=== PATIENT | male | born 1955 | race Caucasian/White ===

== ENCOUNTER → 2016-12-07 | Outpatient (CLI) | payer BC ==
--- NOTE | 2016-12-07 16:26 | CT ---
EXAMINATION TYPE: CT chest wo con DATE OF EXAM: 12/07/2016 COMPARISON: Previous study dated 12/26/2013. HISTORY: SOB AND COPD CT DLP: 730 mGycm. Automated Exposure Control for Dose Reduction was Utilized. TECHNIQUE: CT scan of the thorax is performed without IV contrast. FINDINGS: There are emphysematous changes throughout the lungs. There is a stable 6 mm lesion along t he major fissure on the right, best seen on image 36. There are several calcified granulomas at the r ight lung base. There is a stable 7.9 mm lesion in the lateral aspect of the superior segment of the left lower lobe, best seen on image 35. No other definite pulmonary nodules are seen. There is no significant axillary adenopathy. There are shotty mediastinal adenopathy. There is no pat hologically enlarged lymph nodes. There are calcified subcarinal lymph nodes as well as right hilar l ymph nodes. There is no pleural or pericardial fluid. The heart is not enlarged. There is coronary artery and oth er vascular calcifications. There is evidence of old granulomatous disease in the spleen. Visualized portions of the upper abdome n are otherwise unremarkable. There is hypertrophic spondylosis within the spine. IMPRESSION: 1. STABLE, BILATERAL PULMONARY NODULES. 2. EVIDENCE OF OLD GRANULOMATOUS DISEASE INVOLVING THE LUNGS AND SPLEEN. 3. EMPHYSEMATOUS CHANGES WITHIN THE LUNGS. 4. DEGENERATIVE CHANGES WITHIN THE SPINE.
--- NOTE | 2016-12-08 10:29 | ECHOF ---
Referral Reason:R22.2 Chest Mass, R06.02 shortness of breath MEASUREMENTS -------- HEIGHT: 180.3 cm WEIGHT: 104.3 kg BP: 150/78 RVIDd: 3.6 cm (< 3.3) IVSd: 1.2 cm (0.6 - 1.1) LVIDd: 5.0 cm (3.9 - 5.3) LVPWd: 1.2 cm (0.6 - 1.1) IVSs: 2.0 cm LVIDs: 2.7 cm LVPWs: 2.0 cm LAESV Index (A-L): 22.26 ml/m Ao Diam: 4.0 cm (2.0 - 3.7) AV Cusp: 2.2 cm (1.5 - 2.6) LA Diam: 3.9 cm (2.7 - 3.8) MV EXCURSION: 23.080 mm (> 18.000) MV EF SLOPE: 118 mm/s (70 - 150) EPSS: 0.5 cm MV E Abdullahi: 0.62 m/s MV DecT: 343 ms MV A Abdullahi: 0.79 m/s MV E/A Ratio: 0.79 FINDINGS -------- Sinus rhythm. This was a technically adequate study. There is mild concentric left ventricular hypertrophy. Overall left ventricular systolic function is normal with, an EF between 55 - 60 %. The right ventricle is normal in size and function. Normal LA size by volume 22+/-6 ml/m2. The right atrium is normal in size. Aortic valve is trileaflet and is mildly thickened. There is no evidence of aortic regurgitation. There is no evidence of aortic stenosis. The mitral valve is normal. There is trace to mild mitral regurgitation. Trace tricuspid regurgitation present. There is no evidence of pulmonary hypertension. The right ventricular systolic pressure, as measured by Doppler, is {RVSP}. The pulmonic valve was not well visualized. The aortic root size is normal. Normal inferior vena cava with normal inspiratory collapse consistent with estimated right atrial pressure of 5 mmHg. The pericardium is normal. There is no pericardial effusion. CONCLUSIONS -------- 1. Sinus rhythm. 2. The right ventricular systolic pressure, as measured by Doppler, is {RVSP}. 3. The pulmonic valve was not well visualized. 4. The aortic root size is normal. 5. There is no pericardial effusion. 6. This was a technically adequate study. 7. There is mild concentric left ventricular hypertrophy. 8. Overall left ventricular systolic function is normal with, an EF between 55 - 60 %. 9. Normal LA size by volume 22+/-6 ml/m2. 10. Aortic valve is trileaflet and is mildly thickened. 11. There is trace to mild mitral regurgitation. 12. Trace tricuspid regurgitation present. 13. There is no evidence of pulmonary hypertension. REPORTING ANALYST: Diony Slater RDCS
== END | disposition home or self-care (01) ==
LOC: RADCTMAIN 15:59
PROVIDERS: ATTEND Family Medicine
DX: J43.9 Emphysema, unspecified (principal); R91.8 Other nonspecific abnormal finding of lung field; I08.3 Combined rheumatic disorders of mitral, aortic and tricuspid valves
CPT/HCPCS: 71250; 93306

== ENCOUNTER → 2017-06-07 | Outpatient (CLI) | payer BC ==
--- NOTE | 2017-06-07 15:04 | NM ---
EXAMINATION TYPE: NM hepatobiliary w EF DATE OF EXAM: 06/07/2017 COMPARISON: NONE INDICATION: Abdomen pain TECHNIQUE: After the intravenous administration of 5.4 mCi Tc 99m Mebrofenin hepatobiliary scintigrap hy is performed. Images were obtained immediately post injection. FINDINGS: There is prompt uptake and excretion of radiotracer by the liver. Extrahepatic ducts are identified at 19 minutes. The gallbladder is visualized within 22 minutes. Small bowel activity is noted within 60 minutes. At one hour 8 ounces of oral ensure plus is given to mimic CCK and gallbladder ejection fraction is c alculated at 90 %, which is in the hyperkinesia range. (Normal >35% and <80%.). IMPRESSION: 1. Biliary hyperkinesia.
== END | disposition home or self-care (01) ==
LOC: RADNMMAIN 12:30
PROVIDERS: ATTEND Family Medicine
DX: K82.8 Other specified diseases of gallbladder (principal); R10.9 Unspecified abdominal pain
CPT/HCPCS: 78226; A9537

== ENCOUNTER 2017-07-25 06:37 | Day surgery (SDC) | payer BC ==
[~2017-07-25 06:37] MED LIST: DEXAMETHASONE SOD PHOSPHATE 10 MG/ML 1 ML VIAL IV ONE; HEPARIN SODIUM,PORCINE 5,000 UNIT/ML 1 ML VIAL SQ ONE; LIDOCAINE 1% 20 ML VIAL (10MG/ML) FOR IV START INTRADERMA PRN; ONDANSETRON 4 MG/2 ML VIAL IVP ONE; SCOPOLAMINE 1.5MG/72HR PATCH TRANSDERM ONE; ceFAZolin IN SWFI 2 GM/20 ML SYRINGE IVP ONE
[2017-07-25 07:18] VITALS: RESP 16
[2017-07-25] MEDS: LACTATED RINGERS 1,000 ML IV SCH ×2 (07:19→09:49)
--- NOTE | 2017-07-25 07:53 | P.GSHP ---
History of Present Illness H&P Date: 07/25/17 Chief Complaint: Upper quadrant pain, umbilical hernia This is a 62-year-old male for from Dr. Andres Torres. Patient presents today for laparoscopic ostectomy and repair of umbilical hernia. The patient had a recent HIDA scan which showed abnormal ejection fraction. Past Medical History Past Medical History: Asthma, COPD, GERD/Reflux, Pneumonia History of Any Multi-Drug Resistant Organisms: None Reported Past Surgical History: Appendectomy, Orthopedic Surgery Additional Past Surgical History / Comment(s): KNEE (SPOUSE NOT SURE WHICH SIDE) Past Anesthesia/Blood Transfusion Reactions: No Reported Reaction Past Psychological History: No Psychological Hx Reported Smoking Status: Former smoker Additional Past Alcohol Use History / Comment(s): QUIT 2016, 1.5 PPD, SINCE HE WAS 19 YR. - Past Family History Mother Family Medical History: Cancer Sister(s) Family Medical History: Cancer Medications and Allergies Home Medications Medication Instructions Recorded Confirmed Type Albuterol Sulfate [Proair Hfa] 1 - 2 puff INHALATION Q6HR PRN 06/09/17 07/25/17 History Levalbuterol Nebulized [Xopenex 1.25 mg INHALATION QID 06/09/17 07/25/17 History Nebulized] Multivit-Min/FA/Lycopen/Lutein 1 each PO DAILY 06/09/17 07/25/17 History [Centrum Silver Men Tablet] Omeprazole [Omeprazole] 20 mg PO HS 06/09/17 07/25/17 History Roflumilast [Daliresp] 500 mcg PO HS 06/09/17 07/25/17 History Tiotropium [place] [Spiriva] 1 dose INHALATION 06/09/17 07/25/17 History C,E,Zinc,Copper 11/Qkxsq9y/Lut 1 tab PO DAILY 07/21/17 07/25/17 History [Ocuvite Adult 50 Plus Softgel] Cider Vinegar [Apple Cider Vinegar] 1 tab PO DAILY 07/21/17 07/25/17 History Allergies Allergy/AdvReac Type Severity Reaction Status Date / Time No Known Allergies Allergy Verified 07/25/17 07:10 Surgical - Exam Vital Signs Temp Pulse Resp BP Pulse Ox 97.7 F 74 16 148/80 93 L 07/25/17 07:15 07/25/17 07:15 07/25/17 07:15 07/25/17 07:15 07/25/17 07:15 - General well developed, no distress - Eyes PERRL - ENT normal pinna - Neck no masses - Respiratory normal expansion - Cardiovascular Rhythm: regular - Abdomen Abdomen: soft, non tender Hernia: umbilical (Reducible) Assessment and Plan Assessment: Chronic cholecystitis Abnormal HIDA scan Umbilical hernia We'll perform laparoscopic ostectomy with repair of umbilical hernia.
[2017-07-25] MEDS ORDERED: GLYCOPYRROLATE 0.2 MG/ML 2 ML VIAL ONE (07:58)
[2017-07-25] MEDS ORDERED: SUCCINYLCHOLINE CHLORIDE 100 MG/5 ML SYR IV ONE (07:58)
[2017-07-25] MEDS ORDERED: LIDOCAINE 1% INJ 10MG/ML (20 ML MDV) ONE (07:58)
[2017-07-25] MEDS ORDERED: fentaNYL (PF) 50 MCG/ML 2 ML AMP ONE (07:58)
[2017-07-25] MEDS ORDERED: PROPOFOL 10 MG/ML 20 ML VIAL IV ONE (07:58)
[2017-07-25] MEDS ORDERED: ROCURONIUM BROMIDE 10 MG/ML 10 ML VIAL IV ONE (07:58)
[2017-07-25] MEDS ORDERED: KETOROLAC 30 MG/ML 1 ML VIAL ONE (07:58)
[2017-07-25] MEDS ORDERED: NEOSTIGMINE 1 MG/ML 10 ML VIAL ONE (07:58)
[2017-07-25] MEDS ORDERED: MIDAZOLAM 2 MG/2 ML VIAL ONE (07:58)
[2017-07-25] MEDS ORDERED: BUPIVACAINE (PF) 0.5% 30 ML VIAL SQ ONE (08:14)
[2017-07-25] MEDS ORDERED: BUPIVACAINE (PF) 0.25% 30 ML VIAL SQ ONE ×2 (08:14)
[2017-07-25 08:53] VITALS: TEMP 97
[2017-07-25] MEDS: HYDROmorphone 0.5 MG/0.5 ML SYRINGE IVP PRN ×2 (09:00→09:11)
--- NOTE | 2017-07-25 09:43 | P.OP ---
Date of Procedure: 07/25/17 Preoperative Diagnosis: cholecystitis Postoperative Diagnosis: Cholecystitis Procedure(s) Performed: laproscopic cholecytectomy Anesthesia: YAIR Surgeon: Virgil Chaney Estimated Blood Loss (ml): 5 Pathology: other (Gallbladder) Condition: stable Disposition: PACU Description of Procedure: The patient was placed on the operating table. The patient received a general endotracheal tube anesthesia. The patients abdomen was prepped and draped in the usual sterile fashion. Through an infraumbilical stab incision, the fascia of the anterior abdominal wall was grasped with a pair of Kochers and then the Veress needle was placed in the peritoneal cavity. Position of the Veress needle was confirmed with positive drop test. The abdomen was then insufflated. After adequate insufflation, the 10 mm trocar was placed in the peritoneal cavity. Following this the laparoscope was placed in the peritoneal cavity. The patient was placed in the head-up, right side up position and then a 5 mm trocar was placed in the right lateral and right subcostal position under direct visualization. A 8 mm trocar was placed in the epigastric position. The gallbladder was grasped in the fundus and infundibulum. Traction on the gallbladder was placed in the lateral and the cephalad positions. The triangle of Calot was visualized.. The cystic duct was bluntly dissected until the union of the cystic duct and common bile duct was seen. The cystic duct was then divided and sealed with the Harmonic scissors. A PDS Endoloop was then placed throughout the cystic duct stump. The cystic artery divided and sealed with the Harmonic scissors. The gallbladder was then removed from the liver bed using Harmonic scissors. The gallbladder was then extracted through the epigastric port site. Operative field was checked for any bleeding spots and Harmonic scissors was used to coagulate the liver bed. The abdomen was irrigated. The trocars were removed. The skin was closed using interrupted 3-0 Vicryl suture. Dermabond dressing were applied. The patient tolerated the procedure well.
[2017-07-25] MEDS ORDERED: HYDROcodone/APAP 7.5-325MG 1 EACH TAB PO ONE (10:03)
[2017-07-25 10:51] VITALS: BP 131/73; PULSE 58
== END 2017-07-25 11:20 | disposition home or self-care (01) ==
LOC: OR 06:37
PROVIDERS: ATTEND Surgery
DX: K81.1 Chronic cholecystitis (principal); K42.9 Umbilical hernia without obstruction or gangrene; J44.9 Chronic obstructive pulmonary disease, unspecified; K21.9 Gastro-esophageal reflux disease without esophagitis; Z87.891 Personal history of nicotine dependence; Z79.899 Other long term (current) drug therapy
CPT/HCPCS: 88304; 47562; J2250; J1644; J1100; J2710; J2405; J2001; J3010; J1885; J0330; J2704; J1170; J0690

== ENCOUNTER 2017-08-01 15:28 | Emergency (ER) | payer BC ==
[2017-08-01 16:22] LABS: Basophils # (A) 0.1 k/uL (0-0.2); Basophils % (A) 0 %; Eosinophils # (A) 0.3 k/uL (0-0.7); Eosinophils % (A) 2 %; HCT 48.1 % (39.0-53.0); HGB 16.1 gm/dL (13.0-17.5); Lymphocytes # (A) 1.2 k/uL (1.0-4.8); Lymphocytes % (A) 7 %; MCH 28.4 pg (25.0-35.0); MCHC 33.5 g/dL (31.0-37.0); MCV 84.7 fL (80.0-100.0); Mean Platelet Volume 6.7; Monocytes # (A) 0.9 k/uL (0-1.0); Monocytes % (A) 5 %; Neutrophils # (A) 14.8 k/uL (1.3-7.7); Neutrophils % (A) 85 %; Platelet Count 274 k/uL (150-450); RBC 5.67 m/uL (4.30-5.90); RDW 13.4 % (11.5-15.5); WBC 17.4 k/uL (3.8-10.6)
[2017-08-01 16:35] LABS: ALT 34 U/L (21-72); AST 18 U/L (17-59); Albumin 4.4 g/dL (3.5-5.0); Alkaline Phosphatase 100 U/L (38-126); Amylase 42 U/L (30-110); Anion Gap 11 mmol/L; Blood Urea Nitrogen 23 mg/dL (9-20); Calcium 9.9 mg/dL (8.4-10.2); Carbon Dioxide 29 mmol/L (22-30); Chloride 101 mmol/L (98-107); Glucose 138 mg/dL (74-99); Lipase 50 U/L (23-300); Potassium 4.1 mmol/L (3.5-5.1); Sodium 141 mmol/L (137-145); Total Bilirubin 0.8 mg/dL (0.2-1.3); Total Protein 7.3 g/dL (6.3-8.2)
[2017-08-01] MEDS ORDERED: ONDANSETRON 4 MG/2 ML VIAL IVP STA (16:57)
[2017-08-01] MEDS ORDERED: MORPHINE SULFATE 4 MG/ML SYRINGE IV STA (16:57)
[2017-08-01] MEDS ORDERED: SODIUM CHLORIDE 0.9% 1,000 ML IV STA (16:57)
--- NOTE | 2017-08-01 17:02 | ED ---
General Adult HPI - General Chief complaint: Abdominal Pain Stated complaint: Abd Pain Time Seen by Provider: 08/01/17 16:51 Source: patient, RN notes reviewed Mode of arrival: ambulatory Limitations: no limitations - History of Present Illness Initial comments: Patient's a 22-year-old male who presents emergency room today with chief complaint of abdominal pain. Patient does admit to a cholecystectomy and hernia repair times one week. Patient states that he's had only one bowel movement since surgery. He does not that he has passed some gas. Patient does admit that his abdomen feels more full. Patient currently rates pain 8/10. Denies any other complaints or symptoms. States pain is located lower abdomen. Patient denies any recent fever, chills, shortness of breath, chest pain, back pain, numbness or tingling, dysuria or hematuria, constipation or diarrhea, headaches or visual changes, or any other complaints. - Related Data Home Medications Medication Instructions Recorded Confirmed Albuterol Sulfate [Proair Hfa] 1 - 2 puff INHALATION RT-Q6H PRN 06/09/17 Levalbuterol Nebulized [Xopenex 1.25 mg INHALATION RT-QID 06/09/17 08/01/17 Nebulized] Multivit-Min/FA/Lycopen/Lutein 1 tab PO DIRECTED 06/09/17 08/01/17 [Centrum Silver Men Tablet] Omeprazole [Omeprazole] 20 mg PO DAILY 06/09/17 08/01/17 Roflumilast [Daliresp] 500 mcg PO DIRECTED 06/09/17 08/01/17 Tiotropium [place] [Spiriva] 1 puff INHALATION RT-HS 06/09/17 08/01/17 C,E,Zinc,Copper 11/Kdpmn1f/Lut 1 tab PO DIRECTED 07/21/17 08/01/17 [Ocuvite Adult 50 Plus Softgel] Polyethylene Glycol 3350 [Miralax] 17 gm PO DAILY PRN 08/01/17 08/01/17 Previous Rx's Medication Instructions Recorded Docusate [Colace] 100 mg PO BID #20 capsule 07/25/17 Allergies Allergy/AdvReac Type Severity Reaction Status Date / Time No Known Allergies Allergy Verified 08/01/17 17:08 Review of Systems ROS Statement: Those systems with pertinent positive or pertinent negative responses have been documented in the HPI. ROS Other: All systems not noted in ROS Statement are negative. Past Medical History Past Medical History: Asthma, COPD, GERD/Reflux, Pneumonia History of Any Multi-Drug Resistant Organisms: None Reported Past Surgical History: Appendectomy, Cholecystectomy, Hernia Repair, Orthopedic Surgery Additional Past Surgical History / Comment(s): KNEE (SPOUSE NOT SURE WHICH SIDE) Past Anesthesia/Blood Transfusion Reactions: No Reported Reaction Past Psychological History: No Psychological Hx Reported Smoking Status: Former smoker Past Alcohol Use History: None Reported Past Drug Use History: None Reported - Past Family History Mother Family Medical History: Cancer Sister(s) Family Medical History: Cancer General Exam - General Exam Comments Initial Comments: General: The patient is awake and alert, in no distress, and does not appear acutely ill. Eye: Pupils are equal, round and reactive to light, extra-ocular movements are intact. No nystagmus. There is normal conjunctiva bilaterally. No signs of icterus. Ears, nose, mouth and throat: There are moist mucous membranes and no oral lesions. Neck: The neck is supple, there is no tenderness or JVD. Cardiovascular: There is a regular rate and rhythm. No murmur, rub or gallop is appreciated. Respiratory: Lungs are clear to auscultation, respirations are non-labored, breath sounds are equal. No wheezes, stridor, rales, or rhonchi. Gastrointestinal: Incision sites seem to be healing well. Mild bruising locally. Patient does have tenderness in the right lower quadrant and also left upper quadrant. No rebound tenderness. No guarding. No CVA tenderness. Musculoskeletal: Normal ROM, no tenderness. Strength 5/5. Sensation intact. Pulses equal bilaterally 2+. Neurological: A&O x 3. CN II-XII intact, There are no obvious motor or sensory deficits. Coordination appears grossly intact. Speech is normal. Skin: Skin is warm and dry and no rashes or lesions are noted. Psychiatric: Cooperative, appropriate mood & affect, normal judgment. Limitations: no limitations Course Vital Signs 08/01/17 08/01/17 08/01/17 15:43 18:18 19:00 Temperature 98.2 F 98.3 F Pulse Rate 94 83 83 Respiratory 18 20 18 Rate Blood Pressure 169/85 183/81 168/86 O2 Sat by Pulse 95 100 95 Oximetry Medical Decision Making - Medical Decision Making Patient's labs been reviewed shows 17,000 white count. Patient did have recent surgery of cholecystectomy and hernia repair. Patient CT of the abdomen and pelvis reviewed does show mildly dilated large bowel with fluid filled and fecal material consistent with diarrhea. No evidence of obstruction. Patient was given enema here in emergency room. Was able have bowel movement is feeling better. Will be discharged home. Advised follow-up with surgeon or return to emergency room symptoms increase or worsen. - Lab Data Result diagrams: 08/01/17 16:13 08/01/17 16:13 Lab Results 08/01/17 08/01/17 08/01/17 Range/Units 16:13 16:13 17:27 WBC 17.4 H (3.8-10.6) k/uL RBC 5.67 (4.30-5.90) m/uL Hgb 16.1 (13.0-17.5) gm/dL Hct 48.1 (39.0-53.0) % MCV 84.7 (80.0-100.0) fL MCH 28.4 (25.0-35.0) pg MCHC 33.5 (31.0-37.0) g/dL RDW 13.4 (11.5-15.5) % Plt Count 274 (150-450) k/uL Neutrophils % 85 % Lymphocytes % 7 % Monocytes % 5 % Eosinophils % 2 % Basophils % 0 % Neutrophils # 14.8 H (1.3-7.7) k/uL Lymphocytes # 1.2 (1.0-4.8) k/uL Monocytes # 0.9 (0-1.0) k/uL Eosinophils # 0.3 (0-0.7) k/uL Basophils # 0.1 (0-0.2) k/uL Sodium 141 (137-145) mmol/L Potassium 4.1 (3.5-5.1) mmol/L Chloride 101 (98-107) mmol/L Carbon Dioxide 29 (22-30) mmol/L Anion Gap 11 mmol/L BUN 23 H (9-20) mg/dL Creatinine 0.90 (0.66-1.25) mg/dL Est GFR (MDRD) Af Amer >60 (>60 ml/min/1.73 sqM) Est GFR (MDRD) Non-Af >60 (>60 ml/min/1.73 sqM) Glucose 138 H (74-99) mg/dL Plasma Lactic Acid Rian 1.0 (0.7-2.0) mmol/L Calcium 9.9 (8.4-10.2) mg/dL Total Bilirubin 0.8 (0.2-1.3) mg/dL AST 18 (17-59) U/L ALT 34 (21-72) U/L Alkaline Phosphatase 100 (38-126) U/L Total Protein 7.3 (6.3-8.2) g/dL Albumin 4.4 (3.5-5.0) g/dL Amylase 42 (30-110) U/L Lipase 50 (23-300) U/L Disposition Clinical Impression: Postoperative abdominal pain Disposition: HOME SELF-CARE Condition: Good Instructions: Constipation (ED) Additional Instructions: Please use medication as discussed. Please follow-up with surgeon/family doctor in the next 2 days of symptoms have not improved. Please return to emergency room if the symptoms increase or worsen or for any other concerns. Referrals: Andres Torres DO [Primary Care Provider] - 1-2 days Virgil Chaney MD [STAFF PHYSICIAN] - 1-2 days Time of Disposition: 20:14
[2017-08-01] MEDS ORDERED: RX INFO: IV CONTRAST WAS GIVEN 1 EACH MISC MISCELLANE PRN (17:12)
--- NOTE | 2017-08-01 18:49 | CT ---
EXAMINATION TYPE: CT abdomen pelvis w con DATE OF EXAM: 08/01/2017 COMPARISON: 05/11/2016 HISTORY: Hernia repair and cholecystectomy 1 week ago. Constipation, abdominal pain and nausea and vo miting. CT DLP: 1648 mGycm Automated exposure control for dose reduction was used. TECHNIQUE: Helical acquisition of images was performed from the lung bases through the pelvis. CONTRAST: Performed without Oral Contrast and with IV Contrast, patient injected with 100 mL of Omnipaque 350. FINDINGS: Lung bases are clear of consolidation. There is a 1.5 cm calcified granuloma in the right lower lobe. There is no pleural effusion. Heart size is normal. Liver shows no focal defect. There are multiple calcified splenic granulomata. Pancreas appears kali l. There are clips from cholecystectomy. The bile ducts are not dilated. There is no adrenal mass. Kidneys show satisfactory contrast opacification. There is no hydronephrosi s. There is no retroperitoneal adenopathy. There is no ascites. There are multiple gas-filled distend ed large bowel loops with fluid levels and fecal material. There is minimal fluid in the left paracolic gutter. There is a tiny amount of free fluid in the pelv is. Bladder distends smoothly. There are fluid levels in the rectum. There is no sign of free air. Th ere are spondylotic changes in the lumbar spine. There is no sign of appendicitis. Appendix appears n ormal. There is no sign of appendicitis. IMPRESSION: HEALED GRANULOMATOUS DISEASE. MILDLY DILATED LARGE BOWEL WITH FLUID LEVELS AND FECAL MATERIAL CONSISTENT WITH DIARRHEA AND ILEUS. T HIS APPEARS NEW COMPARED TO OLD EXAM. MINIMAL ASCITES FLUID. I DO NOT SEE EVIDENCE FOR MECHANICAL BOW EL OBSTRUCTION.
[2017-08-01] MEDS ORDERED: MORPHINE SULFATE 4 MG/ML SYRINGE IVP STA (19:08)
[2017-08-01 20:24] VITALS: BP 177/93; PULSE 85; RESP 20; TEMP 97.9
== END 2017-08-01 20:31 | disposition home or self-care (01) ==
LOC: EC 15:28
DX: G89.18 Other acute postprocedural pain (principal); R10.30 Lower abdominal pain, unspecified; R14.3 Flatulence; K21.9 Gastro-esophageal reflux disease without esophagitis; J44.9 Chronic obstructive pulmonary disease, unspecified; Z87.891 Personal history of nicotine dependence; Z79.899 Other long term (current) drug therapy; Z90.49 Acquired absence of other specified parts of digestive tract
CPT/HCPCS: 36415; 80053; 82150; 83605; 83690; 85025; 74177; 99284; 96374; 96375; 96376; 96361; J2270; Q9967; J2405

== ENCOUNTER → 2018-06-21 | Outpatient (CLI) | payer BC ==
--- NOTE | 2018-06-21 13:57 | CT ---
EXAMINATION TYPE: CT abdomen wo/w con DATE OF EXAM: 06/21/2018 COMPARISON: CT abdomen pelvis August 01, 2017 HISTORY: History of hernia repair surgery and diverticulitis presents with abdominal pain CT DLP: 1812 mGycm, Automated Exposure Control for Dose Reduction was Utilized. CONTRAST: CT scan of the abdomen is performed with oral and without and with IV Contrast, patient injected with 100 mL of Isovue 300. FINDINGS: LUNG BASES: Scattered calcified nodules are granulomas throughout the right lower lobe are present. LIVER/GB: Gallbladder remains surgically absent. PANCREAS: No significant abnormality is seen. SPLEEN: Scattered calcifications throughout the spleen are again seen. Right lung is splenic findings are consistent with product of old granulomatous disease. ADRENALS: No significant abnormality is seen. KIDNEYS: No renal calculi on noncontrast CT. Postcontrast images show symmetric uptake and excretion without hydronephrosis bilaterally. BOWEL: Oral contrast does not reach colonic level. There is no suspicious small or large bowel dilata tion. LYMPH NODES: No greater than 1cm abdominal lymph nodes are appreciated. OSSEOUS STRUCTURES: Mild to moderate multilevel spurring in the visualized thoracolumbar spine is not ed OTHER: Small to moderate-sized left periumbilical hernia containing fat and tiny mesenteric vessels a xial image 51 is present. Mild to moderate mixed plaque throughout the abdominal aorta extends into b ranch vessels. IMPRESSION: No significant new or acute finding is seen to account for patient's clinical symptoms.
== END | disposition home or self-care (01) ==
LOC: RADCTMAIN 11:38
PROVIDERS: ATTEND Family Medicine
DX: R10.84 Generalized abdominal pain (principal); K57.90 Diverticulosis of intestine, part unspecified, without perforation or abscess without bleeding
CPT/HCPCS: 74170; Q9967

== ENCOUNTER 2018-07-12 08:48 | Day surgery (SDC) | payer BC ==
[~2018-07-12 08:48] MED LIST changes: -DEXAMETHASONE SOD PHOSPHATE 10 MG/ML 1 ML VIAL IV ONE; -HEPARIN SODIUM,PORCINE 5,000 UNIT/ML 1 ML VIAL SQ ONE; +LACTATED RINGERS 1,000 ML IV SCH; -LIDOCAINE 1% 20 ML VIAL (10MG/ML) FOR IV START INTRADERMA PRN; -ONDANSETRON 4 MG/2 ML VIAL IVP ONE; -SCOPOLAMINE 1.5MG/72HR PATCH TRANSDERM ONE; -ceFAZolin IN SWFI 2 GM/20 ML SYRINGE IVP ONE
[2018-07-12] MEDS ORDERED: LIDOCAINE 1% 20 ML VIAL (10MG/ML) FOR IV START INTRADERMA ONE (09:47)
[2018-07-12 09:54] VITALS: TEMP 96.9
[2018-07-12] MEDS ORDERED: PROPOFOL 10 MG/ML 20 ML VIAL IV ONE (10:15)
--- NOTE | 2018-07-12 10:42 | P.PCN ---
Date of Procedure: 07/12/18 Procedure(s) Performed: Brief history: Patient is a pleasant 63-year-old white male, scheduled for an elective upper endoscopy as well as colonoscopy as a part of evaluation of GERD and recent episode of acute diverticulitis. Procedure performed: Esophagogastroduodenoscopy with biopsy Colonoscopy with snare polypectomy Preoperative diagnosis: GERD Recent episode of acute diverticulitis Anesthesia: MAC Procedure: After informed consent was obtained from the patient was brought into the endoscopy unit and IV sedation was administered by anesthesia under continuous monitoring. Initially upper endoscopy was done. The Olympus GF 160 video endoscope was inserted inserted into the mouth and esophagus intubated without any difficulty and was gradually advanced into the stomach and duodenum and carefully examined. The bulb and second part of the duodenum appeared normal. The scope was then withdrawn into the stomach adequately insufflated with air and upon careful examination the antrum had scattered erosions and biopsies were done from this area. The body, cardia and fundus appeared normal. The scope was then withdrawn into the esophagus. The GE junction was located at 40 cm to the incisors. It appeared regular with no erythema erosions or ulcerations. Rest of the esophagus appeared normal. Patient tolerated the procedure well. At this time the patient continued to remain sedation. Initial digital rectal examination was normal. Olympus CF 160 video colonoscope was then inserted into the rectum and gradually advanced to the cecum without any difficulty. Careful examination was performed as the scope was gradually being withdrawn. The prep was excellent. The cecum, ascending colon, transverse colon, descending colon, sigmoid colon and rectum appeared normal. In the proximal rectum there was a 1 cm polyp removed by snare polypectomy. Retroflexion was performed in the rectum and monitor hemorrhoids were noted. Scattered sigmoid diverticulosis seen. Patient tolerated the procedure well. Impression: 1. Upper endoscopy revealed mild antral gastritis but no evidence of esophagitis or Liu's esophagus 2. Colonoscopy revealed 1 cm proximal rectal polyp status post snare polypectomy, scattered sigmoid diverticulosis and small internal hemorrhoids Recommendations: Findings of this examination were discussed with the patient as well as his family. He was advised to follow with the biopsy results. He was advised to continue with Prilosec 20 mg daily and follow antireflux measures. If the biopsy of the colon polyp shows adenoma, he can have a repeat colonoscopy in 3- 5 years
[2018-07-12 10:58] VITALS: RESP 16
[2018-07-12] MEDS ORDERED: ACETAMINOPHEN TAB 500 MG TAB PO ONE (11:09)
[2018-07-12 11:18] VITALS: BP 169/82; PULSE 58
== END 2018-07-12 11:38 | disposition home or self-care (01) ==
LOC: ORWHC2ENDO 08:48
PROVIDERS: ATTEND Internal Medicine Gastroenterology
DX: K21.9 Gastro-esophageal reflux disease without esophagitis (principal); K29.60 Other gastritis without bleeding; D12.8 Benign neoplasm of rectum; K57.30 Diverticulosis of large intestine without perforation or abscess without bleeding; K64.8 Other hemorrhoids; B96.81 Helicobacter pylori [H. pylori] as the cause of diseases classified elsewhere
CPT/HCPCS: 88305; 88342; 45385; 43239; J2704

== ENCOUNTER → 2018-08-11 | Outpatient (CLI) | payer BC ==
[2018-08-11 09:37] LABS: HCT 46.9 % (39.0-53.0); HGB 15.7 gm/dL (13.0-17.5); MCH 28.9 pg (25.0-35.0); MCHC 33.6 g/dL (31.0-37.0); Mean Platelet Volume 6.4; Platelet Count 219 k/uL (150-450); RBC 5.45 m/uL (4.30-5.90); WBC 8.3 k/uL (3.8-10.6)
[2018-08-11 10:12] LABS: Albumin 4.5 g/dL (3.5-5.0); Calcium 9.7 mg/dL (8.4-10.2); Potassium 5.1 mmol/L (3.5-5.1); Total Bilirubin 0.6 mg/dL (0.2-1.3); Total Protein 7.3 g/dL (6.3-8.2)
[2018-08-11 10:25] LABS: T4, Free (Free Thyroxine) 1.36 ng/dL (0.78-2.19)
[2018-08-11 14:38] LABS: Appearance,Urine Clear (Clear); Bilirubin,Urine Negative (Negative); Blood,Urine Negative (Negative); Color,Urine Yellow; Glucose,Urine (UA) Negative (Negative); Ketones,Urine Negative (Negative); Leukocyte Esterase,Urine Negative (Negative); Nitrite,Urine Negative (Negative); Protein,Urine Negative (Negative); Specific Gravity,Urine 1.018 (1.001-1.035); Urobilinogen,Urine <2.0 mg/dL (<2.0)
--- NOTE | 2018-08-11 17:56 | US ---
EXAMINATION TYPE: US venous doppler duplex LE BI DATE OF EXAM: 08/11/2018 2:45 PM COMPARISON: NONE CLINICAL HISTORY: I73.9 PAD. SIDE PERFORMED: Bilateral TECHNIQUE: The lower extremity deep venous system is examined utilizing real time linear array sonog audra with graded compression, doppler sonography and color-flow sonography. VESSELS IMAGED: External Iliac Vein (EIV) Common Femoral Vein Deep Femoral Vein Greater Saphenous Vein * Femoral Vein Popliteal Vein Small Saphenous Vein * Proximal Calf Veins (* superficial vessels) Right Leg: Negative for DVT Left Leg: Negative for DVT IMPRESSION: 1. Bilateral lower extremity ultrasound negative for deep venous thrombosis.
[2018-08-11 19:43] LABS: Hemoglobin A1C 5.6 % (4.0-6.0)
== END | disposition home or self-care (01) ==
LOC: RADUSWWP 09:12
PROVIDERS: ATTEND Family Medicine
DX: I73.9 Peripheral vascular disease, unspecified (principal); E73.9 Lactose intolerance, unspecified; J44.0 Chronic obstructive pulmonary disease with (acute) lower respiratory infection; I10 Essential (primary) hypertension; G47.33 Obstructive sleep apnea (adult) (pediatric)
CPT/HCPCS: 80053; 80061; 81003; 83036; 84439; 84443; 85027; 93923; 93970

== ENCOUNTER → 2018-12-18 | Outpatient (CLI) | payer BC ==
--- NOTE | 2018-12-19 00:41 | XR ---
EXAMINATION TYPE: XR chest 2V DATE OF EXAM: 12/18/2018 COMPARISON: 08/15/2013 HISTORY: 63-year-old male COPD exacerbation TECHNIQUE: Frontal and lateral views FINDINGS: Heart normal size. Atherosclerotic arch calcifications. Hyperinflation with flattening of the hemidia phragms and strandy left basilar atelectasis. No consolidation or pleural effusion. IMPRESSION: COPD and some strandy left basilar atelectasis. Otherwise, no acute process seen.
== END | disposition home or self-care (01) ==
LOC: RADXRMAIN 17:08
PROVIDERS: ATTEND Family Medicine
DX: J44.9 Chronic obstructive pulmonary disease, unspecified (principal); J98.11 Atelectasis
CPT/HCPCS: 71046

== ENCOUNTER → 2019-01-11 | Outpatient (CLI) | payer BC | END | disposition home or self-care (01) | LOC: LABWHC1 08:39 | PROVIDERS: ATTEND Family Medicine | DX: J44.9 Chronic obstructive pulmonary disease, unspecified (principal) | CPT/HCPCS: 87070; 87205 ==

== ENCOUNTER 2019-07-07 17:31 | Inpatient (IN) | payer BC ==
[2019-07-07] MEDS ORDERED: ACETAMINOPHEN TAB 500 MG TAB PO STA (17:40)
[2019-07-07] MEDS: SODIUM CHLORIDE 0.9% 500 ML 500 ML IV SCH ×2 (17:50→17:51)
[2019-07-07 17:56] LABS: Basophils # (A) 0.3 k/uL (0-0.2); Basophils % (A) 1 %; Eosinophils # (A) 0.3 k/uL (0-0.7); Eosinophils % (A) 1 %; HGB 13.9 gm/dL (13.0-17.5); Lymphocytes # (A) 1.2 k/uL (1.0-4.8); Lymphocytes % (A) 5 %; MCH 29.2 pg (25.0-35.0); MCV 85.9 fL (80.0-100.0); Mean Platelet Volume 7.2; Monocytes # (A) 1.1 k/uL (0-1.0); Monocytes % (A) 5 %; Neutrophils # (A) 18.8 k/uL (1.3-7.7); Neutrophils % (A) 86 %; Platelet Count 220 k/uL (150-450); RBC 4.77 m/uL (4.30-5.90); RDW 13.7 % (11.5-15.5); WBC 21.9 k/uL (3.8-10.6)
[2019-07-07 18:04] LABS: INR 1.1 (<1.2); Partial Thromboplastin Time 25.1 sec (22.0-30.0); Prothrombin Time 11.3 sec (9.0-12.0)
--- NOTE | 2019-07-07 18:14 | XR ---
EXAMINATION TYPE: XR chest 2V DATE OF EXAM: 07/07/2019 COMPARISON: 12/18/2018 HISTORY: COPD TECHNIQUE: 2 views FINDINGS: Heart is normal. Lungs are clear of consolidation. There are no hilar masses. There are sma ll calcified granuloma left lower lobe. There are chest leads. Bony thorax is intact. IMPRESSION: No active cardiopulmonary disease. No change.
[2019-07-07 18:16] LABS: ALT 38 U/L (4-49); AST 28 U/L (17-59); African American GFR (CKD) >90 (>60 ml/min/1.73 sqM); Albumin 4.5 g/dL (3.5-5.0); Alkaline Phosphatase 91 U/L (38-126); Anion Gap 11 mmol/L; Blood Urea Nitrogen 13 mg/dL (9-20); Calcium 9.4 mg/dL (8.4-10.2); Carbon Dioxide 26 mmol/L (22-30); Chloride 100 mmol/L (98-107); Glucose 118 mg/dL (74-99); Non-African American GFR(CKD) >90 (>60 ml/min/1.73 sqM); Sodium 137 mmol/L (137-145); Total Bilirubin 1.3 mg/dL (0.2-1.3); Total Protein 7.4 g/dL (6.3-8.2)
--- NOTE | 2019-07-07 18:33 | ED ---
General Adult HPI - General Chief complaint: Shortness of Breath Stated complaint: Fever, JAN Time Seen by Provider: 07/07/19 17:39 Source: patient Mode of arrival: ambulatory Limitations: no limitations - History of Present Illness Initial comments: Dictation was produced using n[employer]AP dictation software. please excuse any grammatical, word or spelling errors. Chief Complaint: 64-year-old male past medical history of COPD presents with cough, nasal congestion History of Present Illness: 64-year-old male who has past medical history of COPD, asthma, pneumonia. Currently being treated with chronic steroids by his primary care physician for ongoing respiratory symptoms since of last year. States that he just completed a course of antibiotics. He's been on Bactrim and Augmentin for pneumonia in the past. Patient states that since yesterday been having fever and flulike symptoms. He has slight dyspnea and difficulty in breathing. Patient reports that a lot of his coworkers have been sick with similar symptoms. He's been told that he has low immunity because of his COPD. The ROS documented in this emergency department record has been reviewed and confirmed by me. Those systems with pertinent positive or negative responses have been documented in the HPI. All other systems are other negative and/or noncontributory. PHYSICAL EXAM: General Impression: Alert and oriented x3, not in acute distress HEENT: Normocephalic atraumatic, extra-ocular movements intact, pupils equal and reactive to light bilaterally, mucous membranes moist. Cardiovascular: Heart regular rate and rhythm, S1&S2 audible, no murmurs, rubs or gallops Chest: Mild lung wheezing Abdomen: Bowel sounds present, abdomen soft, non-tender, non-distended, no organomegaly Musculoskeletal: Pulses present and equal in all extremities, no peripheral edema Motor: no focal deficits noted Neurological: CN II-XII grossly intact, no focal motor or sensory deficits noted Skin: Intact with no visualized rashes Psych: Normal affect and mood ED course: 64 y Old male presents with flulike symptoms he has a history of COPD. Upon arrival shows tachycardia 102.0, heart rate of 103, 89% on room air. Laboratory evaluation obtained. Leukocytosis of 21.9. Pritchett whether this is from chronic steroid use or stress versus infection. Coag panel unremarkable. Metabolic panel is negative. Urinalysis is negative. Influenza is negative. Chest x-ray shows no acute processes. Patient does have localizing symptoms suggesting URI. Unclear whether this is viral versus early onset pneumonia without radiographic evidence. Given patient's history of COPD and initial oxygen of 89 with temperature and tachycardia believe patient would benefit from short inpatient admission for observation. Patient given a dose of Unasyn for presumed bacterial respiratory infection. Patient understandable agreeable to plan. Pending discussion with Dr. Ugalde who is organizational development director for patient's primary care physician EKG interpretation: Ventricular rate 96, normal sinus rhythm, AZ interval 136, QS 90, QTc 442. No AZ prolongation, no QTC prolongation, no ST or T-wave changes noted. Overall, this EKG is unremarkable - Related Data Home Medications Medication Instructions Recorded Confirmed Albuterol Sulfate [Proair Hfa] 1 - 2 puff INHALATION RT-Q6H PRN 06/09/17 07/12/18 Levalbuterol Nebulized [Xopenex 1.25 mg INHALATION RT-QID 06/09/17 07/12/18 Nebulized] Multivit-Min/FA/Lycopen/Lutein 1 tab PO DIRECTED 06/09/17 07/12/18 [Centrum Silver Men Tablet] Omeprazole 20 mg PO QAM 06/09/17 07/12/18 Tiotropium [place] [Spiriva] 1 puff INHALATION RT-HS 06/09/17 07/12/18 C,E,Zinc,Copper 11/Oflyz8l/Lut 1 tab PO DIRECTED 07/21/17 07/12/18 [Ocuvite Adult 50 Plus Softgel] Aclidinium [place] [Tudorza 1 puff INHALATION DAILY 07/10/18 07/12/18 Pressair] Tamsulosin HCl [Flomax] 0.4 mg PO DAILY 07/10/18 07/12/18 Allergies Allergy/AdvReac Type Severity Reaction Status Date / Time No Known Allergies Allergy Verified 07/12/18 09:41 Review of Systems ROS Statement: Those systems with pertinent positive or pertinent negative responses have been documented in the HPI. ROS Other: All systems not noted in ROS Statement are negative. Past Medical History Past Medical History: Asthma, COPD, GERD/Reflux, Pneumonia History of Any Multi-Drug Resistant Organisms: None Reported Past Surgical History: Appendectomy, Cholecystectomy, Hernia Repair, Orthopedic Surgery Additional Past Surgical History / Comment(s): KNEE (SPOUSE NOT SURE WHICH SIDE) Past Anesthesia/Blood Transfusion Reactions: No Reported Reaction Past Psychological History: No Psychological Hx Reported Smoking Status: Former smoker Past Alcohol Use History: None Reported Past Drug Use History: None Reported - Past Family History Mother Family Medical History: Cancer Sister(s) Family Medical History: Cancer General Exam Limitations: no limitations Course Vital Signs 07/07/19 07/07/19 17:33 17:38 Temperature 102.0 F H Pulse Rate 103 H Respiratory 18 24 Rate Blood Pressure 144/86 O2 Sat by Pulse 89 L Oximetry Medical Decision Making - Lab Data Result diagrams: 07/07/19 17:47 07/07/19 17:47 Lab Results 07/07/19 07/07/19 07/07/19 Range/Units 17:47 17:47 17:47 WBC 21.9 H (3.8-10.6) k/uL RBC 4.77 (4.30-5.90) m/uL Hgb 13.9 (13.0-17.5) gm/dL Hct 41.0 (39.0-53.0) % MCV 85.9 (80.0-100.0) fL MCH 29.2 (25.0-35.0) pg MCHC 34.0 (31.0-37.0) g/dL RDW 13.7 (11.5-15.5) % Plt Count 220 (150-450) k/uL Neutrophils % 86 % Lymphocytes % 5 % Monocytes % 5 % Eosinophils % 1 % Basophils % 1 % Neutrophils # 18.8 H (1.3-7.7) k/uL Lymphocytes # 1.2 (1.0-4.8) k/uL Monocytes # 1.1 H (0-1.0) k/uL Eosinophils # 0.3 (0-0.7) k/uL Basophils # 0.3 H (0-0.2) k/uL PT (9.0-12.0) sec INR (<1.2) APTT (22.0-30.0) sec Sodium 137 (137-145) mmol/L Potassium 4.0 (3.5-5.1) mmol/L Chloride 100 (98-107) mmol/L Carbon Dioxide 26 (22-30) mmol/L Anion Gap 11 mmol/L BUN 13 (9-20) mg/dL Creatinine 0.89 (0.66-1.25) mg/dL Est GFR (CKD-EPI)AfAm >90 (>60 ml/min/1.73 sqM) Est GFR (CKD-EPI)NonAf >90 (>60 ml/min/1.73 sqM) Glucose 118 H (74-99) mg/dL Plasma Lactic Acid Rian (0.7-2.0) mmol/L Calcium 9.4 (8.4-10.2) mg/dL Total Bilirubin 1.3 (0.2-1.3) mg/dL AST 28 (17-59) U/L ALT 38 (4-49) U/L Alkaline Phosphatase 91 (38-126) U/L Total Protein 7.4 (6.3-8.2) g/dL Albumin 4.5 (3.5-5.0) g/dL Urine Color Urine Appearance (Clear) Urine pH (5.0-8.0) Ur Specific [place] (1.001-1.035) Urine Protein (Negative) Urine Glucose (UA) (Negative) Urine Ketones (Negative) Urine Blood (Negative) Urine Nitrite (Negative) Urine Bilirubin (Negative) Urine Urobilinogen (<2.0) mg/dL Ur Leukocyte Esterase (Negative) Influenza Type A RNA Not Detected (Not Detectd) Influenza Type B (PCR) Not Detected (Not Detectd) 07/07/19 07/07/19 07/07/19 Range/Units 17:47 17:47 19:05 WBC (3.8-10.6) k/uL RBC (4.30-5.90) m/uL Hgb (13.0-17.5) gm/dL Hct (39.0-53.0) % MCV (80.0-100.0) fL MCH (25.0-35.0) pg MCHC (31.0-37.0) g/dL RDW (11.5-15.5) % Plt Count (150-450) k/uL Neutrophils % % Lymphocytes % % Monocytes % % Eosinophils % % Basophils % % Neutrophils # (1.3-7.7) k/uL Lymphocytes # (1.0-4.8) k/uL Monocytes # (0-1.0) k/uL Eosinophils # (0-0.7) k/uL Basophils # (0-0.2) k/uL PT 11.3 (9.0-12.0) sec INR 1.1 (<1.2) APTT 25.1 (22.0-30.0) sec Sodium (137-145) mmol/L Potassium (3.5-5.1) mmol/L Chloride (98-107) mmol/L Carbon Dioxide (22-30) mmol/L Anion Gap mmol/L BUN (9-20) mg/dL Creatinine (0.66-1.25) mg/dL Est GFR (CKD-EPI)AfAm (>60 ml/min/1.73 sqM) Est GFR (CKD-EPI)NonAf (>60 ml/min/1.73 sqM) Glucose (74-99) mg/dL Plasma Lactic Acid Rian 0.9 (0.7-2.0) mmol/L Calcium (8.4-10.2) mg/dL Total Bilirubin (0.2-1.3) mg/dL AST (17-59) U/L ALT (4-49) U/L Alkaline Phosphatase (38-126) U/L Total Protein (6.3-8.2) g/dL Albumin (3.5-5.0) g/dL Urine Color Yellow Urine Appearance Clear (Clear) Urine pH 8.0 (5.0-8.0) Ur Specific [place] 1.013 (1.001-1.035) Urine Protein Negative (Negative) Urine Glucose (UA) Negative (Negative) Urine Ketones Trace H (Negative) Urine Blood Negative (Negative) Urine Nitrite Negative (Negative) Urine Bilirubin Negative (Negative) Urine Urobilinogen 2.0 (<2.0) mg/dL Ur Leukocyte Esterase Negative (Negative) Influenza Type A RNA (Not Detectd) Influenza Type B (PCR) (Not Detectd) Disposition Clinical Impression: Hypoxia, SIRS (systemic inflammatory response syndrome) Disposition: ADMITTED IP TO THIS HOSP Condition: Fair Referrals: Andres Torres DO [Primary Care Provider] - 1-2 days Decision Time: 19:41
[2019-07-07] MEDS ORDERED: AMPICILLIN-SULBACTAM 3 GM in SODIUM CHLORIDE 0.9% 100 ML IVPB STA (18:56)
[2019-07-07 19:35] LABS: Appearance,Urine Clear (Clear); Bilirubin,Urine Negative (Negative); Blood,Urine Negative (Negative); Color,Urine Yellow; Glucose,Urine (UA) Negative (Negative); Ketones,Urine Trace (Negative); Leukocyte Esterase,Urine Negative (Negative); Nitrite,Urine Negative (Negative); Protein,Urine Negative (Negative); Specific Gravity,Urine 1.013 (1.001-1.035)
[2019-07-07] MEDS ORDERED: ONDANSETRON 4 MG/2 ML VIAL IVP PRN (21:19)
[2019-07-07] MEDS ORDERED: IBUPROFEN 400 MG TAB PO PRN (21:19)
[2019-07-07] MEDS: ACETAMINOPHEN TAB 325 MG TAB PO PRN (21:38)
[2019-07-08] MEDS: AMPICILLIN-SULBACTAM 3 GM in SODIUM CHLORIDE 0.9% 100 ML IVPB SCH ×2 (03:51→12:29)
[2019-07-08] MEDS: ACETAMINOPHEN TAB 325 MG TAB PO PRN ×2 (06:03→18:09)
[2019-07-08] MEDS: PANTOPRAZOLE 40 MG TABLET PO SCH (08:06)
[2019-07-08] MEDS: MULTIVITAMINS, THERA 1 EACH TAB PO SCH (08:06)
[2019-07-08] MEDS: VIT A,C & E-LUTEIN-MINERALS 1 EACH TAB PO SCH (08:06)
[2019-07-08] MEDS ORDERED: predniSONE 10 MG TAB PO SCH (09:00)
[2019-07-08] MEDS: IPRATROPIUM-ALBUTEROL 3 ML NEB INHALATION PRN (11:11)
[2019-07-08 13:37] LABS: Basophils # (A) 0.1 k/uL (0-0.2); Basophils % (A) 1 %; Eosinophils # (A) 0.2 k/uL (0-0.7); Eosinophils % (A) 1 %; HCT 43.8 % (39.0-53.0); HGB 14.6 gm/dL (13.0-17.5); Lymphocytes # (A) 0.6 k/uL (1.0-4.8); Lymphocytes % (A) 4 %; MCH 29.3 pg (25.0-35.0); MCHC 33.3 g/dL (31.0-37.0); MCV 87.9 fL (80.0-100.0); Mean Platelet Volume 7.2; Monocytes # (A) 0.7 k/uL (0-1.0); Monocytes % (A) 5 %; Neutrophils # (A) 13.3 k/uL (1.3-7.7); Neutrophils % (A) 89 %; Platelet Count 173 k/uL (150-450); RBC 4.98 m/uL (4.30-5.90); RDW 13.8 % (11.5-15.5); WBC 14.9 k/uL (3.8-10.6)
--- NOTE | 2019-07-08 16:16 | P.HPIM ---
History of Present Illness H&P Date: 07/08/19 64 years old male patient of Dr. Torres with past medical history of asthma, COPD, GERD currently chronically on 10 mg of prednisone, since April with upper respiratory symptom for the past few days. Patient has been suffering from respiratory symptoms since and has been on and off antibiotics including Bactrim and Augmentin. Patient has been getting steroid and antibiotic shot every [address] Ruiz's he started having fever and flulike symptom yesterday for slight dyspnea on exertion. He reports multiple coworkers sick with similar symptoms. On assessment in the ER patient had a temp of 102 with tachycardia. Influenza A and B was negative patient does have a leukocytosis of 21.9, glucose 118 creatinine 0.89. Chest x-ray in the ER was negative urine was negative for any infection. Patient endorses productive cough with shortness of breath with orthopnea. Has 2 L of oxygen at home which she wears intermittently in the night. Review of Systems Constitutional: Denies chills, Denies fever, Denies lethargy, Denies malaise, Denies poor appetite, Denies weakness, Denies weight loss Eyes: denies decreased vision, denies diplopia, denies discharge, denies pain Ears: deny: decreased hearing Ears, nose, mouth and throat: Denies dental pain, Denies headache, Denies nasal discharge, Denies nose pain Cardiovascular: Denies chest pain, Denies decreased exercise tolerance, Denies edema, Denies high blood pressure, Denies irregular heart beat, Denies palpitations, Denies paroxysmal nocturnal dyspnea, Denies rapid heart beat, Denies shortness of breath Respiratory: Endorses congestion, endorses cough with greenish sputum, endorses dyspnea, indium endorses intermittent use of home oxygen, endorses wheezing Gastrointestinal: Denies abdominal pain, Denies change in bowel habits, Denies coffee ground emesis, Denies early satiety, Denies excessive gas, Denies heartburn, Denies hematemesis, Denies hematochezia, Denies loss of appetite, Denies nausea, Denies vomiting Genitourinary: Denies dysuria, Denies flank pain, Denies kidney stones, Denies menorrhagia, Denies urgency, Denies urinary frequency Musculoskeletal: Denies gait dysfunction, Denies limitation of motion, Denies morning stiffness, Denies muscle cramps Integumentary: Denies rash, Denies wounds, Denies brittle nails, Denies change in hair/nails, Denies darkening of skin Neurological: Denies balance difficulties, Denies change in speech, Denies double vision, Denies gait dysfunction, Denies loss of vision, Denies motor disturbance, Denies numbness, Denies paralysis, Denies paresthesias, Denies seizures Psychiatric: Denies anxiety, Denies depression Endocrine: Denies excessive sweating, Denies excessive thirst, Denies high blood sugars, Denies palpitations Hematologic/Lymphatic: Denies easy bruising, Denies lymphadenopathy Past Medical History Past Medical History: Asthma, COPD, GERD/Reflux, Pneumonia Additional Past Medical History / Comment(s): f History of Any Multi-Drug Resistant Organisms: None Reported Past Surgical History: Appendectomy, Cholecystectomy, Hernia Repair, Orthopedic Surgery Additional Past Surgical History / Comment(s): KNEE (SPOUSE NOT SURE WHICH SIDE); ingunial Past Anesthesia/Blood Transfusion Reactions: No Reported Reaction Past Psychological History: No Psychological Hx Reported Smoking Status: Former smoker Past Alcohol Use History: None Reported Additional Past Alcohol Use History / Comment(s): QUIT 2017, 1.5 PPD, SINCE HE WAS 19 YR. Past Drug Use History: None Reported - Past Family History Mother Family Medical History: Cancer Sister(s) Family Medical History: Cancer Medications and Allergies Home Medications Medication Instructions Recorded Confirmed Type Albuterol Sulfate [Proair Hfa] 2 puff INHALATION RT-Q6H PRN 06/09/17 07/07/19 H istory Multivit-Min/FA/Lycopen/Lutein 1 tab PO DAILY 06/09/17 07/07/19 History [Centrum Silver Men Tablet] C,E,Zinc,Copper 11/Qwpzf1z/Lut 1 tab PO DAILY 07/21/17 07/07/19 History [Ocuvite Adult 50 Plus Softgel] Albuterol Nebulized [Ventolin 2.5 mg INHALATION RT-QID 07/07/19 07/07/19 History Nebulized] Cetirizine HCl 10 mg PO HS 07/07/19 07/07/19 History Fluticasone/Umeclidin/Vilanter 1 puff INHALATION RT-DAILY 07/07/19 07/07/19 History [Trelegy Ellipta 100-62.5-25] Pantoprazole Sodium 20 mg PO DAILY 07/07/19 07/07/19 History predniSONE 10 mg PO DAILY 07/07/19 07/07/19 History Allergies Allergy/AdvReac Type Severity Reaction Status Date / Time No Known Allergies Allergy Verified 07/07/19 21:04 Physical Exam Vitals: Vital Signs Temp Pulse Pulse Resp BP BP Pulse Ox 07/08/19 11:25 84 07/08/19 11:12 85 98 07/08/19 08:30 91 20 07/08/19 03:57 98.4 F 91 20 161/74 94 L 07/07/19 21:02 98.1 F 72 15 137/73 95 07/07/19 19:35 99.5 F 07/07/19 19:30 83 23 131/58 96 07/07/19 19:00 84 22 140/67 95 07/07/19 17:38 24 07/07/19 17:33 102.0 F H 103 H 18 144/86 89 L Intake and Output 07/07/19 07/08/19 07/08/19 22:59 06:59 14:59 Intake Total 360 Balance 360 Intake: Oral 360 Other: Voiding Method Toilet Toilet Weight 108.862 kg - Constitutional General appearance: cooperative, no acute distress, obese - EENT Eyes: anicteric sclerae, PERRLA, normal appearance ENT: hearing grossly normal - Neck Neck: no lymphadenopathy, normal ROM, no other, no rigidity, no stridor, no thyromegaly - Respiratory Respiratory: bilateral: Decreased air entry with diffuse wheezing - Cardiovascular Rhythm: regular Heart sounds: normal: S1, S2 Abnormal Heart Sounds: no systolic murmur, no diastolic murmur, no rub, no S3 Gallop, no S4 Gallop, no click, pitting edema 1+ - Gastrointestinal General gastrointestinal: normal bowel sounds, soft - Integumentary Integumentary: no rash - Neurologic Neurologic: CNII-XII intact - Musculoskeletal Musculoskeletal: gait normal, strength equal bilaterally - Psychiatric Psychiatric: A&O x's 3, appropriate affect Results CBC & Chem 7: 07/08/19 12:51 07/07/19 17:47 Labs: Abnormal Lab Results - Last 24 Hours (Table) 07/07/19 07/07/19 07/07/19 Range/Units 17:47 17:47 19:05 WBC 21.9 H (3.8-10.6) k/uL Neutrophils # 18.8 H (1.3-7.7) k/uL Monocytes # 1.1 H (0-1.0) k/uL Basophils # 0.3 H (0-0.2) k/uL Glucose 118 H (74-99) mg/dL Urine Ketones Trace H (Negative) Thrombosis Risk Factor Assmnt - DVT/VTE Prophylaxis DVT/VTE Prophylaxis: Pharmacologic Prophylaxis ordered, Mechanical Prophylaxis ordered - Choose All That Apply Each Factor Represents 1 point: Abnormal pulmonary function (COPD), Obesity (BMI >25), Serious lung disease incl. pneumonia (< 1month) Other Risk Factors: Yes Each Risk Factor Represents 2 Points: Age 61-74 years Other congenital or acquired thrombophilia - If yes, enter type in comment: No Thrombosis Risk Factor Assessment Total Risk Factor Score: 5 Thrombosis Risk Factor Assessment Level: High Risk Assessment and Plan Plan: #1 Fever sepsis likely secondary to pneumonia chest x-ray was negative but patient has productive cough and shortness of breath. Will initiate on Rocephin and azithromycin sputum culture DuoNeb as needed for shortness of breath. Pro- calcitonin ordered #2 acute COPD exacerbation continue DuoNeb as needed for shortness of breath Rocephin and azithromycin sputum culture Pulmicort twice daily #3 mild persistent asthma DuoNeb as needed #4 GERD pantoprazole 20 mg by mouth daily #5 DVT prophylaxis heparin 5000 every 12 #6 GI prophylaxis pantoprazole 20 mg by mouth daily #7 CODE STATUS full code
[2019-07-08] MEDS ORDERED: AZITHROMYCIN 1,200 MG/30 ML BOTTLE PO SCH (17:00)
[2019-07-08] MEDS: methylPREDNISolone SOD SUCCI 125 MG/2 ML VIAL IV SCH ×2 (17:07→23:25)
--- NOTE | 2019-07-08 18:03 | CT ---
EXAMINATION TYPE: CT chest wo con DATE OF EXAM: 07/08/2019 COMPARISON: 12/07/2016 HISTORY: Possible pneumonia. Cough. CT DLP: 542.1 mGycm Automated exposure control for dose reduction was used. Multiple axial sections were obtained from the thoracic inlet to the diaphragm with no contrast. There is bullous emphysema. There is no mediastinal adenopathy. Thoracic aorta shows mild atheromatou s change. There are no hilar masses. There are calcified mediastinal granulomata. These are mainly on the right side. There is coronary artery calcification. Heart size is normal. There is no pericardia l effusion. There are calcified splenic granulomata. Upper abdominal soft tissues are intact. There is 12 mm calcified granuloma right lower lobe posteriorly. There is interstitial coarse density left posterior lung base. There is some spurring in the thoracic spine. IMPRESSION: Old granulomatous disease. Compared to old exam there is appearance of some mild interstitial infiltrate and atelectasis left po sterior lung base. No suspicious pulmonary mass. Emphysema.
[2019-07-08] MEDS: BUDESONIDE 0.5 MG/2 ML NEBU INHALATION SCH (18:55)
[2019-07-08 19:58] LABS: Glucose,Whole Blood 254 mg/dL (75-99)
[2019-07-08] MEDS: LORATADINE 10 MG TAB PO SCH (20:11)
[2019-07-08] MEDS: INSULIN ASPART (NovoLOG) 100 UNIT/ML VIAL SQ SCH (20:12)
[2019-07-08] MEDS: HEPARIN SODIUM,PORCINE 5,000 UNIT/ML 1 ML VIAL SQ SCH (20:12)
[2019-07-09] MEDS: methylPREDNISolone SOD SUCCI 125 MG/2 ML VIAL IV SCH (05:13)
[2019-07-09 07:12] LABS: Glucose,Whole Blood 192 mg/dL (75-99)
[2019-07-09] MEDS: HEPARIN SODIUM,PORCINE 5,000 UNIT/ML 1 ML VIAL SQ SCH ×2 (07:44→20:51)
[2019-07-09] MEDS: VIT A,C & E-LUTEIN-MINERALS 1 EACH TAB PO SCH (07:44)
[2019-07-09] MEDS: INSULIN ASPART (NovoLOG) 100 UNIT/ML VIAL SQ SCH ×4 (07:44→20:50)
[2019-07-09] MEDS: MULTIVITAMINS, THERA 1 EACH TAB PO SCH (07:44)
[2019-07-09] MEDS: PANTOPRAZOLE 40 MG TABLET PO SCH (07:44)
[2019-07-09] MEDS: BUDESONIDE 0.5 MG/2 ML NEBU INHALATION SCH ×2 (08:42→21:13)
[2019-07-09] MEDS: IPRATROPIUM-ALBUTEROL 3 ML NEB INHALATION PRN ×3 (08:43→21:13)
[2019-07-09 11:28] LABS: Glucose,Whole Blood 278 mg/dL (75-99)
--- NOTE | 2019-07-09 11:41 | P.PN ---
Subjective Progress Note Date: 07/09/19 64 years old male patient of Dr. Torres with past medical history of asthma, COPD, GERD currently chronically on 10 mg of prednisone, since April with upper respiratory symptom for the past few days. Patient has been suffering from respiratory symptoms since and has been on and off antibiotics including Bactrim and Augmentin. Patient has been getting steroid and antibiotic shot every [address] Ruiz's he started having fever and flulike symptom yesterday for slight dyspnea on exertion. He reports multiple coworkers sick with similar symptoms. On assessment in the ER patient had a temp of 102 with tachycardia. Influenza A and B was negative patient does have a leukocytosis of 21.9, glucose 118 creatinine 0.89. Chest x-ray in the ER was negative urine was negative for any infection. Patient endorses productive cough with shortness of breath with orthopnea. Has 2 L of oxygen at home which she wears intermittently in the night. 07/09: A CAT scan of the chest revealed old granulomatous disease. Mild interstitial infiltrate and atelectasis on the left posterior lung base. No suspicious pulmonary mass. Emphysema. Patient is afebrile, heart rate 88, blood pressure 109/64, pulse ox 95% on 2 L nasal cannula. Blood sugar is running in the 200s with no history of diabetes. Echocardiogram, hemoglobin A1c are pending. He is currently on a Zithromax in and ceftriaxone. Solu-Medrol at 60 mg IV every 6 hours will be decreased to 40 mg every 8 hours. Pulmonary medicine is on consult. Anticipate discharge in the next 24-48 hours. Review of Systems Constitutional: Denies chills, Denies fever, Denies lethargy, Denies malaise, Denies poor appetite, Denies weakness, Denies weight loss Eyes: denies decreased vision, denies diplopia Ears: deny: decreased hearing Ears, nose, mouth and throat: Denies dental pain, Denies headache, Denies nasal discharge, Denies nose pain Cardiovascular: Denies chest pain, Denies decreased exercise tolerance, Denies edema, Denies high blood pressure, Denies irregular heart beat, Denies palpitations, Denies paroxysmal nocturnal dyspnea, Denies rapid heart beat, Denies shortness of breath Respiratory: Endorses congestion, endorses cough with greenish sputum, endorses dyspnea, endorses intermittent use of home oxygen, endorses wheezing Gastrointestinal: Denies abdominal pain, Denies change in bowel habits, Denies coffee ground emesis, Denies early satiety, Denies excessive gas, Denies heartburn, Denies hematemesis, Denies hematochezia, Denies loss of appetite, Denies nausea, Denies vomiting Genitourinary: Denies dysuria, Denies flank pain, Denies kidney stones, Denies menorrhagia, Denies urgency, Denies urinary frequency Musculoskeletal: Denies gait dysfunction, Denies limitation of motion, Denies morning stiffness, Denies muscle cramps Integumentary: Denies rash, Denies wounds, Denies brittle nails, Denies change in hair/nails, Denies darkening of skin Neurological: Denies balance difficulties, Denies change in speech, Denies double vision, Denies gait dysfunction, Denies loss of vision, Denies motor disturbance, Denies numbness, Denies paralysis, Denies paresthesias, Denies seizures Psychiatric: Denies anxiety, Denies depression Endocrine: Denies excessive sweating, Denies excessive thirst, Denies high blood sugars, Denies palpitations Hematologic/Lymphatic: Denies easy bruising, Denies lymphadenopathy Objective - Vital Signs Vital signs: Vital Signs Temp 96.4 F L 07/09/19 04:47 Pulse 73 07/09/19 04:47 Resp 16 07/09/19 04:47 BP 109/64 07/09/19 04:47 Pulse Ox 95 07/09/19 04:47 Intake & Output 07/08/19 07/09/19 07/09/19 18:59 06:59 18:59 Intake Total 240 590 Balance 240 590 Intake: Oral 240 590 Other: Voiding Method Toilet Toilet # Voids 3 2 - Exam - Constitutional General appearance: cooperative, no acute distress, obese, patient's at bedside. - EENT Eyes: anicteric sclerae, PERRLA, normal appearance ENT: hearing grossly normal - Neck Neck: no lymphadenopathy, normal ROM, no other, no rigidity, no stridor, no thyromegaly - Respiratory Respiratory: bilateral: Decreased air entry, diminished in the bases otherwise clear to auscultation - Cardiovascular Rhythm: regular Heart sounds: normal: S1, S2 Abnormal Heart Sounds: no systolic murmur, no diastolic murmur, no rub, no S3 Gallop, no S4 Gallop, no click, pitting edema 1+ - Gastrointestinal General gastrointestinal: normal bowel sounds, soft - Integumentary Integumentary: no rash - Neurologic Neurologic: CNII-XII intact - Musculoskeletal Musculoskeletal: gait normal, strength equal bilaterally - Psychiatric Psychiatric: A&O x's 3, appropriate affect - Labs CBC & Chem 7: 07/08/19 12:51 07/07/19 17:47 Labs: Abnormal Lab Results - Last 24 Hours (Table) 07/08/19 07/08/19 07/09/19 Range/Units 12:51 19:57 07:10 WBC 14.9 H (3.8-10.6) k/uL Neutrophils # 13.3 H (1.3-7.7) k/uL Lymphocytes # 0.6 L (1.0-4.8) k/uL POC Glucose (mg/dL) 254 H 192 H (75-99) mg/dL Microbiology - Last 24 Hours (Table) 07/07/19 18:10 Blood Culture - Preliminary Blood No Growth after 24 hours Assessment and Plan Plan: #1 Fever sepsis likely secondary to pneumonia chest x-ray was negative but patient has productive cough and shortness of breath. Will initiate on Rocephin and azithromycin sputum culture DuoNeb as needed for shortness of breath. Pro- calcitonin 0.12. Consult with pulmonary medicine. #2 acute COPD exacerbation continue DuoNeb as needed for shortness of breath Rocephin and azithromycin sputum culture Pulmicort twice daily, decrease the Solu-Medrol to 40 mg every 8 hours #3 mild persistent asthma DuoNeb as needed #4 GERD pantoprazole 20 mg by mouth daily #5 DVT prophylaxis heparin 5000 every 12 #6 GI prophylaxis pantoprazole 20 mg by mouth daily #7 CODE STATUS full code Discharge plan: Return home in the next 24-48 hours Impression and plan of care have been directed as dictated by the signing physician. Massiel Hayes nurse practitioner acting as scribe for signing physician.
[2019-07-09] MEDS ORDERED: INSULIN ASPART (NovoLOG) 100 UNIT/ML VIAL SQ ONE (11:51)
[2019-07-09] MEDS: AZITHROMYCIN 250 MG TAB PO SCH (12:14)
--- NOTE | 2019-07-09 13:07 | ECHOF ---
Referral Reason:CHF MEASUREMENTS -------- HEIGHT: 177.8 cm WEIGHT: 108.9 kg BP: 109/64 RVIDd: 5.6 cm (< 3.3) IVSd: 1.4 cm (0.6 - 1.1) LVIDd: 4.9 cm (3.9 - 5.3) LVPWd: 1.2 cm (0.6 - 1.1) IVSs: 1.8 cm LVIDs: 3.3 cm LVPWs: 1.9 cm LAESV Index (A-L): 35.18 ml/m Ao Diam: 3.9 cm (2.0 - 3.7) AV Cusp: 2.3 cm (1.5 - 2.6) LA Diam: 4.8 cm (2.7 - 3.8) MV EXCURSION: 17.658 mm (> 18.000) MV EF SLOPE: 109 mm/s (70 - 150) EPSS: 0.4 cm MV E Abdullahi: 0.79 m/s MV DecT: 263 ms MV A Abdullahi: 0.99 m/s MV E/A Ratio: 0.80 RAP: 5.00 mmHg RVSP: 28.05 mmHg FINDINGS -------- Sinus rhythm. This was a technically adequate study. The left ventricular size is normal. There is moderate concentric left ventricular hypertrophy. O verall left ventricular systolic function is normal with, an EF between 55 - 60 %. The diastolic fi lling pattern is normal for the age of the patient 9.09. The right ventricle is moderately enlarged. LA is moderately dilated 34-39 ml/m2 The right atrium is mildly enlarged. Interatrial and interventricular septum intact. The aortic valve was not well visualized. There is no evidence of aortic regurgitation. There is no evidence of aortic stenosis. Mild mitral regurgitation is present. Mild tricuspid regurgitation present. There is no evidence of pulmonary hypertension. The right v entricular systolic pressure, as measured by Doppler, is 28.05mmHg. The pulmonic valve was not well visualized. The aortic root size is normal. IVC Not well visulized. There is no pericardial effusion. CONCLUSIONS -------- 1. Sinus rhythm. 2. This was a technically adequate study. 3. The left ventricular size is normal. 4. There is moderate concentric left ventricular hypertrophy. 5. Overall left ventricular systolic function is normal with, an EF between 55 - 60 %. 6. The diastolic filling pattern is normal for the age of the patient 9.09 7. The right ventricle is moderately enlarged. 8. LA is moderately dilated 34-39 ml/m2 9. The right atrium is mildly enlarged. 10. Interatrial and interventricular septum intact. 11. The aortic valve was not well visualized. 12. There is no evidence of aortic regurgitation. 13. There is no evidence of aortic stenosis. 14. Mild mitral regurgitation is present. 15. Mild tricuspid regurgitation present. 16. There is no evidence of pulmonary hypertension. 17. The right ventricular systolic pressure, as measured by Doppler, is 28.05mmHg. 18. The pulmonic valve was not well visualized. 19. The aortic root size is normal. 20. IVC Not well visulized. 21. There is no pericardial effusion. [employer]: Jeanie Carvajal RDCS
[2019-07-09 15:01] LABS: Hemoglobin A1C 6.2 % (4.0-6.0)
[2019-07-09] MEDS: methylPREDNISolone SOD SUCCI 40 MG/ML 1 ML VIAL IV SCH ×2 (16:16→20:51)
[2019-07-09 17:21] LABS: Glucose,Whole Blood 190 mg/dL (75-99)
--- NOTE | 2019-07-09 17:42 | P.CNPUL ---
History of Present Illness Consult date: 07/09/19 Requesting physician: Jean Ugalde Reason for consult: dyspnea, cough Chief complaint: Dyspnea, cough, nasal congestion History of present illness: 64-year-old white male, has worked in the [employer] business for about 20 years, past medical history of COPD, moderate to severe, with the baseline FEV1 of 1.42 L or 37% of predicted and diffusion capacity of 64% of predicted, carries a 50-[id number]-bmzy smoking history, previous bouts of pneumonia and bronchitis, and previous surgical history positive for appendectomy, cholecystectomy, hernia repair, and knee surgery, who presented to the emergency department on 07/07/2019 with flulike symptoms, tachycardia with the heart rate of 103, leukocytosis of 21.9. Chest x-ray shows no acute process, influenza screen was negative, urinalysis was negative, metabolic panel was within normal limits, patient's symptoms include cough, nasal congestion fever and shortness of breath, poorly patient was being treated with the prolonged course of steroids by his primary care physician for ongoing rest her symptoms since of last year. He had completed a course of antibiotics he had been on Bactrim and Augmentin for pneumonia in the past. Patient Patient states a lot of his coworkers have been sick with similar symptoms. Patient was hypoxemic with pulse ox of 89% and presentation, tachycardic and febrile and patient was admitted for further management. Patient was started on IV steroids, Rocephin and azithromycin, CT chest without contrast was obtained showing old granulomatous disease with a 12 mm calcified granuloma in the right lower lobe posteriorly, and some mild interstitial infiltrate and atelectasis in the left posterior lung base no suspicious pulmonary mass, in the background of emphysema. ProCalcitonin level was none elevated at 0.12. Today's evaluation patient is on 2 L of oxygen with a pulse ox of 96%, he is afebrile, hemodynamically stable, and is feeling better, apparently on admission his mentation was altered likely related to acute hypoxemic respiratory failure, his mentation is back to baseline now. Review of Systems All systems: negative Constitutional: Reports fever, Denies chills Eyes: denies blurred vision, denies pain Ears, nose, mouth and throat: Reports nasal congestion, Reports sore throat, Denies headache Cardiovascular: Denies chest pain, Denies shortness of breath Respiratory: Reports cough, Reports dyspnea Gastrointestinal: Denies abdominal pain, Denies diarrhea, Denies nausea, Denies vomiting Musculoskeletal: Denies myalgias Integumentary: Denies pruritus, Denies rash Neurological: Denies numbness, Denies weakness Psychiatric: Denies anxiety, Denies depression Endocrine: Denies fatigue, Denies weight change Past Medical History Past Medical History: Asthma, COPD, GERD/Reflux, Pneumonia Additional Past Medical History / Comment(s): f History of Any Multi-Drug Resistant Organisms: None Reported Past Surgical History: Appendectomy, Cholecystectomy, Hernia Repair, Orthopedic Surgery Additional Past Surgical History / Comment(s): KNEE (SPOUSE NOT SURE WHICH SIDE); ingunial Past Anesthesia/Blood Transfusion Reactions: No Reported Reaction Past Psychological History: No Psychological Hx Reported Smoking Status: Former smoker Past Alcohol Use History: None Reported Additional Past Alcohol Use History / Comment(s): QUIT 2016, 1.5 PPD, SINCE HE WAS 19 YR. Past Drug Use History: None Reported - Past Family History Mother Family Medical History: Cancer Sister(s) Family Medical History: Cancer Medications and Allergies Home Medications Medication Instructions Recorded Confirmed Type Albuterol Sulfate [Proair Hfa] 2 puff INHALATION RT-Q6H PRN 06/09/17 07/07/19 History Multivit-Min/FA/Lycopen/Lutein 1 tab PO DAILY 06/09/17 07/07/19 History [Centrum Silver Men Tablet] C,E,Zinc,Copper 11/Gvcen8p/Lut 1 tab PO DAILY 07/21/17 07/07/19 History [Ocuvite Adult 50 Plus Softgel] Albuterol Nebulized [Ventolin 2.5 mg INHALATION RT-QID 07/07/19 07/07/19 History Nebulized] Cetirizine HCl 10 mg PO HS 07/07/19 07/07/19 History Fluticasone/Umeclidin/Vilanter 1 puff INHALATION RT-DAILY 07/07/19 07/07/19 History [Trelegy Ellipta 100-62.5-25] Pantoprazole Sodium 20 mg PO DAILY 07/07/19 07/07/19 History predniSONE 10 mg PO DAILY 07/07/19 07/07/19 History Allergies Allergy/AdvReac Type Severity Reaction Status Date / Time No Known Allergies Allergy Verified 07/07/19 21:04 Physical Exam Vitals: Vital Signs Temp Pulse Pulse Resp BP Pulse Ox 07/09/19 16:42 68 07/09/19 16:29 60 16 96 07/09/19 12:01 98 F 77 17 160/76 93 L 07/09/19 09:01 84 07/09/19 08:43 88 07/09/19 04:47 96.4 F L 73 16 109/64 95 07/08/19 21:00 96.1 F L 64 151/70 93 L Intake and Output 07/09/19 07/09/19 07/09/19 06:59 14:59 22:59 Intake Total 590 Balance 590 Intake: Oral 590 Other: # Voids 2 GENERAL EXAM: Alert, a pleasant, 64-year-old white male, 2 L of oxygen with a pulse ox of 96% comfortable in no apparent distress. HEAD: Normocephalic/atraumatic. EYES: Normal reaction of pupils, equal size. Conjunctiva pink, sclera white. NOSE: Clear with pink turbinates. THROAT: No erythema or exudates. NECK: No masses, no JVD, no thyroid enlargement, no adenopathy. CHEST: No chest wall deformity. Symmetrical expansion. LUNGS: Equal air entry with no crackles, wheeze, rhonchi or dullness. CVS: Regular rate and rhythm, normal S1 and S2, no gallops, no murmurs, no rubs ABDOMEN: Soft, nontender. No hepatosplenomegaly, normal bowel sounds, no guarding or rigidity. EXTREMITIES: No clubbing, no edema, no cyanosis, 2+ pulses and upper and lower extremities. MUSCULOSKELETAL: Muscle strength and tone normal. SPINE: No scoliosis or deformity SKIN: No rashes CENTRAL NERVOUS SYSTEM: Alert and oriented -3. No focal deficits, tone is normal in all 4 extremities. PSYCHIATRIC: Alert and oriented -3. Appropriate affect. Intact judgment and insight. Results - Laboratory Findings CBC and BMP: 07/08/19 12:51 07/07/19 17:47 PT/INR, D-dimer PT 11.3 sec (9.0-12.0) 07/07/19 17:47 INR 1.1 (<1.2) 07/07/19 17:47 Abnormal lab findings: Abnormal Labs 01/25/20 01/25/20 01/25/20 17:47 17:47 19:05 WBC 21.9 H Neutrophils # 18.8 H Lymphocytes # Monocytes # 1.1 H Basophils # 0.3 H Glucose 118 H POC Glucose (mg/dL) Hemoglobin A1c Procalcitonin Urine Ketones Trace H 07/08/19 07/08/19 07/08/19 12:51 12:51 19:57 WBC 14.9 H Neutrophils # 13.3 H Lymphocytes # 0.6 L Monocytes # Basophils # Glucose POC Glucose (mg/dL) 254 H Hemoglobin A1c Procalcitonin 0.12 H Urine Ketones 07/09/19 07/09/19 07/09/19 06:57 07:10 11:27 WBC Neutrophils # Lymphocytes # Monocytes # Basophils # Glucose POC Glucose (mg/dL) 192 H 278 H Hemoglobin A1c 6.2 H Procalcitonin Urine Ketones - Diagnostic Findings Chest x-ray: report reviewed, image reviewed CT scan - chest: report reviewed, image reviewed Assessment and Plan Plan: Assessment: #1. Acute hypoxemic respiratory failure and dyspnea on admission related to acute COPD exacerbation, chest x-ray did not show acute pulmonary process, CT chest showed old calcified granuloma measuring 12 mm in the right lower lobe posteriorly, and interstitial coarse density in the left posterior lung base, community-acquired pneumonia could not be completely ruled out. Patient has been treated with combination of Zithromax and Rocephin #2. Ongoing symptoms of shortness of breath, cough, flulike symptoms, fever, patient has been treated with 2 courses of antibiotics in prolonged course of prednisone since before #3. Severe COPD, with FEV1 of 1.42 L or 37% of predicted and diffusion capacity of 66% #4. Former history of tobacco dependence, currently in remission, carries 39-mria-ytca smoking history #5. GERD/reflux #6. Previous episodes of pneumonia Plan: Continue current medical treatment, IV steroids, nebulized bronchodilators, pat ient has his home Trelegy from home, clinically improving, mentation is appropriate, feeling better, breathing easier, continue Zithromax and Rocephin, CT chest has been reviewed, possibility of community acquired pneumonia is difficult to exclude, pro-calcitonin was low although this could be trending down from his initial symptom onset. Anticipate further improvement and patient can be considered for discharge home in the next 24 hours I performed a history & physical examination of the patient and discussed their management with my nurse practitioner, Nicolette Law. I reviewed the nurse practitioner's note and agree with the documented findings and plan of care. Lung sounds are positive for diminished breath sounds. The findings and the impression was discussed with the patient. I attest to the documentation by the nurse practitioner. Time with Patient: Greater than 30
[2019-07-09 20:10] LABS: Glucose,Whole Blood 226 mg/dL (75-99)
[2019-07-09] MEDS: LORATADINE 10 MG TAB PO SCH (20:49)
[2019-07-10 07:03] LABS: Glucose,Whole Blood 218 mg/dL (75-99)
[2019-07-10] MEDS: PANTOPRAZOLE 40 MG TABLET PO SCH (07:34)
[2019-07-10] MEDS: HEPARIN SODIUM,PORCINE 5,000 UNIT/ML 1 ML VIAL SQ SCH ×2 (07:34→21:04)
[2019-07-10] MEDS: MULTIVITAMINS, THERA 1 EACH TAB PO SCH (07:34)
[2019-07-10] MEDS: methylPREDNISolone SOD SUCCI 40 MG/ML 1 ML VIAL IV SCH (07:35)
[2019-07-10] MEDS: VIT A,C & E-LUTEIN-MINERALS 1 EACH TAB PO SCH (07:35)
[2019-07-10] MEDS: AZITHROMYCIN 250 MG TAB PO SCH (07:35)
[2019-07-10] MEDS: INSULIN ASPART (NovoLOG) 100 UNIT/ML VIAL SQ SCH ×4 (07:35→21:05)
[2019-07-10] MEDS: IPRATROPIUM-ALBUTEROL 3 ML NEB INHALATION PRN (09:30)
[2019-07-10] MEDS: BUDESONIDE 0.5 MG/2 ML NEBU INHALATION SCH ×2 (09:30→20:22)
--- NOTE | 2019-07-10 11:04 | P.PN ---
Subjective Progress Note Date: 07/10/19 Principal diagnosis: Acute exacerbation of chronic obstructive pulmonary disease with tracheobronchitis 64-year-old white male, has worked in the [employer] business for about 20 years, past medical history of COPD, moderate to severe, with the baseline FEV1 of 1.42 L or 37% of predicted and diffusion capacity of 64% of predicted, carries a [id number] smoking history, previous bouts of pneumonia and bronchitis, and previous surgical history positive for appendectomy, cholecystectomy, hernia repair, and knee surgery, who presented to the emergency department on 07/07/2019 with flulike symptoms, tachycardia with the heart rate of 103, leukocytosis of 21.9. Chest x-ray shows no acute process, influenza screen was negative, urinalysis was negative, metabolic panel was within normal limits, patient's symptoms include cough, nasal congestion fever and shortness of breath , poorly patient was being treated with the prolonged course of steroids by his primary care physician for ongoing rest her symptoms since of last year. He had completed a course of antibiotics he had been on Bactrim and Augmentin for pneumonia in the past. Patient Patient states a lot of his coworkers have been sick with similar symptoms. Patient was hypoxemic with pulse ox of 89% and presentation, tachycardic and febrile and patient was admitted for further management. Patient was started on IV steroids, Rocephin and azithromycin, CT chest without contrast was obtained showing old granulomatous disease with a 12 mm calcified granuloma in the right lower lobe posteriorly, and some mild interstitial infiltrate and atelectasis in the left posterior lung base no suspicious pulmonary mass, in the background of emphysema. ProCalcitonin level was none elevated at 0.12. Today's evaluation patient is on 2 L of oxygen with a pulse ox of 96%, he is afebrile, hemodynamically stable, and is feeling better, apparently on admission his mentation was altered likely related to acute hypoxemic respiratory failure, his mentation is back to baseline now. On 07/02/2019 patient seen in follow-up on general medical floor, he states he still has exertional dyspnea, he is currently on room air, and his pulse ox is 93%, he states it takes him a little bit to recover after walking, occasional cough, no significant sputum production, no fever or chills, patient is on Zithromax for empiric antibiotic coverage, IV steroids of 40 mg every 8 hours, and nebulized bronchodilators in addition to Pulmicort. Aparrently patient did not bring his Trelegy inhaler from home. No complaints of chest pain, as been tolerating ambulation. Objective - Vital Signs Vital signs: Vital Signs Temp 97.4 F L 07/10/19 07:17 Pulse 68 07/10/19 09:42 Resp 19 07/10/19 07:17 BP 151/74 07/10/19 07:17 Pulse Ox 93 L 07/10/19 07:17 Intake & Output 07/09/19 07/10/19 07/10/19 18:59 06:59 18:59 Intake Total 590 Balance 590 Intake: Oral 590 Other: Voiding Method Toilet Toilet # Voids 2 - Exam GENERAL EXAM: Alert, a pleasant, 64-year-old white male, 2 L of oxygen with a pulse ox of 96% comfortable in no apparent distress. HEAD: Normocephalic/atraumatic. EYES: Normal reaction of pupils, equal size. Conjunctiva pink, sclera white. NOSE: Clear with pink turbinates. THROAT: No erythema or exudates. NECK: No masses, no JVD, no thyroid enlargement, no adenopathy. CHEST: No chest wall deformity. Symmetrical expansion. LUNGS: Equal air entry with no crackles, wheeze, rhonchi or dullness. CVS: Regular rate and rhythm, normal S1 and S2, no gallops, no murmurs, no rubs ABDOMEN: Soft, nontender. No hepatosplenomegaly, normal bowel sounds, no guarding or rigidity. EXTREMITIES: No clubbing, no edema, no cyanosis, 2+ pulses and upper and lower extremities. MUSCULOSKELETAL: Muscle strength and tone normal. SPINE: No scoliosis or deformity SKIN: No rashes CENTRAL NERVOUS SYSTEM: Alert and oriented -3. No focal deficits, tone is nor mal in all 4 extremities. PSYCHIATRIC: Alert and oriented -3. Appropriate affect. Intact judgment and insight. - Labs CBC & Chem 7: 07/08/19 12:51 07/07/19 17:47 Labs: Abnormal Lab Results - Last 24 Hours (Table) 07/09/19 07/09/19 07/09/19 Range/Units 06:57 11:27 17:09 POC Glucose (mg/dL) 278 H 190 H (75-99) mg/dL Hemoglobin A1c 6.2 H (4.0-6.0) % 07/09/19 07/10/19 Range/Units 20:08 06:54 POC Glucose (mg/dL) 226 H 218 H (75-99) mg/dL Hemoglobin A1c (4.0-6.0) % Microbiology - Last 24 Hours (Table) 07/07/19 18:10 Blood Culture - Preliminary Blood No Growth after 48 hours Assessment and Plan Plan: Assessment: #1. Acute hypoxemic respiratory failure and dyspnea on admission related to acute COPD exacerbation, chest x-ray did not show acute pulmonary process, CT chest showed old calcified granuloma measuring 12 mm in the right lower lobe posteriorly, and interstitial coarse density in the left posterior lung base, community-acquired pneumonia could not be completely ruled out. Patient has been treated with combination of Zithromax and Rocephin #2. Ongoing symptoms of shortness of breath, cough, flulike symptoms, fever, patient has been treated with 2 courses of antibiotics in prolonged course of prednisone since before Thanksgiving #3. Severe COPD, with FEV1 of 1.42 L or 37% of predicted and diffusion capacity of 66% #4. Former history of tobacco dependence, currently in remission, carries 40-[id number]-brxs smoking history #5. GERD/reflux #6. Previous episodes of pneumonia Plan: Continue current medical treatment, will increase the IV steroids to 60 mg every 6 hours, continue Zithromax Pulmicort, we'll add Perforomist. I performed a history & physical examination of the patient and discussed their management with my nurse practitioner, Nicolette Law. I reviewed the nurse practitioner's note and agree with the documented findings and plan of care. Lung sounds are positive for diminished breath sounds. The findings and the impression was discussed with the patient. I attest to the documentation by the nurse practitioner. Time with Patient: Less than 30
[2019-07-10 11:30] LABS: Glucose,Whole Blood 138 mg/dL (75-99)
[2019-07-10] MEDS: methylPREDNISolone SOD SUCCI 125 MG/2 ML VIAL IV SCH ×2 (12:29→17:58)
[2019-07-10] MEDS: IPRATROPIUM-ALBUTEROL 3 ML NEB INHALATION SCH ×3 (12:46→20:22)
--- NOTE | 2019-07-10 14:08 | P.PN ---
Subjective Progress Note Date: 07/10/19 64 years old male patient of Dr. Torres with past medical history of asthma, COPD, GERD currently chronically on 10 mg of prednisone, since April with upper respiratory symptom for the past few days. Patient has been suffering from respiratory symptoms since and has been on and off antibiotics including Bactrim and Augmentin. Patient has been getting steroid and antibiotic shot every [address] Ruiz's he started having fever and flulike symptom yesterday for slight dyspnea on exertion. He reports multiple coworkers sick with similar symptoms. On assessment in the ER patient had a temp of 102 with tachycardia. Influenza A and B was negative patient does have a leukocytosis of 21.9, glucose 118 creatinine 0.89. Chest x-ray in the ER was negative urine was negative for any infection. Patient endorses productive cough with shortness of breath with orthopnea. Has 2 L of oxygen at home which she wears intermittently in the night. 07/09: A CAT scan of the chest revealed old granulomatous disease. Mild interstitial infiltrate and atelectasis on the left posterior lung base. No suspicious pulmonary mass. Emphysema. Patient is afebrile, heart rate 88, blood pressure 109/64, pulse ox 95% on 2 L nasal cannula. Blood sugar is running in the 200s with no history of diabetes. Echocardiogram, hemoglobin A1c are pending. He is currently on a Zithromax in and ceftriaxone. Solu-Medrol at 60 mg IV every 6 hours will be decreased to 40 mg every 8 hours. Pulmonary medicine is on consult. Anticipate discharge in the next 24-48 hours. 07/10: Patient states his overall breathing status is improving. He is dyspneic with exertion. He has occasional cough that is nonproductive. Denies any chest pain. Pulse ox is 93% on room air, afebrile, heart rate 71, blood pressure 135/67. Blood sugars are running between 138 and 226. Solu-Medrol was increased to 60 IV every 6 hours by pulmonary medicine. Echocardiogram reveals EF 55-60% with moderate concentric left ventricular hypertrophy, LA moderately dilated 34-39, aortic valve not well visualized but no evidence of aortic regurgitation or stenosis. Mild mitral regurgitation, mild tricuspid regurgitation, no pulmonary hypertension. Review of Systems Constitutional: Denies chills, Denies fever, Denies lethargy, Denies malaise, Denies poor appetite, Denies weakness, Denies weight loss Ears, nose, mouth and throat: Denies dental pain, Denies headache, Denies nasal discharge, Denies nose pain Cardiovascular: Denies chest pain, Denies decreased exercise tolerance, Denies edema, Denies high blood pressure, Denies irregular heart beat, Denies palpitations, Denies paroxysmal nocturnal dyspnea, Denies rapid heart beat, Denies shortness of breath Respiratory: Endorses congestion, endorses cough without sputum, denies dyspnea, endorses intermittent use of home oxygen, endorses wheezing, reports dyspnea with exertion Gastrointestinal: Denies abdominal pain, Denies change in bowel habits, Denies coffee ground emesis, Denies early satiety, Denies excessive gas, Denies heartburn, Denies hematemesis, Denies hematochezia, Denies loss of appetite, Denies nausea, Denies vomiting Genitourinary: Denies dysuria, Denies flank pain, Denies kidney stones, Denies menorrhagia, Denies urgency, Denies urinary frequency Musculoskeletal: Denies gait dysfunction, Denies limitation of motion, Denies morning stiffness, Denies muscle cramps Integumentary: Denies rash, Denies wounds, Denies brittle nails, Denies change in hair/nails, Denies darkening of skin Neurological: Denies balance difficulties, Denies change in speech, Denies double vision, Denies gait dysfunction, Denies loss of vision, Denies motor disturbance, Denies numbness, Denies paralysis, Denies paresthesias, Denies seizures Psychiatric: Denies anxiety, Denies depression Endocrine: Denies excessive sweating, Denies excessive thirst, Denies high blood sugars, Denies palpitations Hematologic/Lymphatic: Denies easy bruising, Denies lymphadenopathy Objective - Vital Signs Vital signs: Vital Signs Temp 97.4 F L 07/10/19 07:17 Pulse 68 07/10/19 09:42 Resp 19 07/10/19 07:17 BP 151/74 07/10/19 07:17 Pulse Ox 93 L 07/10/19 07:17 Intake & Output 07/09/19 07/10/19 07/10/19 18:59 06:59 18:59 Intake Total 590 Balance 590 Intake: Oral 590 Other: Voiding Method Toilet Toilet # Voids 2 - Exam - Constitutional General appearance: cooperative, no acute distress, obese, patient's at bedside. - EENT Eyes: anicteric sclerae, PERRLA, normal appearance ENT: hearing grossly normal - Neck Neck: no lymphadenopathy, normal ROM, no other, no rigidity, no stridor, no thyromegaly - Respiratory Respiratory: bilateral: Decreased air entry, diminished in the bases and wheezing - Cardiovascular Rhythm: regular Heart sounds: normal: S1, S2 Abnormal Heart Sounds: no systolic murmur, no diastolic murmur, no rub, no S3 Gallop, no S4 Gallop, no click, pitting edema 1+ - Gastrointestinal General gastrointestinal: normal bowel sounds, soft - Integumentary Integumentary: no rash - Neurologic Neurologic: CNII-XII intact - Musculoskeletal Musculoskeletal: gait normal, strength equal bilaterally - Psychiatric Psychiatric: A&O x's 3, appropriate affect - Labs CBC & Chem 7: 07/08/19 12:51 07/07/19 17:47 Labs: Abnormal Lab Results - Last 24 Hours (Table) 07/09/19 07/09/19 07/09/19 Range/Units 06:57 11:27 17:09 POC Glucose (mg/dL) 278 H 190 H (75-99) mg/dL Hemoglobin A1c 6.2 H (4.0-6.0) % 07/09/19 07/10/19 Range/Units 20:08 06:54 POC Glucose (mg/dL) 226 H 218 H (75-99) mg/dL Hemoglobin A1c (4.0-6.0) % Microbiology - Last 24 Hours (Table) 07/07/19 18:10 Blood Culture - Preliminary Blood No Growth after 48 hours Assessment and Plan Plan: #1 Fever sepsis likely secondary to pneumonia chest x-ray was negative but patient has productive cough and shortness of breath. Continue Rocephin and azithromycin sputum culture DuoNeb as needed for shortness of breath. Pro- calcitonin 0.12. Consult with pulmonary medicine. #2 acute COPD exacerbation continue DuoNeb as needed for shortness of breath Rocephin and azithromycin sputum culture Pulmicort twice daily, Solu-Medrol increased to 60 mg IV every 6 hours #3 mild persistent asthma DuoNeb as needed #4 GERD pantoprazole 20 mg by mouth daily #5 DVT prophylaxis heparin 5000 every 12 #6 GI prophylaxis pantoprazole 20 mg by mouth daily #7 CODE STATUS full code Discharge plan: Return home in the next 24-48 hours Impression and plan of care have been directed as dictated by the signing physician. Massiel Hayes nurse practitioner acting as scribe for signing physician.
[2019-07-10 17:01] LABS: Glucose,Whole Blood 394 mg/dL (75-99)
[2019-07-10] MEDS ORDERED: INSULIN ASPART (NovoLOG) 100 UNIT/ML VIAL SQ ONE (17:47)
[2019-07-10] MEDS: FORMOTEROL FUMARATE 20 MCG/2 ML NEBU INHALATION SCH (20:22)
[2019-07-10 20:24] LABS: Glucose,Whole Blood 314 mg/dL (75-99)
[2019-07-10] MEDS: LORATADINE 10 MG TAB PO SCH (21:04)
[2019-07-11] MEDS: methylPREDNISolone SOD SUCCI 125 MG/2 ML VIAL IV SCH ×5 (05:49→23:33)
[2019-07-11 07:19] LABS: Glucose,Whole Blood 292 mg/dL (75-99)
[2019-07-11] MEDS: BUDESONIDE 0.5 MG/2 ML NEBU INHALATION SCH ×2 (07:39→21:09)
[2019-07-11] MEDS: IPRATROPIUM-ALBUTEROL 3 ML NEB INHALATION SCH ×4 (07:39→21:09)
[2019-07-11] MEDS: FORMOTEROL FUMARATE 20 MCG/2 ML NEBU INHALATION SCH ×2 (07:39→21:09)
[2019-07-11] MEDS: VIT A,C & E-LUTEIN-MINERALS 1 EACH TAB PO SCH (08:52)
[2019-07-11] MEDS: HEPARIN SODIUM,PORCINE 5,000 UNIT/ML 1 ML VIAL SQ SCH ×2 (08:52→20:48)
[2019-07-11] MEDS: PANTOPRAZOLE 40 MG TABLET PO SCH (08:52)
[2019-07-11] MEDS: MULTIVITAMINS, THERA 1 EACH TAB PO SCH (08:52)
[2019-07-11] MEDS: INSULIN DETEMIR (LEVEMIR) 100 UNIT/ML SYR SQ SCH (08:53)
[2019-07-11] MEDS: INSULIN ASPART (NovoLOG) 100 UNIT/ML VIAL SQ SCH ×6 (08:54→21:39)
[2019-07-11] MEDS: AZITHROMYCIN 250 MG TAB PO SCH (08:56)
--- NOTE | 2019-07-11 12:17 | P.PN ---
Subjective Progress Note Date: 07/11/19 64 years old male patient of Dr. Torres with past medical history of asthma, COPD, GERD currently chronically on 10 mg of prednisone, since April with upper respiratory symptom for the past few days. Patient has been suffering from respiratory symptoms since and has been on and off antibiotics including Bactrim and Augmentin. Patient has been getting steroid and antibiotic shot every [address] Ruiz's he started having fever and flulike symptom yesterday for slight dyspnea on exertion. He reports multiple coworkers sick with similar symptoms. On assessment in the ER patient had a temp of 102 with tachycardia. Influenza A and B was negative patient does have a leukocytosis of 21.9, glucose 118 creatinine 0.89. Chest x-ray in the ER was negative urine was negative for any infection. Patient endorses productive cough with shortness of breath with orthopnea. Has 2 L of oxygen at home which she wears intermittently in the night. 07/09: A CAT scan of the chest revealed old granulomatous disease. Mild interstitial infiltrate and atelectasis on the left posterior lung base. No suspicious pulmonary mass. Emphysema. Patient is afebrile, heart rate 88, blood pressure 109/64, pulse ox 95% on 2 L nasal cannula. Blood sugar is running in the 200s with no history of diabetes. Echocardiogram, hemoglobin A1c are pending. He is currently on a Zithromax in and ceftriaxone. Solu-Medrol at 60 mg IV every 6 hours will be decreased to 40 mg every 8 hours. Pulmonary medicine is on consult. Anticipate discharge in the next 24-48 hours. 07/10: Patient states his overall breathing status is improving. He is dyspneic with exertion. He has occasional cough that is nonproductive. Denies any chest pain. Pulse ox is 93% on room air, afebrile, heart rate 71, blood pressure 135/67. Blood sugars are running between 138 and 226. Solu-Medrol was increased to 60 IV every 6 hours by pulmonary medicine. Echocardiogram reveals EF 55-60% with moderate concentric left ventricular hypertrophy, LA moderately dilated 34-39, aortic valve not well visualized but no evidence of aortic regurgitation or stenosis. Mild mitral regurgitation, mild tricuspid regurgitation, no pulmonary hypertension. 07/11: Patient has been afebrile, heart rate 71, blood pressure 150/76, pulse ox 93% on room air. Blood sugars have been elevated at 292-394 with hemoglobin A1c of 6.2, patient received additional dose of NovoLog yesterday, scheduled NovoLog and Levemir will be added while he is on IV steroids. Blood culture remains with no growth. Breathing status is gradually improving. He is for a possible discharge in the next 24 hours. Awaiting evaluation by pulmonary medicine. Review of Systems Constitutional: Denies chills, Denies fever, Denies lethargy, Denies malaise, Denies poor appetite, Denies weakness, Denies weight loss Ears, nose, mouth and throat: Denies dental pain, Denies headache, Denies nasal discharge Cardiovascular: Denies chest pain, Denies decreased exercise tolerance, Denies edema, Denies high blood pressure, Denies irregular heart beat, Denies palpitations, Denies paroxysmal nocturnal dyspnea, Denies rapid heart beat, Denies shortness of breath Respiratory: Endorses congestion, endorses cough without sputum, denies dyspnea, endorses intermittent use of home oxygen, endorses wheezing, reports dyspnea with exertion Gastrointestinal: Denies abdominal pain, Denies change in bowel habits, Denies coffee ground emesis, Denies early satiety, Denies excessive gas, Denies heartburn, Denies hematemesis, Denies hematochezia, Denies loss of appetite, Denies nausea, Denies vomiting Genitourinary: Denies dysuria, Denies flank pain, Denies kidney stones, Denies menorrhagia, Denies urgency, Denies urinary frequency Musculoskeletal: Denies gait dysfunction, Denies limitation of motion, Denies morning stiffness, Denies muscle cramps Integumentary: Denies rash, Denies wounds, Denies brittle nails, Denies change in hair/nails, Denies darkening of skin Neurological: Denies balance difficulties, Denies change in speech, Denies double vision, Denies gait dysfunction, Denies loss of vision, Denies motor disturbance, Denies numbness, Denies paralysis, Denies paresthesias, Denies seizures Psychiatric: Denies anxiety, Denies depression Endocrine: Denies excessive sweating, Denies excessive thirst, Denies high blood sugars, Denies palpitations Hematologic/Lymphatic: Denies easy bruising, Denies lymphadenopathy Objective - Vital Signs Vital signs: Vital Signs Temp 97.9 F 07/11/19 07:43 Pulse 63 07/11/19 07:45 Resp 18 07/11/19 07:43 BP 154/76 07/11/19 07:43 Pulse Ox 93 L 07/11/19 07:43 Intake & Output 07/10/19 07/11/19 07/11/19 18:59 06:59 18:59 Intake Total 600 240 Balance 600 240 Intake: Oral 600 240 Other: Voiding Method Toilet Toilet # Voids 2 1 - Exam - Constitutional General appearance: cooperative, no acute distress, obese. - EENT Eyes: anicteric sclerae, PERRLA, normal appearance ENT: hearing grossly normal - Neck Neck: no lymphadenopathy, normal ROM, no other, no rigidity, no stridor, no t hyromegaly - Respiratory Respiratory: bilateral: Decreased air entry, diminished in the bases and w heezing - Cardiovascular Rhythm: regular Heart sounds: normal: S1, S2 Abnormal Heart Sounds: no systolic murmur, no diastolic murmur, no rub, no S3 Gallop, no S4 Gallop, no click, pitting edema 1+ - Gastrointestinal General gastrointestinal: normal bowel sounds, soft - Integumentary Integumentary: no rash - Neurologic Neurologic: CNII-XII intact - Musculoskeletal Musculoskeletal: gait normal, strength equal bilaterally - Psychiatric Psychiatric: A&O x's 3, appropriate affect - Labs CBC & Chem 7: 07/08/19 12:51 07/07/19 17:47 Labs: Abnormal Lab Results - Last 24 Hours (Table) 07/10/19 07/10/19 07/10/19 Range/Units 11:28 16:53 20:23 POC Glucose (mg/dL) 138 H 394 H 314 H (75-99) mg/dL 07/11/19 Range/Units 07:16 POC Glucose (mg/dL) 292 H (75-99) mg/dL Microbiology - Last 24 Hours (Table) 07/07/19 18:10 Blood Culture - Preliminary Blood No Growth after 72 hours Assessment and Plan Plan: #1 Fever sepsis likely secondary to pneumonia chest x-ray was negative but patient has productive cough and shortness of breath. Continue Rocephin and azithromycin sputum culture DuoNeb as needed for shortness of breath. Pro- calcitonin 0.12. Consult with pulmonary medicine appreciated. #2 acute COPD exacerbation continue DuoNeb as needed for shortness of breath Rocephin and azithromycin sputum culture Pulmicort twice daily, continue Solu- Medrol 60 mg IV every 6 hours #3 mild persistent asthma DuoNeb as needed #4 GERD pantoprazole 20 mg by mouth daily #5 DVT prophylaxis heparin 5000 every 12 #6 GI prophylaxis pantoprazole 20 mg by mouth daily #7 CODE STATUS full code 8. Hyperglycemia secondary to steroids. Patient started on Levemir 10 units daily, scheduled NovoLog 5 units with meals and NovoLog scale. Hemoglobin A1c is 6.3. Discharge plan: Return home in the next 24-48 hours Impression and plan of care have been directed as dictated by the signing physician. Massiel Hayes nurse practitioner acting as scribe for signing physician.
[2019-07-11 12:23] LABS: Glucose,Whole Blood 266 mg/dL (75-99)
--- NOTE | 2019-07-11 16:37 | P.PN ---
Subjective Progress Note Date: 07/11/19 Principal diagnosis: Acute exacerbation of chronic obstructive pulmonary disease with tracheobronchitis 64-year-old white male, has worked in the [employer] business for about 20 years, past medical history of COPD, moderate to severe, with the baseline FEV1 of 1.42 L or 37% of predicted and diffusion capacity of 64% of predicted, carries a [id number] smoking history, previous bouts of pneumonia and bronchitis, and previous surgical history positive for appendectomy, cholecystectomy, hernia repair, and knee surgery, who presented to the emergency department on 07/07/2019 with flulike symptoms, tachycardia with the heart rate of 103, leukocytosis of 21.9. Chest x-ray shows no acute process, influenza screen was negative, urinalysis was negative, metabolic panel was within normal limits, patient's symptoms include cough, nasal congestion fever and shortness of breath , poorly patient was being treated with the prolonged course of steroids by his primary care physician for ongoing rest her symptoms since of last year. He had completed a course of antibiotics he had been on Bactrim and Augmentin for pneumonia in the past. Patient Patient states a lot of his coworkers have been sick with similar symptoms. Patient was hypoxemic with pulse ox of 89% and presentation, tachycardic and febrile and patient was admitted for further management. Patient was started on IV steroids, Rocephin and azithromycin, CT chest without contrast was obtained showing old granulomatous disease with a 12 mm calcified granuloma in the right lower lobe posteriorly, and some mild interstitial infiltrate and atelectasis in the left posterior lung base no suspicious pulmonary mass, in the background of emphysema. ProCalcitonin level was none elevated at 0.12. Today's evaluation patient is on 2 L of oxygen with a pulse ox of 96%, he is afebrile, hemodynamically stable, and is feeling better, apparently on admission his mentation was altered likely related to acute hypoxemic respiratory failure, his mentation is back to baseline now. On 07/02/2019 patient seen in follow-up on general medical floor, he states he still has exertional dyspnea, he is currently on room air, and his pulse ox is 93%, he states it takes him a little bit to recover after walking, occasional cough, no significant sputum production, no fever or chills, patient is on Zithromax for empiric antibiotic coverage, IV steroids of 40 mg every 8 hours, and nebulized bronchodilators in addition to Pulmicort. Aparrently patient did not bring his Trelegy inhaler from home. No complaints of chest pain, as been tolerating ambulation. On 07/11/2019 patient seen in follow-up on the Gen. medical floor, improving, although still has some exertional dyspnea, occasional cough, no sputum pr oduction, no fever chills, vital signs are stable, patient is on room air, he remains on empiric antibiotics in the form of Zithromax and Rocephin blood cultures have shown no growth, yesterday we increased the patient's IV Solu- Medrol. Patient is doing better. No acute events overnight, tolerating ambulation. Objective - Vital Signs Vital signs: Vital Signs Temp 97.7 F 07/11/19 12:32 Pulse 60 07/11/19 12:32 Resp 19 07/11/19 12:32 BP 148/68 07/11/19 12:32 Pulse Ox 93 L 07/11/19 12:32 Intake & Output 07/10/19 07/11/19 07/11/19 18:59 06:59 18:59 Intake Total 600 240 Balance 600 240 Intake: Oral 600 240 Other: Voiding Method Toilet Toilet Toilet # Voids 2 1 - Exam GENERAL EXAM: Alert, a pleasant, 64-year-old white male, 2 L of oxygen with a pulse ox of 96% comfortable in no apparent distress. HEAD: Normocephalic/atraumatic. EYES: Normal reaction of pupils, equal size. Conjunctiva pink, sclera white. NOSE: Clear with pink turbinates. THROAT: No erythema or exudates. NECK: No masses, no JVD, no thyroid enlargement, no adenopathy. CHEST: No chest wall deformity. Symmetrical expansion. LUNGS: Equal air entry with no crackles, wheeze, rhonchi or dullness. CVS: Regular rate and rhythm, normal S1 and S2, no gallops, no murmurs, no rubs ABDOMEN: Soft, nontender. No hepatosplenomegaly, normal bowel sounds, no guarding or rigidity. EXTREMITIES: No clubbing, no edema, no cyanosis, 2+ pulses and upper and lower extremities. MUSCULOSKELETAL: Muscle strength and tone normal. SPINE: No scoliosis or deformity SKIN: No rashes CENTRAL NERVOUS SYSTEM: Alert and oriented -3. No focal deficits, tone is normal in all 4 extremities. PSYCHIATRIC: Alert and oriented -3. Appropriate affect. Intact judgment and insight. - Labs CBC & Chem 7: 07/08/19 12:51 07/07/19 17:47 Labs: Abnormal Lab Results - Last 24 Hours (Table) 07/10/19 07/10/19 07/11/19 Range/Units 16:53 20:23 07:16 POC Glucose (mg/dL) 394 H 314 H 292 H (75-99) mg/dL 07/11/19 Range/Units 12:04 POC Glucose (mg/dL) 266 H (75-99) mg/dL Microbiology - Last 24 Hours (Table) 07/07/19 18:10 Blood Culture - Preliminary Blood No Growth after 72 hours Assessment and Plan Plan: Assessment: #1. Acute hypoxemic respiratory failure and dyspnea on admission related to acute COPD exacerbation, chest x-ray did not show acute pulmonary process, CT chest showed old calcified granuloma measuring 12 mm in the right lower lobe posteriorly, and interstitial coarse density in the left posterior lung base, community-acquired pneumonia could not be completely ruled out. Patient has been treated with combination of Zithromax and Rocephin #2. Ongoing symptoms of shortness of breath, cough, flulike symptoms, fever, patient has been treated with 2 courses of antibiotics in prolonged course of prednisone since before #3. Severe COPD, with FEV1 of 1.42 L or 37% of predicted and diffusion capacity of 66% #4. Former history of tobacco dependence, currently in remission, carries [id number] smoking history #5. GERD/reflux #6. Previous episodes of pneumonia Plan: Continue current medical treatment, patient is improving, continue Zithromax and Rocephin, patient is afebrile, vital signs are stable, increase activity as tolerated, anticipate further improvement and possible discharge home in the next 24 hours. I performed a history & physical examination of the patient and discussed their management with my nurse practitioner, Nicolette Law. I reviewed the nurse practitioner's note and agree with the documented findings and plan of care. Lung sounds are positive for diminished breath sounds. The findings and the impression was discussed with the patient. I attest to the documentation by the nurse practitioner.
[2019-07-11 17:09] LABS: Glucose,Whole Blood 364 mg/dL (75-99)
[2019-07-11] MEDS: LORATADINE 10 MG TAB PO SCH (20:48)
[2019-07-11 21:19] LABS: Glucose,Whole Blood 398 mg/dL (75-99)
[2019-07-12] MEDS: methylPREDNISolone SOD SUCCI 125 MG/2 ML VIAL IV SCH ×2 (05:37→11:56)
[2019-07-12 07:17] LABS: Glucose,Whole Blood 330 mg/dL (75-99)
[2019-07-12] MEDS: ACETAMINOPHEN TAB 325 MG TAB PO PRN (07:48)
[2019-07-12] MEDS: VIT A,C & E-LUTEIN-MINERALS 1 EACH TAB PO SCH (07:48)
[2019-07-12] MEDS: PANTOPRAZOLE 40 MG TABLET PO SCH (07:48)
[2019-07-12] MEDS: MULTIVITAMINS, THERA 1 EACH TAB PO SCH (07:49)
[2019-07-12] MEDS: INSULIN DETEMIR (LEVEMIR) 100 UNIT/ML SYR SQ SCH (07:49)
[2019-07-12] MEDS: AZITHROMYCIN 250 MG TAB PO SCH (07:49)
[2019-07-12] MEDS: INSULIN ASPART (NovoLOG) 100 UNIT/ML VIAL SQ SCH ×4 (07:49→11:56)
[2019-07-12] MEDS: HEPARIN SODIUM,PORCINE 5,000 UNIT/ML 1 ML VIAL SQ SCH (07:50)
[2019-07-12] MEDS: FORMOTEROL FUMARATE 20 MCG/2 ML NEBU INHALATION SCH (08:08)
[2019-07-12] MEDS: BUDESONIDE 0.5 MG/2 ML NEBU INHALATION SCH (08:08)
[2019-07-12] MEDS: IPRATROPIUM-ALBUTEROL 3 ML NEB INHALATION SCH ×3 (08:08→15:28)
[2019-07-12 11:53] LABS: Glucose,Whole Blood 229 mg/dL (75-99)
[2019-07-12 12:17] VITALS: BP 134/71; PULSE 63; RESP 17; TEMP 98.2
--- NOTE | 2019-07-12 14:25 | P.PN ---
Subjective Progress Note Date: 07/12/19 Principal diagnosis: Acute exacerbation of chronic obstructive pulmonary disease with tracheobronchitis 64-year-old white male, has worked in the [employer] business for about 20 years, past medical history of COPD, moderate to severe, with the baseline FEV1 of 1.42 L or 37% of predicted and diffusion capacity of 64% of predicted, carries a [id number] smoking history, previous bouts of pneumonia and bronchitis, and previous surgical history positive for appendectomy, cholecystectomy, hernia repair, and knee surgery, who presented to the emergency department on 07/07/2019 with flulike symptoms, tachycardia with the heart rate of 103, leukocytosis of 21.9. Chest x-ray shows no acute process, influenza screen was negative, urinalysis was negative, metabolic panel was within normal limits, patient's symptoms include cough, nasal congestion fever and shortness of breath , poorly patient was being treated with the prolonged course of steroids by his primary care physician for ongoing rest her symptoms since of last year. He had completed a course of antibiotics he had been on Bactrim and Augmentin for pneumonia in the past. Patient Patient states a lot of his coworkers have been sick with similar symptoms. Patient was hypoxemic with pulse ox of 89% and presentation, tachycardic and febrile and patient was admitted for further management. Patient was started on IV steroids, Rocephin and azithromycin, CT chest without contrast was obtained showing old granulomatous disease with a 12 mm calcified granuloma in the right lower lobe posteriorly, and some mild interstitial infiltrate and atelectasis in the left posterior lung base no suspicious pulmonary mass, in the background of emphysema. ProCalcitonin level was none elevated at 0.12. Today's evaluation patient is on 2 L of oxygen with a pulse ox of 96%, he is afebrile, hemodynamically stable, and is feeling better, apparently on admission his mentation was altered likely related to acute hypoxemic respiratory failure, his mentation is back to baseline now. On 07/02/2019 patient seen in follow-up on general medical floor, he states he still has exertional dyspnea, he is currently on room air, and his pulse ox is 93%, he states it takes him a little bit to recover after walking, occasional cough, no significant sputum production, no fever or chills, patient is on Zithromax for empiric antibiotic coverage, IV steroids of 40 mg every 8 hours, and nebulized bronchodilators in addition to Pulmicort. Aparrently patient did not bring his Trelegy inhaler from home. No complaints of chest pain, as been tolerating ambulation. On 07/11/2019 patient seen in follow-up on the Gen. medical floor, improving, although still has some exertional dyspnea, occasional cough, no sputum pr oduction, no fever chills, vital signs are stable, patient is on room air, he remains on empiric antibiotics in the form of Zithromax and Rocephin blood cultures have shown no growth, yesterday we increased the patient's IV Solu- Medrol. Patient is doing better. No acute events overnight, tolerating ambulation. On 07/12/2019 patient seen in follow-up on general medical floor. Doing quite well, continues to improve, lung sounds are essentially clear to today's exam, no rhonchi, no wheezing, she has been ambulating up and down the jimenez, tolerating activity very well, denied any exertional dyspnea, no significant coughing or congestion, vital signs have been stable, patient has been treated with combination of empiric antibiotics in the form of Zithromax and Rocephin, his been afebrile, IV Solu-Medrol, and nebulized bronchodilators, and patient is being discharged home today. Objective - Vital Signs Vital signs: Vital Signs Temp 98.2 F 07/12/19 12:16 Pulse 63 07/12/19 12:16 Resp 17 07/12/19 12:16 BP 134/71 07/12/19 12:16 Pulse Ox 95 07/12/19 12:16 Intake & Output 07/11/19 07/12/19 07/12/19 18:59 06:59 18:59 Intake Total 580 580 Balance 580 580 Intake: Oral 580 580 Other: Voiding Method Toilet Toilet Toilet # Voids 2 2 1 - Exam GENERAL EXAM: Alert, a pleasant, 64-year-old white male, 95% on room air comfortable in no apparent distress. HEAD: Normocephalic/atraumatic. EYES: Normal reaction of pupils, equal size. Conjunctiva pink, sclera white. NOSE: Clear with pink turbinates. THROAT: No erythema or exudates. NECK: No masses, no JVD, no thyroid enlargement, no adenopathy. CHEST: No chest wall deformity. Symmetrical expansion. LUNGS: Equal air entry with no crackles, wheeze, rhonchi or dullness. CVS: Regular rate and rhythm, normal S1 and S2, no gallops, no murmurs, no rubs ABDOMEN: Soft, nontender. No hepatosplenomegaly, normal bowel sounds, no guarding or rigidity. EXTREMITIES: No clubbing, no edema, no cyanosis, 2+ pulses and upper and lower extremities. MUSCULOSKELETAL: Muscle strength and tone normal. SPINE: No scoliosis or deformity SKIN: No rashes CENTRAL NERVOUS SYSTEM: Alert and oriented -3. No focal deficits, tone is normal in all 4 extremities. PSYCHIATRIC: Alert and oriented -3. Appropriate affect. Intact judgment and insight. - Labs CBC & Chem 7: 07/08/19 12:51 07/07/19 17:47 Labs: Abnormal Lab Results - Last 24 Hours (Table) 07/11/19 07/11/19 07/12/19 Range/Units 17:07 21:16 07:15 POC Glucose (mg/dL) 364 H 398 H 330 H (75-99) mg/dL 07/12/19 Range/Units 11:32 POC Glucose (mg/dL) 229 H (75-99) mg/dL Microbiology - Last 24 Hours (Table) 07/07/19 18:10 Blood Culture - Preliminary Blood No Growth after 96 hours Assessment and Plan Plan: Assessment: #1. Acute hypoxemic respiratory failure and dyspnea on admission related to acute COPD exacerbation, chest x-ray did not show acute pulmonary process, CT chest showed old calcified granuloma measuring 12 mm in the right lower lobe posteriorly, and interstitial coarse density in the left posterior lung base, community-acquired pneumonia could not be completely ruled out. Patient has been treated with combination of Zithromax and Rocephin #2. Ongoing symptoms of shortness of breath, cough, flulike symptoms, fever, patient has been treated with 2 courses of antibiotics in prolonged course of prednisone since before Thanksgiving #3. Severe COPD, with FEV1 of 1.42 L or 37% of predicted and diffusion capacity of 66% #4. Former history of tobacco dependence, currently in remission, carries [id number] smoking history #5. GERD/reflux #6. Previous episodes of pneumonia Plan: Patient is doing well, continues to improve, breathing easier, he is on room air, tolerating ambulation, no fever or chills, home today, patient states he was to follow up with Dr. Torres, business card was given for Dr. Purvis, and patient can follow-up in outpatient setting as needed. I performed a history & physical examination of the patient and discussed their management with my nurse practitioner, Nicolette Law. I reviewed the nurse practitioner's note and agree with the documented findings and plan of care. Lung sounds are positive for diminished breath sounds. The findings and the impression was discussed with the patient. I attest to the documentation by the nurse practitioner. Time with Patient: Less than 30
--- NOTE | 2019-07-12 14:58 | P.DS ---
Providers Date of admission: 07/07/19 19:35 Expected date of discharge: 07/12/19 Attending physician: Jean Ugalde MD Consults: 07/08/19 16:12 Consult Physician Routine Consulting Provider: Igor Paris Reason/Comments: SOB Do you want consulting provider notified?: Yes Primary care physician: Andres [facility] Course: 64 years old male patient of Dr. Torres with past medical history of asthma, COPD, GERD currently chronically on 10 mg of prednisone, since April with upper respiratory symptom for the past few days. Patient has been suffering from respiratory symptoms since and has been on and off antibiotics including Bactrim and Augmentin. Patient has been getting steroid and antibiotic shot every [address] Ruiz's he started having fever and flulike symptom yesterday for slight dyspnea on exertion. He reports multiple coworkers sick with similar symptoms. On assessment in the ER patient had a temp of 102 with tachycardia. Influenza A and B was negative patient does have a leukocytosis of 21.9, glucose 118 creatinine 0.89. Chest x-ray in the ER was negative urine was negative for any infection. Patient endorses productive cough with shortness of breath with orthopnea. Has 2 L of oxygen at home which she wears intermittently in the night. 07/09: A CAT scan of the chest revealed old granulomatous disease. Mild interstitial infiltrate and atelectasis on the left posterior lung base. No suspicious pulmonary mass. Emphysema. Patient is afebrile, heart rate 88, blood pressure 109/64, pulse ox 95% on 2 L nasal cannula. Blood sugar is running in the 200s with no history of diabetes. Echocardiogram, hemoglobin A1c are pending. He is currently on a Zithromax in and ceftriaxone. Solu-Medrol at 60 mg IV every 6 hours will be decreased to 40 mg every 8 hours. Pulmonary medicine is on consult. Anticipate discharge in the next 24-48 hours. 07/10: Patient states his overall breathing status is improving. He is dyspneic with exertion. He has occasional cough that is nonproductive. Denies any chest pain. Pulse ox is 93% on room air, afebrile, heart rate 71, blood pressure 13 5/67. Blood sugars are running between 138 and 226. Solu-Medrol was increased to 60 IV every 6 hours by pulmonary medicine. Echocardiogram reveals EF 55-60% with moderate concentric left ventricular hypertrophy, LA moderately dilated 34- 39, aortic valve not well visualized but no evidence of aortic regurgitation or stenosis. Mild mitral regurgitation, mild tricuspid regurgitation, no pulmonary hypertension. 07/11: Patient has been afebrile, heart rate 71, blood pressure 150/76, pulse ox 93% on room air. Blood sugars have been elevated at 292-394 with hemoglobin A1c of 6.2, patient received additional dose of NovoLog yesterday, scheduled NovoLog and Levemir will be added while he is on IV steroids. Blood culture remains with no growth. Breathing status is gradually improving. He is for a possible discharge in the next 24 hours. Awaiting evaluation by pulmonary medicine. 07/12: Patient states that his breathing status is improved today. His lungs are much improved. He is able to ambulate well with no significant dyspnea. Patient has been cleared for discharge by Dr. Purvis. Blood sugars continue to be elevated in the 300s despite starting scheduled insulin yesterday. Patient will be discharged home on a NovoLog flex pen to be used while he is on tapering prednisone. Patient will be discharged home today in stable condition. Discharge diagnoses: #1 Fever sepsis likely secondary to pneumonia #2 acute COPD exacerbation #3 mild persistent asthma #4 GERD #5 Hyperglycemia secondary to steroids. A1c 6.3. Discharge plan: home Impression and plan of care have been directed as dictated by the signing physician. Massiel Hayes nurse practitioner acting as scribe for signing physician. Patient Condition at Discharge: Good Plan - Discharge Summary Discharge Rx Participant: No New Discharge Prescriptions: New Insulin Aspart [NovoLOG Flexpen] 1 units SQ AC-TID #1 pen predniSONE 0 mg PO DIRECTED #30 tab Azithromycin [Zithromax] 250 mg PO DAILY #5 tab Continue Albuterol Sulfate [Proair Hfa] 2 puff INHALATION RT-Q6H PRN PRN Reason: Shortness Of Breath Multivit-Min/FA/Lycopen/Lutein [Centrum Silver Men Tablet] 1 tab PO DAILY C,E,Zinc,Copper 11/Smddl0u/Lut [Ocuvite Adult 50 Plus Softgel] 1 tab PO DAILY Cetirizine HCl 10 mg PO HS Pantoprazole Sodium 20 mg PO DAILY Fluticasone/Umeclidin/Vilanter [Trelegy Ellipta 100-62.5-25] 1 puff INHALATION RT-DAILY Albuterol Nebulized [Ventolin Nebulized] 2.5 mg INHALATION RT-QID Discontinued predniSONE 10 mg PO DAILY Discharge Medication List Albuterol Sulfate [Proair Hfa] 2 puff INHALATION RT-Q6H PRN 06/09/17 [History] Multivit-Min/FA/Lycopen/Lutein [Centrum Silver Men Tablet] 1 tab PO DAILY 06/09/17 [History] C,E,Zinc,Copper 11/Xakvf0e/Lut [Ocuvite Adult 50 Plus Softgel] 1 tab PO DAILY 07/21/17 [History] Albuterol Nebulized [Ventolin Nebulized] 2.5 mg INHALATION RT-QID 07/07/19 [History] Cetirizine HCl 10 mg PO HS 07/07/19 [History] Fluticasone/Umeclidin/Vilanter [Trelegy Ellipta 100-62.5-25] 1 puff INHALATION RT-DAILY 07/07/19 [History] Pantoprazole Sodium 20 mg PO DAILY 07/07/19 [History] Azithromycin [Zithromax] 250 mg PO DAILY #5 tab 07/12/19 [Rx] Insulin Aspart [NovoLOG Flexpen] 1 units SQ AC-TID #1 pen 07/12/19 [Rx] predniSONE 0 mg PO DIRECTED #30 tab 07/12/19 [Rx] Follow up Appointment(s)/Referral(s): Andres Torres DO [Primary Care Provider] - 1-2 days (office will call patient with appointment date and time) Patient Instructions/Handouts: Prednisone (By mouth), Azithromycin (By mouth), Insulin Aspart, Recombinant (By injection), COPD (Chronic Obstructive Pulmonary Disease) (DC), Hypoxia (GEN)
== END 2019-07-12 15:28 | disposition home or self-care (01) | DRG 871 ==
LOC: EC 17:31 → 5NMEDONC 19:35
PROVIDERS: ADMIT Internal Medicine; ATTEND Internal Medicine
DX: A41.9 Sepsis, unspecified organism (principal); J96.01 Acute respiratory failure with hypoxia; J18.9 Pneumonia, unspecified organism; J43.9 Emphysema, unspecified; J45.30 Mild persistent asthma, uncomplicated; J84.10 Pulmonary fibrosis, unspecified; J20.9 Acute bronchitis, unspecified; K21.9 Gastro-esophageal reflux disease without esophagitis; T38.0X5A Adverse effect of glucocorticoids and synthetic analogues, initial encounter; I51.7 Cardiomegaly; Z79.52 Long term (current) use of systemic steroids; Z87.01 Personal history of pneumonia (recurrent); Z87.891 Personal history of nicotine dependence; Z99.81 Dependence on supplemental oxygen; Z80.8 Family history of malignant neoplasm of other organs or systems; Z90.89 Acquired absence of other organs; Z90.49 Acquired absence of other specified parts of digestive tract
CPT/HCPCS: 36415; 71046; 71250; 80053; 81003; 83036; 83605; 84145; 85025; 85610; 85730; 87040; 87502; 93005; 93306; 94640; 94760; 96361; 96365; 99285

== ENCOUNTER → 2019-10-04 | Outpatient (CLI) | payer BC ==
--- NOTE | 2019-10-04 21:28 | XR ---
EXAMINATION TYPE: XR chest 2V DATE OF EXAM: 10/04/2019 COMPARISON: 07/07/2019 HISTORY: 64-year-old male rib pain, shortness of breath, chest pain TECHNIQUE: Frontal and lateral views FINDINGS: Heart normal size. Mild interstitial prominence has a chronic appearance. Band of scarring at the lef t base. Mild hyperinflation. Possible prominent central arteries. No consolidation or pleural effusio n. IMPRESSION: COPD and pulmonary arterial hypertension. Scarring at the left base. No definite acute process.
== END | disposition home or self-care (01) ==
LOC: LABWHC1 14:30
PROVIDERS: ATTEND Family Medicine
DX: J44.9 Chronic obstructive pulmonary disease, unspecified (principal); I27.21 Secondary pulmonary arterial hypertension; J98.4 Other disorders of lung; R07.81 Pleurodynia; R07.9 Chest pain, unspecified
CPT/HCPCS: 71046

== ENCOUNTER → 2020-04-02 | Outpatient (CLI) | payer BC | END | disposition home or self-care (01) | LOC: LABWHC1 13:38 | PROVIDERS: ATTEND Family Medicine | DX: Z03.818 Encounter for observation for suspected exposure to other biological agents ruled out (principal) | CPT/HCPCS: U0003; C9803 ==

== ENCOUNTER → 2020-04-30 | Outpatient (CLI) | payer BC | END | disposition home or self-care (01) | LOC: LABWHC1 09:10 | PROVIDERS: ATTEND Family Medicine | DX: Z20.828 Contact with and (suspected) exposure to other viral communicable diseases (principal) | CPT/HCPCS: U0003; C9803 ==

== ENCOUNTER 2020-07-11 10:38 | Observation (INO) | payer BC ==
[2020-07-11] MEDS ORDERED: IBUPROFEN 600 MG TAB PO STA (11:01)
[2020-07-11] MEDS ORDERED: SODIUM CHLORIDE 0.9% 500 ML 500 ML IV STA (11:01)
--- NOTE | 2020-07-11 11:05 | ED ---
Fever HPI - General Chief Complaint: Fever Stated Complaint: fever Time Seen by Provider: 07/11/20 10:47 Source: patient, RN notes reviewed Mode of arrival: wheelchair Limitations: no limitations - History of Present Illness Initial Comments: This is a 65-year-old male presents emergency Department chief complaint of fever, not feeling well. Patient states symptoms started earlier this week he did see his PCP a few days ago was given a shot of antibiotics. Patient states that he is feeling worse today. He does have chronic shortness breath related COPD. Patient states he took some Tylenol around 8 or 9 this morning. Patient has no complaints of chest pain and headaches he states complaint of body aches fever and cough. No GI symptoms including nausea vomiting diarrhea constipation has material urinary frequency without dysuria. - Related Data Home Medications Medication Instructions Recorded Confirmed Albuterol Sulfate [Proair Hfa] 2 puff INHALATION RT-Q6H PRN 06/09/17 07/11/20 Multivit-Min/FA/Lycopen/Lutein 1 tab PO DAILY 06/09/17 07/11/20 [Centrum Silver Men Tablet] Albuterol Nebulized [Ventolin 2.5 mg INHALATION RT-QID 07/07/19 07/11/20 Nebulized] Cetirizine HCl 10 mg PO HS 07/07/19 07/11/20 Fluticasone/Umeclidin/Vilanter 1 puff INHALATION RT-DAILY 07/07/19 07/11/20 [Trelegy Ellipta 100-62.5-25] Pantoprazole Sodium 20 mg PO DAILY 07/07/19 07/11/20 Acetaminophen Tab [Tylenol Tab] 1,000 mg PO Q6HR PRN 07/11/20 07/11/20 Insulin Glargine,Hum.rec.anlog 20 units SQ Q12H 07/11/20 07/11/20 [Toujeo Solostar] Levofloxacin [Levaquin] 500 mg PO DAILY 07/11/20 07/11/20 Theophylline 12 Hour [Reji-Dur] 300 mg PO BID 07/11/20 07/11/20 predniSONE [Deltasone] 20 mg PO DAILY 07/11/20 07/11/20 Allergies Allergy/AdvReac Type Severity Reaction Status Date / Time No Known Allergies Allergy Verified 07/11/20 11:48 Review of Systems ROS Statement: Those systems with pertinent positive or pertinent negative responses have been documented in the HPI. ROS Other: All systems not noted in ROS Statement are negative. Past Medical History Past Medical History: Asthma, COPD, GERD/Reflux, Pneumonia Additional Past Medical History / Comment(s): f History of Any Multi-Drug Resistant Organisms: None Reported Past Surgical History: Appendectomy, Cholecystectomy, Hernia Repair, Orthopedic Surgery Additional Past Surgical History / Comment(s): KNEE (SPOUSE NOT SURE WHICH SIDE); ingunial Past Anesthesia/Blood Transfusion Reactions: No Reported Reaction Past Psychological History: No Psychological Hx Reported Smoking Status: Never smoker Past Alcohol Use History: None Reported Past Drug Use History: None Reported - Past Family History Mother Family Medical History: Cancer Sister(s) Family Medical History: Cancer General Exam Limitations: no limitations General appearance: alert, in no apparent distress Head exam: Present: atraumatic, normocephalic, normal inspection Eye exam: Present: normal appearance, PERRL, EOMI. Absent: scleral icterus, conjunctival injection, periorbital swelling ENT exam: Present: normal exam, normal oropharynx, mucous membranes moist Neck exam: Present: normal inspection, full ROM. Absent: tenderness, meningis mus, lymphadenopathy Respiratory exam: Present: wheezes, decreased breath sounds. Absent: normal lung sounds bilaterally, respiratory distress, rales, rhonchi, stridor Cardiovascular Exam: Present: regular rate, normal rhythm, normal heart sounds. Absent: systolic murmur, diastolic murmur, rubs, gallop, clicks GI/Abdominal exam: Present: soft, normal bowel sounds. Absent: distended, tenderness, guarding, rebound, rigid Back exam: Absent: CVA tenderness (R), CVA tenderness (L) Neurological exam: Present: alert, oriented X3, CN II-XII intact Skin exam: Present: warm, dry, intact, normal color. Absent: rash Course Vital Signs 07/11/20 07/11/20 10:43 12:16 Temperature 100.1 F H 99.5 F Pulse Rate 88 80 Respiratory 24 22 Rate Blood Pressure 157/84 132/69 O2 Sat by Pulse 94 L 92 L Oximetry Medical Decision Making - Medical Decision Making 65-year-old presented for fever cough congestion. Patient is Covid positive pat ient does become hypoxic, dyspneic with ambulatory patient will be admitted for steroids, pulmonology evaluation - Lab Data Result diagrams: 07/11/20 11:13 07/11/20 11:13 Lab Results 07/11/20 07/11/20 07/11/20 Range/Units 11:13 11:13 11:13 WBC 9.1 (3.8-10.6) k/uL RBC 5.43 (4.30-5.90) m/uL Hgb 15.6 (13.0-17.5) gm/dL Hct 46.1 (39.0-53.0) % MCV 84.9 (80.0-100.0) fL MCH 28.7 (25.0-35.0) pg MCHC 33.8 (31.0-37.0) g/dL RDW 14.0 (11.5-15.5) % Plt Count 147 L (150-450) k/uL MPV 7.5 Neutrophils % 78 % Lymphocytes % 10 % Monocytes % 8 % Eosinophils % 1 % Basophils % 1 % Neutrophils # 7.1 (1.3-7.7) k/uL Lymphocytes # 0.9 L (1.0-4.8) k/uL Monocytes # 0.7 (0-1.0) k/uL Eosinophils # 0.1 (0-0.7) k/uL Basophils # 0.1 (0-0.2) k/uL Sodium 137 (137-145) mmol/L Potassium 4.0 (3.5-5.1) mmol/L Chloride 97 L (98-107) mmol/L Carbon Dioxide 30 (22-30) mmol/L Anion Gap 10 mmol/L BUN 17 (9-20) mg/dL Creatinine 1.22 (0.66-1.25) mg/dL Est GFR (CKD-EPI)AfAm 72 (>60 ml/min/1.73 sqM) Est GFR (CKD-EPI)NonAf 63 (>60 ml/min/1.73 sqM) Glucose 118 H (74-99) mg/dL Plasma Lactic Acid Rian 0.9 (0.7-2.0) mmol/L Calcium 8.9 (8.4-10.2) mg/dL Total Bilirubin 0.6 (0.2-1.3) mg/dL AST 35 (17-59) U/L ALT 35 (4-49) U/L Alkaline Phosphatase 76 (38-126) U/L Lactate Dehydrogenase 505 (313-618) U/L C-Reactive Protein 48.5 H (<10.0) mg/L Total Protein 7.2 (6.3-8.2) g/dL Albumin 4.5 (3.5-5.0) g/dL Coronavirus (PCR) (Not Detectd) 07/11/20 Range/Units 11:13 WBC (3.8-10.6) k/uL RBC (4.30-5.90) m/uL Hgb (13.0-17.5) gm/dL Hct (39.0-53.0) % MCV (80.0-100.0) fL MCH (25.0-35.0) pg MCHC (31.0-37.0) g/dL RDW (11.5-15.5) % Plt Count (150-450) k/uL MPV Neutrophils % % Lymphocytes % % Monocytes % % Eosinophils % % Basophils % % Neutrophils # (1.3-7.7) k/uL Lymphocytes # (1.0-4.8) k/uL Monocytes # (0-1.0) k/uL Eosinophils # (0-0.7) k/uL Basophils # (0-0.2) k/uL Sodium (137-145) mmol/L Potassium (3.5-5.1) mmol/L Chloride (98-107) mmol/L Carbon Dioxide (22-30) mmol/L Anion Gap mmol/L BUN (9-20) mg/dL Creatinine (0.66-1.25) mg/dL Est GFR (CKD-EPI)AfAm (>60 ml/min/1.73 sqM) Est GFR (CKD-EPI)NonAf (>60 ml/min/1.73 sqM) Glucose (74-99) mg/dL Plasma Lactic Acid Rian (0.7-2.0) mmol/L Calcium (8.4-10.2) mg/dL Total Bilirubin (0.2-1.3) mg/dL AST (17-59) U/L ALT (4-49) U/L Alkaline Phosphatase (38-126) U/L Lactate Dehydrogenase (313-618) U/L C-Reactive Protein (<10.0) mg/L Total Protein (6.3-8.2) g/dL Albumin (3.5-5.0) g/dL Coronavirus (PCR) Detected A (Not Detectd) Disposition Clinical Impression: Hypoxia, COVID-19, COPD (chronic obstructive pulmonary disease) Disposition: ADMITTED IP TO THIS HOSP Condition: Fair Referrals: Andres Torres DO [Primary Care Provider] - 1-2 days
[2020-07-11 11:36] LABS: Basophils # (A) 0.1 k/uL (0-0.2); Basophils % (A) 1 %; Eosinophils # (A) 0.1 k/uL (0-0.7); Eosinophils % (A) 1 %; HCT 46.1 % (39.0-53.0); HGB 15.6 gm/dL (13.0-17.5); Lymphocytes # (A) 0.9 k/uL (1.0-4.8); Lymphocytes % (A) 10 %; MCH 28.7 pg (25.0-35.0); MCHC 33.8 g/dL (31.0-37.0); MCV 84.9 fL (80.0-100.0); Mean Platelet Volume 7.5; Monocytes # (A) 0.7 k/uL (0-1.0); Monocytes % (A) 8 %; Neutrophils # (A) 7.1 k/uL (1.3-7.7); Neutrophils % (A) 78 %; Platelet Count 147 k/uL (150-450); RBC 5.43 m/uL (4.30-5.90); WBC 9.1 k/uL (3.8-10.6)
[2020-07-11 11:42] LABS: Albumin 4.5 g/dL (3.5-5.0); C Reactive Protein 48.5 mg/L (<10.0); Calcium 8.9 mg/dL (8.4-10.2); Total Bilirubin 0.6 mg/dL (0.2-1.3); Total Protein 7.2 g/dL (6.3-8.2)
--- NOTE | 2020-07-11 11:50 | XR ---
EXAMINATION TYPE: XR chest 2V DATE OF EXAM: 07/11/2020 COMPARISON: Chest x-ray October 04, 2019 HISTORY: Fever for a few days. TECHNIQUE: Frontal and lateral views of the chest are obtained. FINDINGS: There is mild chronic emphysematous and parenchymal change without suspicious new focal ai r space opacity, pleural effusion, or pneumothorax seen. The cardiac silhouette size is within kali l limits. A visible granulomatous disease with chronic nodularity redemonstrated. The osseous structu res are intact. IMPRESSION: Chronic changes without acute pulmonary process.
[2020-07-11] MEDS ORDERED: DEXAMETHASONE SOD PHOSPHATE 10 MG/ML 1 ML VIAL IV STA (12:24)
[2020-07-11] MEDS ORDERED: ACETAMINOPHEN TAB 325 MG TAB PO PRN (12:27)
[2020-07-11] MEDS ORDERED: IBUPROFEN 400 MG TAB PO PRN (12:27)
[2020-07-11] MEDS ORDERED: ONDANSETRON 4 MG/2 ML VIAL IVP PRN (12:27)
[2020-07-11] MEDS ORDERED: NALOXONE 0.4 MG/ML 1 ML VIAL IV PRN (12:27)
[2020-07-11] MEDS ORDERED: ALBUTEROL HFA INHALER INHALATION PRN (12:29)
--- NOTE | 2020-07-11 15:31 | P.CNPUL ---
History of Present Illness Consult date: 07/11/20 Requesting physician: Gallito Harley Reason for consult: dyspnea Chief complaint: Shortness of breath, cough, fever History of present illness: This is a very pleasant 65-year-old gentleman who follows with Dr. Torres as his primary care provider. He has a history of gastroesophageal reflux disease, diabetes mellitus, former smoker. He does have severe chronic obstructive pulmonary disease with an FEV1 value 21-23% of predicted without significant reversibility. He follows with Dr. Purvis in our office for the same. He has been maintained on Cathi G, albuterol and prednisone 20 mg daily. He was also recently initiated on theophylline 300 mg twice a day. He was referred to Dr. Meredith at [facility] for endobronchial valve placement for lung volume reduction. The patient did see him and was planning for the procedure on 08/06/2020. Over the past week the patient developed fevers, headache, chills, shortness of breath with productive cough of yellow tinged sputum. He did have a fever of 102 this morning and was referred to the emergency room by his primary care provider. He did test positive for the CoVID 19 infection. He was admitted for the same. He was slightly hypoxic at 92% on room air. Temperature 100.1. He is seen today in consultation on the regular medical floor. He is sitting up in a chair at the bedside. Awake and alert in no acute distress. No worsening shortness of breath, cough or congestion. No chest pain. No nausea, vomiting or diarrhea. No loss of taste or smell. Currently 97% O2 saturation on 2 L/m per nasal cannula. Temperature 99.4. Chest x-ray shows some chronic changes but no acute pulmonary process. White count 9.1. Hemoglobin 15.6. Platelets 147. Lymphocytes 0.9. Sodium 137. Potassium 4.0. Creatinine 1.22. LDH 505. C-reactive protein 48.5. Review of Systems REVIEW OF SYSTEMS: CONSTITUTIONAL: Generalized weakness, fever. Denies any recent significant weight loss or weight gain. EYES: Denies change in vision. EARS, NOSE, MOUTH, THROAT: Positive for headaches, denies sore throat. CARDIOVASCULAR: Denies chest pain, palpitations or syncopal episodes. RESPIRATORY: Positive for shortness of breath, cough, congestion no hemoptysis. GASTROINTESTINAL: Denies change in appetite, denies abdominal pain GENITOURINARY: Denies hematuria, denies infections. MUSKULOSKELETAL: Denies pain, denies swelling. INTEGUMENTARY: Denies rash, denies eczema. NEUROLOGICAL: Denies recent memory loss, no recent seizure activity. PSYCHIATRIC: Denies anxiety, denies depression. HEMATOLOGIC/LYMPHATIC: Denies anemia, denies enlarged lymph nodes. Past Medical History Past Medical History: Asthma, COPD, Diabetes Mellitus, Eye Disorder, GERD/Reflux, Pneumonia, Respiratory Disorder Additional Past Medical History / Comment(s): Pt tested + covid 07/11/20 at [facility]. Other hx: Bronchitis, chronic SOB, pt scheduled at [facility] on 09/03/20 for zephr valves to be inserted into lungs, IDDM type II, neuropathy occasionally in bilateral feet, macular degeneration bilaterally, History of Any Multi-Drug Resistant Organisms: None Reported Past Surgical History: Appendectomy, Cholecystectomy, Hernia Repair, Orthopedic Surgery Additional Past Surgical History / Comment(s): R knee arthroscopy, lower abdominal hernia repair, colonoscopy. Past Anesthesia/Blood Transfusion Reactions: No Reported Reaction Smoking Status: Former smoker - Past Family History Mother Family Medical History: Cancer Additional Family Medical History / Comment(s): Lung cancer Sister(s) Family Medical History: Cancer Father Family Medical History: Cancer Additional Family Medical History / Comment(s): Lung cancer. Medications and Allergies Home Medications Medication Instructions Recorded Confirmed Type Albuterol Sulfate [Proair Hfa] 2 puff INHALATION RT-Q6H PRN 06/09/17 07/11/20 History Multivit-Min/FA/Lycopen/Lutein 1 tab PO DAILY 06/09/17 07/11/20 History [Centrum Silver Men Tablet] Albuterol Nebulized [Ventolin 2.5 mg INHALATION RT-QID 07/07/19 07/11/20 History Nebulized] Cetirizine HCl 10 mg PO HS 07/07/19 07/11/20 History Fluticasone/Umeclidin/Vilanter 1 puff INHALATION RT-DAILY 07/07/19 07/11/20 History [Trelegy Ellipta 100-62.5-25] Pantoprazole Sodium 20 mg PO DAILY 07/07/19 07/11/20 History Acetaminophen Tab [Tylenol Tab] 1,000 mg PO Q6HR PRN 07/11/20 07/11/20 History Insulin Glargine,Hum.rec.anlog 20 units SQ Q12H 07/11/20 07/11/20 History [Toujeo Solostar] Levofloxacin [Levaquin] 500 mg PO DAILY 07/11/20 07/11/20 History Theophylline 12 Hour [Reji-Dur] 300 mg PO BID 07/11/20 07/11/20 History predniSONE [Deltasone] 20 mg PO DAILY 07/11/20 07/11/20 History Allergies Allergy/AdvReac Type Severity Reaction Status Date / Time No Known Allergies Allergy Verified 07/11/20 11:48 Physical Exam Vitals: Vital Signs Temp Pulse Pulse Resp BP BP Pulse Ox 07/11/20 13:55 99.4 F 65 17 130/72 97 07/11/20 12:58 68 20 144/87 97 07/11/20 12:16 99.5 F 80 22 132/69 92 L 07/11/20 10:43 100.1 F H 88 24 157/84 94 L Intake and Output 07/11/20 07/11/20 07/11/20 06:59 14:59 22:59 Other: Weight 104.326 kg GENERAL EXAM: Alert, pleasant 65-year-old gentleman, on 2 L nasal cannula, comfortable in no apparent distress. HEAD: Normocephalic. EYES: Normal reaction of pupils, equal size. NOSE: Clear with pink turbinates. THROAT: No erythema or exudates. NECK: No masses, no JVD. CHEST: No chest wall deformity. LUNGS: Equal air entry with no crackles, wheeze, rhonchi or dullness. Diminished. CVS: S1 and S2 normal with no audible murmur, regular rhythm. ABDOMEN: No hepatosplenomegaly, normal bowel sounds, no guarding or rigidity. SPINE: No scoliosis or deformity SKIN: No rashes CENTRAL NERVOUS SYSTEM: No focal deficits, tone is normal in all 4 extremities. EXTREMITIES: There is no peripheral edema. No clubbing, no cyanosis. Peripheral pulses are intact. Results - Laboratory Findings CBC and BMP: 07/11/20 11:13 07/11/20 11:13 Abnormal lab findings: Abnormal Labs 07/11/20 07/11/20 07/11/20 11:13 11:13 11:13 Plt Count 147 L Lymphocytes # 0.9 L Chloride 97 L Glucose 118 H C-Reactive Protein 48.5 H Coronavirus (PCR) Detected A - Diagnostic Findings Chest x-ray: image reviewed (No acute pulmonary process) Assessment and Plan Assessment: 1 Acute mild hypoxic respiratory failure secondary to acute CoVID 19 infection, 92% on room air, 97% O2 saturation on 2 L. No Remdesivir at this time. 2 Febrile illness secondary to above 3 Severe chronic obstructive pulmonary disease with an FEV1 value 21-23% of predicted. Steroid dependent at prednisone 20 mg daily, theophylline, Trelegy. Seen at [facility] with plans for endobronchial valve replacement for lung volume reduction surgery 4 Former smoker 5 Diabetes mellitus 6 Gastroesophageal reflux disease Plan: The patient was seen and evaluated by Dr. Valladares Chest x-ray and labs reviewed Not qualifying for Remdesivir at this time Mild CoVID 19 infection at this time Continue dexamethasone, vitamin supplements Add colchicine 0.6 mg by mouth twice a day Repeat chest x-ray in a.m. Titrate the FiO2 as tolerated Monitor fever pattern We will continue to follow and make further recommendations based on his clinical status I, the cosigning physician, performed a history & physical examination of the patient. Lungs sounds are clear, diminished. Maintaining good O2 saturations in the 90s on 2 L/m per nasal cannula. I discussed the assessment and plan of care with my nurse practitioner, Leta Floyd. I attest to the above consultation as dictated by her. Time with Patient: Greater than 30
[2020-07-11 17:08] LABS: Glucose,Whole Blood 205 mg/dL (75-99)
[2020-07-11] MEDS: INSULIN ASPART (NovoLOG) 100 UNIT/ML VIAL SQ SCH ×2 (17:39→20:27)
[2020-07-11 20:16] LABS: Glucose,Whole Blood 175 mg/dL (75-99)
[2020-07-11] MEDS: dexAMETHasone 2 MG TAB PO SCH (20:27)
[2020-07-11] MEDS: INSULIN DETEMIR (LEVEMIR) 100 UNIT/ML SYR SQ SCH (20:31)
[2020-07-12 07:14] LABS: Glucose,Whole Blood 143 mg/dL (75-99)
[2020-07-12 07:16] LABS: Appearance,Urine Clear (Clear); Bilirubin,Urine Negative (Negative); Blood,Urine Negative (Negative); Color,Urine Yellow; Glucose,Urine (UA) Trace (Negative); Ketones,Urine Negative (Negative); Leukocyte Esterase,Urine Negative (Negative); Nitrite,Urine Negative (Negative); Protein,Urine Trace (Negative); Specific Gravity,Urine 1.025 (1.001-1.035); Urobilinogen,Urine <2.0 mg/dL (<2.0)
[2020-07-12] MEDS ORDERED: PANTOPRAZOLE 40 MG TABLET PO SCH (07:30)
[2020-07-12] MEDS: dexAMETHasone 2 MG TAB PO SCH (07:36)
[2020-07-12] MEDS: INSULIN ASPART (NovoLOG) 100 UNIT/ML VIAL SQ SCH ×3 (07:41→17:32)
[2020-07-12] MEDS: INSULIN DETEMIR (LEVEMIR) 100 UNIT/ML SYR SQ SCH (07:41)
[2020-07-12] MEDS ORDERED: THEOPHYLLINE 24 HOUR 300 MG CAP.ER.24H PO SCH (09:00)
[2020-07-12] MEDS ORDERED: ASCORBIC ACID 500 MG TAB PO SCH (09:00)
[2020-07-12] MEDS ORDERED: ZINC SULFATE 220 MG CAP PO SCH (09:00)
[2020-07-12] MEDS ORDERED: CHOLECALCIFEROL 25 MCG (1000 IU) TABLET PO SCH (09:00)
[2020-07-12 10:55] VITALS: RESP 16
[2020-07-12 11:49] LABS: Glucose,Whole Blood 177 mg/dL (75-99)
--- NOTE | 2020-07-12 15:02 | P.PN ---
Subjective Progress Note Date: 07/12/20 Principal diagnosis: CoVID 19 infection This is a very pleasant 65-year-old gentleman who follows with Dr. Torres as his primary care provider. He has a history of gastroesophageal reflux disease, diabetes mellitus, former smoker. He does have severe chronic obstructive pu lmonary disease with an FEV1 value 21-23% of predicted without significant reversibility. He follows with Dr. Purvis in our office for the same. He has been maintained on Cathi G, albuterol and prednisone 20 mg daily. He was also recently initiated on theophylline 300 mg twice a day. He was referred to Dr. Meredith at [facility] for endobronchial valve placement for lung volume reduction. The patient did see him and was planning for the procedure on 08/06/2020. Over the past week the patient developed fevers, headache, chills, shortness of breath with productive cough of yellow tinged sputum. He did have a fever of 102 this morning and was referred to the emergency room by his primary care provider. He did test positive for the CoVID 19 infection. He was admitted for the same. He was slightly hypoxic at 92% on room air. Temperature 100.1. He is seen today in consultation on the regular medical floor. He is sitting up in a chair at the bedside. Awake and alert in no acute distress. No worsening shortness of breath, cough or congestion. No chest pain. No nausea, vomiting or diarrhea. No loss of taste or smell. Currently 97% O2 saturation on 2 L/m per nasal cannula. Temperature 99.4. Chest x-ray shows some chronic changes but no acute pulmonary process. White count 9.1. Hemoglobin 15.6. Platelets 147. Lymphocytes 0.9. Sodium 137. Potassium 4.0. Creatinine 1.22. LDH 505. C-reactive protein 48.5. Patient is seen today, 07/12/2020 in follow-up on the regular medical floor. He is currently sitting up in a chair at the bedside. Awake and alert in no acute distress. He is maintaining good O2 saturations in the 90s on room air. No shortness of breath, cough or congestion. No fever, chills or night sweats. No nausea, vomiting or diarrhea. Blood culture reveals no growth. He remains on vitamin supplements, dexamethasone Objective - Vital Signs Vital signs: Vital Signs Temp 97.8 F 07/12/20 14:00 Pulse 70 07/12/20 14:00 Resp 16 07/12/20 14:00 BP 155/82 07/12/20 14:00 Pulse Ox 92 L 07/12/20 14:00 Intake & Output 07/11/20 07/12/20 07/12/20 18:59 06:59 18:59 Intake Total 520 Balance 520 Weight 104.326 kg Intake: Oral 520 Other: # Voids 1 1 - Exam GENERAL EXAM: Alert, active, pleasant 65-year-old gentleman, on room air, comfortable in no apparent distress. HEAD: Normocephalic. EYES: Normal reaction of pupils, equal size. NOSE: Clear with pink turbinates. THROAT: No erythema or exudates. NECK: No masses, no JVD. CHEST: No chest wall deformity. LUNGS: Equal air entry with no crackles, wheeze, rhonchi or dullness. CVS: S1 and S2 normal with no audible murmur, regular rhythm. ABDOMEN: No hepatosplenomegaly, normal bowel sounds, no guarding or rigidity. SPINE: No scoliosis or deformity SKIN: No rashes CENTRAL NERVOUS SYSTEM: No focal deficits, tone is normal in all 4 extremities. EXTREMITIES: There is no peripheral edema. No clubbing, no cyanosis. Periphera l pulses are intact. - Labs CBC & Chem 7: 07/11/20 11:13 07/11/20 11:13 Labs: Abnormal Lab Results - Last 24 Hours (Table) 07/11/20 07/11/20 07/12/20 Range/Units 17:06 20:14 06:52 POC Glucose (mg/dL) 205 H 175 H 143 H (75-99) mg/dL Urine Protein (Negative) Urine Glucose (UA) (Negative) 07/12/20 07/12/20 Range/Units 07:00 11:43 POC Glucose (mg/dL) 177 H (75-99) mg/dL Urine Protein Trace H (Negative) Urine Glucose (UA) Trace H (Negative) Microbiology - Last 24 Hours (Table) 07/11/20 11:13 Blood Culture - Preliminary Blood No Growth after 24 hours Assessment and Plan Assessment: 1 Acute mild hypoxic respiratory failure secondary to acute CoVID 19 infection, 92% on room air, No Remdesivir at this time. 2 Febrile illness secondary to above number recovered 3 Severe chronic obstructive pulmonary disease with an FEV1 value 21-23% of predicted. Steroid dependent at prednisone 20 mg daily, theophylline, Trelegy. Seen at [facility] with plans for endobronchial valve replacement for lung volume reduction surgery 4 Former smoker 5 Diabetes mellitus 6 Gastroesophageal reflux disease Plan: The patient was seen and evaluated by Dr. Valladares He is cleared for discharge from the pulmonary standpoint Complete 10 days of dexamethasone Follow-up in our office in 1-2 weeks' time I, the cosigning physician, performed a history & physical examination of the patient. Lungs sounds are clear, diminished. Maintaining good O2 saturations in the 90s on room air. I discussed the assessment and plan of care with my nurse practitioner, Leta Floyd. I attest to the above note as dictated by her.
--- NOTE | 2020-07-12 16:44 | P.HPIM ---
History of Present Illness H&P Date: 07/12/20 Chief Complaint: Shortness of breath cough fever 6 days This will serve both an H&P and discharge summary This is a 65-year-old gentleman patient of Dr. Torres, known history of asthma, severe COPD, FEV1 of 21-23%, awaiting lung volume reduction at [facility], comes in with symptoms of cough cold runny nose, she was diagnosed to have covered positivity on 07/11/2020, symptoms are 6 days prior to admission, with high-grade fever the day prior to admission 102. Patient denies any nausea vomiting diarrhea, patient denies any leg swelling leg pain and leg or calf te nderness, she was subsequently seen in the emergency room, and was kept in the hospital for observation. Consult with pulmonary, Dr. Purvis is his primary solar energy sales specialist. Patient denies any hemoptysis Lightheadedness no dizziness, no falls within the past 6 months, no chest pain, at baseline pulmonary processes at this time, no conversational dyspnea Past Medical History Past Medical History: Asthma, COPD, Diabetes Mellitus, Eye Disorder, GERD/Re flux, Pneumonia, Respiratory Disorder Additional Past Medical History / Comment(s): Pt tested + covid 07/11/20 at [facility]. Other hx: Bronchitis, chronic SOB, pt scheduled at [facility] on 09/03/20 for zephr valves to be inserted into lungs, IDDM type II, neuropathy occasionally in jean-claude ateral feet, macular degeneration bilaterally, History of Any Multi-Drug Resistant Organisms: None Reported Past Surgical History: Appendectomy, Cholecystectomy, Hernia Repair, Orthopedic Surgery Additional Past Surgical History / Comment(s): R knee arthroscopy, lower abdominal hernia repair, colonoscopy. Past Anesthesia/Blood Transfusion Reactions: No Reported Reaction Smoking Status: Former smoker - Past Family History Mother Family Medical History: Cancer Additional Family Medical History / Comment(s): Lung cancer Sister(s) Family Medical History: Cancer Father Family Medical History: Cancer Additional Family Medical History / Comment(s): Lung cancer. Medications and Allergies Home Medications Medication Instructions Recorded Confirmed Type Albuterol Sulfate [Proair Hfa] 2 puff INHALATION RT-Q6H PRN 06/09/17 07/11/20 History Multivit-Min/FA/Lycopen/Lutein 1 tab PO DAILY 06/09/17 07/11/20 History [Centrum Silver Men Tablet] Albuterol Nebulized [Ventolin 2.5 mg INHALATION RT-QID 07/07/19 07/11/20 History Nebulized] Cetirizine HCl 10 mg PO HS 07/07/19 07/11/20 History Fluticasone/Umeclidin/Vilanter 1 puff INHALATION RT-DAILY 07/07/19 07/11/20 History [Trelegy Ellipta 100-62.5-25] Acetaminophen Tab [Tylenol] 1,000 mg PO Q6HR PRN 07/11/20 07/11/20 History Insulin Glargine,Hum.rec.anlog 20 units SQ Q12H 07/11/20 07/11/20 History [Toujeo Solostar] Theophylline 12 Hour [Reji-Dur] 300 mg PO BID 07/11/20 07/11/20 History Ascorbic Acid [Vitamin C] 1,000 mg PO DAILY tab 07/12/20 Rx Aspirin EC [Ecotrin Low Dose] 81 mg PO BID #60 tablet.dr 07/12/20 Rx Cholecalciferol [Vitamin D3 (25 75 mcg PO DAILY tablet 07/12/20 Rx Mcg = 1000 Iu)] Levofloxacin [Levaquin] 500 mg PO DAILY #10 tab 07/12/20 Rx Pantoprazole Sodium 20 mg PO BID #0 07/12/20 07/11/20 Rx predniSONE [Deltasone] 30 mg PO DAILY #0 07/12/20 07/11/20 Rx Allergies Allergy/AdvReac Type Severity Reaction Status Date / Time No Known Allergies Allergy Verified 07/13/20 13:57 Physical Exam Vitals: Vital Signs Temp Pulse Resp BP Pulse Ox 07/12/20 08:00 98.2 F 65 16 153/81 94 L 07/12/20 07:43 64 17 07/12/20 05:44 98.2 F 64 132/68 92 L 07/12/20 02:41 98.2 F 84 157/81 92 L 07/11/20 22:02 98.7 F 62 150/83 98 07/11/20 17:43 98.5 F 73 17 153/77 92 L 07/11/20 16:20 18 Intake and Output 07/11/20 07/12/20 07/12/20 22:59 06:59 14:59 Intake Total 320 Balance 320 Intake: Oral 320 Other: # Voids 1 Results CBC & Chem 7: 07/11/20 11:13 07/11/20 11:13 Labs: Abnormal Lab Results - Last 24 Hours (Table) 07/11/20 07/11/20 07/12/20 Range/Units 17:06 20:14 06:52 POC Glucose (mg/dL) 205 H 175 H 143 H (75-99) mg/dL Urine Protein (Negative) Urine Glucose (UA) (Negative) 07/12/20 07/12/20 Range/Units 07:00 11:43 POC Glucose (mg/dL) 177 H (75-99) mg/dL Urine Protein Trace H (Negative) Urine Glucose (UA) Trace H (Negative) Microbiology - Last 24 Hours (Table) 07/11/20 11:13 Blood Culture - Preliminary Blood No Growth after 24 hours Thrombosis Risk Factor Assmnt - Choose All That Apply Any of the Below Risk Factors Present?: Yes Each Factor Represents 1 point: Abnormal pulmonary function (COPD), Obesity (BMI >25), Serious lung disease incl. pneumonia (< 1month) Other Risk Factors: Yes Each Risk Factor Represents 2 Points: Age 61-74 years Other congenital or acquired thrombophilia - If yes, enter type in comment: No Thrombosis Risk Factor Assessment Total Risk Factor Score: 5 Thrombosis Risk Factor Assessment Level: High Risk Assessment and Plan Plan: #1 cough infection, diagnosed 07/11/2020, with symptoms 6 days prior to admission, with high fevers. Chest x-ray failed to reveal any acute infiltrates, chest x-ray was negative but patient chronic COPD changes, C- reactive protein is elevated, no pro-calcitonin level was done from the emergency room, no d-dimer was done from emergency room, he was seen by pulmonary medicine, with recommendations to use dexamethasone 6 mg, twice a day with 10 day dosing, upon discussion patient is oriented and maintenance 20 mg dose at home for his end-stage COPD, and recommended that the prednisone be increased to 30 mg for 10 days then decrease to 20 mg dosing home maintenance. We have discussed this with Dr. Dias as well, and Dr. Mcfarland for the bamlanivimab medication, as well as pulmonary dr Valladares, they are all in favor for giving this infusion at this time, and will be discharged to home. #2 patient at risk for critical illness decompensation, secondary to COPD, no d- dimer was obtained, however we'll going to provide DVT prophylaxis with aspirin 81 mg twice a day, PPI 20 mg twice a day, and maintain his DuoNeb Pulmicort twice daily at home. he is completely this altered devices at home, including nebulizer needs. #3, severe COPD, with FEV1 21-23% per pulmonary, has doctors seem off at [facility] for endobronchial valve placement for lung volume reduction as scheduled in August 14. Borderline hypoxemia at 92%, not requiring any O2 requirements currently, however this did complaints discontinue decompensate secondary to covered, patient was advised to monitor his pulse oximetry regularly at home, follow-up with pulmonary in about [address]. [address] Mejia for home discharge today #3 mild persistent asthma #4 GERD pantoprazole 20 mg by mouth increase to twice a day while on higher d ose of prednisone #5 DVT prophylaxis 81 mg aspirin twice a day for 30 days, and early ambulation #6 GI prophylaxis pantoprazole 20 mg by mouth twice a day #7 CODE STATUS full code Discharge to home on 07/12 2020, after completion of the Bamlanivimab infusion 700 mg and appropriate monitoring thereafter. Addendum, patient was waiting for the BAMLANIVIMAB medication, however it is already 7:52 PM,, the infusion was not brought up from pharmacy yet, they have been waiting for the patient demographics to change in computer for obs, order was placed at around 3 pm as the patient was reluctant on receiving now that it is getting late in the day , this will be done by [facility] orders to be given as it this time sensitive stat order, faxed over to [facility], , either that prescription was given to the patient so he could also go to emergency room for the infusion. This order with AFTER 07/15/20 AT HIS 10 DAY OF ILLNESS, or when the patient will decompensate for further hypoxemia, this will order invalidate the infusion requirements. high risk patient 65. chronic immunospupression with shoulder joiner steroids, dm2, severe COPD, other factors bmi 33 underlying ckd2. at higher risk for critical illness transformation of covid infection. \\\
[2020-07-12] MEDS ORDERED: NON FORMULARY DRUG IV SCH (16:45)
[2020-07-12 17:25] LABS: Glucose,Whole Blood 142 mg/dL (75-99)
[2020-07-12 17:56] VITALS: BP 152/81; PULSE 58; TEMP 98.1
== END 2020-07-12 18:30 | disposition home health service (06) ==
LOC: EC 10:38 → 4SSUR 12:22 → INTOOBSV 12:22 → 4SSUR 12:40 → UNDODISIN 07-12 18:30
PROVIDERS: ADMIT Internal Medicine Geriatric Medicine; ATTEND Internal Medicine Geriatric Medicine
DX: U07.1 COVID-19 (principal); J96.01 Acute respiratory failure with hypoxia; E11.22 Type 2 diabetes mellitus with diabetic chronic kidney disease; N18.2 Chronic kidney disease, stage 2 (mild); E11.40 Type 2 diabetes mellitus with diabetic neuropathy, unspecified; J44.9 Chronic obstructive pulmonary disease, unspecified; J45.30 Mild persistent asthma, uncomplicated; E11.39 Type 2 diabetes mellitus with other diabetic ophthalmic complication; H35.30 Unspecified macular degeneration; K21.9 Gastro-esophageal reflux disease without esophagitis; E66.9 Obesity, unspecified; Z68.31 Body mass index [BMI] 31.0-31.9, adult; Z79.51 Long term (current) use of inhaled steroids; Z79.52 Long term (current) use of systemic steroids; Z79.899 Other long term (current) drug therapy; Z87.01 Personal history of pneumonia (recurrent); Z87.891 Personal history of nicotine dependence; Z90.49 Acquired absence of other specified parts of digestive tract; Z80.1 Family history of malignant neoplasm of trachea, bronchus and lung
CPT/HCPCS: 96361; 96374; 99284; 36415; 80053; 83605; 83615; 85025; 86140; 81003; 87040; 87635; 71046; G0378 ×2; J1100; J8540 ×2

== ENCOUNTER 2020-07-13 13:42 | Emergency (ER) | payer BC ==
--- NOTE | 2020-07-13 14:13 | ED ---
General Adult HPI - General Chief complaint: Shortness of Breath Stated complaint: Covid + Time Seen by Provider: 07/13/20 13:44 Source: patient, EMS Mode of arrival: EMS Limitations: no limitations - History of Present Illness Initial comments: Dictation was produced using [employer] dictation software. please excuse any grammatical, word or spelling errors. This patient was cared for during a federal and state declared state of emergency secondary to Covid 19 Chief Complaint: 65-year-old male in the emergency department for outpatient antibody infusion History of Present Illness: 65-year-old male presents to the emergency department for antibody infusion. He is also given outpatient however the people that worse plus glucose house in administered to him did not show up. He called multiple times and he was redirected to the emergency department. Patient was recently admitted for covid 19. Patient's well-appearing. He wears home O2. He states he is not compliant with because he feels he doesn't need it. Patient has no other complaints at this time. The ROS documented in this emergency department record has been reviewed and confirmed by me. Those systems with pertinent positive or negative responses have been documented in the HPI. All other systems are other negative and/or noncontributory. PHYSICAL EXAM: General Impression: Alert and oriented x3, not in acute distress HEENT: Normocephalic atraumatic, extra-ocular movements intact, pupils equal and reactive to light bilaterally, mucous membranes moist. Cardiovascular: Heart regular rate and rhythm Chest: Able to complete full sentences, no retractions, no tachypnea Abdomen: abdomen soft, non-tender, non-distended, no organomegaly Musculoskeletal: Pulses present and equal in all extremities, no peripheral edema Motor: no focal deficits noted Neurological: CN II-XII grossly intact, no focal motor or sensory deficits noted Skin: Intact with no visualized rashes Psych: Normal affect and mood ED course: 65-year-old male presents to the emergency department for outpatient antibody infusion for Covid 19 upon arrival are within acceptable limits. Patient's well-appearing. He is not showing signs of dyspnea. Discussed patient case with Sergio from pharmacy who will look into trying to administer it to him in the emergency Department. Patient has the prescription with him. Pharmacy reports that he needs to be monitored for approximately one hour after its administration. I did hear back from Sergio from pharmacy. He sent over a monoclonal antibody information for bamlanivimab. Patient meets the criteria for inclusion. Patient does not meet exclusion criteria. Case is discussed with Dr. Cabrales who would like patient to receive the infusion. Patient will be monitored for one hour after infusion and he'll be discharged home. Patient observed emergency peripheral one with no adverse issues. Patient be discharged to home. - Related Data Home Medications Medication Instructions Recorded Confirmed Albuterol Sulfate [Proair Hfa] 2 puff INHALATION RT-Q6H PRN 06/09/17 07/11/20 Multivit-Min/FA/Lycopen/Lutein 1 tab PO DAILY 06/09/17 07/11/20 [Centrum Silver Men Tablet] Albuterol Nebulized [Ventolin 2.5 mg INHALATION RT-QID 07/07/19 07/11/20 Nebulized] Cetirizine HCl 10 mg PO HS 07/07/19 07/11/20 Fluticasone/Umeclidin/Vilanter 1 puff INHALATION RT-DAILY 07/07/19 07/11/20 [Trelegy Ellipta 100-62.5-25] Acetaminophen Tab [Tylenol] 1,000 mg PO Q6HR PRN 07/11/20 07/11/20 Insulin Glargine,Hum.rec.anlog 20 units SQ Q12H 07/11/20 07/11/20 [Toujeo Solostar] Theophylline 12 Hour [Reji-Dur] 300 mg PO BID 07/11/20 07/11/20 Previous Rx's Medication Instructions Recorded Ascorbic Acid [Vitamin C] 1,000 mg PO DAILY tab 07/12/20 Aspirin EC [Ecotrin Low Dose] 81 mg PO BID #60 tablet. 07/12/20 Cholecalciferol [Vitamin D3 (25 75 mcg PO DAILY tablet 07/12/20 Mcg = 1000 Iu)] Levofloxacin [Levaquin] 500 mg PO DAILY #10 tab 07/12/20 Pantoprazole Sodium 20 mg PO BID #0 07/12/20 predniSONE [Deltasone] 30 mg PO DAILY #0 07/12/20 Allergies Allergy/AdvReac Type Severity Reaction Status Date / Time No Known Allergies Allergy Verified 07/13/20 13:57 Review of Systems ROS Statement: Those systems with pertinent positive or pertinent negative responses have been documented in the HPI. ROS Other: All systems not noted in ROS Statement are negative. Past Medical History Past Medical History: Asthma, COPD, Diabetes Mellitus, Eye Disorder, GERD/Reflux, Pneumonia, Respiratory Disorder Additional Past Medical History / Comment(s): Pt tested + covid 07/11/20 at [facility]. Other hx: Bronchitis, chronic SOB, pt scheduled at [facility] on 09/03/20 for zephr valves to be inserted into lungs, IDDM type II, neuropathy occasionally in bilateral feet, macular degeneration bilaterally, Covid +07/11/20 History of Any Multi-Drug Resistant Organisms: None Reported Past Surgical History: Appendectomy, Cholecystectomy, Hernia Repair, Orthopedic Surgery Additional Past Surgical History / Comment(s): R knee arthroscopy, lower abdominal hernia repair, colonoscopy. Past Anesthesia/Blood Transfusion Reactions: No Reported Reaction Past Psychological History: No Psychological Hx Reported Smoking Status: Former smoker Past Alcohol Use History: None Reported Past Drug Use History: None Reported - Past Family History Mother Family Medical History: Cancer Additional Family Medical History / Comment(s): Lung cancer Sister(s) Family Medical History: Cancer Father Family Medical History: Cancer Additional Family Medical History / Comment(s): Lung cancer. General Exam Limitations: no limitations Course Vital Signs 07/13/20 07/13/20 07/13/20 13:52 15:00 15:50 Temperature 99.2 F 98.5 F Pulse Rate 80 71 67 Respiratory 24 20 20 Rate Blood Pressure 120/76 124/83 120/73 O2 Sat by Pulse 96 92 L 93 L Oximetry 07/13/20 07/13/20 16:00 16:08 Temperature 98.5 F Pulse Rate 68 67 Respiratory 20 22 Rate Blood Pressure 137/80 128/78 O2 Sat by Pulse 92 L 92 L Oximetry Disposition Clinical Impression: Medication administered Disposition: HOME SELF-CARE Condition: Good Instructions (If sedation given, give patient instructions): Adverse Drug Reaction (ED) Is patient prescribed a controlled substance at d/c from ED?: No Referrals: Andres Torres DO [Primary Care Provider] - 1-2 days Time of Disposition: 16:39
[2020-07-13] MEDS ORDERED: BAMLANIVIMAB 700 MG in SODIUM CHLORIDE 0.9% 250 ML MISCELLANE ONE (16:00)
[2020-07-13 16:55] VITALS: TEMP 98.3
[2020-07-13 18:09] VITALS: BP 134/88; PULSE 71; RESP 18
== END 2020-07-13 18:10 | disposition home or self-care (01) ==
LOC: EC 13:42
DX: Z76.89 Persons encountering health services in other specified circumstances (principal); U07.1 COVID-19; J44.9 Chronic obstructive pulmonary disease, unspecified; E11.40 Type 2 diabetes mellitus with diabetic neuropathy, unspecified; Z79.51 Long term (current) use of inhaled steroids; Z79.4 Long term (current) use of insulin; Z79.899 Other long term (current) drug therapy; Z87.891 Personal history of nicotine dependence
CPT/HCPCS: 99284 ×2; 96365; M0239; Q0239

== ENCOUNTER → 2020-12-04 | Outpatient (CLI) | payer BC ==
--- NOTE | 2020-12-04 09:29 | CT ---
EXAMINATION TYPE: CT sinus wo con DATE OF EXAM: 12/04/2020 COMPARISON: None HISTORY: 65-year-old male J32.9, Chronic sinusitis CT DLP: 639 mGycm Automated exposure control for dose reduction was used. TECHNIQUE: Noncontrast axial views of the paranasal sinuses were obtained. Coronal reconstructions pe rformed. FINDINGS: PARANASAL SINUSES: Moderate mucosal thickening left frontal sinus and anterior left ethmoid air cells. Mild mucosal thic kening throughout the remainder of the ethmoid air cells. Mild to moderate mucosal thickening sphenoid sinuses. Minimal trace mucosal thickening of the maxillary sinuses near the maxillary infundibula. There is no air-fluid level. Reactive sonu- osteogenesis is not seen. There is no destruction of the osseous carrasco of the paranasal sinuses. THE NASAL CAVITY: The osteomeatal complexes are patent. Slight rightward nasal septal deviation. The imaged brain shows no gross abnormal body. Old blowout fracture medial left orbital wall. Mastoid air cells and middle ear cavities are well pneumatized. Small amount of cerumen within the ri ght external auditory canal. Reformatted images confirm above findings. IMPRESSION: 1. Moderate mucosal thickening left frontal sinus and anterior left ethmoid air cells. Rswb-pf-lyctvs te mucosal thickening sphenoid sinuses. Trace to mild mucosal thickening elsewhere throughout the sin uses. 2. Slight rightward nasal septal deviation. 3. Old blowout fracture medial left orbital wall.
== END | disposition home or self-care (01) ==
LOC: RADCTMAIN 08:14
PROVIDERS: ATTEND Otolaryngology
DX: J34.89 Other specified disorders of nose and nasal sinuses (principal); J34.2 Deviated nasal septum
CPT/HCPCS: 70486

== ENCOUNTER → 2021-01-29 | Outpatient (CLI) | payer BC ==
[2021-01-29 09:01] LABS: African American GFR (CKD) >90 (>60 ml/min/1.73 sqM); Blood Urea Nitrogen 15 mg/dL (9-20); Non-African American GFR(CKD) >90 (>60 ml/min/1.73 sqM)
--- NOTE | 2021-01-29 09:46 | CT ---
EXAMINATION TYPE: CT abdomen pelvis wo/w con DATE OF EXAM: 01/29/2021 COMPARISON: 06/21/2018 HISTORY: RUQ pain CT DLP: 2589.3 mGycm CONTRAST: CT scan of the abdomen and pelvis is performed with Oral Contrast and without and with IV Contrast, p atient injected with 100 mL of Isovue 300. FINDINGS: LUNG BASES-: No visible nodule. No infiltrate. LIVER/GB: The gallbladder is surgically absent. No space occupying hepatic lesion. Biliary tree is of normal caliber. PANCREAS: No inflammation. No distinct mass. SPLEEN: Splenomegaly measuring 15.5 cm craniocaudal dimension with granulomas identified. No lesion s een. ADRENALS: No nodule. No thickening. KIDNEYS/BLADDER: No hydronephrosis. No nephrolithiasis. No distinct renal mass. Urinary bladder g rossly unremarkable. BOWEL: Normal appendix. Normal bowel caliber. No inflammation. GENITAL ORGANS: No gross abnormality. LYMPH NODES: No greater than 1cm abdominal or pelvic lymph nodes are appreciated. AORTA: No significant abnormality. OSSEOUS STRUCTURES: Degenerative changes lumbar spine. OTHER: No significant additional abnormality is seen. IMPRESSION: 1. Splenomegaly. 2. No significant abnormality to account for the patient's symptoms.
== END | disposition home or self-care (01) ==
LOC: RADCTMAIN 06:37
PROVIDERS: ATTEND Family Medicine
DX: R10.11 Right upper quadrant pain (principal)
CPT/HCPCS: 82565; 84520; 74178; 36415; Q9967 ×2

== ENCOUNTER 2021-02-06 09:45 | Inpatient (IN) | payer BC ==
[2021-02-06] MEDS ORDERED: ONDANSETRON 4 MG/2 ML VIAL IVP STA (10:23)
[2021-02-06] MEDS ORDERED: SODIUM CHLORIDE 0.9% 1,000 ML IV STA (10:23)
[2021-02-06] MEDS ORDERED: DICYCLOMINE 20 MG TAB PO STA (10:23)
[2021-02-06] MEDS ORDERED: PANTOPRAZOLE 40 MG/10 ML VIAL IVP STA (10:23)
[2021-02-06 10:53] LABS: Basophils # (A) 0.1 k/uL (0-0.2); Basophils % (A) 1 %; Eosinophils # (A) 0.3 k/uL (0-0.7); Eosinophils % (A) 4 %; HCT 42.6 % (39.0-53.0); HGB 15.3 gm/dL (13.0-17.5); Lymphocytes # (A) 1.1 k/uL (1.0-4.8); Lymphocytes % (A) 13 %; MCH 30.2 pg (25.0-35.0); MCHC 35.9 g/dL (31.0-37.0); MCV 84.1 fL (80.0-100.0); Mean Platelet Volume 7.3; Monocytes # (A) 0.5 k/uL (0-1.0); Monocytes % (A) 5 %; Neutrophils # (A) 6.3 k/uL (1.3-7.7); Neutrophils % (A) 75 %; Platelet Count 238 k/uL (150-450); RBC 5.06 m/uL (4.30-5.90); RDW 13.4 % (11.5-15.5); WBC 8.4 k/uL (3.8-10.6)
--- NOTE | 2021-02-06 10:53 | ED ---
Abdominal Pain HPI - General Chief Complaint: Abdominal Pain Stated Complaint: unable to eat or drink, Sent by Time Seen by Provider: 02/06/21 09:58 Source: patient Mode of arrival: ambulatory Limitations: no limitations - History of Present Illness Initial Comments: 65-year-old male presenting to emergency Department with chief complaint of abdominal pain. Patient reports he was sent here by his primary care physician, , due to continuous abdominal pain, inability to tolerate by mouth and diarrhea. Patient reports the abdominal pain has been ongoing for the past several months. States about one week ago he had a CT of the abdomen and pelvis with oral contrast which revealed splenomegaly but no other acute findings. Patient reports she has been experiencing diffuse nonbloody diarrhea for one week. States he's also had one episode of nonbilious and nonbloody vomiting yesterday. However, he has been nauseous over the past week and has decrease in appetite. States that he has been on steroids consistently over the last year and on multiple antibiotics over the last month. States his primary care physician is concerned for possible C. diff. He does report fall small from the diarrhea. Denies any obstructive or infectious urinary symptoms. Surgical abdominal history of appendectomy. - Related Data Home Medications Medication Instructions Recorded Confirmed Multivit-Min/FA/Lycopen/Lutein 1 tab PO DAILY 06/09/17 02/06/21 [Centrum Silver Men Tablet] Albuterol Nebulized [Ventolin 2.5 mg INHALATION RT-QID 07/07/19 02/06/21 Nebulized] Fluticasone/Umeclidin/Vilanter 1 puff INHALATION RT-DAILY 07/07/19 02/06/21 [Trelegy Ellipta 100-62.5-25] Insulin Glargine,Hum.rec.anlog 15 units SQ BID PRN 07/11/20 02/06/21 [Toujeo Solostar] Theophylline 12 Hour [Reji-Dur] 300 mg PO BID 07/11/20 02/06/21 Albuterol Sulfate [Proair Hfa] 2 puff INHALATION RT-QID PRN 02/06/21 02/06/21 Losartan [Cozaar] 50 mg PO DAILY 02/06/21 02/06/21 Pantoprazole Sodium 20 mg PO DAILY 02/06/21 02/06/21 Vits A,C,E/Lutein/Minerals 1 tab PO DAILY 02/06/21 02/06/21 [Ocuvite with Lutein Tablet] predniSONE [Deltasone] 20 mg PO DAILY 02/06/21 02/06/21 Allergies Allergy/AdvReac Type Severity Reaction Status Date / Time No Known Allergies Allergy Verified 02/06/21 12:24 Review of Systems ROS Statement: Those systems with pertinent positive or pertinent negative responses have been documented in the HPI. ROS Other: All systems not noted in ROS Statement are negative. Past Medical History Past Medical History: Asthma, COPD, Diabetes Mellitus, Eye Disorder, GERD/Reflux, Pneumonia, Respiratory Disorder Additional Past Medical History / Comment(s): Pt tested + covid 07/11/20 at [facility]. Other hx: Bronchitis, chronic SOB, pt scheduled at [facility] on 09/03/20 for zephr valves to be inserted into lungs, IDDM type II, neuropathy occasionally in bilateral feet, macular degeneration bilaterally, Covid +07/11/20 History of Any Multi-Drug Resistant Organisms: None Reported Past Surgical History: Appendectomy, Cholecystectomy, Hernia Repair, Orthopedic Surgery Additional Past Surgical History / Comment(s): R knee arthroscopy, lower abdominal hernia repair, colonoscopy. Past Anesthesia/Blood Transfusion Reactions: No Reported Reaction Past Psychological History: No Psychological Hx Reported Smoking Status: Former smoker Past Alcohol Use History: None Reported Past Drug Use History: None Reported - Past Family History Mother Family Medical History: Cancer Additional Family Medical History / Comment(s): Lung cancer Sister(s) Family Medical History: Cancer Father Family Medical History: Cancer Additional Family Medical History / Comment(s): Lung cancer. General Exam Limitations: no limitations General appearance: alert, in no apparent distress Head exam: Present: atraumatic, normocephalic, normal inspection Eye exam: Present: normal appearance, PERRL Pupils: Present: normal accommodation ENT exam: Present: normal exam, normal oropharynx, mucous membranes moist Neck exam: Present: normal inspection, full ROM. Absent: tenderness, lympha denopathy Respiratory exam: Present: normal lung sounds bilaterally. Absent: respiratory distress, wheezes, rales, rhonchi, stridor, chest wall tenderness, accessory muscle use Cardiovascular Exam: Present: regular rate, normal rhythm, normal heart sounds. Absent: systolic murmur, diastolic murmur GI/Abdominal exam: Present: soft, tenderness (Lower abdominal tenderness). Absent: distended, guarding, rebound, rigid Extremities exam: Present: normal inspection, full ROM, normal capillary refill. Absent: tenderness, pedal edema, joint swelling Back exam: Present: normal inspection, full ROM. Absent: tenderness, CVA tenderness (R), CVA tenderness (L), muscle spasm, paraspinal tenderness, vertebral tenderness Neurological exam: Present: alert, oriented X3 Psychiatric exam: Present: normal affect, normal mood Skin exam: Present: warm, dry, intact, normal color Course Vital Signs 02/06/21 02/06/21 02/06/21 09:55 11:57 17:00 Temperature 98.1 F 97.2 F L Pulse Rate 75 66 62 Respiratory 22 16 18 Rate Blood Pressure 139/78 132/75 135/77 O2 Sat by Pulse 94 L 95 95 Oximetry Medical Decision Making - Medical Decision Making 65-year-old male presenting to emergency Department with chief complaint of abdominal pain. On physical examination, mild lower abdominal tenderness. Laboratory work reveals no acute findings. C. diff pending.I spoke to Dr. Razo who recommended inpatient admission and general surgery consult. I spoke to who recommended GI consult a set of general surgery. I spoke to Dr. Martinez and she is aware of the patient. He will be admitted for further medical management. Case discussed with Dr. Campos. - Lab Data Result diagrams: 02/06/21 10:35 02/06/21 10:35 Lab Results 02/06/21 02/06/21 02/06/21 Range/Units 10:35 10:35 10:35 WBC 8.4 (3.8-10.6) k/uL RBC 5.06 (4.30-5.90) m/uL Hgb 15.3 (13.0-17.5) gm/dL Hct 42.6 (39.0-53.0) % MCV 84.1 (80.0-100.0) fL MCH 30.2 (25.0-35.0) pg MCHC 35.9 (31.0-37.0) g/dL RDW 13.4 (11.5-15.5) % Plt Count 238 (150-450) k/uL MPV 7.3 Neutrophils % 75 % Lymphocytes % 13 % Monocytes % 5 % Eosinophils % 4 % Basophils % 1 % Neutrophils # 6.3 (1.3-7.7) k/uL Lymphocytes # 1.1 (1.0-4.8) k/uL Monocytes # 0.5 (0-1.0) k/uL Eosinophils # 0.3 (0-0.7) k/uL Basophils # 0.1 (0-0.2) k/uL Sodium 138 (137-145) mmol/L Potassium 4.1 (3.5-5.1) mmol/L Chloride 105 (98-107) mmol/L Carbon Dioxide 24 (22-30) mmol/L Anion Gap 9 mmol/L BUN 17 (9-20) mg/dL Creatinine 0.80 (0.66-1.25) mg/dL Est GFR (CKD-EPI)AfAm >90 (>60 ml/min/1.73 sqM) Est GFR (CKD-EPI)NonAf >90 (>60 ml/min/1.73 sqM) Glucose 113 H (74-99) mg/dL Calcium 9.5 (8.4-10.2) mg/dL Total Bilirubin 0.5 (0.2-1.3) mg/dL AST 31 (17-59) U/L ALT 29 (4-49) U/L Alkaline Phosphatase 89 (38-126) U/L Total Protein 6.8 (6.3-8.2) g/dL Albumin 4.2 (3.5-5.0) g/dL Amylase 52 (30-110) U/L Lipase 82 (23-300) U/L Urine Color Urine Appearance (Clear) Urine pH (5.0-8.0) Ur Specific [place] (1.001-1.035) Urine Protein (Negative) Urine Glucose (UA) (Negative) Urine Ketones (Negative) Urine Blood (Negative) Urine Nitrite (Negative) Urine Bilirubin (Negative) Urine Urobilinogen (<2.0) mg/dL Ur Leukocyte Esterase (Negative) Urine RBC (0-5) /hpf Urine WBC (0-5) /hpf Amorphous Sediment (None) /hpf Urine Mucus (None) /hpf Heterophile Antibody Negative (Negative) 02/06/21 Range/Units 12:13 WBC (3.8-10.6) k/uL RBC (4.30-5.90) m/uL Hgb (13.0-17.5) gm/dL Hct (39.0-53.0) % MCV (80.0-100.0) fL MCH (25.0-35.0) pg MCHC (31.0-37.0) g/dL RDW (11.5-15.5) % Plt Count (150-450) k/uL MPV Neutrophils % % Lymphocytes % % Monocytes % % Eosinophils % % Basophils % % Neutrophils # (1.3-7.7) k/uL Lymphocytes # (1.0-4.8) k/uL Monocytes # (0-1.0) k/uL Eosinophils # (0-0.7) k/uL Basophils # (0-0.2) k/uL Sodium (137-145) mmol/L Potassium (3.5-5.1) mmol/L Chloride (98-107) mmol/L Carbon Dioxide (22-30) mmol/L Anion Gap mmol/L BUN (9-20) mg/dL Creatinine (0.66-1.25) mg/dL Est GFR (CKD-EPI)AfAm (>60 ml/min/1.73 sqM) Est GFR (CKD-EPI)NonAf (>60 ml/min/1.73 sqM) Glucose (74-99) mg/dL Calcium (8.4-10.2) mg/dL Total Bilirubin (0.2-1.3) mg/dL AST (17-59) U/L ALT (4-49) U/L Alkaline Phosphatase (38-126) U/L Total Protein (6.3-8.2) g/dL Albumin (3.5-5.0) g/dL Amylase (30-110) U/L Lipase (23-300) U/L Urine Color Yellow Urine Appearance Cloudy (Clear) Urine pH 5.0 (5.0-8.0) Ur Specific [place] 1.019 (1.001-1.035) Urine Protein Negative (Negative) Urine Glucose (UA) Negative (Negative) Urine Ketones Negative (Negative) Urine Blood Negative (Negative) Urine Nitrite Negative (Negative) Urine Bilirubin Negative (Negative) Urine Urobilinogen <2.0 (<2.0) mg/dL Ur Leukocyte Esterase Negative (Negative) Urine RBC <1 (0-5) /hpf Urine WBC 2 (0-5) /hpf Amorphous Sediment Occasional H (None) /hpf Urine Mucus Few H (None) /hpf Heterophile Antibody (Negative) Disposition Clinical Impression: Diarrhea, Abdominal pain Disposition: ADMITTED IP TO THIS HOSP Condition: Stable Is patient prescribed a controlled substance at d/c from ED?: No Time of Disposition: 14:16
[2021-02-06 11:06] LABS: ALT 29 U/L (4-49); AST 31 U/L (17-59); African American GFR (CKD) >90 (>60 ml/min/1.73 sqM); Albumin 4.2 g/dL (3.5-5.0); Alkaline Phosphatase 89 U/L (38-126); Amylase 52 U/L (30-110); Anion Gap 9 mmol/L; Blood Urea Nitrogen 17 mg/dL (9-20); Calcium 9.5 mg/dL (8.4-10.2); Carbon Dioxide 24 mmol/L (22-30); Chloride 105 mmol/L (98-107); Glucose 113 mg/dL (74-99); Lipase 82 U/L (23-300); Non-African American GFR(CKD) >90 (>60 ml/min/1.73 sqM); Potassium 4.1 mmol/L (3.5-5.1); Sodium 138 mmol/L (137-145); Total Bilirubin 0.5 mg/dL (0.2-1.3); Total Protein 6.8 g/dL (6.3-8.2)
[2021-02-06] MEDS ORDERED: HYDROcodone/APAP 5-325MG 1 EACH TAB PO STA (11:45)
[2021-02-06 12:51] LABS: Amorphous Sediment,Urine Occasional /hpf; Appearance,Urine Cloudy (Clear); Bilirubin,Urine Negative (Negative); Blood,Urine Negative (Negative); Color,Urine Yellow; Glucose,Urine (UA) Negative (Negative); Ketones,Urine Negative (Negative); Leukocyte Esterase,Urine Negative (Negative); Mucus,Urine Few /hpf; Nitrite,Urine Negative (Negative); Protein,Urine Negative (Negative); RBC,Urine <1 /hpf (0-5); Specific Gravity,Urine 1.019 (1.001-1.035); Urobilinogen,Urine <2.0 mg/dL (<2.0); WBC,Urine 2 /hpf (0-5)
[2021-02-06] MEDS ORDERED: LORazepam 2 MG/ML INJ IV PRN (14:14)
[2021-02-06] MEDS ORDERED: NALOXONE 0.4 MG/ML 1 ML VIAL IV PRN (14:14)
[2021-02-06] MEDS ORDERED: ONDANSETRON 4 MG/2 ML VIAL IVP PRN (14:14)
[2021-02-06] MEDS: SODIUM CHLORIDE 0.9% 1,000 ML IV SCH (14:22)
[2021-02-06] MEDS: HYDROcodone/APAP 5-325MG 1 EACH TAB PO PRN (17:04)
[2021-02-06 17:29] LABS: Glucose,Whole Blood 110 mg/dL (75-99)
[2021-02-06] MEDS ORDERED: ALBUTEROL NEBULIZED 2.5 MG/3 ML INHALATION PRN (17:39)
--- NOTE | 2021-02-06 17:39 | P.HPIM ---
History of Present Illness H&P Date: 02/06/21 65 years old male patient of Dr. Torres with past history of COPD status post of lung reduction surgery with zephr valves on the left at [facility] on 09/03/20 has been on chronic prednisone until October and multiple courses of antibiotic for the past year, history of type 2 diabetes, hypertension, GERD history of cold with pneumonia 07/11/2020 comes in with diarrhea and abdominal pain for the 1 week. Patient had persistent diarrhea for one week and has not been eating or drinking. Diarrhea has improved once a day. He denies any history of fever or chills or blood in her stool. He does document history of Crohn disease and had last colonoscopy [address] Martinez. Patient had CT scan of the abdomen and pelvis done as outpatient and was negative except for splenomegaly. Vitals were reviewed pulse 66 respiratory rate 16 blood pressure 132/75 oxygen saturation 95% on room air labs unremarkable WBC 8.4 hemoglobin 15.3 creatinine 0.8 liver enzymes are normal h eterophile antibody negative UA was negative. Stool culture and C. diff ordered. ESR CRP and labs ordered. ROS Constitutional: Denies chills, Denies fever, Denies lethargy, Denies malaise, Denies poor appetite, Denies weakness, Denies weight loss Eyes: denies decreased vision, denies diplopia, denies discharge, denies pain Ears: deny: decreased hearing Ears, nose, mouth and throat: Denies dental pain, Denies headache, Denies nasal discharge, Denies nose pain Cardiovascular: Denies chest pain, Denies decreased exercise tolerance, Denies edema, Denies high blood pressure, Denies irregular heart beat, Denies palpitations, Denies paroxysmal nocturnal dyspnea, Denies rapid heart beat, Denies shortness of breath Respiratory: Denies congestion, Denies cough, Denies cough with sputum, Denies dyspnea, Denies home oxygen, Denies wheezing Gastrointestinal: Denies abdominal pain, Denies change in bowel habits, Denies coffee ground emesis, Denies early satiety, Denies excessive gas, Denies heartburn, Denies hematemesis, Denies hematochezia, Denies loss of appetite, Denies nausea, Denies vomiting Genitourinary: Denies dysuria, Denies flank pain, Denies kidney stones, Denies menorrhagia, Denies urgency, Denies urinary frequency Musculoskeletal: Denies gait dysfunction, Denies limitation of motion, Denies morning stiffness, Denies muscle cramps Integumentary: Denies rash, Denies wounds, Denies brittle nails, Denies change in hair/nails, Denies darkening of skin Neurological: Denies balance difficulties, Denies change in speech, Denies double vision, Denies gait dysfunction, Denies loss of vision, Denies motor disturbance, Denies numbness, Denies paralysis, Denies paresthesias, Denies seizures Psychiatric: Denies anxiety, Denies depression Endocrine: Denies excessive sweating, Denies excessive thirst, Denies high blood sugars, Denies palpitations Hematologic/Lymphatic: Denies easy bruising, Denies lymphadenopathy Social history Patient is a former smoker quit 5 years ago used to smoke 1 pack a day since age 17 denies any alcohol use or marijuana use Family history Father has history of present her mother has history of diabetes, an eurysm, COPD, lung cancer One brother has prostate cancer Sr. has COPD and breast cancer Another sister has COPD and heart disease In 1 second within normal medical problems Physical exam - Constitutional General appearance: cooperative, no acute distress, obese - EENT Eyes: anicteric sclerae, PERRLA, normal appearance ENT: hearing grossly normal - Neck Neck: no lymphadenopathy, normal ROM, no other, no rigidity, no stridor, no thyromegaly - Respiratory Respiratory: bilateral: CTA, negative: diminished, dullness, rales, rhonchi - Cardiovascular Rhythm: regular Heart sounds: normal: S1, S2 Abnormal Heart Sounds: no systolic murmur, no diastolic murmur, no rub, no S3 Gallop, no S4 Gallop, no click, no other - Gastrointestinal General gastrointestinal: normal bowel sounds, soft tender in the right lower quadrant - Integumentary Integumentary: no rash - Neurologic Neurologic: No sensory or motor deficit - Musculoskeletal Musculoskeletal: gait normal, strength equal bilaterally - Psychiatric Psychiatric: A&O x's 3, appropriate affect Assessment and plan #1 acute abdominal pain associated with diarrhea. CT abdomen with oral contrast was negative for any inflammation of the bowels. GI consult placed. Stool cultures is C. diff ordered. WBC stool ordered. #2 COPD status post lung reduction surgery with zephr valves on the left at [facility] on 09/03/20 continue DuoNeb as needed for shortness of breath. Continue theophylline 300 mg twice a day #3 hypertension continue losartan 50 mg by mouth daily #4 type 2 diabetes continue glargine 15 twice a day. Glucose checked before meals and at bedtime and insulin sliding scale 5 GERD continue pantoprazole 20 mg daily #6 DVT prophylaxis with heparin every 12 #7 GI per prophylaxis with pantoprazole 20 mg daily #8 CODE STATUS full code #9 disposition patient in 1-2 inpatient nights for stabilization Past Medical History Past Medical History: Asthma, COPD, Diabetes Mellitus, Eye Disorder, GERD/Reflux, Pneumonia, Respiratory Disorder Additional Past Medical History / Comment(s): Pt tested + covid 07/11/20 at [facility]. 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 Past Anesthesia/Blood Transfusion Reactions: No Reported Reaction Past Psychological History: No Psychological Hx Reported Smoking Status: Former smoker Past Alcohol Use History: None Reported Past Drug Use History: None Reported - Past Family History Mother Family Medical History: Cancer Additional Family Medical History / Comment(s): Lung cancer Sister(s) Family Medical History: Cancer Father Family Medical History: Cancer Additional Family Medical History / Comment(s): Lung cancer. Medications and Allergies Home Medications Medication Instructions Recorded Confirmed Type Multivit-Min/FA/Lycopen/Lutein 1 tab PO DAILY 06/09/17 02/06/21 History [Centrum Silver Men Tablet] Albuterol Nebulized [Ventolin 2.5 mg INHALATION RT-QID 07/07/19 02/06/21 History Nebulized] Fluticasone/Umeclidin/Vilanter 1 puff INHALATION RT-DAILY 07/07/19 02/06/21 History [Trelegy Ellipta 100-62.5-25] Insulin Glargine,Hum.rec.anlog 15 units SQ BID PRN 07/11/20 02/06/21 History [Toujeo Solostar] Theophylline 12 Hour [Reji-Dur] 300 mg PO BID 07/11/20 02/06/21 History Albuterol Sulfate [Proair Hfa] 2 puff INHALATION RT-QID PRN 02/06/21 02/06/21 History Losartan [Cozaar] 50 mg PO DAILY 02/06/21 02/06/21 History Pantoprazole Sodium 20 mg PO DAILY 02/06/21 02/06/21 History Vits A,C,E/Lutein/Minerals 1 tab PO DAILY 02/06/21 02/06/21 History [Ocuvite with Lutein Tablet] predniSONE [Deltasone] 20 mg PO DAILY 02/06/21 02/06/21 History Allergies Allergy/AdvReac Type Severity Reaction Status Date / Time No Known Allergies Allergy Verified 02/06/21 12:24 Physical Exam Vitals: Vital Signs Temp Pulse Resp BP Pulse Ox 02/06/21 11:57 97.2 F L 66 16 132/75 95 02/06/21 09:55 98.1 F 75 22 139/78 94 L Intake and Output 02/05/21 02/06/21 02/06/21 22:59 06:59 14:59 Other: Weight 99.79 kg Results CBC & Chem 7: 02/06/21 10:35 02/06/21 10:35 Labs: Abnormal Lab Results - Last 24 Hours (Table) 02/06/21 02/06/21 Range/Units 10:35 12:13 Glucose 113 H (74-99) mg/dL Amorphous Sediment Occasional H (None) /hpf Urine Mucus Few H (None) /hpf
[2021-02-06] MEDS: THEOPHYLLINE 24 HOUR 300 MG CAP.ER.24H PO SCH (20:10)
[2021-02-06 20:26] LABS: Glucose,Whole Blood 138 mg/dL (75-99)
[2021-02-06] MEDS: ALBUTEROL NEBULIZED 2.5 MG/3 ML INHALATION SCH (20:34)
[2021-02-06] MEDS ORDERED: INSULIN DETEMIR (LEVEMIR) 100 UNIT/ML SYR SQ PRN (21:00)
[2021-02-07] MEDS: SODIUM CHLORIDE 0.9% 1,000 ML IV SCH ×2 (04:08→13:46)
[2021-02-07] MEDS: VIT A,C & E-LUTEIN-MINERALS 1 EACH TAB PO SCH (07:10)
[2021-02-07] MEDS: LOSARTAN 50 MG TAB PO SCH (07:10)
[2021-02-07] MEDS: PANTOPRAZOLE 40 MG TABLET PO SCH (07:10)
[2021-02-07] MEDS: MULTIVITAMINS, THERA 1 EACH TAB PO SCH (07:10)
[2021-02-07 07:14] LABS: Glucose,Whole Blood 86 mg/dL (75-99)
[2021-02-07] MEDS ORDERED: NON FORMULARY DRUG (Fluticasone/Umeclidin/Vilanter [Trelegy Ellipta 100-62.5-25] 1 EACH Bl INHALATION SCH (08:00)
[2021-02-07] MEDS: SYMBICORT 80-4.5 MCG INHALER INHALATION SCH ×2 (08:09→19:59)
[2021-02-07] MEDS: ALBUTEROL NEBULIZED 2.5 MG/3 ML INHALATION SCH ×4 (08:09→19:59)
[2021-02-07] MEDS: IPRATROPIUM 0.5 MG/2.5 ML NEBU INHALATION SCH ×4 (08:10→19:59)
--- NOTE | 2021-02-07 12:05 | P.PN ---
Subjective Progress Note Date: 02/07/21 65 years old male patient of Dr. Torres with past history of COPD status post of lung reduction surgery with zephr valves on the left at [facility] on 09/03/20 has been on chronic prednisone until October and multiple courses of antibiotic for the past year, history of type 2 diabetes, h ypertension, GERD history of cold with pneumonia 07/11/2020 comes in with diarrhea and abdominal pain for the 1 week. Patient had persistent diarrhea for one week and has not been eating or drinking. Diarrhea has improved once a day. He denies any history of fever or chills or blood in her stool. He does document history of Crohn disease and had last colonoscopy [address] Martinez. Patient had CT scan of the abdomen and pelvis done as outpatient and was negative except for splenomegaly. Vitals were reviewed pulse 66 respiratory rate 16 blood pressure 132/75 oxygen saturation 95% on room air labs unremarkable WBC 8.4 hemoglobin 15.3 creatinine 0.8 liver enzymes are normal heterophile antibody negative UA was negative. Stool culture and C. diff ordered. ESR CRP and labs ordered. 02/07/21 patient evaluated at bedside reports that he is feeling better and is unable to to provide a sample for stool testing at this time. Denies any blood in the stool. Vital signs are stable. Consults are in place for Dr. Mark Martinez and pulmonology. If patient's diarrhea continues to subside possible plan for discharge tomorrow. Sed rate was normal, C-reactive protein was 1.1. ROS Constitutional: Denies chills, Denies fever, Denies lethargy, Denies malaise, Denies poor appetite, Denies weakness, Denies weight loss Eyes: denies decreased vision, denies diplopia, denies discharge, denies pain Ears: deny: decreased hearing Ears, nose, mouth and throat: Denies dental pain, Denies headache, Denies nasal discharge, Denies nose pain Cardiovascular: Denies chest pain, Denies decreased exercise tolerance, Denies edema, Denies high blood pressure, Denies irregular heart beat, Denies palpitations, Denies paroxysmal nocturnal dyspnea, Denies rapid heart beat, Denies shortness of breath Respiratory: Denies congestion, Denies cough, Denies cough with sputum, Denies dyspnea, Denies home oxygen, Denies wheezing Gastrointestinal: Denies abdominal pain, Denies coffee ground emesis, Denies early satiety, Denies excessive gas, Denies heartburn, Denies loss of appetite, Denies nausea, Denies vomiting. Positive for change in bowel habits. Genitourinary: Denies dysuria, Denies flank pain, Denies kidney stones, Denies urgency, Denies urinary frequency Musculoskeletal: Denies gait dysfunction, Denies limitation of motion, Denies morning stiffness, Denies muscle cramps Integumentary: Denies rash, Denies wounds, Denies brittle nails, Denies change in hair/nails, Denies darkening of skin Neurological: Denies balance difficulties, Denies change in speech, Denies double vision, Denies gait dysfunction, Denies loss of vision, Denies motor disturbance, Denies numbness, Denies paralysis, Denies paresthesias, Denies seizures Psychiatric: Denies anxiety, Denies depression Endocrine: Denies excessive sweating, Denies excessive thirst, Denies high blood sugars, Denies palpitations Hematologic/Lymphatic: Denies easy bruising, Denies lymphadenopathy Objective - Vital Signs Vital signs: Vital Signs Temp 98 F 02/07/21 07:00 Pulse 58 L 02/07/21 07:00 Resp 16 02/07/21 07:00 BP 127/76 02/07/21 07:00 Pulse Ox 94 L 02/07/21 07:00 Intake & Output 02/06/21 02/07/21 02/07/21 18:59 06:59 18:59 Weight 99.79 kg Other: # Voids 1 - Exam Physical exam - Constitutional General appearance: cooperative, no acute distress, obese - EENT Eyes: anicteric sclerae, PERRLA, normal appearance ENT: hearing grossly normal - Neck Neck: no lymphadenopathy, normal ROM, no other, no rigidity, no stridor, no thyromegaly - Respiratory Respiratory: bilateral: CTA, negative: diminished, dullness, rales, rhonchi - Cardiovascular Rhythm: regular Heart sounds: normal: S1, S2 Abnormal Heart Sounds: no systolic murmur, no diastolic murmur, no rub, no S3 Gallop, no S4 Gallop, no click, no other - Gastrointestinal General gastrointestinal: normal bowel sounds, no tenderness on palpation - Integumentary Integumentary: no rash - Neurologic Neurologic: No sensory or motor deficit - Musculoskeletal Musculoskeletal: gait normal, strength equal bilaterally - Psychiatric Psychiatric: A&O x's 3, appropriate affect - Labs CBC & Chem 7: 02/06/21 10:35 02/06/21 10:35 Labs: Abnormal Lab Results - Last 24 Hours (Table) 02/06/21 02/06/21 02/06/21 Range/Units 10:35 12:13 17:27 Glucose 113 H (74-99) mg/dL POC Glucose (mg/dL) 110 H (75-99) mg/dL C-Reactive Protein (<1.0) mg/dL Amorphous Sediment Occasional H (None) /hpf Urine Mucus Few H (None) /hpf 02/06/21 02/06/21 Range/Units 17:50 20:25 Glucose (74-99) mg/dL POC Glucose (mg/dL) 138 H (75-99) mg/dL C-Reactive Protein 1.1 H (<1.0) mg/dL Amorphous Sediment (None) /hpf Urine Mucus (None) /hpf Assessment and Plan Assessment: #1 acute abdominal pain associated with diarrhea. CT abdomen with oral contrast was negative for any inflammation of the bowels. GI consult placed. Stool cultures is C. diff ordered. WBC stool ordered. #2 COPD status post lung reduction surgery with zephr valves on the left at [facility] on 09/03/20 continue DuoNeb as needed for shortness of breath. Continue theophylline 300 mg twice a day and we will consult pulmonology. #3 hypertension continue losartan 50 mg by mouth daily #4 type 2 diabetes continue glargine 15 twice a day. Glucose checked before meals and at bedtime and insulin sliding scale 5 GERD continue pantoprazole 20 mg daily #6 DVT prophylaxis with heparin every 12 #7 GI per prophylaxis with pantoprazole 20 mg daily #8 CODE STATUS full code #9 disposition patient in 1-2 inpatient nights for stabilization Impression and plan of care have been directed as dictated by the signing physician. Daisy Ragland nurse practitioner acting as scribe for signing physician.
[2021-02-07 12:11] LABS: Glucose,Whole Blood 114 mg/dL (75-99)
--- NOTE | 2021-02-07 12:23 | CONS ---
CONSULTATION DATE OF DICTATION: 02/07/2021 REASON FOR CONSULTATION: Abdominal pain and diarrhea. HISTORY OF PRESENT ILLNESS: The patient is a 65-year-old white male with a history of COPD who underwent lung reduction surgery in August of this year, has been needing chronic antibiotic therapy on and off. The last dose was about October of last year. He presented to the hospital with lower abdominal pain and diarrhea for the last one week's duration. He has been having about 3-4 bowel movements daily which are loose to watery in consistency but no blood or mucus in the stool. He has some cramping lower abdominal pain. No nausea, no vomiting. No rectal bleeding or melena. He came to the emergency room and was subsequently admitted to the hospital for further evaluation. Since being admitted to the hospital he did not have any further diarrhea. Stool for C difficile and cultures were ordered but could not be done. This morning he is feeling better. He is on a regular diet, tolerating well. No abdominal pain. No nausea, no vomiting. PAST MEDICAL HISTORY: Significant for hypertension, COPD, diabetes mellitus, gastroesophageal reflux disease. PAST SURGICAL HISTORY: Lung reduction surgery in August of 2020 at [facility], cholecystectomy, hernia repair, appendectomy, right knee arthroscopy. MEDICATIONS: Medications at home include multivitamin, albuterol, Breo Ellipta, theophylline, Cozaar, ProAir, pantoprazole, prednisone. ALLERGIES: NO KNOWN DRUG ALLERGIES. SOCIAL HISTORY: Remote smoker. No alcohol use. FAMILY HISTORY: Mother had lung cancer. Father also had lung cancer. REVIEW OF SYSTEMS: CARDIOPULMONARY: He denies any chest pain. No shortness of breath. GENITOURINARY: No dysuria or hematuria. MUSCULOSKELETAL: Unremarkable. SKIN: Unremarkable. ENDOCRINE: Unremarkable. PSYCHIATRY: Unremarkable. NEUROLOGY: Unremarkable. ENT/VISION: Unremarkable. CONSTITUTIONAL: No recent weight loss. No fever, chills, night sweats. PHYSICAL EXAMINATION: He appears comfortable. No apparent distress. VITAL SIGNS: Vital signs are stable. Blood pressure 127/76, pulse rate 56, temperature 98.8. HEENT EXAMINATION: Unremarkable. Conjunctivae pink. Sclerae anicteric. Oral cavity no lesions. NECK: No JVD. No lymph node enlargement. CHEST: Clear to auscultation. HEART: Regular rate and rhythm. ABDOMEN: Slightly obese. Bowel sounds are positive. No organomegaly. EXTREMITIES: No pedal edema. NEURO: She is alert and oriented x3. No focal deficits. LABS: WBC 8.4, hemoglobin 15, platelets normal. Basic metabolic panel is within normal limits. Stool studies are still pending, as patient is not having diarrhea. IMPRESSION: 1. Acute onset of diarrhea for the last one week's duration associated with lower abdominal pain with bowel movements anywhere from 3-4 a day, but no blood or mucus in the stool. Since being in the hospital, the diarrhea has resolved. Stool studies have been ordered but could not be done. Most likely we are dealing with gastroenteritis/infectious colitis, which appears to be resolving. 2. History of chronic obstructive pulmonary disease, status post lung reduction surgery in August of this year. 3. History of hypertension. 4. History of gastroesophageal reflux disease. RECOMMENDATIONS: 1. Continue with symptomatic and supportive care. 2. If he has any diarrhea, we will proceed with stool testing. 3. No need for any endoscopic intervention, as patient did have EGD and colonoscopy in June of 2018 that showed mild gastritis, small hiatal hernia, diverticulosis and a small polyp. 4. If the patient continues to do well, he can be discharged home and use over-the- counter antimotility agents as needed. Thank you for this consultation. MMODL / IJN: [id number] /
--- NOTE | 2021-02-07 13:10 | P.CNPUL ---
History of Present Illness Consult date: 02/07/21 Reason for consult: COPD History of present illness: 65-year-old male patient who was hospitalized for some gastrointestinal upset, abdominal pain and diarrhea. This patient is known to me. The patient has had advanced COPD and the patient has undergone lung volume reduction through insertion of endobronchial valves, [place] valves which were quite successful and the patient had improvement in his chronic dyspnea and symptoms of COPD post valve insertion. He has been maintained on 2G [place] as maintenance regarding his COPD and the patient is also on chronic steroid treatment and takes theophylline found milligrams by mouth twice a day. For the past week, the patient was having some abdominal discomfort and diarrhea and the patient underwent an outpatient CAT scan of the abdomen that showed no acute abnormalities. He was hospitalized. All of his blood work came back normal and is feeling better. Diarrhea has subsided for now. Abdominal pain is also subsided. He is not toxic. No fever or chills. No tachycardia. No signs of any systemic inflammatory response. White cell count is at 8.4 with a hemoglobin of 15.3. LFTs have not been within normal limits. Sed rate and CRP were also ordered. The patient is currently doing well. No respiratory difficulties. His on room air oxygen. He is diabetic. He has had positive cold infection back in 07/11/2020. He has some degree of peripheral neuropathy and macular degeneration. Review of Systems Constitutional: Denies chills, Denies fever Eyes: bilateral blurred vision, bilateral decreased vision, denies as per HPI, denies bulging eye, denies diplopia, denies discharge, denies dry eye, denies irritation, denies itching, denies pain, denies photophobia, denies loss of peripheral vision, denies loss of vision, denies tunnel vision/blind spots Ears: deny: decreased hearing, ear discharge, earache, tinnitus Ears, nose, mouth and throat: Reports as per HPI Breasts: absent: as per HPI, gynecomastia Cardiovascular: Reports decreased exercise tolerance, Reports dyspnea on exertion Respiratory: Reports dyspnea Gastrointestinal: Reports abdominal pain, Reports diarrhea Genitourinary: Reports as per HPI Musculoskeletal: Reports as per HPI Musculoskeletal: absent: ankle pain, ankle stiffness, ankle swelling, as per HPI, elbow pain, elbow stiffness, elbow swelling, foot pain, foot stiffness, foot swelling, hand pain, hand stiffness, hand swelling, hip pain, hip stiffness , hip swelling, knee pain, knee stiffness, knee swelling, shoulder pain, shoulder stiffness, shoulder swelling, wrist pain, wrist stiffness, wrist swelling Integumentary: Reports as per HPI Neurological: Reports as per HPI Psychiatric: Reports as per HPI Endocrine: Reports as per HPI Hematologic/Lymphatic: Reports as per HPI Past Medical History Past Medical History: Asthma, COPD, Diabetes Mellitus, Eye Disorder, GERD/Reflux, Pneumonia, Respiratory Disorder Additional Past Medical History / Comment(s): Pt tested + covid 07/11/20 at [facility]. Other hx: Bronchitis, chronic SOB, pt scheduled at [facility] on 09/03/20 for zephr valves to be inserted into lungs, IDDM type II, neuropathy occasionally in bilateral feet, macular degeneration bilaterally, Covid +07/11/20 History of Any Multi-Drug Resistant Organisms: None Reported Past Surgical History: Appendectomy, Cholecystectomy, Hernia Repair, Orthopedic Surgery Additional Past Surgical History / Comment(s): R knee arthroscopy, lower abdominal hernia repair, colonoscopy. Past Anesthesia/Blood Transfusion Reactions: No Reported Reaction Past Psychological History: No Psychological Hx Reported Smoking Status: Former smoker Past Alcohol Use History: None Reported Past Drug Use History: None Reported - Past Family History Mother Family Medical History: Cancer Additional Family Medical History / Comment(s): Lung cancer Sister(s) Family Medical History: Cancer Father Family Medical History: Cancer Additional Family Medical History / Comment(s): Lung cancer. Medications and Allergies Home Medications Medication Instructions Recorded Confirmed Type Multivit-Min/FA/Lycopen/Lutein 1 tab PO DAILY 06/09/17 02/06/21 History [Centrum Silver Men Tablet] Albuterol Nebulized [Ventolin 2.5 mg INHALATION RT-QID 07/07/19 02/06/21 History Nebulized] Fluticasone/Umeclidin/Vilanter 1 puff INHALATION RT-DAILY 07/07/19 02/06/21 History [Trelegy Ellipta 100-62.5-25] Insulin Glargine,Hum.rec.anlog 15 units SQ BID PRN 07/11/20 02/06/21 History [Toujeo Solostar] Theophylline 12 Hour [Reji-Dur] 300 mg PO BID 07/11/20 02/06/21 History Albuterol Sulfate [Proair Hfa] 2 puff INHALATION RT-QID PRN 02/06/21 02/06/21 History Losartan [Cozaar] 50 mg PO DAILY 02/06/21 02/06/21 History Pantoprazole Sodium 20 mg PO DAILY 02/06/21 02/06/21 History Vits A,C,E/Lutein/Minerals 1 tab PO DAILY 02/06/21 02/06/21 History [Ocuvite with Lutein Tablet] predniSONE [Deltasone] 20 mg PO DAILY 02/06/21 02/06/21 History Allergies Allergy/AdvReac Type Severity Reaction Status Date / Time No Known Allergies Allergy Verified 02/06/21 12:24 Physical Exam Vitals: Vital Signs Temp Pulse Pulse Resp BP BP Pulse Ox 02/07/21 11:44 62 02/07/21 11:30 61 02/07/21 08:22 65 02/07/21 08:10 63 02/07/21 07:00 98 F 58 L 16 127/76 94 L 02/07/21 01:42 97.5 F L 62 17 117/70 93 L 02/06/21 20:45 56 L 02/06/21 20:36 54 L 02/06/21 19:52 97.5 F L 55 L 18 121/66 94 L 02/06/21 17:00 62 18 135/77 95 Intake and Output 02/06/21 02/07/21 02/07/21 22:59 06:59 14:59 Other: # Voids 1 1 Weight 99.79 kg The patient appeared well nourished and normally developed. Vital signs as documented. Head exam is unremarkable. No scleral icterus or corneal arcus noted. Neck is without jugular venous distension, thyromegaly, or carotid bruits. Carotid upstrokes are brisk bilaterally. Lungs are diminished bilaterally with some scattered rhonchi and wheeze. Cardiac exam reveals the PMI to be normally sized and situated. Rhythm is regular. First and second heart sounds normal. No murmurs, rubs or gallops. Abdominal exam reveals normal bowel sounds, no masses, no organomegaly and no aortic enlargement. Extremities are nonedematous and both femoral and pedal pulses are normal.Examination of the skin revealed no evidence of significant rashes, suspicious appearing nevi or other concerning lesions.Neurologically, the patient is awake and alert and the patient does not have any focal neurological deficit. Cranial nerves are essentially intact. Results - Laboratory Findings CBC and BMP: 02/06/21 10:35 02/06/21 10:35 Abnormal lab findings: Abnormal Labs 02/06/21 02/06/21 02/06/21 10:35 12:13 17:27 Glucose 113 H POC Glucose (mg/dL) 110 H C-Reactive Protein Amorphous Sediment Occasional H Urine Mucus Few H 02/06/21 02/06/21 02/07/21 17:50 20:25 12:10 Glucose POC Glucose (mg/dL) 138 H 114 H C-Reactive Protein 1.1 H Amorphous Sediment Urine Mucus - Diagnostic Findings Chest x-ray: image reviewed Assessment and Plan Plan: 1 abdominal pain/diarrhea under investigation. Abdominal exam is benign, labs are normal and the patient a CAT scan of the abdomen and pelvis that was done on 01/29/2021 that showed no acute abnormalities. Clinically improving. 2 advanced COPD post lung volume reduction surgery via endobronchial valve insertion/[place] valve insertion. Currently the patient is on room air oxygen. The patient's been maintained on Trelegy Ellipta and theophylline on an outpatient basis 3 previous history of community an infection on 07/11/2020 4 diabetes mellitus 5 macular degeneration 6 peripheral neuropathy related to diabetes mellitus Plan Resume home medications Pulmonary status is stable. May continue the use of Trelegy Ellipta the patient is able to provide the medication from home. Otherwise here in the hospital, this was replaced with Symbicort. Provide patient incentive spirometer. Oxygenation is stable and the patient's currently on room air oxygen. GI workup is in progress Pulmonary critical care services we'll sign off
[2021-02-07] MEDS: HYDROcodone/APAP 5-325MG 1 EACH TAB PO PRN (14:36)
[2021-02-07 17:27] LABS: Glucose,Whole Blood 124 mg/dL (75-99)
[2021-02-07] MEDS: THEOPHYLLINE 24 HOUR 300 MG CAP.ER.24H PO SCH (20:24)
[2021-02-07 20:56] LABS: Glucose,Whole Blood 153 mg/dL (75-99)
[2021-02-08] MEDS: SODIUM CHLORIDE 0.9% 1,000 ML IV SCH ×2 (05:38→19:51)
[2021-02-08 07:15] LABS: Glucose,Whole Blood 106 mg/dL (75-99)
[2021-02-08] MEDS: VIT A,C & E-LUTEIN-MINERALS 1 EACH TAB PO SCH (07:27)
[2021-02-08] MEDS: HYDROcodone/APAP 5-325MG 1 EACH TAB PO PRN (07:27)
[2021-02-08] MEDS: MULTIVITAMINS, THERA 1 EACH TAB PO SCH (07:27)
[2021-02-08] MEDS: PANTOPRAZOLE 40 MG TABLET PO SCH (07:27)
[2021-02-08] MEDS: LOSARTAN 50 MG TAB PO SCH (07:27)
[2021-02-08] MEDS: IPRATROPIUM-ALBUTEROL 3 ML NEB INHALATION SCH ×4 (07:37→20:21)
[2021-02-08] MEDS: SYMBICORT 80-4.5 MCG INHALER INHALATION SCH ×2 (07:37→20:21)
--- NOTE | 2021-02-08 10:53 | PN ---
PROGRESS NOTE DATE OF DICTATION: 02/08/2021 Patient is a 65-year-old pleasant white male, admitted to the hospital with diarrhea and abdominal pain for the last one week's duration. He was seen on consultation yesterday and he did not have any further episodes of diarrhea. However, this morning he states that he had two loose bowel movements with some cramping lower abdominal pain. He is able to tolerate diet well. He had an episode of emesis this morning, but he ate his breakfast well. No fever, chills, night sweats. PHYSICAL EXAMINATION: He appears comfortable. VITAL SIGNS: Stable. Blood pressure is 136/79, pulse 84, temperature 97.6. HEENT EXAMINATION: Unremarkable. Conjunctivae pink. Sclerae anicteric. Oral cavity no lesions. NECK: No JVD. No lymph node enlargement. CHEST: Clear to auscultation. HEART: Regular rate and rhythm. ABDOMEN: Slightly obese. Bowel sounds are positive. No organomegaly. EXTREMITIES: No pedal edema. NEURO: Alert and oriented x3. No focal deficits. LABS: No labs available from today. Stool studies were performed this morning and are still pending at the time of this dictation. IMPRESSION: 1. Acute onset of diarrhea for the last one week's duration. Symptoms were better yesterday, but this morning he had two loose bowel movements. Stool studies were sent down. Results are still pending at the time of this dictation. 2. History of chronic obstructive pulmonary disease, status post lung reduction surgery in August of this year. 3. History of hypertension and diabetes mellitus. RECOMMENDATIONS: 1. Await stool studies. 2. If the stool studies are negative, he can be treated symptomatically with antimotility agents. 3. Continue with symptomatic and supportive care. 4. Continue with regular diet. We will sign off at this time. No GI Service available from tomorrow. Thank you for this consultation. MMODL / IJN: [id number] /
--- NOTE | 2021-02-08 11:10 | P.PN ---
Subjective Progress Note Date: 02/08/21 65 years old male patient of Dr. Torres with past history of COPD status post of lung reduction surgery with zephr valves on the left at [facility] on 09/03/20 has been on chronic prednisone until October and multiple courses of antibiotic for the past year, history of type 2 diabetes, h ypertension, GERD history of cold with pneumonia 07/11/2020 comes in with diarrhea and abdominal pain for the 1 week. Patient had persistent diarrhea for one week and has not been eating or drinking. Diarrhea has improved once a day. He denies any history of fever or chills or blood in her stool. He does document history of Crohn disease and had last colonoscopy [address] Martinez. Patient had CT scan of the abdomen and pelvis done as outpatient and was negative except for splenomegaly. Vitals were reviewed pulse 66 respiratory rate 16 blood pressure 132/75 oxygen saturation 95% on room air labs unremarkable WBC 8.4 hemoglobin 15.3 creatinine 0.8 liver enzymes are normal heterophile antibody negative UA was negative. Stool culture and C. diff ordered. ESR CRP and labs ordered. 02/07/21 patient evaluated at bedside reports that he is feeling better and is unable to to provide a sample for stool testing at this time. Denies any blood in the stool. Vital signs are stable. Consults are in place for Dr. Mark Martinez and pulmonology. If patient's diarrhea continues to subside possible plan for discharge tomorrow. Sed rate was normal, C-reactive protein was 1.1. 02/08 patient seen sitting in bedside chair reports he did have an episode of emesis this morning around 5 AM and also a loose stool which was collected for C. diff testing. Patient started on Flagyl IV for now. Admitted to having some abdominal cramping but no major pain. Vital signs are stable, patient remains afebrile, pulse rate 84, blood pressure 136/79, pulse ox 95% on room air. We'll check CBC and CMP in a.m., if C. diff testing is negative possible discharge home tomorrow on oral Flagyl. ROS Constitutional: Denies chills, Denies fever, Denies lethargy, Denies malaise, Denies poor appetite, Denies weakness, Denies weight loss Eyes: denies decreased vision, denies diplopia, denies discharge, denies pain Ears: deny: decreased hearing Ears, nose, mouth and throat: Denies dental pain, Denies headache, Denies nasal discharge, Denies nose pain Cardiovascular: Denies chest pain, Denies decreased exercise tolerance, Denies edema, Denies high blood pressure, Denies irregular heart beat, Denies palpitations, Denies paroxysmal nocturnal dyspnea, Denies rapid heart beat, Denies shortness of breath Respiratory: Denies congestion, Denies cough, Denies cough with sputum, Denies dyspnea, Denies home oxygen, Denies wheezing Gastrointestinal: Denies abdominal pain, Denies coffee ground emesis, Denies early satiety, Denies excessive gas, Denies heartburn, Denies loss of appetite, Positive for change in bowel habits. Positive nausea and vomiting. Genitourinary: Denies dysuria, Denies flank pain, Denies kidney stones, Denies urgency, Denies urinary frequency Musculoskeletal: Denies gait dysfunction, Denies limitation of motion, Denies morning stiffness, Denies muscle cramps Integumentary: Denies rash, Denies wounds, Denies brittle nails, Denies change in hair/nails, Denies darkening of skin Neurological: Denies balance difficulties, Denies change in speech, Denies double vision, Denies gait dysfunction, Denies loss of vision, Denies motor disturbance, Denies numbness, Denies paralysis, Denies paresthesias, Denies seizures Psychiatric: Denies anxiety, Denies depression Endocrine: Denies excessive sweating, Denies excessive thirst, Denies high blood sugars, Denies palpitations Hematologic/Lymphatic: Denies easy bruising, Denies lymphadenopathy Objective - Vital Signs Vital signs: Vital Signs Temp 97.6 F 02/08/21 07:00 Pulse 79 02/08/21 07:49 Resp 18 02/08/21 07:00 BP 136/79 02/08/21 07:00 Pulse Ox 95 02/08/21 07:00 Intake & Output 02/07/21 02/08/21 02/08/21 18:59 06:59 18:59 Intake Total 222 Balance 222 Intake: Oral 222 Other: # Voids 3 1 - Exam Physical exam - Constitutional General appearance: cooperative, no acute distress, obese - EENT Eyes: anicteric sclerae, PERRLA, normal appearance ENT: hearing grossly normal - Neck Neck: no lymphadenopathy, normal ROM, no other, no rigidity, no stridor, no thyromegaly - Respiratory Respiratory: bilateral: CTA, negative: diminished, dullness, rales, rhonchi - Cardiovascular Rhythm: regular Heart sounds: normal: S1, S2 Abnormal Heart Sounds: no systolic murmur, no diastolic murmur, no rub, no S3 Gallop, no S4 Gallop, no click, no other - Gastrointestinal General gastrointestinal: normal bowel sounds, no tenderness on palpation - Integumentary Integumentary: no rash - Neurologic Neurologic: No sensory or motor deficit - Musculoskeletal Musculoskeletal: gait normal, strength equal bilaterally - Psychiatric Psychiatric: A&O x's 3, appropriate affect - Labs CBC & Chem 7: 02/06/21 10:35 02/06/21 10:35 Labs: Abnormal Lab Results - Last 24 Hours (Table) 02/07/21 02/07/21 02/07/21 Range/Units 12:10 17:26 20:55 POC Glucose (mg/dL) 114 H 124 H 153 H (75-99) mg/dL 02/08/21 Range/Units 07:14 POC Glucose (mg/dL) 106 H (75-99) mg/dL Assessment and Plan Assessment: #1 acute abdominal pain associated with diarrhea. CT abdomen with oral contrast was negative for any inflammation of the bowels. GI consult placed. Stool cultures is C. diff ordered. WBC stool ordered. Will add IV Flagyl antibiotics at this time pending stool results. #2 COPD status post lung reduction surgery with zephr valves on the left at [facility] on 09/03/20 continue DuoNeb as needed for shortness of breath. Continue theophylline 300 mg twice a day and we will consult pulmonology. #3 hypertension continue losartan 50 mg by mouth daily #4 type 2 diabetes continue glargine 15 twice a day. Glucose checked before meals and at bedtime and insulin sliding scale 5 GERD continue pantoprazole 20 mg daily #6 DVT prophylaxis with heparin every 12 #7 GI per prophylaxis with pantoprazole 20 mg daily #8 CODE STATUS full code #9 disposition patient in 1-2 inpatient nights for stabilization Impression and plan of care have been directed as dictated by the signing physician. Daisy Ragland nurse practitioner acting as scribe for signing physic
[2021-02-08] MEDS: metroNIDAZOLE-NS PMX 500 MG in SALINE 1 100ML.BAG IVPB SCH ×2 (11:33→17:27)
[2021-02-08 12:04] LABS: Glucose,Whole Blood 89 mg/dL (75-99)
[2021-02-08 17:54] LABS: Glucose,Whole Blood 101 mg/dL (75-99)
[2021-02-08] MEDS: THEOPHYLLINE 24 HOUR 300 MG CAP.ER.24H PO SCH (19:54)
[2021-02-08 20:36] LABS: Glucose,Whole Blood 132 mg/dL (75-99)
[2021-02-09] MEDS: metroNIDAZOLE-NS PMX 500 MG in SALINE 1 100ML.BAG IVPB SCH ×2 (00:18→06:01)
[2021-02-09 01:45] VITALS: RESP 18
[2021-02-09] MEDS: IPRATROPIUM-ALBUTEROL 3 ML NEB INHALATION SCH (07:01)
[2021-02-09] MEDS: SYMBICORT 80-4.5 MCG INHALER INHALATION SCH (07:01)
[2021-02-09 07:20] LABS: Glucose,Whole Blood 132 mg/dL (75-99)
[2021-02-09 07:45] VITALS: BP 135/72; PULSE 76; TEMP 98.2
[2021-02-09] MEDS: PANTOPRAZOLE 40 MG TABLET PO SCH (07:56)
[2021-02-09] MEDS: LOSARTAN 50 MG TAB PO SCH (07:56)
[2021-02-09] MEDS: MULTIVITAMINS, THERA 1 EACH TAB PO SCH (07:56)
[2021-02-09] MEDS: VIT A,C & E-LUTEIN-MINERALS 1 EACH TAB PO SCH (07:56)
--- NOTE | 2021-02-09 10:41 | P.DS ---
Providers Date of admission: 02/06/21 13:21 Expected date of discharge: 02/09/21 Attending physician: Jean Ugalde MD Consults: 02/06/21 13:45 Consult Physician Routine Consulting Provider: Bharti Gallo Consult Reason/Comments: diarrhea Do you want consulting provider notified?: Yes 02/07/21 09:09 Consult Physician Routine Consulting Provider: Carlo Purvis Consult Reason/Comments: COPD Do you want consulting provider notified?: Yes Primary care physician: Andres Torres [facility] Course: This is a 65-year-old male patient of Dr. Torres with past history of COPD status post of lung reduction surgery with zephr valves on the left at [facility] on 09/03/20 has been on chronic prednisone until October and multiple courses of antibiotic for the past year, history of type 2 diabetes, hypertension, GERD history of cold with pneumonia 07/11/2020 comes in with diarrhea and abdominal pain for the 1 week. Patient had persistent diarrhea for one week and has not been eating or drinking. Diarrhea has improved once a day. He denies any history of fever or chills or blood in her stool. He does document history of Crohn disease and had last colonoscopy [address] Martinez. Patient had CT scan of the abdomen and pelvis done as outpatient and was negative except for splenomegaly. Vitals were reviewed pulse 66 respiratory rate 16 blood pressure 132/75 oxygen saturation 95% on room air labs unremarkable WBC 8.4 hemoglobin 15.3 creatinine 0.8 liver enzymes are normal heterophile antibody negative UA was negative. Stool culture and C. diff ordered. ESR CRP and labs ordered. 02/07/21 patient evaluated at bedside reports that he is feeling better and is unable to to provide a sample for stool testing at this time. Denies any blood in the stool. Vital signs are stable. Consults are in place for Dr. Mark Martinez and pulmonology. If patient's diarrhea continues to subside possible plan for discharge tomorrow. Sed rate was normal, C-reactive protein was 1.1. 02/08 patient seen sitting in bedside chair reports he did have an episode of emesis this morning around 5 AM and also a loose stool which was collected for C. diff testing. Patient started on Flagyl IV for now. Admitted to having some abdominal cramping but no major pain. Vital signs are stable, patient remains afebrile, pulse rate 84, blood pressure 136/79, pulse ox 95% on room air. We'll check CBC and CMP in a.m., if C. diff testing is negative possible discharge home tomorrow on oral Flagyl. 02/09: Patient has been seen by GI. Stool for lactoferrin was positive. Stool studies in process. C. difficile testing was not completed due to stool was still firm. Diarrhea has resolved. We'll plan to start patient on Imodium tw ice daily. Patient has been afebrile, heart rate 60, blood pressure 135/72, pulse ox 99% on room air. Blood sugars running between 88-132. Patient will be discharged home today in stable condition.` DISCHARGE DIAGNOSES 1. Acute abdominal pain associated with diarrhea, probable viral source. 2. COPD status post lung reduction surgery at [facility]. 3. Hypertension. 4. Diabetes mellitus type 2. 5. Gastroesophageal reflux disease. DISCHARGE PLAN Home. Impression and plan of care have been directed as dictated by the signing physician. Massiel Hayes nurse practitioner acting as scribe for signing physician. Patient Condition at Discharge: Stable Plan - Discharge Summary Discharge Rx Participant: No New Discharge Prescriptions: New Lactobacillus Acidophilus [Acidophilus Probiotic] 1 each PO BID #60 capsule Loperamide [Imodium] 2 mg PO BID #30 capsule metroNIDAZOLE [Flagyl] 500 mg PO TID #15 tab Continue Multivit-Min/FA/Lycopen/Lutein [Centrum Silver Men Tablet] 1 tab PO DAILY Fluticasone/Umeclidin/Vilanter [Trelegy Ellipta 100-62.5-25] 1 puff INHALATION RT-DAILY Albuterol Nebulized [Ventolin Nebulized] 2.5 mg INHALATION RT-QID Insulin Glargine,Hum.rec.anlog [Toujeo Solostar] 15 units SQ BID PRN PRN Reason: BS 150+ Theophylline 12 Hour [Reji-Dur] 300 mg PO BID Albuterol Sulfate [Proair Hfa] 2 puff INHALATION RT-QID PRN PRN Reason: Shortness Of Breath Vits A,C,E/Lutein/Minerals [Ocuvite with Lutein Tablet] 1 tab PO DAILY Losartan [Cozaar] 50 mg PO DAILY predniSONE [Deltasone] 20 mg PO DAILY Pantoprazole Sodium 20 mg PO DAILY Discharge Medication List Multivit-Min/FA/Lycopen/Lutein [Centrum Silver Men Tablet] 1 tab PO DAILY 06/09/17 [History] Albuterol Nebulized [Ventolin Nebulized] 2.5 mg INHALATION RT-QID 07/07/19 [History] Fluticasone/Umeclidin/Vilanter [Trelegy Ellipta 100-62.5-25] 1 puff INHALATION RT-DAILY 07/07/19 [History] Insulin Glargine,Hum.rec.anlog [Toujeo Solostar] 15 units SQ BID PRN 07/11/20 [History] Theophylline 12 Hour [Reji-Dur] 300 mg PO BID 07/11/20 [History] Albuterol Sulfate [Proair Hfa] 2 puff INHALATION RT-QID PRN 02/06/21 [History] Losartan [Cozaar] 50 mg PO DAILY 02/06/21 [History] Pantoprazole Sodium 20 mg PO DAILY 02/06/21 [History] Vits A,C,E/Lutein/Minerals [Ocuvite with Lutein Tablet] 1 tab PO DAILY 02/06/21 [History] predniSONE [Deltasone] 20 mg PO DAILY 02/06/21 [History] Lactobacillus Acidophilus [Acidophilus Probiotic] 1 each PO BID #60 capsule 02/09/21 [Rx] Loperamide [Imodium] 2 mg PO BID #30 capsule 02/09/21 [Rx] metroNIDAZOLE [Flagyl] 500 mg PO TID #15 tab 02/09/21 [Rx] Follow up Appointment(s)/Referral(s): Andres Torres DO [Primary Care Provider] - 1 Week Patient Instructions/Handouts: Abdominal Pain (ED) Discharge Disposition: HOME SELF-CARE
[2021-02-09 14:34] LABS: HCT 39.3 % (39.6-50.0); HGB 13.5 g/dL (13.0-17.0); MCH 29.5 pg (27.0-32.0); MCHC 34.4 g/dL (32.0-37.0); MCV 85.8 fL (80.0-97.0); Mean Platelet Volume 10.6 fL (9.5-12.2); Platelet Count 225 X 10*3/uL (140-440); RBC 4.58 X 10*6/uL (4.40-5.60); RDW 13.1 % (11.5-14.5); WBC 8.44 X 10*3/uL (4.50-10.00)
[2021-02-09 16:26] LABS: African American GFR (CKD) 104.2 (60.0-200.0); Albumin 4.2 g/dL (3.80-4.90); Albumin/Globulin Ratio 2.63 (1.60-3.17); Anion Gap 8.6 mmol/L (4.00-12.00); BUN/Creat Ratio 13.33 Ratio (12.00-20.00); Calcium 9.3 mg/dL (8.7-10.3); Carbon Dioxide 24.4 mmol/L (21.6-31.8); Globulin 1.6 g/dL (1.6-3.3); Non-African American GFR(CKD) 89.9 (60.0-200.0); Potassium 3.7 mmol/L (3.5-5.5); Total Bilirubin 0.3 mg/dL (0.3-1.2); Total Protein 5.8 g/dL (6.2-8.2)
== END 2021-02-09 11:03 | disposition home or self-care (01) ==
LOC: EC 09:45 → 6NMEDSUR 13:21
PROVIDERS: ADMIT Internal Medicine; ATTEND Internal Medicine
CPT/HCPCS: 96361 ×2; 96365; 96366 ×2; 96375; 99285; 36415; 94640 ×7; 80053 ×2; 85652; 82150; 83690; 85025; 85027; 86140; 86308; 81001; 87045; 83630; 87046; G0378 ×4; J2405; C9113

== ENCOUNTER → 2021-06-12 | Outpatient (CLI) | payer BC | END | disposition home or self-care (01) | LOC: LABWHC1 11:40 | PROVIDERS: ATTEND Family Medicine | DX: Z20.822 Contact with and (suspected) exposure to COVID-19 (principal) | CPT/HCPCS: U0003; C9803; U0005 ==

== ENCOUNTER 2021-06-22 06:45 | Day surgery (SDC) | payer BC ==
[2021-06-17 10:50] VITALS: BMI 30.7
[2021-06-22] MEDS ORDERED: ALBUTEROL NEBULIZED 2.5 MG/3 ML INHALATION ONE (07:26)
[2021-06-22 07:32] VITALS: TEMP 98.4
[2021-06-22] MEDS ORDERED: ALBUTEROL NEBULIZED 2.5 MG/3 ML INHALATION STA (07:37)
[2021-06-22] MEDS ORDERED: LACTATED RINGERS 1,000 ML IV ONE (07:40)
[2021-06-22 07:58] LABS: Glucose,Whole Blood 120 mg/dL (75-99)
[2021-06-22] MEDS ORDERED: PROPOFOL 10 MG/ML 20 ML VIAL IV ONE (07:59)
--- NOTE | 2021-06-22 08:03 | P.GSHP ---
History of Present Illness H&P Date: 06/22/21 Chief Complaint: Change in bowel habits, diarrhea Is a 66-year-old male presents today for colonoscopy. He's had issues with diarrhea. Past Medical History Past Medical History: Asthma, COPD, Diabetes Mellitus, Eye Disorder, GERD/Refl ux, Hypertension, Pneumonia, Respiratory Disorder Additional Past Medical History / Comment(s): Pt tested + covid 07/11/20 at [facility]- HAD BAM INFUSION. IDDM type II, neuropathy occasionally in bilateral feet, macular degeneration bilaterally, CHRONIC DIARRHEA/CONSTIPATION History of Any Multi-Drug Resistant Organisms: None Reported Past Surgical History: Appendectomy, Cholecystectomy, Hernia Repair, Orthopedic Surgery Additional Past Surgical History / Comment(s): R knee arthroscopy, lower abdomin al hernia repair, colonoscopy. pt HAD PROCEDURE at [facility] on 09/03/20 for zephr valves to be inserted into LUNGS, Past Anesthesia/Blood Transfusion Reactions: No Reported Reaction Smoking Status: Former smoker - Past Family History Mother Family Medical History: Cancer Additional Family Medical History / Comment(s): Lung cancer Sister(s) Family Medical History: Cancer Additional Family Medical History / Comment(s): SEVERAL SISTERS WITH CANCER Father Family Medical History: Cancer Additional Family Medical History / Comment(s): Lung cancer. Brother(s) Family Medical History: Cancer Medications and Allergies Home Medications Medication Instructions Recorded Confirmed Type Multivit-Min/FA/Lycopen/Lutein 1 tab PO DAILY 06/09/17 06/22/21 History [Centrum Silver Men Tablet] Albuterol Nebulized [Ventolin 2.5 mg INHALATION RT-QID 07/07/19 06/22/21 History Nebulized] Fluticasone/Umeclidin/Vilanter 1 puff INHALATION RT-DAILY 07/07/19 06/22/21 History [Trelegy Ellipta 100-62.5-25] Insulin Glargine,Hum.rec.anlog 15 units SQ BID PRN 07/11/20 06/22/21 History [Toujeo Solostar] Theophylline 12 Hour [Reji-Dur] 300 mg PO BID 07/11/20 06/22/21 History Albuterol Sulfate [Proair Hfa] 2 puff INHALATION RT-QID PRN 02/06/21 06/22/21 History Losartan [Cozaar] 50 mg PO DAILY 02/06/21 06/22/21 History Pantoprazole Sodium 20 mg PO DAILY 02/06/21 06/22/21 History Vits A,C,E/Lutein/Minerals 1 tab PO DAILY 02/06/21 06/22/21 History [Ocuvite with Lutein Tablet] Allergies Allergy/AdvReac Type Severity Reaction Status Date / Time No Known Allergies Allergy Verified 06/22/21 07:51 Surgical - Exam Vital Signs Temp Pulse Resp BP Pulse Ox 98.4 F 94 22 146/76 88 L 06/22/21 07:20 06/22/21 07:20 06/22/21 07:20 06/22/21 07:20 06/22/21 07:20 - General well developed, well nourished, no distress - Eyes PERRL - ENT normal pinna - Neck no masses - Respiratory normal expansion - Cardiovascular Rhythm: regular - Abdomen Abdomen: soft, non tender Results - Labs Abnormal Lab Results - Last 24 Hours (Table) 06/22/21 Range/Units 07:48 POC Glucose (mg/dL) 120 H (75-99) mg/dL Assessment and Plan Assessment: Diarrhea. We'll perform colonoscopy.
[2021-06-22] MEDS ORDERED: LACTATED RINGERS 1,000 ML IV SCH (08:17)
[2021-06-22] MEDS ORDERED: LIDOCAINE 1% (10MG/ML) FOR IV START INTRADERMA PRN (08:17)
--- NOTE | 2021-06-22 08:28 | P.OP ---
Date of Procedure: 06/22/21 Preoperative Diagnosis: Diarrhea Change in bowel habits Postoperative Diagnosis: Mild diverticulosis Random rectal biopsy pathology pending Procedure(s) Performed: Colonoscopy Anesthesia: MAC Surgeon: Virgil Chaney Pathology: other (Rectal biopsy) Condition: stable Disposition: PACU Description of Procedure: Patient's placed on the endoscopy table in the lateral position. He received IV sedation. Digital rectal exam was performed which revealed no. The flexible colonoscope was then placed patient anus passed rotator entire colon. The ileocecal valve was not visualized secondary to tortuous valve. The right colon appeared normal. The transverse colon appeared normal. In the descending and sigmoid colon there is mild diverticular changes. Scope was brought back the rectum this appeared normal. However due the patient's symptoms of diarrhea a random rectal biopsies performed. Scope was withdrawn for patient.
[2021-06-22 08:36] VITALS: RESP 16
[2021-06-22] MEDS ORDERED: ACETAMINOPHEN TAB 500 MG TAB PO ONE (08:39)
[2021-06-22] MEDS ORDERED: ACETAMINOPHEN TAB 500 MG TAB ONE (08:40)
[2021-06-22 09:00] VITALS: BP 136/69; PULSE 80
== END 2021-06-22 09:02 | disposition home or self-care (01) ==
LOC: ORWHC2ENDO 06:45
PROVIDERS: ATTEND Surgery
DX: R19.7 Diarrhea, unspecified (principal); K57.30 Diverticulosis of large intestine without perforation or abscess without bleeding; I10 Essential (primary) hypertension; E11.42 Type 2 diabetes mellitus with diabetic polyneuropathy; J44.9 Chronic obstructive pulmonary disease, unspecified; K21.9 Gastro-esophageal reflux disease without esophagitis; I25.10 Atherosclerotic heart disease of native coronary artery without angina pectoris; H35.30 Unspecified macular degeneration; K59.09 Other constipation; J98.9 Respiratory disorder, unspecified; Z87.01 Personal history of pneumonia (recurrent); Z86.16 Personal history of COVID-19; Z95.5 Presence of coronary angioplasty implant and graft; Z90.49 Acquired absence of other specified parts of digestive tract; Z87.891 Personal history of nicotine dependence; Z79.899 Other long term (current) drug therapy; Z79.4 Long term (current) use of insulin; Z98.890 Other specified postprocedural states; Z80.1 Family history of malignant neoplasm of trachea, bronchus and lung
CPT/HCPCS: 94640; 88305; 45380; J2704

== ENCOUNTER → 2021-07-14 | Outpatient (CLI) | payer BC ==
--- NOTE | 2021-07-15 08:46 | CT ---
EXAMINATION TYPE: CT abdomen pelvis wo con DATE OF EXAM: 07/14/2021 COMPARISON: 01/29/2021 HISTORY: 66-year-old male R10.32 abd pain, R19.[address] DLP: 890.5 mGycm. Automated exposure control for dose reduction was used. TECHNIQUE: Contiguous axial scanning of the abdomen and pelvis without IV contrast. Coronal and sagit krysta reconstructions performed. FINDINGS: Heart normal size without pericardial effusion. Numerous calcified granulomas at the right lung base. Some patchy posterior basilar and inferior ling ular opacity likely atelectasis. There is bronchial wall thickening noted. 6 mm subpleural pulmonary nodule posterior left base not well seen previously. Three-month follow-up CT chest recommended to reassess and also to survey the remainder of the lungs. Liver mildly enlarged measuring 18.0 cm. Noncontrast appearance of the liver, adrenal glands, kidneys , and pancreas show no gross abnormal body. Numerous calcified granulomas within the spleen. Redemonstrated splenomegaly measuring 15.6 cm on cor onal series, not significantly changed. Mild fusiform aneurysm infrarenal abdominal aorta at 3.3 cm redemonstrated. No dilated small bowel, free fluid, or free air. No mesenteric or retroperitoneal lymphadenopathy. Mild overall stool burden. Mild diverticulosis within the mid to distal sigmoid colon. No pericolonic inflammatory change. Bladder is urine distended. Prostate gland 4.6 cm wide. No abnormal fluid collection in the pelvis. S ome prominent inguinal lymph nodes on either side measuring up to 1.7 cm short axis probably reactive /post inflammatory. A couple phleboliths in the pelvis. Bones: At least mild degenerative change of both hips. Moderate multilevel degenerative disc disease. Hypertrophic facet arthropathy. Addition the lower thoracic spine. IMPRESSION: 1. Evidence of prior granulomatous disease. A 6 mm left basilar pulmonary nodules not clearly seen p reviously. Recommend three-month follow-up CT chest to reassess and also to survey the remainder of t he lungs. 2. Similar splenomegaly at 15.6 cm. 3. Stable mild fusiform infrarenal AAA and 3.3 cm. 4. Mild diverticulosis mid to distal sigmoid colon without evidence for acute diverticulitis.
== END | disposition home or self-care (01) ==
LOC: RADCTMAIN 16:55
PROVIDERS: ATTEND Family Medicine
DX: R91.8 Other nonspecific abnormal finding of lung field (principal); R16.1 Splenomegaly, not elsewhere classified; I71.4 Abdominal aortic aneurysm, without rupture; K57.90 Diverticulosis of intestine, part unspecified, without perforation or abscess without bleeding
CPT/HCPCS: 74176

== ENCOUNTER → 2022-05-25 | Outpatient (CLI) | payer MEDICARE ==
--- NOTE | 2022-05-25 19:06 | XR ---
EXAMINATION TYPE: XR chest 2V DATE OF EXAM: 05/25/2022 COMPARISON: Chest x-ray July 11, 2020 HISTORY: COPD. TECHNIQUE: Frontal and lateral views of the chest are obtained. FINDINGS: Background Chronic emphysematous change is redemonstrated. There is no focal air space opac ity, pleural effusion, or pneumothorax seen. The cardiac silhouette size is stable and within normal limits. Bilateral hilar prominence suggests underlying pulmonary artery hypertension. The osseous s tructures are intact. IMPRESSION: Chronic emphysematous change without acute pulmonary process.
== END | disposition home or self-care (01) ==
LOC: RADXRMAIN 17:12
PROVIDERS: ATTEND Family Medicine
DX: J43.9 Emphysema, unspecified (principal)
CPT/HCPCS: 71046

== ENCOUNTER → 2022-09-02 | Outpatient (CLI) | payer MEDICARE ==
--- NOTE | 2022-09-02 09:37 | US ---
EXAMINATION TYPE: US abdomen comp/pelvis limited DATE OF EXAM: 09/02/2022 COMPARISON: NONE CLINICAL HISTORY: 67-year-old male R11.0 nausea R10.84 abdominal pain. Abdominal pain, nausea for 2 years. Cholecystectomy EXAM MEASUREMENTS: Liver Length: 19.8 cm Gallbladder: Surgically absent CBD: 5.7 mm Spleen: 15.0 cm Right Kidney: 10.6 x 4.9 x 5.5 cm Left Kidney: 10.9 x 4.2 x 4.6 cm Area Plant Manager notes:Technical limitations due to patient's body habitus and large amount of overlying bowel content Pancreas: Obscured by bowel gas Liver: enlarged, with increased echogenicity. No focal lesion is seen. Visualized portions appear wn l Gallbladder: Surgically absent CBD: appears wnl Spleen: enlarged. Granulomas Right Kidney: no evidence of hydronephrosis Left Kidney: no evidence of hydronephrosis Upper IVC: wnl Abd Aorta: distal abdominal aorta shows mild fusiform aneurysm up to 3.0 cm. Bladder: Partial distention limits evaluation. There is mild circumferential wall thickening at 0.5cm Bilateral Jets Seen no IMPRESSION: 1. Hepatomegaly (19.8 cm) with at least moderate hepatic steatosis. Correlate with LFTs, lipid profil e, and patient risk factors. 2. Status post cholecystectomy. No biliary ductal dilatation. 3. Splenomegaly at 15.0 cm with numerous old, calcified granulomas.
== END | disposition home or self-care (01) ==
LOC: RADUSWWP 06:38
PROVIDERS: ATTEND Family Medicine
DX: K76.0 Fatty (change of) liver, not elsewhere classified (principal); R16.2 Hepatomegaly with splenomegaly, not elsewhere classified; Z90.49 Acquired absence of other specified parts of digestive tract
CPT/HCPCS: 76700; 76857

== ENCOUNTER → 2023-06-20 | Outpatient (CLI) | payer MEDICARE ==
--- NOTE | 2023-06-24 10:15 | XR ---
EXAMINATION TYPE: XR chest 2V DATE OF EXAM: 06/20/2023 2:10 PM CLINICAL INDICATION:Male, 68 years old with history of COPD; [facility] COMPARISON: 12/27/2022 TECHNIQUE: XR chest 2V. Frontal and lateral views of the chest.. FINDINGS: Lines/Tubes/Devices: No indwelling lines are seen. Heart/mediastinum: Heart size is normal. Mediastinum appears stable. Partially calcified aorta. Pulmonary vascularity: Not increased, Lungs/Pleura: Hyperinflation with flattening of the diaphragm and mild interstitial changes. No evide nce of focal consolidation, sizeable pleural effusion, or pneumothorax. Musculoskeletal: No acute osseous abnormality demonstrated in the limits of the exam. Other findings: None. IMPRESSION: 1. No acute cardiopulmonary disease process. 2. COPD changes.
== END | disposition home or self-care (01) ==
LOC: RADXRMAIN 13:55
PROVIDERS: ATTEND Family Medicine
DX: J44.9 Chronic obstructive pulmonary disease, unspecified (principal)
CPT/HCPCS: 71046

== ENCOUNTER 2023-06-25 12:10 | Inpatient (IN) | payer MEDICARE ==
[2023-06-25] MEDS ORDERED: methylPREDNISolone SOD SUCCI 125 MG/2 ML VIAL IV STA (12:33)
[2023-06-25] MEDS ORDERED: IPRATROPIUM-ALBUTEROL 3 ML NEB INHALATION STA (12:33)
--- NOTE | 2023-06-25 12:35 | ED ---
General Adult HPI - General Chief complaint: Shortness of Breath Stated complaint: Dyspnea Time Seen by Provider: 06/25/23 12:19 Source: patient, family, RN notes reviewed Mode of arrival: ambulatory Limitations: no limitations - History of Present Illness Initial comments: Patient is a pleasant 68-year-old male presenting to the emergency department wi th concerns with shortness of breath. Onset was around 2 weeks ago. Patient does have cough. No fever. Patient does have history of similar symptoms previously associated with COPD. Patient has some associated mild chest discomfort. Dyspnea does worsen with exertion. No Pain. No leg swelling. Patient has been on outpatient antibiotics, steroids, oxygen without improvement of symptoms. Oxygen was as low as 88 at home. - Related Data Home Medications Medication Instructions Recorded Confirmed Mv-Min/Folic/K1/Lycopen/Lutein 1 tab PO DAILY 06/09/17 06/22/21 [Centrum Silver Men Tablet] Albuterol Nebulized [Ventolin 2.5 mg INHALATION RT-QID 07/07/19 06/22/21 Nebulized] Fluticasone/Umeclidin/Vilanter 1 puff INHALATION RT-DAILY 07/07/19 06/22/21 [Trelegy Ellipta 100-62.5-25] Insulin Glargine,Hum.rec.anlog 15 units SQ BID PRN 07/11/20 06/22/21 [Toujeo Solostar] Theophylline 12 Hour [Reji-Dur] 300 mg PO BID 07/11/20 06/22/21 Albuterol Sulfate [Proair Hfa] 2 puff INHALATION RT-QID PRN 02/06/21 06/22/21 Losartan [Cozaar] 50 mg PO DAILY 02/06/21 06/22/21 Pantoprazole Sodium 20 mg PO DAILY 02/06/21 06/22/21 Vits A,C,E/Lutein/Minerals 1 tab PO DAILY 02/06/21 06/22/21 [Ocuvite with Lutein Tablet] Allergies Allergy/AdvReac Type Severity Reaction Status Date / Time No Known Allergies Allergy Verified 06/22/21 07:51 Review of Systems ROS Statement: Those systems with pertinent positive or pertinent negative responses have been documented in the HPI. ROS Other: All systems not noted in ROS Statement are negative. Constitutional: Denies: fever Eyes: Denies: eye pain ENT: Denies: ear pain Respiratory: Reports: as per HPI, cough, dyspnea Cardiovascular: Reports: as per HPI, chest pain Endocrine: Reports: fatigue Gastrointestinal: Denies: abdominal pain Genitourinary: Denies: dysuria Musculoskeletal: Denies: back pain Past Medical History Past Medical History: Asthma, COPD, Diabetes Mellitus, Eye Disorder, GERD/Reflux, Hyperlipidemia, Hypertension, Pneumonia, Respiratory Disorder Additional Past Medical History / Comment(s): Pt tested + covid 07/11/20 at [facility]. Other hx: Bronchitis, chronic SOB, pt scheduled at [facility] on 09/03/20 for zephr valves to be inserted into lungs, IDDM type II, neuropathy occasionally in bilateral feet, macular degeneration bilaterally, Covid +07/11/20 History of Any Multi-Drug Resistant Organisms: None Reported Past Surgical History: Cholecystectomy Additional Past Surgical History / Comment(s): R knee arthroscopy, lower abdominal hernia repair, colonoscopy. lung surgery Past Anesthesia/Blood Transfusion Reactions: No Reported Reaction Past Psychological History: No Psychological Hx Reported Smoking Status: Former smoker - Past Family History Mother Family Medical History: Cancer Additional Family Medical History / Comment(s): Lung cancer Sister(s) Family Medical History: Cancer Additional Family Medical History / Comment(s): SEVERAL SISTERS WITH CANCER Father Family Medical History: Cancer Additional Family Medical History / Comment(s): Lung cancer. Brother(s) Family Medical History: Cancer General Exam Limitations: no limitations General appearance: alert, in no apparent distress Head exam: Present: normocephalic Eye exam: Present: normal appearance Neck exam: Present: normal inspection Respiratory exam: Present: wheezes, decreased breath sounds Cardiovascular Exam: Present: regular rate, normal rhythm GI/Abdominal exam: Present: soft. Absent: tenderness Extremities exam: Present: normal inspection. Absent: pedal edema, calf tenderness Neurological exam: Present: alert Psychiatric exam: Present: normal affect, normal mood Skin exam: Present: normal color Course Vital Signs 06/25/23 06/25/23 06/25/23 12:12 13:13 13:59 Temperature 97.9 F Pulse Rate 85 80 Respiratory 24 Rate Blood Pressure 128/74 O2 Sat by Pulse 92 L 95 Oximetry 06/25/23 14:11 Temperature Pulse Rate 105 H Respiratory Rate Blood Pressure O2 Sat by Pulse Oximetry EKG Findings - EKG Results: EKG: interpreted by ERMD (Junctional rhythm), normal axis, normal QRS, normal ST/T Medical Decision Making - Medical Decision Making Was pt. sent in by a medical professional or institution (SELENA Johnston, [employer], urgent care, hospital, or senior living...) When possible be specific @ -No Did you speak to anyone other than the patient for history (EMS, parent, family, police, friend...)? What history was obtained from this source @ - is present and helps right additional history including recent antibiotics and steroids Did you review nursing and triage notes (agree or disagree)? Why? @ -I reviewed and agree with nursing and triage notes Were old charts reviewed (outside hosp., previous admission, EMS record, old EKG, old radiological studies, urgent care reports/EKG's, senior living records)? Report findings @ -No old charts were reviewed Differential Diagnosis (chest pain, altered mental status, abdominal pain women, abdominal pain men, vaginal bleeding, weakness, fever, dyspnea, syncope, headache, dizziness, GI bleed, back pain, seizure, CVA, palpatations, mental health, musculoskeletal)? @ -Differential Dyspnea: Coronary syndrome, arrhythmia, tamponade, asthma, COPD, pulmonary embolism, pneumonia, pneumothorax, pulmonary effusion, anaphylaxis, diabetic ketoacidosis, flailed chest, pulmonary contusion, diaphragmatic rupture, anemia, neuromuscular, this is not meant to be an all-inclusive list. EKG interpreted by me (3pts min.). @ -As above X-rays interpreted by me (1pt min.). @ -Chest x-ray shows no acute process CT interpreted by me (1pt min.). @ -None done U/S interpreted by me (1pt. min.). @ -None done What testing was considered but not performed or refused? (CT, X-rays, U/S, labs)? Why? @ -None What meds were considered but not given or refused? Why? @ -None Did you discuss the management of the patient with other professionals (professionals i.e. SELENA Johnston, [employer], lab, RT, psych nurse, social services analyst, vessel specialist, t eacher, svp chief marketing officer, case management assistant)? Give summary @ -Case was discussed with Dr. Hughes, who will admit covering Dr. Razo Was smoking cessation discussed for >3mins.? @ -No Was critical care preformed (if so, how long)? @ -No Were there social determinants of health that impacted care today? How? (Homelessness, low income, unemployed, alcoholism, drug addiction, transportatio n, low edu. Level, literacy, decrease access to med. care, residential, rehab)? @ -No Was there de-escalation of care discussed even if they declined (Discuss DNR or withdrawal of care, Hospice)? DNR status @ -No What co-morbidities impacted this encounter? (DM, HTN, Smoking, COPD, CAD, Cancer, CVA, ARF, Chemo, Hep., AIDS, mental health diagnosis, sleep apnea, morbid obesity)? @ -Patient has underlying COPD Was patient admitted / discharged? Hospital course, mention meds given and route, prescriptions, significant lab abnormalities, going to OR and other pertinent info. @ -Patient reevaluated without much improvement. Patient will be admitted for steroids and nebulizers. Admission orders written. Patient and family updated. Undiagnosed new problem with uncertain prognosis? @ -No Drug Therapy requiring intensive monitoring for toxicity (Heparin, Nitro, Insulin, Cardizem)? @ -No Were any procedures done? @ -No Diagnosis/symptom? @ -RSV Acute, or Chronic, or Acute on Chronic? @ -Acute Uncomplicated (without systemic symptoms) or Complicated (systemic symptoms)? @ -default Side effects of treatment? @ -No Exacerbation, Progression, or Severe Exacerbation? @ -No Poses a threat to life or bodily function? How? (Chest pain, [place], [place], pneumonia, PE, COPD, DKA, ARF, appy, cholecystitis, CVA, Diverticulitis, Homicidal, Suicidal, threat to staff... and all critical care pts) @ -No - Lab Data Result diagrams: 06/25/23 13:09 06/25/23 13:09 Lab Results 06/25/23 06/25/23 06/25/23 Range/Units 13: 13: 13: WBC 14.5 H (3.8-10.6) k/uL RBC 4.95 (4.30-5.90) m/uL Hgb 14.8 (13.0-17.5) gm/dL Hct 42.0 (39.0-53.0) % MCV 84.8 (80.0-100.0) fL MCH 29.9 (25.0-35.0) pg MCHC 35.3 (31.0-37.0) g/dL RDW 14.3 (11.5-15.5) % Plt Count 217 (150-450) k/uL MPV 7.9 Neutrophils % 80 % Lymphocytes % 11 % Monocytes % 5 % Eosinophils % 3 % Basophils % 1 % Neutrophils # 11.7 H (1.3-7.7) k/uL Lymphocytes # 1.5 (1.0-4.8) k/uL Monocytes # 0.7 (0-1.0) k/uL Eosinophils # 0.4 (0-0.7) k/uL Basophils # 0.1 (0-0.2) k/uL PT 10.8 (10.0-12.5) sec INR 1.0 (<1.2) APTT 25.6 (22.0-30.0) sec Sodium 138 (137-145) mmol/L Potassium 4.1 (3.5-5.1) mmol/L Chloride 96 L (98-107) mmol/L Carbon Dioxide 29 (22-30) mmol/L Anion Gap 13 mmol/L BUN 25 H (9-20) mg/dL Creatinine 1.12 (0.66-1.25) mg/dL Est GFR (CKD-EPI)AfAm 78 (>60 ml/min/1.73 sqM) Est GFR (CKD-EPI)NonAf 68 (>60 ml/min/1.73 sqM) Glucose 211 H (74-99) mg/dL Plasma Lactic Acid Rian (0.7-2.0) mmol/L Calcium 9.3 (8.4-10.2) mg/dL Magnesium 2.1 (1.6-2.3) mg/dL Total Bilirubin 0.7 (0.2-1.3) mg/dL AST 26 (17-59) U/L ALT 31 (4-49) U/L Alkaline Phosphatase 96 (38-126) U/L Troponin I (0.000-0.034) ng/mL NT-Pro-B Natriuret Pep <20 pg/mL Total Protein 7.2 (6.3-8.2) g/dL Albumin 4.5 (3.5-5.0) g/dL Influenza Type A (PCR) (Not Detectd) Influenza Type B (PCR) (Not Detectd) RSV (PCR) (Not Detectd) SARS-CoV-2 (PCR) (Not Detectd) 06/25/23 06/25/23 06/25/23 Range/Units 13:09 13:09 13:09 WBC (3.8-10.6) k/uL RBC (4.30-5.90) m/uL Hgb (13.0-17.5) gm/dL Hct (39.0-53.0) % MCV (80.0-100.0) fL MCH (25.0-35.0) pg MCHC (31.0-37.0) g/dL RDW (11.5-15.5) % Plt Count (150-450) k/uL MPV Neutrophils % % Lymphocytes % % Monocytes % % Eosinophils % % Basophils % % Neutrophils # (1.3-7.7) k/uL Lymphocytes # (1.0-4.8) k/uL Monocytes # (0-1.0) k/uL Eosinophils # (0-0.7) k/uL Basophils # (0-0.2) k/uL PT (10.0-12.5) sec INR (<1.2) APTT (22.0-30.0) sec Sodium (137-145) mmol/L Potassium (3.5-5.1) mmol/L Chloride (98-107) mmol/L Carbon Dioxide (22-30) mmol/L Anion Gap mmol/L BUN (9-20) mg/dL Creatinine (0.66-1.25) mg/dL Est GFR (CKD-EPI)AfAm (>60 ml/min/1.73 sqM) Est GFR (CKD-EPI)NonAf (>60 ml/min/1.73 sqM) Glucose (74-99) mg/dL Plasma Lactic Acid Rian 1.5 (0.7-2.0) mmol/L Calcium (8.4-10.2) mg/dL Magnesium (1.6-2.3) mg/dL Total Bilirubin (0.2-1.3) mg/dL AST (17-59) U/L ALT (4-49) U/L Alkaline Phosphatase (38-126) U/L Troponin I 0.024 (0.000-0.034) ng/mL NT-Pro-B Natriuret Pep pg/mL Total Protein (6.3-8.2) g/dL Albumin (3.5-5.0) g/dL Influenza Type A (PCR) Not Detected (Not Detectd) Influenza Type B (PCR) Not Detected (Not Detectd) RSV (PCR) Detected A (Not Detectd) SARS-CoV-2 (PCR) Not Detected (Not Detectd) Disposition Clinical Impression: RSV infection Disposition: ADMITTED IP TO THIS HOSP Is patient prescribed a controlled substance at d/c from ED?: No Referrals: Andres Torers DO [Primary Care Provider] - 1-2 days Time of Disposition: 14:41
[2023-06-25 13:37] LABS: ALT 31 U/L (4-49); AST 26 U/L (17-59); African American GFR (CKD) 78 (>60 ml/min/1.73 sqM); Albumin 4.5 g/dL (3.5-5.0); Alkaline Phosphatase 96 U/L (38-126); Anion Gap 13 mmol/L; Blood Urea Nitrogen 25 mg/dL (9-20); Calcium 9.3 mg/dL (8.4-10.2); Carbon Dioxide 29 mmol/L (22-30); Chloride 96 mmol/L (98-107); Glucose 211 mg/dL (74-99); Magnesium 2.1 mg/dL (1.6-2.3); Non-African American GFR(CKD) 68 (>60 ml/min/1.73 sqM); Potassium 4.1 mmol/L (3.5-5.1); Sodium 138 mmol/L (137-145); Total Bilirubin 0.7 mg/dL (0.2-1.3); Total Protein 7.2 g/dL (6.3-8.2)
[2023-06-25 13:39] LABS: Partial Thromboplastin Time 25.6 sec (22.0-30.0); Prothrombin Time 10.8 sec (10.0-12.5)
[2023-06-25 13:40] LABS: Basophils # (A) 0.1 k/uL (0-0.2); Basophils % (A) 1 %; Eosinophils # (A) 0.4 k/uL (0-0.7); Eosinophils % (A) 3 %; HGB 14.8 gm/dL (13.0-17.5); Lymphocytes # (A) 1.5 k/uL (1.0-4.8); Lymphocytes % (A) 11 %; MCH 29.9 pg (25.0-35.0); MCHC 35.3 g/dL (31.0-37.0); MCV 84.8 fL (80.0-100.0); Mean Platelet Volume 7.9; Monocytes # (A) 0.7 k/uL (0-1.0); Monocytes % (A) 5 %; Neutrophils # (A) 11.7 k/uL (1.3-7.7); Neutrophils % (A) 80 %; Platelet Count 217 k/uL (150-450); RBC 4.95 m/uL (4.30-5.90); RDW 14.3 % (11.5-15.5); WBC 14.5 k/uL (3.8-10.6)
[2023-06-25 13:45] LABS: NT-Pro-B-Type Natriuretic Pept <20 pg/mL
--- NOTE | 2023-06-25 13:59 | XR ---
EXAMINATION TYPE: XR chest 2V DATE OF EXAM: 06/25/2023 COMPARISON: 06/20/2023 INDICATION: Difficulty breathing TECHNIQUE: Frontal and lateral views of the chest are obtained. FINDINGS: The heart size is normal. The pulmonary vasculature is normal. The lungs are clear. Hyperinflation flattening the diaphragms and evident compatible with COPD. IMPRESSION: 1. No acute pulmonary process. 2. COPD
[2023-06-25] MEDS ORDERED: IPRATROPIUM-ALBUTEROL 3 ML NEB INHALATION PRN (14:43)
[2023-06-25] MEDS ORDERED: NALOXONE 0.4 MG/ML 1 ML VIAL IVP PRN (14:43)
[2023-06-25] MEDS ORDERED: DEXTROSE 50% SYRINGE 50 ML IVP PRN ×2 (16:00)
[2023-06-25 17:55] LABS: Glucose,Whole Blood 187 mg/dL (70-110)
[2023-06-25] MEDS: INSULIN ASPART (NovoLOG) 100 UNIT/ML VIAL SQ SCH ×2 (18:07→21:31)
[2023-06-25] MEDS: methylPREDNISolone SOD SUCCI 125 MG/2 ML VIAL IV SCH (18:26)
--- NOTE | 2023-06-25 19:56 | HP ---
HISTORY AND PHYSICAL CHIEF COMPLAINT: Shortness of breath. HISTORY OF PRESENT ILLNESS: This is a 68-year-old gentleman with a past medical history of asthma, COPD, and multiple other medical problems, was having shortness of breath 2 weeks ago and the patient has taken some medications because of lack of improvement and the patient came to [facility] with a pulse ox found to be 88% and RSV was positive. Chest x- ray showed no significant pneumonia. The patient was admitted for further evaluation and treatment. There is no history of any fever, rigors, or chills. PAST MEDICAL HISTORY: COPD, diabetes, asthma, rest of the history and rest of the chart is also reviewed. HOME MEDICATIONS: Reviewed include theophylline. Dose and rest of medications reviewed. ALLERGIES: None. FAMILY HISTORY: No history of heart disease or strokes in the family. History of lung cancer. SOCIAL HISTORY: Previous history of smoking. REVIEW OF SYSTEMS: A 14-point review is negative except as mentioned earlier. PHYSICAL EXAMINATION: VITAL SIGNS: Pulse is 84, blood pressure 147/83, respirations 20. HEENT: Conjunctivae normal. NECK: No jugular venous distention. CARDIOVASCULAR: S1, S2. RESPIRATIONS: Bilateral scattered rhonchi and expiratory wheezing and crackles present. ABDOMEN: Soft, nontender. LEGS: No edema. NERVOUS SYSTEM: Nonfocal. SKIN: No ulcer, rash, bleeding. JOINTS: No active deforming arthropathy. LABORATORY DATA: WBC 14.4, sodium 130, potassium 4.1. RSV is positive. Chest x-ray reviewed personally. ASSESSMENT: 1. Chronic obstructive pulmonary disease acute exacerbation with acute tracheobronchitis. 2. Acute RSV infection. 3. Diabetes mellitus, type 2. 4. History of asthma. 5. Gastroesophageal reflux disease. 6. Hypertension. 7. Hyperlipidemia. 8. Multiple complex medical issues. RECOMMENDATIONS AND DISCUSSION: This is a 68-year-old gentleman, who presented with multiple complex medical issues, we will monitor the patient closely. We will initiate IV steroids and intensive bronchodilator treatment. Closely follow with Infectious Disease. Pulmonary consultation. Home medications will be continued once confirmed. DVT prophylaxis. Prognosis guarded. Further recommendations to follow. See orders for further details. MMODL / IJN: [id number] /
[2023-06-25] MEDS: IPRATROPIUM-ALBUTEROL 3 ML NEB INHALATION SCH ×2 (21:18)
[2023-06-25] MEDS: SYMBICORT 160-4.5 MCG INHALER INHALATION SCH (21:18)
[2023-06-25 21:28] LABS: Glucose,Whole Blood 282 mg/dL (70-110)
[2023-06-25] MEDS: HEPARIN SODIUM,PORCINE 5,000 UNIT/ML 1 ML VIAL SQ SCH (21:32)
[2023-06-26] MEDS: methylPREDNISolone SOD SUCCI 125 MG/2 ML VIAL IV SCH ×5 (00:58→23:06)
[2023-06-26 06:34] LABS: Glucose,Whole Blood 166 mg/dL (70-110)
[2023-06-26 08:00] LABS: Basophils % (A) 0 %; Eosinophils % (A) 0 %; HCT 38.5 % (39.0-53.0); HGB 14.1 gm/dL (13.0-17.5); Lymphocytes % (A) 5 %; MCH 30.7 pg (25.0-35.0); MCHC 36.6 g/dL (31.0-37.0); Mean Platelet Volume 7.6; Monocytes # (A) 0.4 k/uL (0-1.0); Monocytes % (A) 2 %; Neutrophils # (A) 17.2 k/uL (1.3-7.7); Neutrophils % (A) 92 %; Platelet Count 233 k/uL (150-450); RBC 4.58 m/uL (4.30-5.90); RDW 13.9 % (11.5-15.5); WBC 18.7 k/uL (3.8-10.6)
[2023-06-26] MEDS: SYMBICORT 160-4.5 MCG INHALER INHALATION SCH ×2 (08:17→20:08)
[2023-06-26] MEDS: IPRATROPIUM-ALBUTEROL 3 ML NEB INHALATION SCH ×4 (08:17→20:08)
[2023-06-26] MEDS: INSULIN ASPART (NovoLOG) 100 UNIT/ML VIAL SQ SCH ×4 (08:20→23:07)
[2023-06-26] MEDS: PANTOPRAZOLE 40 MG TABLET PO SCH (08:20)
[2023-06-26 08:23] LABS: African American GFR (CKD) 86 (>60 ml/min/1.73 sqM); Anion Gap 10 mmol/L; Blood Urea Nitrogen 28 mg/dL (9-20); Calcium 9.6 mg/dL (8.4-10.2); Carbon Dioxide 28 mmol/L (22-30); Chloride 97 mmol/L (98-107); Glucose 169 mg/dL (74-99); Non-African American GFR(CKD) 74 (>60 ml/min/1.73 sqM); Potassium 5.1 mmol/L (3.5-5.1); Sodium 135 mmol/L (137-145)
[2023-06-26] MEDS: HEPARIN SODIUM,PORCINE 5,000 UNIT/ML 1 ML VIAL SQ SCH ×2 (08:38→23:07)
[2023-06-26] MEDS ORDERED: FUROSEMIDE 20 MG TAB PO PRN (09:58)
[2023-06-26] MEDS: THEOPHYLLINE 24 HOUR 300 MG CAP.ER.24H PO SCH (11:44)
[2023-06-26] MEDS: ACETAMINOPHEN TAB 325 MG TAB PO PRN ×2 (11:51→23:28)
[2023-06-26 12:10] LABS: Glucose,Whole Blood 260 mg/dL (70-110)
--- NOTE | 2023-06-26 12:51 | P.CNPUL ---
History of Present Illness Consult date: 06/26/23 Requesting physician: Stanford Hughes Reason for consult: dyspnea, cough, COPD, hypoxemia Chief complaint: Shortness of breath. History of present illness: Pulmonary consult dated 06/26/2023. 68-year-old male with history of severe COPD, who presents to the emergency department, with concerns of shortness of breath, which have been present, and progressive, for 2 weeks. In addition to shortness of breath, the patient complains of cough, occasionally productive of phlegm. He denies any chest pain or pressure, denies any fever or chills. The patient apparently sees my partner in the office, for his severe COPD. The patient does has a history of chronic oxygen use. In addition, the patient recently was sent to [facility], to have endobronchial valve therapy, and he had 2 valves placed in the right lung. His chest x-ray in the ER, showed changes of COPD, he did test positive for RSV. He is currently on 2 L of oxygen, and the emergency department, room 18, and is not receiving any fluids. He doesn't feel like the valves placed in him, have made much of a difference at this point. White count is 18.7, hemoglobin 14.1, hematocrit 38.5, and platelet count 233,000. Sodium 135, potassium 5.1, chlorides 97, CO2 28, BUN 28, creatinine 1.04. Glucose 260. His chest x-ray shows changes of COPD, with hyperinflated lungs, and flattening of the diaphragms. No acute processes noted. Review of Systems REVIEW OF SYSTEMS: CONSTITUTIONAL: [Negative.] NEUROLOGIC: [ Negative.] HEENT: [ Negative.] CARDIAC: [Negative.] PULMONARY: Shortness of breath, and cough, occasionally productive of phlegm. GI: [Negative.] : [Negative.] RHEUMATOLOGIC: [ Negative.] IMMUNOLOGIC: [ Negative.] ENDOCRINE: [Negative. ] DERMATOLOGIC: [Negative.] Past Medical History Past Medical History: Asthma, COPD, Diabetes Mellitus, Eye Disorder, GERD/Reflux, Hyperlipidemia, Hypertension, Pneumonia, Respiratory Disorder Additional Past Medical History / Comment(s): Pt tested + covid 07/11/20 at [facility]. Other hx: Bronchitis, chronic SOB, pt scheduled at [facility] on 09/03/20 for zephr valves to be inserted into lungs, IDDM type II, neuropathy occasionally in bilateral feet, macular degeneration bilaterally, Covid +07/11/20 History of Any Multi-Drug Resistant Organisms: None Reported Past Surgical History: Cholecystectomy Additional Past Surgical History / Comment(s): R knee arthroscopy, lower abdominal hernia repair, colonoscopy. lung surgery Past Anesthesia/Blood Transfusion Reactions: No Reported Reaction Past Psychological History: No Psychological Hx Reported Additional Psychological History / Comment(s): Pt resides with his spouse. He is independent. Smoking Status: Former smoker Past Alcohol Use History: None Reported Additional Past Alcohol Use History / Comment(s): QUIT 2016, 1.5 PPD, SINCE HE WAS 19 YR. Past Drug Use History: None Reported - Past Family History Mother Family Medical History: Cancer Additional Family Medical History / Comment(s): Lung cancer Sister(s) Family Medical History: Cancer Additional Family Medical History / Comment(s): SEVERAL SISTERS WITH CANCER Father Family Medical History: Cancer Additional Family Medical History / Comment(s): Lung cancer. Brother(s) Family Medical History: Cancer Medications and Allergies Home Medications Medication Instructions Recorded Confirmed Type Albuterol Nebulized [Ventolin 2.5 mg INHALATION RT-QID PRN 07/07/19 06/25/23 History Nebulized] Fluticasone/Umeclidin/Vilanter 1 puff INHALATION RT-DAILY 07/07/19 06/25/23 History [Trelegy Ellipta 100-62.5-25] Theophylline 12 Hour [Reji-Dur] 300 mg PO BID 07/11/20 06/25/23 History Albuterol Sulfate [Proair Hfa] 2 puff INHALATION RT-QID PRN 02/06/21 06/25/23 History Losartan [Cozaar] 50 mg PO DAILY 02/06/21 06/25/23 History Pantoprazole Sodium 20 mg PO DAILY 02/06/21 06/25/23 History Furosemide [Lasix] 20 mg PO DAILY PRN 06/25/23 06/25/23 History Sulfamethox-Tmp 800-160Mg [Bactrim 1 tab PO Q12HR 06/25/23 06/25/23 History DS 800-160 mg] predniSONE 5 mg PO DIRECTED 06/25/23 06/25/23 History predniSONE 20 mg PO DAILY 06/25/23 06/25/23 History Allergies Allergy/AdvReac Type Severity Reaction Status Date / Time No Known Allergies Allergy Verified 06/25/23 15:55 Physical Exam Osteopathic Statement: *. No significant issues noted on an osteopathic structural exam other than those noted in the History and Physical/Consult. Vitals: Vital Signs Temp Pulse Pulse Resp BP BP Pulse Ox 06/26/23 11:47 74 06/26/23 11:36 74 06/26/23 08:27 67 06/26/23 08:18 97 06/26/23 08:17 69 06/26/23 04:57 55 L 154/71 97 06/26/23 00:49 98.7 F 91 16 154/71 95 06/25/23 21:31 82 06/25/23 21:21 80 06/25/23 18:00 92 22 150/77 94 L 06/25/23 17:00 83 23 130/70 95 06/25/23 16:00 86 20 127/79 95 06/25/23 15:00 84 20 147/83 96 06/25/23 14:30 83 20 142/81 98 06/25/23 14:11 105 H 06/25/23 14:00 86 96 06/25/23 13:59 80 06/25/23 13:30 85 20 131/77 95 06/25/23 13:13 95 06/25/23 13:00 85 95 Intake and Output 06/25/23 06/26/23 06/26/23 22:59 06:59 14:59 Other: Voiding Method Urinal # Voids 2 Weight 104.326 kg No acute distress, oriented 3. Currently on 2 L of oxygen. No conversational dyspnea, use of accessory muscles, or audible wheezing. HEENT examination is grossly unremarkable. Mucous membranes are moist. No oral lesions. Neck supple. Full range of motion. No adenopathy thyromegaly or neck vein distention. Cardiovascular examination reveals regular rhythm rate. S1-S2 normal. No S3 or S4. No discernible murmur noted. Heart sounds are distant. Heart rate 74 bpm. Lungs reveal coarse inspiratory and expiratory wheezes and rhonchi. No crackles. Breath sounds equal bilaterally. Prolongation on forced maneuver is noted. 2 L saturation is 97%. Abdomen soft bowel sounds are heard. No masses or tenderness. Extremities are intact. No cyanosis clubbing or edema. Skin is without rash or lesion. Neurologic examination is brief but nonfocal. Results - Laboratory Findings CBC and BMP: 06/26/23 07:39 06/26/23 07:39 PT/INR, D-dimer PT 10.8 sec (10.0-12.5) 06/25/23 13:09 INR 1.0 (<1.2) 06/25/23 13:09 Abnormal lab findings: Abnormal Labs 06/25/23 06/25/23 06/25/23 13:09 13:09 13:09 WBC 14.5 H Hct Neutrophils # 11.7 H Sodium Chloride 96 L BUN 25 H Glucose 211 H POC Glucose (mg/dL) Hemoglobin A1c RSV (PCR) Detected A 06/25/23 06/25/23 06/26/23 17:53 21:27 06:33 WBC Hct Neutrophils # Sodium Chloride BUN Glucose POC Glucose (mg/dL) 187 H 282 H 166 H Hemoglobin A1c RSV (PCR) 06/26/23 06/26/23 06/26/23 07:39 07:39 07:39 WBC 18.7 H Hct 38.5 L Neutrophils # 17.2 H Sodium 135 L Chloride 97 L BUN 28 H Glucose 169 H POC Glucose (mg/dL) Hemoglobin A1c 6.3 H RSV (PCR) 06/26/23 12:00 WBC Hct Neutrophils # Sodium Chloride BUN Glucose POC Glucose (mg/dL) 260 H Hemoglobin A1c RSV (PCR) - Diagnostic Findings Chest x-ray: image reviewed Assessment and Plan Assessment: Acute exacerbation of COPD, triggered by RSV infection. History of severe COPD, with recent endobronchial valve therapy ([place] valve) at [facility]. Chronic hypoxemic respiratory failure, on home O2. History of hypertension. History of diabetes mellitus. History of hyperlipidemia. History of gastroesophageal reflux disease. History of diabetic neuropathy. History of pneumonia. Plan: Plan dated 06/26/2023. The patient is given updrafts, with albuterol sulfate and ipratropium bromide. In addition, the patient is started on Symbicort, 160/4.5, 2 puffs twice a day. The patient is also receiving Solu-Medrol, 60 mg every 6 hours, and he is placed back on his theophylline regimen. In addition, at least initially, the patient will get Rocephin. A pro-calcitonin level is checked. If normal, antibiotics could be discontinued. The patient's viral screen was positive for RSV. Additional recommendations and suggestions are forthcoming. Prognosis is guarded. Time with Patient: Greater than 30
[2023-06-26 16:50] LABS: Glucose,Whole Blood 269 mg/dL (70-110)
[2023-06-26 22:56] LABS: Glucose,Whole Blood 316 mg/dL (70-110)
--- NOTE | 2023-06-27 04:43 | PN ---
PROGRESS NOTE DATE OF SERVICE: 06/26/2023 SUBJECTIVE: This is a 68-year-old gentleman, who was admitted with shortness of breath, has possible COPD exacerbation, acute RSV bronchitis. The patient is being closely monitored. The patient is started on empiric antibiotics. I will recommend serum procalcitonin also. Dr. Purvis is following the patient closely. The patient has significant wheezing at this time. PAST MEDICAL HISTORY: Reviewed. REVIEW OF SYSTEMS: A 14-point review is negative except as mentioned. CURRENT MEDICATIONS: Reviewed and include Rocephin 1 g daily. PHYSICAL EXAMINATION: VITAL SIGNS: Pulse is 55, blood pressure 152/70, respirations 16. HEENT: Conjunctivae normal. NECK: No jugular venous distention. CARDIOVASCULAR: S1, S2. CHEST: Bilateral scattered rhonchi. Expiratory wheezing also present. ABDOMEN: Soft, nontender. NERVOUS SYSTEM: Nonfocal. LABS: WBC 18.6, sodium 135. ASSESSMENT: 1. Chronic obstructive pulmonary disease acute exacerbation with acute purulent tracheobronchitis. 2. Acute RSV infection. 3. Diabetes mellitus, type 2. 4. History of asthma. 5. Gastroesophageal reflux disease. 6. Hypertension. 7. Hyperlipidemia. 8. Multiple complex medical issues. RECOMMENDATIONS AND DISCUSSION: Continue current management. Continue intensive bronchodilator treatment. Continue with IV steroids. Monitor blood sugars closely. Added Rocephin. Check procalcitonin. White count is elevated. I would also recommend blood and sputum cultures also. Guarded prognosis. Further recommendations to follow. Will discuss the patient. Closely follow with Pulmonary. MMODL / IJN: [id number] /
[2023-06-27 06:27] LABS: Glucose,Whole Blood 285 mg/dL (70-110)
[2023-06-27] MEDS: INSULIN ASPART (NovoLOG) 100 UNIT/ML VIAL SQ SCH ×4 (07:08→20:54)
[2023-06-27] MEDS: PANTOPRAZOLE 40 MG TABLET PO SCH (07:08)
[2023-06-27] MEDS: methylPREDNISolone SOD SUCCI 125 MG/2 ML VIAL IV SCH ×4 (07:08→23:04)
[2023-06-27] MEDS ORDERED: NON FORMULARY DRUG (Fluticasone/Umeclidin/Vilanter [Trelegy Ellipta 100-62.5-25] 1 EACH Bl INHALATION SCH (08:00)
[2023-06-27] MEDS: SYMBICORT 160-4.5 MCG INHALER INHALATION SCH ×2 (08:39→19:41)
[2023-06-27] MEDS: IPRATROPIUM-ALBUTEROL 3 ML NEB INHALATION SCH ×4 (08:39→19:41)
[2023-06-27] MEDS ORDERED: PANTOPRAZOLE SODIUM 20 MG PO SCH (09:00)
[2023-06-27] MEDS: HEPARIN SODIUM,PORCINE 5,000 UNIT/ML 1 ML VIAL SQ SCH ×2 (10:12→20:45)
[2023-06-27] MEDS: LOSARTAN 50 MG TAB PO SCH (10:13)
[2023-06-27] MEDS: THEOPHYLLINE 24 HOUR 300 MG CAP.ER.24H PO SCH (10:19)
[2023-06-27 11:10] LABS: HCT 42.3 % (39.6-50.0); HGB 13.9 g/dL (13.0-17.0); MCH 28.6 pg (27.0-32.0); MCHC 32.9 g/dL (32.0-37.0); Mean Platelet Volume 10.3 FL (9.5-12.2); NRBC Per 100 WBC 0 X 10*3/uL (0.00-0.01); Platelet Count 292 X 10*3/uL (140-440); RBC 4.86 X 10*6/uL (4.40-5.60); RDW 13.8 % (11.5-14.5); WBC 23.69 X 10*3/uL (4.50-10.00)
[2023-06-27 11:26] LABS: ALT 31 U/L (10-49); AST 18 U/L (14-35); Albumin 4.4 g/dL (3.8-4.9); Albumin/Globulin Ratio 1.83 Ratio (1.60-3.17); Alkaline Phosphatase 101 U/L (41-126); BUN/Creat Ratio 24.27 Ratio (12.00-20.00); Blood Urea Nitrogen 26.7 mg/dL (9.0-27.0); Calcium 10.1 mg/dL (8.7-10.3); Carbon Dioxide 26.2 mmol/L (21.6-31.8); Chloride 94 mmol/L (96-109); Globulin 2.4 g/dL (1.6-3.3); Glucose 267 mg/dL (70-110); Sodium 136 mmol/L (135-145); Total Bilirubin 0.3 mg/dL (0.3-1.2); Total Protein 6.8 g/dL (6.2-8.2)
[2023-06-27 11:43] LABS: Basophils # (A) 0.03 X 10*3/uL (0.00-0.10); Basophils % (A) 0.1 %; Eosinophils # (A) 0 X 10*3/uL (0.04-0.35); Eosinophils % (A) 0 %; Lymphocytes # (A) 0.86 X 10*3/uL (0.90-5.00); Lymphocytes % (A) 3.6 %; Monocytes % (A) 3.8 %; Neutrophils # (A) 21.66 X 10*3/uL (1.80-7.70); Neutrophils % (A) 91.5 %
[2023-06-27 11:53] LABS: Glucose,Whole Blood 325 mg/dL (70-110)
--- NOTE | 2023-06-27 14:11 | P.PN ---
Subjective Progress Note Date: 06/27/23 68-year-old male with history of severe COPD, who presents to the emergency department, with concerns of shortness of breath, which have been present, and progressive, for 2 weeks. In addition to shortness of breath, the patient complains of cough, occasionally productive of phlegm. He denies any chest pain or pressure, denies any fever or chills. The patient apparently sees my partner in the office, for his severe COPD. The patient does has a history of chronic oxygen use. In addition, the patient recently was sent to [facility], to have endobronchial valve therapy, and he had 2 valves placed in the right lung. His chest x-ray in the ER, showed changes of COPD, he did test positive for RSV. He is currently on 2 L of oxygen, and the emergency department, room 18, and is not receiving any fluids. He doesn't feel like the valves placed in him, have made much of a difference at this point. White count is 18.7, hemoglobin 14.1, hematocrit 38.5, and platelet count 233,000. Sodium 135, potassium 5.1, chlorides 97, CO2 28, BUN 28, creatinine 1.04. Glucose 260. His chest x-ray shows changes of COPD, with hyperinflated lungs, and flattening of the diaphragms. No acute processes noted. On today's evaluation 06/27/2023, the patient is feeling slightly improved. The patient is currently on 2 L of Oxymizer nasal cannula and he also uses oxygen at home at 2 L. He has an RSV tracheobronchitis exacerbating his COPD. No chest pain. No pleurisy. No hemoptysis. No other new complaints otherwise for now. No nausea. No vomiting. No abdominal pain. No altered mentation.Labs from today shows a white second of 23, hemoglobin to 13.9, sodium levels of 136, BUN is at 26 with a creatinine 1.1. LFTs are normal. The patient remains on Symbicort. The patient remains on DuoNeb updrafts. The patient is on Lasix 20 mg on a when necessary basis. He is also empirically covered with IV Rocephin. In terms of his COPD, has been maintained on Trelegy Ellipta on outpatient basis, prednisone 5 mg and theophylline. He has done [place] valve insertion in the past regarding his COPD. Objective - Vital Signs Vital signs: Vital Signs Temp 98.6 F 06/27/23 07:00 Pulse 95 06/27/23 11:46 Resp 17 06/27/23 07:00 BP 155/81 06/27/23 07:00 Pulse Ox 97 06/27/23 07:00 FiO2 Intake & Output 06/26/23 06/27/23 06/27/23 18:59 06:59 18:59 Other: # Voids 1 - Exam No acute distress, oriented 3. Currently on 2 L of oxygen. No conversational dyspnea, use of accessory muscles, or audible wheezing. HEENT examination is grossly unremarkable. Mucous membranes are moist. No oral lesions. Neck supple. Full range of motion. No adenopathy thyromegaly or neck vein distention. Cardiovascular examination reveals regular rhythm rate. S1-S2 normal. No S3 or S4. No discernible murmur noted. Heart sounds are distant. Heart rate 74 bpm. Lungs reveal coarse inspiratory and expiratory wheezes and rhonchi. No crackles. Breath sounds equal bilaterally. Prolongation on forced maneuver is noted. 2 L saturation is 97%. Abdomen soft bowel sounds are heard. No masses or tenderness. Extremities are intact. No cyanosis clubbing or edema. Skin is without rash or lesion. Neurologic examination is brief but nonfocal. - Labs CBC & Chem 7: 06/27/23 06:28 06/27/23 06:28 Labs: Abnormal Lab Results - Last 24 Hours (Table) 06/26/23 06/26/23 06/27/23 Range/Units 16:49 22:54 06:25 WBC (4.50-10.00) X 10*3/uL Immature Gran # (0.00-0.04) X 10*3/uL Neutrophils # (1.80-7.70) X 10*3/uL Lymphocytes # (0.90-5.00) X 10*3/uL Eosinophils # (0.04-0.35) X 10*3/uL Chloride (96-109) mmol/L Anion Gap (4.00-12.00) mmol/L BUN/Creatinine Ratio (12.00-20.00) Ratio Glucose (70-110) mg/dL POC Glucose (mg/dL) 269 H 316 H 285 H (70-110) mg/dL 06/27/23 06/27/23 06/27/23 Range/Units 06:28 06:28 11:52 WBC 23.69 H (4.50-10.00) X 10*3/uL Immature Gran # 0.24 H (0.00-0.04) X 10*3/uL Neutrophils # 21.66 H (1.80-7.70) X 10*3/uL Lymphocytes # 0.86 L (0.90-5.00) X 10*3/uL Eosinophils # 0 L (0.04-0.35) X 10*3/uL Chloride 94 L (96-109) mmol/L Anion Gap 15.80 H (4.00-12.00) mmol/L BUN/Creatinine Ratio 24.27 H (12.00-20.00) Ratio Glucose 267 H (70-110) mg/dL POC Glucose (mg/dL) 325 H (70-110) mg/dL Assessment and Plan Plan: Acute exacerbation of COPD, triggered by RSV infection. Acute on top of chronic hypoxic respiratory failure, oxygen stable at 2 L and the patient is back to his baseline oxygen requirements. History of severe COPD, with recent endobronchial valve therapy ([place] valve) at [facility]. The patient has limited on a combination of Trelegy Ellipta, theophylline and prednisone at 5 mg as maintenance on outpatient basis. The patient also uses oxygen at 2 L/m nasal cannula. Chronic hypoxemic respiratory failure, on home O2. History of hypertension. History of diabetes mellitus. History of hyperlipidemia. History of gastroesophageal reflux disease. History of diabetic neuropathy. History of pneumonia. Plan: Clinically improving The patient is given updrafts, with albuterol sulfate and ipratropium bromide. Continue Symbicort, 160/4.5, 2 puffs twice a day. Continue IV Solu-Medrol I do not versus see the need for IV antibiotics. The patient has been maintained on IV Rocephin as an empiric antibiotic coverage Oxygenation is stable at 2 L/m nasal cannula which is baseline requirement of O2 Will likely need another 24-48 hours of systemic steroids for further recovery.
[2023-06-27 17:15] LABS: Glucose,Whole Blood 297 mg/dL (70-110)
[2023-06-27 20:45] LABS: Glucose,Whole Blood 368 mg/dL (70-110)
[2023-06-27] MEDS: INSULIN DETEMIR (LEVEMIR) 100 UNIT/ML SYR SQ SCH (20:45)
--- NOTE | 2023-06-27 20:47 | PN ---
PROGRESS NOTE DATE OF SERVICE: 06/27/2023 SUBJECTIVE: This is a 68-year-old gentleman, who was admitted with COPD acute exacerbation as well as RSV and acute purulent tracheobronchitis, is being closely monitored. No chest pain. No palpitations. No fever. The patient is still short of breath. OBJECTIVE: VITAL SIGNS: Pulse 77, blood pressure 130/69, respirations 18. CHEST: Bilateral scattered rhonchi and crackles. ABDOMEN: Soft. NERVOUS SYSTEM: Nonfocal. LABORATORY DATA: Reviewed. WBC 23. Glucose elevated. ASSESSMENT: 1. Chronic obstructive pulmonary disease acute exacerbation with acute purulent tracheobronchitis. 2. Acute Respiratory Syncytial Virus infection bronchitis. 3. Diabetes mellitus, type 2. 4. History of asthma. 5. Gastroesophageal reflux disease. 6. Hypertension. 7. Hyperlipidemia. 8. Multiple complex medical issues. RECOMMENDATIONS AND DISCUSSION: Recommend to continue current management and continue symptomatic treatment. Continue with IV steroids, bronchodilators, empiric antibiotics. Repeat labs. Further recommendations to follow. MMODL / IJN: [id number] /
[2023-06-28] MEDS: PANTOPRAZOLE 40 MG TABLET PO SCH (05:15)
[2023-06-28] MEDS: methylPREDNISolone SOD SUCCI 125 MG/2 ML VIAL IV SCH ×4 (05:15→23:47)
[2023-06-28] MEDS: INSULIN ASPART (NovoLOG) 100 UNIT/ML VIAL SQ SCH ×4 (05:24→21:12)
[2023-06-28 06:23] LABS: Glucose,Whole Blood 251 mg/dL (70-110)
[2023-06-28] MEDS: SYMBICORT 160-4.5 MCG INHALER INHALATION SCH ×3 (08:48→20:09)
[2023-06-28] MEDS: IPRATROPIUM-ALBUTEROL 3 ML NEB INHALATION SCH ×4 (08:48→20:09)
--- NOTE | 2023-06-28 08:52 | XR ---
EXAMINATION TYPE: XR chest 1V portable DATE OF EXAM: 06/28/2023 Comparison: 06/25/2023 Clinical History: 68-year-old male copd Findings: Heart normal size. Atherosclerotic arterial calcifications. Hyperinflation. Relative upper lobe lucen cies. Strandy atelectasis or scarring at the left base. No consolidation or pleural effusion. Impression: COPD. No acute process seen.
[2023-06-28] MEDS: THEOPHYLLINE 24 HOUR 300 MG CAP.ER.24H PO SCH (09:00)
[2023-06-28] MEDS: INSULIN DETEMIR (LEVEMIR) 100 UNIT/ML SYR SQ SCH ×2 (09:00→21:08)
[2023-06-28] MEDS: HEPARIN SODIUM,PORCINE 5,000 UNIT/ML 1 ML VIAL SQ SCH ×2 (09:00→21:08)
[2023-06-28 09:01] LABS: Basophils # (A) 0.03 X 10*3/uL (0.00-0.10); Basophils % (A) 0.1 %; Eosinophils # (A) 0 X 10*3/uL (0.04-0.35); Eosinophils % (A) 0 %; HCT 40.3 % (39.6-50.0); HGB 13.4 g/dL (13.0-17.0); Lymphocytes # (A) 0.57 X 10*3/uL (0.90-5.00); Lymphocytes % (A) 2.5 %; MCH 28.8 pg (27.0-32.0); MCHC 33.3 g/dL (32.0-37.0); MCV 86.7 FL (80.0-97.0); Mean Platelet Volume 10.4 FL (9.5-12.2); Monocytes # (A) 0.82 X 10*3/uL (0.20-1.00); Monocytes % (A) 3.7 %; NRBC Per 100 WBC 0 X 10*3/uL (0.00-0.01); Neutrophils % (A) 92.5 %; Platelet Count 279 X 10*3/uL (140-440); RBC 4.65 X 10*6/uL (4.40-5.60); RDW 13.9 % (11.5-14.5); WBC 22.39 X 10*3/uL (4.50-10.00)
[2023-06-28] MEDS: LOSARTAN 50 MG TAB PO SCH (09:07)
[2023-06-28 10:39] LABS: BUN/Creat Ratio 25.56 Ratio (12.00-20.00); Calcium 9.7 mg/dL (8.7-10.3); Carbon Dioxide 27.6 mmol/L (21.6-31.8); Chloride 99 mmol/L (96-109); Glucose 298 mg/dL (70-110); Sodium 138 mmol/L (135-145)
[2023-06-28] MEDS: ACETAMINOPHEN TAB 325 MG TAB PO PRN (11:28)
[2023-06-28 12:20] LABS: Glucose,Whole Blood 329 mg/dL (70-110)
--- NOTE | 2023-06-28 14:01 | P.PN ---
Subjective Progress Note Date: 06/28/23 68-year-old male with history of severe COPD, who presents to the emergency department, with concerns of shortness of breath, which have been present, and progressive, for 2 weeks. In addition to shortness of breath, the patient complains of cough, occasionally productive of phlegm. He denies any chest pain or pressure, denies any fever or chills. The patient apparently sees my partner in the office, for his severe COPD. The patient does has a history of chronic oxygen use. In addition, the patient recently was sent to [facility], to have endobronchial valve therapy, and he had 2 valves placed in the right lung. His chest x-ray in the ER, showed changes of COPD, he did test positive for RSV. He is currently on 2 L of oxygen, and the emergency department, room 18, and is not receiving any fluids. He doesn't feel like the valves placed in him, have made much of a difference at this point. White count is 18.7, hemoglobin 14.1, hematocrit 38.5, and platelet count 233,000. Sodium 135, potassium 5.1, chlorides 97, CO2 28, BUN 28, creatinine 1.04. Glucose 260. His chest x-ray shows changes of COPD, with hyperinflated lungs, and flattening of the diaphragms. No acute processes noted. On today's evaluation 06/27/2023, the patient is feeling slightly improved. The patient is currently on 2 L of Oxymizer nasal cannula and he also uses oxygen at home at 2 L. He has an RSV tracheobronchitis exacerbating his COPD. No chest pain. No pleurisy. No hemoptysis. No other new complaints otherwise for now. No nausea. No vomiting. No abdominal pain. No altered mentation.Labs from today shows a white second of 23, hemoglobin to 13.9, sodium levels of 136, BUN is at 26 with a creatinine 1.1. LFTs are normal. The patient remains on Symbicort. The patient remains on DuoNeb updrafts. The patient is on Lasix 20 mg on a when necessary basis. He is also empirically covered with IV Rocephin. In terms of his COPD, has been maintained on Trelegy Ellipta on outpatient basis, prednisone 5 mg and theophylline. He has done [place] valve insertion in the past regarding his COPD. On 06/28/2023, seeing the patient for a follow-up. The patient is better compared to yesterday. I spoke spastic and wheezing. The patient remains on IV Solu-Medrol. The patient is still on DuoNeb updrafts and Symbicort as maintenance. No new complaints otherwise for today. Overall condition is improving as the patient is less spastic and wheezing. He remains on 2 L of oxygen by nasal cannula. No other new complaints otherwise for now. The WBC count is at 22 with a hemoglobin 13.4, sodium is at 138, BUN is at 23 with a creatinine of 0.9. There is a component of steroid-induced hyperglycemia and the blood sugars are being monitored. Noted the patient has limited on a com bination of Trelegy Ellipta, and prednisone 5 mg on a daily basis and theophylline. The patient is post [place] valve insertion. Objective - Vital Signs Vital signs: Vital Signs Temp 97.8 F 06/28/23 08:00 Pulse 68 06/28/23 11:55 Resp 16 06/28/23 08:00 BP 149/81 06/28/23 08:00 Pulse Ox 97 06/28/23 08:52 FiO2 Intake & Output 06/27/23 06/28/23 06/28/23 18:59 06:59 18:59 Intake Total 118 295 Balance 118 295 Intake: Oral 118 295 Other: Voiding Method Urinal # Voids 3 2 - Exam No acute distress, oriented 3. Currently on 2 L of oxygen. No conversational dyspnea, use of accessory muscles, or audible wheezing. HEENT examination is grossly unremarkable. Mucous membranes are moist. No oral lesions. Neck supple. Full range of motion. No adenopathy thyromegaly or neck vein distention. Cardiovascular examination reveals regular rhythm rate. S1-S2 normal. No S3 or S4. No discernible murmur noted. Heart sounds are distant. Heart rate 74 bpm. Lungs reveal coarse inspiratory and expiratory wheezes and rhonchi. No crackles. Breath sounds equal bilaterally. Prolongation on forced maneuver is noted. 2 L saturation is 97%. Abdomen soft bowel sounds are heard. No masses or tenderness. Extremities are intact. No cyanosis clubbing or edema. Skin is without rash or lesion. Neurologic examination is brief but nonfocal. - Labs CBC & Chem 7: 06/28/23 06:02 06/28/23 06:02 Labs: Abnormal Lab Results - Last 24 Hours (Table) 06/27/23 06/27/23 06/28/23 Range/Units 17:14 20:43 05:19 WBC (4.50-10.00) X 10*3/uL Immature Gran # (0.00-0.04) X 10*3/uL Neutrophils # (1.80-7.70) X 10*3/uL Lymphocytes # (0.90-5.00) X 10*3/uL Eosinophils # (0.04-0.35) X 10*3/uL BUN/Creatinine Ratio (12.00-20.00) Ratio Glucose (70-110) mg/dL POC Glucose (mg/dL) 297 H 368 H 251 H (70-110) mg/dL 06/28/23 06/28/23 Range/Units 06:02 06:02 WBC 22.39 H (4.50-10.00) X 10*3/uL Immature Gran # 0.27 H (0.00-0.04) X 10*3/uL Neutrophils # 20.70 H (1.80-7.70) X 10*3/uL Lymphocytes # 0.57 L (0.90-5.00) X 10*3/uL Eosinophils # 0 L (0.04-0.35) X 10*3/uL BUN/Creatinine Ratio 25.56 H (12.00-20.00) Ratio Glucose 298 H (70-110) mg/dL POC Glucose (mg/dL) (70-110) mg/dL Microbiology - Last 24 Hours (Table) 06/26/23 11:32 Urine Culture - Final Urine,Voided 06/26/23 13:06 Blood Culture - Preliminary Blood Assessment and Plan Plan: Acute exacerbation of COPD, triggered by RSV infection. Clinically improving Acute on top of chronic hypoxic respiratory failure, oxygen stable at 2 L and the patient is back to his baseline oxygen requirements. History of severe COPD, with recent endobronchial valve therapy ([place] valve) at [facility]. The patient has limited on a combination of Trelegy Ellipta, theophylline and prednisone at 5 mg as maintenance on outpatient basis. The patient also uses oxygen at 2 L/m nasal cannula. Chronic hypoxemic respiratory failure, on home O2. History of hypertension. History of diabetes mellitus. History of hyperlipidemia. History of gastroesophageal reflux disease. History of diabetic neuropathy. History of pneumonia. Plan: Clinically improving and the patient has further improved compared to yesterday and he is obviously less spastic and wheezing. We'll continue same treatment for another 24 hours The patient is given updrafts, with albuterol sulfate and ipratropium bromide. Continue Symbicort, 160/4.5, 2 puffs twice a day. Continue IV Solu-Medrol at the same dose I do not versus see the need for IV antibiotics. The patient has been maintained on IV Rocephin as an empiric antibiotic coverage Oxygenation is stable at 2 L/m nasal cannula which is baseline requirement of O2 We'll need prednisone burst taper at the time of discharge
[2023-06-28 17:29] LABS: Glucose,Whole Blood 359 mg/dL (70-110)
[2023-06-28 21:08] LABS: Glucose,Whole Blood 326 mg/dL (70-110)
[2023-06-28] MEDS ORDERED: INSULIN DETEMIR (LEVEMIR) 100 UNIT/ML SYR SQ ONE (23:30)
[2023-06-28 23:54] LABS: Glucose,Whole Blood 250 mg/dL (70-110)
[2023-06-29] MEDS: methylPREDNISolone SOD SUCCI 125 MG/2 ML VIAL IV SCH ×2 (05:57→13:26)
[2023-06-29] MEDS: PANTOPRAZOLE 40 MG TABLET PO SCH (05:58)
[2023-06-29] MEDS: INSULIN DETEMIR (LEVEMIR) 100 UNIT/ML SYR SQ SCH (06:00)
[2023-06-29 06:02] LABS: Glucose,Whole Blood 264 mg/dL (70-110)
[2023-06-29] MEDS: INSULIN ASPART (NovoLOG) 100 UNIT/ML VIAL SQ SCH ×4 (06:09→13:27)
--- NOTE | 2023-06-29 07:25 | P.PN ---
Subjective Progress Note Date: 06/28/23 Patient is evaluated on the medical floor. He does feel improved. Still having a faint wheezing. Remains on systemic and inhaled steroids Review of Systems Constitutional: Denied any fatigue denied any fever. Cardio vascular: denied any chest pain, palpitations Gastrointestinal: denied any nausea, vomiting, diarrhea Pulmonary: Denied any shortness of breath cough Neurologic denied any new focal deficits All inpatient medications were reviewed and appropriate changes in these medications as dictated in the interval history and assessment and plan. PHYSICAL EXAMINATION: GENERAL: The patient is alert and oriented x3, not in any acute distress. Well developed, well nourished. HEENT: Pupils are round and equally reacting to light. EOMI. No scleral icterus. No conjunctival pallor. Normocephalic, atraumatic. No pharyngeal erythema. No thyromegaly. CARDIOVASCULAR: S1 and S2 present. No murmurs, rubs, or gallops. PULMONARY: Chest is clear to auscultation, no wheezing or crackles. ABDOMEN: Soft, nontender, nondistended, normoactive bowel sounds. No palpable organomegaly. MUSCULOSKELETAL: No joint swelling or deformity. EXTREMITIES: No cyanosis, clubbing, or pedal edema. NEUROLOGICAL: Gross neurological examination did not reveal any focal deficits. SKIN: No rashes. Assessment and Plan Acute COPD exacerbation and tracheobronchitis continue on empiric coverage with IV ceftriaxone remains on inhaled and systemic steroids. -Acute RSV infection continue supportive care -Acute on chronic hypoxic respiratory failure weaned back down to 2L of oxyen which he presently wears at home. -Diabetes mellitus type 2 with hyperglycemia continue on accuchecks ACHS and levemir -Steroid induced hyperglycemia Levemir dose will be increased due to steroid affect and titrate as needed -Hx of COPD with endobronchial valve placement in the right lung -Gastroesophageal reflux disease on protonix -Hypertension continue on losartan -Hyperlipidemia GI prophylaxis DVT prophylaxis The impression and plan of care has been dictated by Angelica Arvizu, Nurse Practitioner as directed. Dr. Mary MD I have performed a history and physical examination and medical decision making of this patient, discussed the same with the dictator, and agree with the dictators assessment and plan as written, documented as a scribe. Based on total visit time, I have performed more than 50% of this visit. Objective - Vital Signs Vital signs: Vital Signs Temp 97.9 F 06/28/23 15:00 Pulse 84 06/28/23 20:20 Resp 16 06/28/23 15:00 BP 139/79 06/28/23 15:00 Pulse Ox 98 06/28/23 15:00 FiO2 Intake & Output 06/28/23 06/28/23 06/29/23 06:59 18:59 06:59 Intake Total 531 Balance 531 Intake: Oral 531 Other: Voiding Method Urinal # Voids 2 1 - Labs CBC & Chem 7: 06/28/23 06:02 06/28/23 06:02 Labs: Abnormal Lab Results - Last 24 Hours (Table) 06/28/23 06/28/23 06/28/23 Range/Units 05:19 06:02 06:02 WBC 22.39 H (4.50-10.00) X 10*3/uL Immature Gran # 0.27 H (0.00-0.04) X 10*3/uL Neutrophils # 20.70 H (1.80-7.70) X 10*3/uL Lymphocytes # 0.57 L (0.90-5.00) X 10*3/uL Eosinophils # 0 L (0.04-0.35) X 10*3/uL BUN/Creatinine Ratio 25.56 H (12.00-20.00) Ratio Glucose 298 H (70-110) mg/dL POC Glucose (mg/dL) 251 H (70-110) mg/dL 06/28/23 06/28/23 06/28/23 Range/Units 12:18 17:27 21:07 WBC (4.50-10.00) X 10*3/uL Immature Gran # (0.00-0.04) X 10*3/uL Neutrophils # (1.80-7.70) X 10*3/uL Lymphocytes # (0.90-5.00) X 10*3/uL Eosinophils # (0.04-0.35) X 10*3/uL BUN/Creatinine Ratio (12.00-20.00) Ratio Glucose (70-110) mg/dL POC Glucose (mg/dL) 329 H 359 H 326 H (70-110) mg/dL Microbiology - Last 24 Hours (Table) 06/27/23 11:15 Gram Stain - Preliminary Sputum Sputum Culture - Preliminary 06/26/23 11:32 Urine Culture - Final Urine,Voided 06/26/23 13:06 Blood Culture - Preliminary Blood Assessment and Plan Time with Patient: Less than 30
[2023-06-29 07:34] VITALS: BP 161/80; RESP 18; TEMP 98
[2023-06-29] MEDS: IPRATROPIUM-ALBUTEROL 3 ML NEB INHALATION SCH ×2 (08:28→12:12)
[2023-06-29] MEDS: SYMBICORT 160-4.5 MCG INHALER INHALATION SCH (08:28)
[2023-06-29 08:53] LABS: Basophils # (A) 0.03 X 10*3/uL (0.00-0.10); Basophils % (A) 0.2 %; Eosinophils # (A) 0 X 10*3/uL (0.04-0.35); Eosinophils % (A) 0 %; HCT 39.6 % (39.6-50.0); HGB 13.6 g/dL (13.0-17.0); Lymphocytes # (A) 0.49 X 10*3/uL (0.90-5.00); Lymphocytes % (A) 2.7 %; MCH 29.5 pg (27.0-32.0); MCHC 34.3 g/dL (32.0-37.0); MCV 85.9 FL (80.0-97.0); Mean Platelet Volume 10.4 FL (9.5-12.2); Monocytes # (A) 0.96 X 10*3/uL (0.20-1.00); Monocytes % (A) 5.3 %; NRBC Per 100 WBC 0 X 10*3/uL (0.00-0.01); Neutrophils # (A) 16.47 X 10*3/uL (1.80-7.70); Neutrophils % (A) 90.5 %; Platelet Count 232 X 10*3/uL (140-440); RBC 4.61 X 10*6/uL (4.40-5.60); RDW 13.8 % (11.5-14.5); WBC 18.18 X 10*3/uL (4.50-10.00)
[2023-06-29] MEDS: HEPARIN SODIUM,PORCINE 5,000 UNIT/ML 1 ML VIAL SQ SCH (08:57)
[2023-06-29] MEDS: LOSARTAN 50 MG TAB PO SCH (08:57)
[2023-06-29] MEDS: THEOPHYLLINE 24 HOUR 300 MG CAP.ER.24H PO SCH (08:58)
[2023-06-29 09:06] LABS: Blood Urea Nitrogen 24.3 mg/dL (9.0-27.0); Calcium 9.6 mg/dL (8.7-10.3); Carbon Dioxide 28.8 mmol/L (21.6-31.8); Chloride 101 mmol/L (96-109); Glucose 289 mg/dL (70-110); Potassium 4.6 mmol/L (3.5-5.5); Sodium 140 mmol/L (135-145)
[2023-06-29 10:49] VITALS: PULSE 55
[2023-06-29 11:42] LABS: Glucose,Whole Blood 239 mg/dL (70-110)
--- NOTE | 2023-06-29 15:27 | P.PN ---
Subjective Progress Note Date: 06/29/23 68-year-old male with history of severe COPD, who presents to the emergency department, with concerns of shortness of breath, which have been present, and progressive, for 2 weeks. In addition to shortness of breath, the patient complains of cough, occasionally productive of phlegm. He denies any chest pain or pressure, denies any fever or chills. The patient apparently sees my partner in the office, for his severe COPD. The patient does has a history of chronic oxygen use. In addition, the patient recently was sent to [facility], to have endobronchial valve therapy, and he had 2 valves placed in the right lung. His chest x-ray in the ER, showed changes of COPD, he did test positive for RSV. He is currently on 2 L of oxygen, and the emergency department, room 18, and is not receiving any fluids. He doesn't feel like the valves placed in him, have made much of a difference at this point. White count is 18.7, hemoglobin 14.1, hematocrit 38.5, and platelet count 233,000. Sodium 135, potassium 5.1, chlorides 97, CO2 28, BUN 28, creatinine 1.04. Glucose 260. His chest x-ray shows changes of COPD, with hyperinflated lungs, and flattening of the diaphragms. No acute processes noted. On today's evaluation 06/27/2023, the patient is feeling slightly improved. The patient is currently on 2 L of Oxymizer nasal cannula and he also uses oxygen at home at 2 L. He has an RSV tracheobronchitis exacerbating his COPD. No chest pain. No pleurisy. No hemoptysis. No other new complaints otherwise for now. No nausea. No vomiting. No abdominal pain. No altered mentation.Labs from today shows a white second of 23, hemoglobin to 13.9, sodium levels of 136, BUN is at 26 with a creatinine 1.1. LFTs are normal. The patient remains on Symbicort. The patient remains on DuoNeb updrafts. The patient is on Lasix 20 mg on a when necessary basis. He is also empirically covered with IV Rocephin. In terms of his COPD, has been maintained on Trelegy Ellipta on outpatient basis, prednisone 5 mg and theophylline. He has done [place] valve insertion in the past regarding his COPD. On 06/28/2023, seeing the patient for a follow-up. The patient is better compared to yesterday. I spoke spastic and wheezing. The patient remains on IV Solu-Medrol. The patient is still on DuoNeb updrafts and Symbicort as maintenance. No new complaints otherwise for today. Overall condition is improving as the patient is less spastic and wheezing. He remains on 2 L of oxygen by nasal cannula. No other new complaints otherwise for now. The WBC count is at 22 with a hemoglobin 13.4, sodium is at 138, BUN is at 23 with a creatinine of 0.9. There is a component of steroid-induced hyperglycemia and the blood sugars are being monitored. Noted the patient has limited on a com bination of Trelegy Ellipta, and prednisone 5 mg on a daily basis and theophylline. The patient is post [place] valve insertion. On 06/29/2023, seeing the patient for a follow-up. Significantly improved. No new complaints. The patient is going to go home on a prednisone burst taper. He has Trelegy Ellipta at home. All medication will be resumed. He feels much better he feels that his overall respiratory status is back to its baseline. Objective - Vital Signs Vital signs: Vital Signs Temp 98 F 06/29/23 07:20 Pulse 85 06/29/23 08:39 Resp 18 06/29/23 08:00 BP 161/80 06/29/23 07:20 Pulse Ox 97 06/29/23 08:29 FiO2 Intake & Output 06/28/23 06/29/23 06/29/23 18:59 06:59 18:59 Intake Total 531 240 Balance 531 240 Intake: Oral 531 240 Other: Voiding Method Urinal Urinal # Voids 1 1 98 - Exam No acute distress, oriented 3. Currently on 2 L of oxygen. No conversational dyspnea, use of accessory muscles, or audible wheezing. HEENT examination is grossly unremarkable. Mucous membranes are moist. No oral lesions. Neck supple. Full range of motion. No adenopathy thyromegaly or neck vein dis tention. Cardiovascular examination reveals regular rhythm rate. S1-S2 normal. No S3 or S4. No discernible murmur noted. Heart sounds are distant. Heart rate 74 bpm. Lungs reveal coarse inspiratory and expiratory wheezes and rhonchi. No crackles. Breath sounds equal bilaterally. Prolongation on forced maneuver is noted. 2 L saturation is 97%. Abdomen soft bowel sounds are heard. No masses or tenderness. Extremities are intact. No cyanosis clubbing or edema. Skin is without rash or lesion. Neurologic examination is brief but nonfocal. - Labs CBC & Chem 7: 06/29/23 05:47 06/29/23 05:47 Labs: Abnormal Lab Results - Last 24 Hours (Table) 06/28/23 06/28/23 06/28/23 Range/Units 12:18 17:27 21:07 WBC (4.50-10.00) X 10*3/uL Immature Gran # (0.00-0.04) X 10*3/uL Neutrophils # (1.80-7.70) X 10*3/uL Lymphocytes # (0.90-5.00) X 10*3/uL Eosinophils # (0.04-0.35) X 10*3/uL BUN/Creatinine Ratio (12.00-20.00) Ratio Glucose (70-110) mg/dL POC Glucose (mg/dL) 329 H 359 H 326 H (70-110) mg/dL 06/28/23 06/29/23 06/29/23 Range/Units 23:45 05:47 05:47 WBC 18.18 H (4.50-10.00) X 10*3/uL Immature Gran # 0.23 H (0.00-0.04) X 10*3/uL Neutrophils # 16.47 H (1.80-7.70) X 10*3/uL Lymphocytes # 0.49 L (0.90-5.00) X 10*3/uL Eosinophils # 0 L (0.04-0.35) X 10*3/uL BUN/Creatinine Ratio 24.30 H (12.00-20.00) Ratio Glucose 289 H (70-110) mg/dL POC Glucose (mg/dL) 250 H (70-110) mg/dL 06/29/23 Range/Units 06:00 WBC (4.50-10.00) X 10*3/uL Immature Gran # (0.00-0.04) X 10*3/uL Neutrophils # (1.80-7.70) X 10*3/uL Lymphocytes # (0.90-5.00) X 10*3/uL Eosinophils # (0.04-0.35) X 10*3/uL BUN/Creatinine Ratio (12.00-20.00) Ratio Glucose (70-110) mg/dL POC Glucose (mg/dL) 264 H (70-110) mg/dL Microbiology - Last 24 Hours (Table) 06/27/23 11:15 Gram Stain - Preliminary Sputum Sputum Culture - Preliminary Gram Neg Bacilli 06/26/23 13:06 Blood Culture - Preliminary Blood 06/26/23 11:32 Urine Culture - Final Urine,Voided Assessment and Plan Plan: Acute exacerbation of COPD, triggered by RSV infection. Clinically improving Acute on top of chronic hypoxic respiratory failure, oxygen stable at 2 L and the patient is back to his baseline oxygen requirements. History of severe COPD, with recent endobronchial valve therapy ([place] valve) at [facility]. The patient has limited on a combination of Trelegy Ellipta, theophylline and prednisone at 5 mg as maintenance on outpatient basis. The patient also uses oxygen at 2 L/m nasal cannula. Chronic hypoxemic respiratory failure, on home O2. History of hypertension. History of diabetes mellitus. History of hyperlipidemia. History of gastroesophageal reflux disease. History of diabetic neuropathy. History of pneumonia. Plan: Patient is improved and the patient to be discharged home on a prednisone burst taper. He will continue using his Trelegy Ellipta and theophylline on outpatient basis. Completed course of antibiotics with Ceftin. Prednisone burst taper. Follow-up in the pulmonary clinic.
[2023-06-29] MEDS ORDERED: INSULIN DETEMIR (LEVEMIR) 100 UNIT/ML SYR SQ SCH (21:00)
[2023-06-30] MEDS ORDERED: INSULIN DETEMIR (LEVEMIR) 100 UNIT/ML SYR SQ SCH (07:00)
== END 2023-06-29 14:50 | disposition home or self-care (01) | DRG 190 ==
LOC: EC 12:10 → 6NMEDSUR 14:43 → OBSVTOIN 06-27 14:05
PROVIDERS: ADMIT Hospitalist; ATTEND Hospitalist
DX: J44.0 Chronic obstructive pulmonary disease with (acute) lower respiratory infection (principal); J96.21 Acute and chronic respiratory failure with hypoxia; J20.5 Acute bronchitis due to respiratory syncytial virus; J44.1 Chronic obstructive pulmonary disease with (acute) exacerbation; T38.0X5A Adverse effect of glucocorticoids and synthetic analogues, initial encounter; K21.9 Gastro-esophageal reflux disease without esophagitis; I10 Essential (primary) hypertension; E11.65 Type 2 diabetes mellitus with hyperglycemia; E78.5 Hyperlipidemia, unspecified; E11.40 Type 2 diabetes mellitus with diabetic neuropathy, unspecified; Z99.81 Dependence on supplemental oxygen; Z87.01 Personal history of pneumonia (recurrent); Z86.16 Personal history of COVID-19; Z79.899 Other long term (current) drug therapy; Z79.51 Long term (current) use of inhaled steroids; Z87.891 Personal history of nicotine dependence; Z28.310 Unvaccinated for COVID-19; Z11.52 Encounter for screening for COVID-19
CPT/HCPCS: 36415; 71045; 71046; 80048; 80053; 83036; 83605; 83735; 83880; 84145; 84484; 85025; 85610; 85730; 87040; 87070; 87086; 87205; 87636; 93005; 94640; 94760; 96365; 96372; 96375; 96376; 99285

== ENCOUNTER → 2023-08-18 | Outpatient (CLI) | payer MEDICARE ==
[2023-08-18 12:38] LABS: African American GFR (CKD) >90 (>60 ml/min/1.73 sqM); Blood Urea Nitrogen 14 mg/dL (9-20); Non-African American GFR(CKD) >90 (>60 ml/min/1.73 sqM)
--- NOTE | 2023-08-18 13:07 | CT ---
Exam: CT Chest with contrast. Date: 08/18/2023. Comparison: 08/13/2022. History: Lung nodule. Technique: CT examination of the chest was performed following the intravenous administration of 100 mL of Isovue-300. Coronal and sagittal reformats were performed. CT dose lowering techniques were us ed, to include: automated exposure control, adjustment for patient size, and/or use of iterative stephanie nstruction. FINDINGS: Mediastinum and Barbara: There is no axillary, mediastinal or hilar lymphadenopathy. Calcified mediastin al and hilar nodes. Pleural and Pericardial spaces: There are no pleural or pericardial effusions. Upper Abdomen: Multiple calcified granulomas are seen in the spleen. There is mild diffuse decreased attenuation of the liver which is compatible with fatty liver infiltration. Cardiovascular: There is mild vascular calcification or plaque seen throughout the thoracic aorta wit hout evidence of aneurysmal dilation or dissection. Mild to moderate patchy coronary artery calcifica tions are seen. Pulmonary Artery: There are no central pulmonary arterial abnormalities. The examination was not per formed to evaluate for pulmonary embolism. Lung Parenchyma and Airways: The previously seen new nodule is not clearly identified on the current examination. Calcified granulomas are otherwise seen within the right lower lobe. There is scattered bronchial wall thickening also noted. Flat nodular density in the left lower lobe along the major fis sure measures 4 mm in diameter and appears less prominent than the previous examination. Bones: No fracture or aggressive osseous lesion. IMPRESSION: 1. Previously seen described endobronchial nodule is no longer visualized on the current examination. 2. Unchanged left lower lobe pulmonary nodule. 3. Severe emphysema. 4. Coronary artery calcifications. 5. Evidence of prior granulomatous disease.
== END | disposition home or self-care (01) ==
LOC: RADCTMAIN 11:32
PROVIDERS: ATTEND Internal Medicine Critical Care Medicine
DX: R91.1 Solitary pulmonary nodule (principal); J84.10 Pulmonary fibrosis, unspecified; J43.9 Emphysema, unspecified; I25.10 Atherosclerotic heart disease of native coronary artery without angina pectoris
CPT/HCPCS: 82565; 84520; 71260; 36415; Q9967

== ENCOUNTER → 2023-12-12 | Outpatient (CLI) | payer MEDICARE | END | disposition home or self-care (01) | LOC: LABWHC1 15:23 | PROVIDERS: ATTEND Urology | DX: C61 Malignant neoplasm of prostate (principal) | CPT/HCPCS: 36415; 84153 ==

== ENCOUNTER 2023-12-14 15:31 | Inpatient (IN) | payer MEDICARE ==
[2023-12-14] MEDS: ACETAMINOPHEN TAB 500 MG TAB PO STA (16:27)
[2023-12-14] MEDS: SODIUM CHLORIDE 0.9% 500 ML 500 ML IV STA (16:28)
--- NOTE | 2023-12-14 16:36 | ED ---
General Adult HPI - General Chief complaint: Abdominal Pain Stated complaint: abd pain Time Seen by Provider: 12/14/23 15:35 Source: patient, RN notes reviewed, old records reviewed Mode of arrival: EMS Limitations: no limitations - History of Present Illness Initial comments: Is a 68-year-old male who presents to the emergency department complaining of abdominal pain which is diffuse in nature. Patient states it started about 5 days ago. Patient states he has been vomiting every single day. Patient also states has been having diarrhea. Patient states the abdominal pain is not really pain it is more so cramping prior to diarrhea or vomiting. Patient denies chest pain difficulty breathing. Patient denies any drinking history. Patient states he used to smoke but no longer does quit 10 years ago. Patient denies back pain. Patient denies any dysuria hematuria urinary frequency - Related Data Home Medications Medication Instructions Recorded Confirmed Albuterol Nebulized [Ventolin 2.5 mg INHALATION RT-QID 07/07/19 12/14/23 Nebulized] Fluticasone/Umeclidin/Vilanter 1 puff INHALATION RT-DAILY 07/07/19 12/14/23 [Trelegy Ellipta 100-62.5-25] Theophylline 12 Hour [Reji-Dur] 300 mg PO BID 07/11/20 12/14/23 Albuterol Sulfate [Proair Hfa] 2 puff INHALATION RT-QID PRN 02/06/21 12/14/23 Losartan [Cozaar] 50 mg PO DAILY 02/06/21 12/14/23 Pantoprazole Sodium 20 mg PO DAILY 02/06/21 12/14/23 Furosemide [Lasix] 20 mg PO DAILY PRN 06/25/23 12/14/23 predniSONE 5 - 20 mg PO DAILY PRN 06/25/23 12/14/23 Cetirizine HCl [Zyrtec] 10 mg PO DAILY 12/14/23 12/14/23 Cholecalciferol [Vitamin D3 (25 25 mcg PO DAILY 12/14/23 12/14/23 Mcg = 1000 Iu)] Cyanocobalamin (Vitamin B-12) 1,000 mcg PO DAILY 12/14/23 12/14/23 [Vitamin B-12] Cyclobenzaprine [Flexeril] 10 mg PO DAILY PRN 12/14/23 12/14/23 Tamsulosin [Flomax] 0.4 mg PO DAILY 12/14/23 12/14/23 glipiZIDE [Glucotrol] 10 mg PO DAILY PRN 12/14/23 12/14/23 Allergies Allergy/AdvReac Type Severity Reaction Status Date / Time No Known Allergies Allergy Verified 12/14/23 16:39 Review of Systems ROS Statement: Those systems with pertinent positive or pertinent negative responses have been documented in the HPI. ROS Other: All systems not noted in ROS Statement are negative. Past Medical History Past Medical History: Asthma, COPD, Diabetes Mellitus, Eye Disorder, GERD/Reflu x, Hyperlipidemia, Hypertension, Pneumonia, Respiratory Disorder Additional Past Medical History / Comment(s): Pt tested + covid 07/11/20 at [facility]. Other hx: Bronchitis, chronic SOB, pt scheduled at [facility] on 09/03/20 for zephr valves to be inserted into lungs, IDDM type II, neuropathy occasionally in bilateral feet, macular degeneration bilaterally, Covid +07/11/20 History of Any Multi-Drug Resistant Organisms: None Reported Past Surgical History: Cholecystectomy Additional Past Surgical History / Comment(s): R knee arthroscopy, lower abdominal hernia repair, colonoscopy. lung surgery Past Anesthesia/Blood Transfusion Reactions: No Reported Reaction Past Psychological History: No Psychological Hx Reported Smoking Status: Former smoker Past Alcohol Use History: None Reported Past Drug Use History: None Reported - Past Family History Mother Family Medical History: Cancer Additional Family Medical History / Comment(s): Lung cancer Sister(s) Family Medical History: Cancer Additional Family Medical History / Comment(s): SEVERAL SISTERS WITH CANCER Father Family Medical History: Cancer Additional Family Medical History / Comment(s): Lung cancer. Brother(s) Family Medical History: Cancer General Exam - General Exam Comments Initial Comments: GENERAL: Patient is well-developed and well-nourished. Patient is nontoxic and well- hydrated and is in mild distress. ENT: Neck is soft and supple. No significant lymphadenopathy is noted. Oropharynx is clear. Moist mucous membranes. Neck has full range of motion without eliciting any pain. EYES: The sclera were anicteric and conjunctiva were pink and moist. Extraocular movements were intact and pupils were equal round and reactive to light. Eyelids were unremarkable. PULMONARY: Unlabored respirations. Good breath sounds bilaterally. No audible rales rhonchi or wheezing was noted. CARDIOVASCULAR: There is a regular rate and rhythm without any murmurs gallops or rubs. ABDOMEN: Soft and nontender with normal bowel sounds. SKIN: Skin is clear with no lesions or rashes and otherwise unremarkable. NEUROLOGIC: Patient is alert and oriented x3. Cranial nerves II through XII are grossly intact. Motor and sensory are also intact. Normal speech, volume and content. Symmetrical smile. MUSCULOSKELETAL: Normal extremities with adequate strength and full range of motion. LYMPHATICS: No significant lymphadenopathy is noted PSYCHIATRIC: Normal psychiatric evaluation. Limitations: no limitations Course Vital Signs 12/14/23 15:33 Temperature 100.9 F H Pulse Rate 96 Respiratory 18 Rate Blood Pressure 146/72 O2 Sat by Pulse 96 Oximetry Medical Decision Making - Medical Decision Making Was pt. sent in by a medical professional or institution (SELENA Johnston, CATCHER HELPER, urgent care, hospital, or longterm...) When possible be specific @ -No Did you speak to anyone other than the patient for history (EMS, parent, family, police, friend...)? What history was obtained from this source @ -No Did you review nursing and triage notes (agree or disagree)? Why? @ -I reviewed and agree with nursing and triage notes Were old charts reviewed (outside hosp., previous admission, EMS record, old EKG, old radiological studies, urgent care reports/EKG's, longterm records)? Report findings @ -No old charts were reviewed Differential Diagnosis? @ -Differential Abdominal Pain Men: Appendicitis, cholecystitis, diverticulosis, ischemic bowel, pancreatitis, hepatitis, UTI, gastroenteritis, AAA, incarcerated hernia, bowel obstruction, constipation, inflammatory bowel, hepatitis, peptic ulcer disease, splenic infarction, perforated viscus, testicular torsion, this is not meant to be an all-inclusive list EKG interpreted by me (3pts min.). @ -As above X-rays interpreted by me (1pt min.). @ -None done CT interpreted by me (1pt min.). @ -CT scan shows ascending descending sigmoid and rectal inflammation U/S interpreted by me (1pt. min.). @ -None done What testing was considered but not performed or refused? (CT, X-rays, U/S, labs)? Why? @ -None What meds were considered but not given or refused? Why? @ -None Did you discuss the management of the patient with other professionals (professionals i.e. , PA, CATCHER HELPER, lab, RT, psych nurse, social service liaison, doctor of medicine, te acher, driver's license reviewing officer, nurse outreach case manager)? Give summary @ -[facility]. Was smoking cessation discussed for >3mins.? @ -No Was critical care preformed (if so, how long)? @ -No Were there social determinants of health that impacted care today? How? (Homelessness, low income, unemployed, alcoholism, drug addiction, transportation, low edu. Level, literacy, decrease access to med. care, prison, rehab)? @ -No Was there de-escalation of care discussed even if they declined (Discuss DNR or withdrawal of care, Hospice)? DNR status @ -No What co-morbidities impacted this encounter? (DM, HTN, Smoking, COPD, CAD, Cancer, CVA, ARF, Chemo, Hep., AIDS, mental health diagnosis, sleep apnea, morbid obesity)? @ -None Was patient admitted / discharged? Hospital course, mention meds given and route, prescriptions, significant lab abnormalities, going to OR and other pertinent info. @ -Patient CAT scan showed inflammation throughout the colon and because the patient had a fever and a white count I started the patient on antibiotics and [facility] Undiagnosed new problem with uncertain prognosis? @ -No Drug Therapy requiring intensive monitoring for toxicity (Heparin, Nitro, Insulin, Cardizem)? @ -No Were any procedures done? @ -No Diagnosis/symptom? @ -Colitis Acute, or Chronic, or Acute on Chronic? @ -Acute Uncomplicated (without systemic symptoms) or Complicated (systemic symptoms)? @ -Comp Side effects of treatment? @ -No Exacerbation, Progression, or Severe Exacerbation? @ -No Poses a threat to life or bodily function? How? (Chest pain, USA, MA, pneumonia, PE, COPD, DKA, ARF, appy, cholecystitis, CVA, Diverticulitis, Homicidal, Suicidal, threat to staff... and all critical care pts) @ -Yes this could lead to sepsis and endorgan dysfunction - Lab Data Result diagrams: 12/14/23 15:56 12/14/23 15:56 Lab Results 07/03/24 07/03/24 07/03/24 Range/Units 15:56 15:56 15:56 WBC 13.7 H (3.8-10.6) k/uL RBC 5.02 (4.30-5.90) m/uL Hgb 13.8 (13.0-17.5) gm/dL Hct 41.6 (39.0-53.0) % MCV 82.8 (80.0-100.0) fL MCH 27.5 (25.0-35.0) pg MCHC 33.2 (31.0-37.0) g/dL RDW 14.5 (11.5-15.5) % Plt Count 181 (150-450) k/uL MPV 7.6 Neutrophils % 91 % Lymphocytes % 3 % Monocytes % 4 % Eosinophils % 0 % Basophils % 0 % Neutrophils # 12.5 H (1.3-7.7) k/uL Lymphocytes # 0.5 L (1.0-4.8) k/uL Monocytes # 0.6 (0-1.0) k/uL Eosinophils # 0.0 (0-0.7) k/uL Basophils # 0.0 (0-0.2) k/uL Sodium 135 L (137-145) mmol/L Potassium 4.1 (3.5-5.1) mmol/L Chloride 103 (98-107) mmol/L Carbon Dioxide 27 (22-30) mmol/L Anion Gap 5 mmol/L BUN 13 (9-20) mg/dL Creatinine 1.11 (0.66-1.25) mg/dL Est GFR (CKD-EPI)AfAm 79 (>60 ml/min/1.73 sqM) Est GFR (CKD-EPI)NonAf 69 (>60 ml/min/1.73 sqM) Glucose 139 H (74-99) mg/dL Plasma Lactic Acid Rian 0.9 (0.7-2.0) mmol/L Calcium 8.8 (8.4-10.2) mg/dL Total Bilirubin 0.8 (0.2-1.3) mg/dL AST 27 (17-59) U/L ALT 24 (4-49) U/L Alkaline Phosphatase 95 (38-126) U/L Total Protein 6.2 L (6.3-8.2) g/dL Albumin 4.0 (3.5-5.0) g/dL Amylase 37 (30-110) U/L Lipase 59 (23-300) U/L Urine Color Urine Appearance (Clear) Urine pH (5.0-8.0) Ur Specific Michie (1.001-1.035) Urine Protein (Negative) Urine Glucose (UA) (Negative) Urine Ketones (Negative) Urine Blood (Negative) Urine Nitrite (Negative) Urine Bilirubin (Negative) Urine Urobilinogen (<2.0) mg/dL Ur Leukocyte Esterase (Negative) Urine RBC (0-5) /hpf Urine WBC (0-5) /hpf Ur Squamous Epith Cells (0-4) /hpf Urine Mucus (None) /hpf 12/14/23 Range/Units 16:20 WBC (3.8-10.6) k/uL RBC (4.30-5.90) m/uL Hgb (13.0-17.5) gm/dL Hct (39.0-53.0) % MCV (80.0-100.0) fL MCH (25.0-35.0) pg MCHC (31.0-37.0) g/dL RDW (11.5-15.5) % Plt Count (150-450) k/uL MPV Neutrophils % % Lymphocytes % % Monocytes % % Eosinophils % % Basophils % % Neutrophils # (1.3-7.7) k/uL Lymphocytes # (1.0-4.8) k/uL Monocytes # (0-1.0) k/uL Eosinophils # (0-0.7) k/uL Basophils # (0-0.2) k/uL Sodium (137-145) mmol/L Potassium (3.5-5.1) mmol/L Chloride (98-107) mmol/L Carbon Dioxide (22-30) mmol/L Anion Gap mmol/L BUN (9-20) mg/dL Creatinine (0.66-1.25) mg/dL Est GFR (CKD-EPI)AfAm (>60 ml/min/1.73 sqM) Est GFR (CKD-EPI)NonAf (>60 ml/min/1.73 sqM) Glucose (74-99) mg/dL Plasma Lactic Acid Rian (0.7-2.0) mmol/L Calcium (8.4-10.2) mg/dL Total Bilirubin (0.2-1.3) mg/dL AST (17-59) U/L ALT (4-49) U/L Alkaline Phosphatase (38-126) U/L Total Protein (6.3-8.2) g/dL Albumin (3.5-5.0) g/dL Amylase (30-110) U/L Lipase (23-300) U/L Urine Color Yellow Urine Appearance Clear (Clear) Urine pH 6.0 (5.0-8.0) Ur Specific Michie 1.027 (1.001-1.035) Urine Protein 1+ H (Negative) Urine Glucose (UA) Negative (Negative) Urine Ketones 2+ H (Negative) Urine Blood Small H (Negative) Urine Nitrite Negative (Negative) Urine Bilirubin Negative (Negative) Urine Urobilinogen <2.0 (<2.0) mg/dL Ur Leukocyte Esterase Negative (Negative) Urine RBC 4 (0-5) /hpf Urine WBC 1 (0-5) /hpf Ur Squamous Epith Cells <1 (0-4) /hpf Urine Mucus Occasional H (None) /hpf Disposition Clinical Impression: Colitis, acute Disposition: ADMITTED IP TO THIS HOSP Referrals: Andres Torres DO [Primary Care Provider] - 1-2 days Time of Disposition: 19:22
[2023-12-14 16:55] LABS: Basophils % (A) 0 %; Eosinophils % (A) 0 %; HCT 41.6 % (39.0-53.0); HGB 13.8 gm/dL (13.0-17.5); Lymphocytes # (A) 0.5 k/uL (1.0-4.8); Lymphocytes % (A) 3 %; MCH 27.5 pg (25.0-35.0); MCHC 33.2 g/dL (31.0-37.0); MCV 82.8 fL (80.0-100.0); Mean Platelet Volume 7.6; Monocytes # (A) 0.6 k/uL (0-1.0); Monocytes % (A) 4 %; Neutrophils # (A) 12.5 k/uL (1.3-7.7); Neutrophils % (A) 91 %; Platelet Count 181 k/uL (150-450); RBC 5.02 m/uL (4.30-5.90); RDW 14.5 % (11.5-15.5); WBC 13.7 k/uL (3.8-10.6)
[2023-12-14 17:15] LABS: Glucose 139 mg/dL (74-99); Potassium 4.1 mmol/L (3.5-5.1); Sodium 135 mmol/L (137-145)
[2023-12-14 17:16] LABS: ALT 24 U/L (4-49); AST 27 U/L (17-59); African American GFR (CKD) 79 (>60 ml/min/1.73 sqM); Alkaline Phosphatase 95 U/L (38-126); Amylase 37 U/L (30-110); Anion Gap 5 mmol/L; Blood Urea Nitrogen 13 mg/dL (9-20); Calcium 8.8 mg/dL (8.4-10.2); Carbon Dioxide 27 mmol/L (22-30); Chloride 103 mmol/L (98-107); Lipase 59 U/L (23-300); Non-African American GFR(CKD) 69 (>60 ml/min/1.73 sqM); Total Bilirubin 0.8 mg/dL (0.2-1.3); Total Protein 6.2 g/dL (6.3-8.2)
[2023-12-14 17:31] LABS: Appearance,Urine Clear (Clear); Bilirubin,Urine Negative (Negative); Blood,Urine Small (Negative); Color,Urine Yellow; Glucose,Urine (UA) Negative (Negative); Ketones,Urine 2+ (Negative); Leukocyte Esterase,Urine Negative (Negative); Mucus,Urine Occasional /hpf; Nitrite,Urine Negative (Negative); Protein,Urine 1+ (Negative); RBC,Urine 4 /hpf (0-5); Specific Gravity,Urine 1.027 (1.001-1.035); Squamous Epithelial Cell,Urine <1 /hpf (0-4); Urobilinogen,Urine <2.0 mg/dL (<2.0); WBC,Urine 1 /hpf (0-5)
[2023-12-14] MEDS: HYDROmorphone 0.5 MG/0.5 ML SYRINGE IVP STA (17:57)
[2023-12-14] MEDS: ONDANSETRON 4 MG/2 ML VIAL IVP STA (17:58)
--- NOTE | 2023-12-14 18:58 | CT ---
EXAMINATION TYPE: CT abdomen pelvis w con DATE OF EXAM: 12/14/2023 COMPARISON: 07/14/2021 HISTORY: 68-year-old male c/o abd pain with n/v/d x5 days TECHNIQUE: Contiguous axial scanning of the abdomen and pelvis following administration of 100 ml Iso ancelmo 300 IV contrast. Delayed images through the kidneys and coronal/sagittal reconstructions perform ed. CT DLP: 1568 mGycm Automated exposure control for dose reduction was used. FINDINGS: Heart normal size of pericardial effusion. There is some reticulonodular densities at the p eriphery of the lung bases. Calcified granulomas noted. Mild bronchiectasis in the lower lobes. No pl eural effusion. Liver borderline enlarged at 17.8 cm. There may be mild fatty infiltration. Portal venous system is p atent. No biliary ductal dilatation. Gallbladder surgically absent. Adrenal glands, kidneys, and pancreas show no gross abnormal body. Numerous calcified granulomas in the spleen. Mild fusiform aneurysm infrarenal abdominal aorta to 3.2 cm versus 2.2 cm, previously. No dilated small bowel, free fluid, or free air. No mesenteric or retroperitoneal lymphadenopathy. There is moderate circumferential wall thickening along segments of the colon including the cecum and ascending colon as well as the descending colon. Redundant sigmoid colon. Moderate circumferential w all thickening distal sigmoid colon and rectum. No pericolonic inflammatory change. Bladder is nondistended. Prostate gland is enlarged at 4.3 cm wide. No abnormal fluid collection in t he pelvis or pelvic lymphadenopathy. Bones: Mild degenerative changes of hips. Moderate degenerative disc disease L-1-L2 and L4-L5. Facet arthropathy with grade 1 retrolisthesis L4-L5. IMPRESSION: 1. NONSPECIFIC SEGMENTAL COLITIS INVOLVING PARTS OF THE ASCENDING COLON, DESCENDING COLON, AND DISTAL SIGMOID AND RECTUM. THERE IS MODERATE ASSOCIATED INFLAMMATORY WALL THICKENING. CORRELATE FOR INFECTI OUS OR INFLAMMATORY ETIOLOGIES. 2. SUSPECT BRONCHIOLITIS AT THE LOWER LUNGS WITH SOME ASSOCIATED MILD BRONCHIECTASIS. 3. 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
[2023-12-14] MEDS: PIPERACILLIN-TAZOBACTAM 3.375 GM in SODIUM CHLORIDE 0.9% 100 ML IVPB STA (19:31)
[2023-12-14] MEDS: HYDROmorphone 0.5 MG/0.5 ML SYRINGE IVP PRN (21:08)
[2023-12-14] MEDS: SODIUM CHLORIDE 0.9% 1,000 ML IV ONE (21:10)
[2023-12-14] MEDS ORDERED: ALBUTEROL NEBULIZED 2.5 MG/3 ML INHALATION PRN (21:25)
[2023-12-14] MEDS ORDERED: CYCLOBENZAPRINE 10 MG TAB PO PRN (21:25)
[2023-12-14] MEDS: ACETAMINOPHEN TAB 325 MG TAB PO PRN (21:42)
[2023-12-15] MEDS: PIPERACILLIN-TAZOBACTAM 3.375 GM in SODIUM CHLORIDE 0.9% 100 ML IVPB SCH (03:23)
[2023-12-15] MEDS: ALBUTEROL NEBULIZED 2.5 MG/3 ML INHALATION SCH (08:43)
[2023-12-15] MEDS: TAMSULOSIN 0.4 MG CAP.ER.24H PO SCH (09:15)
[2023-12-15 10:06] LABS: BUN/Creat Ratio 11.73 Ratio (12.00-20.00); Blood Urea Nitrogen 12.9 mg/dL (9.0-27.0); Calcium 8.8 mg/dL (8.7-10.3); Chloride 105 mmol/L (96-109); Glucose 130 mg/dL (70-110); Potassium 4.3 mmol/L (3.5-5.5); Sodium 139 mmol/L (135-145)
[2023-12-15 10:50] LABS: Basophils # (A) 0.03 X 10*3/uL (0.00-0.10); Basophils % (A) 0.3 %; Eosinophils # (A) 0.01 X 10*3/uL (0.04-0.35); Eosinophils % (A) 0.1 %; HCT 37.9 % (39.6-50.0); HGB 12.4 g/dL (13.0-17.0); Lymphocytes # (A) 0.78 X 10*3/uL (0.90-5.00); Lymphocytes % (A) 6.6 %; MCH 27.2 pg (27.0-32.0); MCHC 32.7 g/dL (32.0-37.0); MCV 83.1 FL (80.0-97.0); Monocytes # (A) 0.76 X 10*3/uL (0.20-1.00); Monocytes % (A) 6.4 %; NRBC Per 100 WBC 0 X 10*3/uL (0.00-0.01); Neutrophils # (A) 10.13 X 10*3/uL (1.80-7.70); Neutrophils % (A) 85.7 %; Platelet Count 169 X 10*3/uL (140-440); RBC 4.56 X 10*6/uL (4.40-5.60); RDW 14.7 % (11.5-14.5); WBC 11.82 X 10*3/uL (4.50-10.00)
[2023-12-15 11:13] LABS: Erythrocyte Sedimentation Rate 16 mm/Hr (0-20)
--- NOTE | 2023-12-15 14:06 | P.HPIM ---
History of Present Illness H&P Date: 12/15/23 History of present illness; patient 68-year-old gentleman past medical history significant for hypertension, hyperlipidemia, COPD who presented to the ER for abdominal pain, vomiting and diarrhea . Patient stated he was all right a week ago when he started having cramping abdominal pain, abdominal pain was generalized, cramping in nature, intermittent, associated with vomiting and diarrhea. Patient stated he is having multiple bowel movements a day, all loose, no blood in the bowel movements. Patient also having vomiting. Denies any fever or chills. There is no complaint of chest pain or shortness of breath. Patient is complaining of loss of appetite and weight loss. Initial lab work done in the ER showed WBC 13.7, hemoglobin 13.8, platelet count 191, sodium 139, potassium 4.1, BUN 13, creatinine 1.11, glucose 139, lactate 0.9, calcium 8.8, bilirubin 0.8, AST 27, ALT 24, CRP 11.5 CT abdominal and pelvis done showed moderate circumferential wall thickening along the segment of the colon including the cecum and ascending colon as well as the descending colon. Moderate circumferential wall thickening distal sigmoid colon and rectum UA negative for any infection Patient admitted to internal medicine service REVIEW OF SYSTEMS: CONSTITUTIONAL: No fever, no malaise, no fatigue. HEENT: No recent visual problems or hearing problems. Denied any sore throat. CARDIOVASCULAR: No chest pain, orthopnea, PND, no palpitations, no syncope. PULMONARY: No shortness of breath, no cough, no hemoptysis. GASTROINTESTINAL as mentioned above NEUROLOGICAL: No headaches, no weakness, no numbness. HEMATOLOGICAL: Denies any bleeding or petechiae. GENITOURINARY: Denies any burning micturition, frequency, or urgency. MUSCULOSKELETAL/RHEUMATOLOGICAL: Denies any joint pain, swelling, or any muscle pain. ENDOCRINE: Denies any polyuria or polydipsia. The rest of the 14-point review of systems is negative. PHYSICAL EXAMINATION: GENERAL: The patient is alert and oriented x3, HEENT: Pupils are round and equally reacting to light. EOMI. No scleral icterus. No conjunctival pallor. Normocephalic, atraumatic. No pharyngeal erythema. No thyromegaly. CARDIOVASCULAR: S1 and S2 present. No murmurs, rubs, or gallops. PULMONARY: Chest is clear to auscultation, no wheezing or crackles. ABDOMEN: Soft, nontender, nondistended, normoactive bowel sounds. No palpable organomegaly. MUSCULOSKELETAL: No joint swelling or deformity. EXTREMITIES: No cyanosis, clubbing, or pedal edema. NEUROLOGICAL: Gross neurological examination did not reveal any focal deficits. SKIN: No rashes. Assessment and plan Abdominal pain Colitis History of COPD Chronic hypoxic respiratory failure Hypertension Hyperlipidemia Diabetes mellitus Monitor vital signs Monitor CBC Monitor CMP Ordered stool cultures Ordered stool for C. difficile Ordered stool calprotectin Continue IV fluids continue antiemetics Ordered IV Zosyn Consult surgery Labs and medication were reviewed.. Continue same treatment. Continue with symptomatic treatment. Resume home medication. Monitor labs and vitals. DVT and GI prophylaxis. Further recommendations as per clinical course of the patient Dictation was produced using [employer] dictation software. please excuse any grammatical, word or spelling errors. Past Medical History Past Medical History: Asthma, COPD, Diabetes Mellitus, Eye Disorder, GERD/Reflux, Hyperlipidemia, Hypertension, Pneumonia, Respiratory Disorder Additional Past Medical History / Comment(s): Pt tested + covid 07/11/20 at [facility]. Other hx: Bronchitis, chronic SOB, pt scheduled at [facility] on 09/03/20 for zephr valves to be inserted into lungs, IDDM type II, neuropathy occasionally in bilateral feet, macular degeneration bilaterally, Covid +07/11/20 History of Any Multi-Drug Resistant Organisms: None Reported Past Surgical History: Cholecystectomy Additional Past Surgical History / Comment(s): R knee arthroscopy, lower abdominal hernia repair, colonoscopy. lung surgery Past Anesthesia/Blood Transfusion Reactions: No Reported Reaction Past Psychological History: No Psychological Hx Reported Additional Psychological History / Comment(s): Pt resides with his spouse. He is independent. Smoking Status: Former smoker Past Alcohol Use History: None Reported Additional Past Alcohol Use History / Comment(s): QUIT 2017, 1.5 PPD, SINCE HE WAS 19 YR. Past Drug Use History: None Reported - Past Family History Mother Family Medical History: Cancer Additional Family Medical History / Comment(s): Lung cancer Sister(s) Family Medical History: Cancer Additional Family Medical History / Comment(s): SEVERAL SISTERS WITH CANCER Father Family Medical History: Cancer Additional Family Medical History / Comment(s): Lung cancer. Brother(s) Family Medical History: Cancer Medications and Allergies Home Medications Medication Instructions Recorded Confirmed Type Albuterol Nebulized [Ventolin 2.5 mg INHALATION RT-QID 07/07/19 12/14/23 History Nebulized] Fluticasone/Umeclidin/Vilanter 1 puff INHALATION RT-DAILY 07/07/19 12/14/23 History [Trelegy Ellipta 100-62.5-25] Theophylline 12 Hour [Reji-Dur] 300 mg PO BID 07/11/20 12/14/23 History Albuterol Sulfate [Proair Hfa] 2 puff INHALATION RT-QID PRN 02/06/21 12/14/23 History Losartan [Cozaar] 50 mg PO DAILY 02/06/21 12/14/23 History Pantoprazole Sodium 20 mg PO DAILY 02/06/21 12/14/23 History Furosemide [Lasix] 20 mg PO DAILY PRN 06/25/23 12/14/23 History predniSONE 5 - 20 mg PO DAILY PRN 06/25/23 12/14/23 History Cetirizine HCl [Zyrtec] 10 mg PO DAILY 12/14/23 12/14/23 History Cholecalciferol [Vitamin D3 (25 25 mcg PO DAILY 12/14/23 12/14/23 History Mcg = 1000 Iu)] Cyanocobalamin (Vitamin B-12) 1,000 mcg PO DAILY 12/14/23 12/14/23 History [Vitamin B-12] Cyclobenzaprine [Flexeril] 10 mg PO DAILY PRN 12/14/23 12/14/23 History Tamsulosin [Flomax] 0.4 mg PO DAILY 12/14/23 12/14/23 History glipiZIDE [Glucotrol] 10 mg PO DAILY PRN 12/14/23 12/14/23 History Allergies Allergy/AdvReac Type Severity Reaction Status Date / Time No Known Allergies Allergy Verified 12/14/23 16:39 Physical Exam Vitals: Vital Signs Temp Pulse Pulse Resp BP BP BP 12/15/23 08:52 86 12/15/23 08:43 80 12/15/23 07:00 98.6 F 78 20 151/76 12/15/23 06:00 99.2 F 12/15/23 03:21 102.4 F H 89 18 139/76 12/14/23 21:00 100.6 F H 109 H 19 150/72 12/14/23 20:16 101.2 F H 74 18 131/70 12/14/23 15:33 100.9 F H 96 18 146/72 Pulse Ox 12/15/23 08:52 12/15/23 08:43 12/15/23 07:00 95 12/15/23 06:00 12/15/23 03:21 95 12/14/23 21:00 94 L 12/14/23 20:16 96 12/14/23 15:33 96 Intake and Output 12/14/23 12/15/23 12/15/23 22:59 06:59 14:59 Other: # Voids 1 3 Weight 108.862 kg Results CBC & Chem 7: 12/15/23 05:35 12/15/23 05:35 Labs: Abnormal Lab Results - Last 24 Hours (Table) 12/14/23 12/14/23 12/14/23 Range/Units 15:56 15:56 16:20 WBC 13.7 H (3.8-10.6) k/uL Neutrophils # 12.5 H (1.3-7.7) k/uL Lymphocytes # 0.5 L (1.0-4.8) k/uL Sodium 135 L (137-145) mmol/L BUN/Creatinine Ratio (12.00-20.00) Ratio Glucose 139 H (74-99) mg/dL C-Reactive Protein (0.00-0.80) mg/dL Total Protein 6.2 L (6.3-8.2) g/dL Urine Protein 1+ H (Negative) Urine Ketones 2+ H (Negative) Urine Blood Small H (Negative) Urine Mucus Occasional H (None) /hpf 12/15/23 Range/Units 05:35 WBC (3.8-10.6) k/uL Neutrophils # (1.3-7.7) k/uL Lymphocytes # (1.0-4.8) k/uL Sodium (137-145) mmol/L BUN/Creatinine Ratio 11.73 L (12.00-20.00) Ratio Glucose 130 H (74-99) mg/dL C-Reactive Protein 11.50 H (0.00-0.80) mg/dL Total Protein (6.3-8.2) g/dL Urine Protein (Negative) Urine Ketones (Negative) Urine Blood (Negative) Urine Mucus (None) /hpf
--- NOTE | 2023-12-15 14:19 | P.GSCN ---
History of Present Illness Consult date: 12/15/23 History of present illness: CHIEF COMPLAINT: Intractable abdominal pain with diarrhea HISTORY OF PRESENT ILLNESS: The patient is a 68-year-old male who presents with first episode of intractable abdominal pain with diarrhea ongoing for 4 days. His is at bedside. His gives additional history of patient having a colonoscopy 3 years ago where his entire colon was not properly assessed due to a kink. is concerned whether colonoscopy findings are concordant with the symptoms. Otherwise, no blood in stools. No fevers or chills. Patient presented with elevated white blood cell count. He reports mostly left lower quadrant abdominal pain however primarily lower abdomen from left to right crampy in nature. He reports as soon as he eats he has diarrhea which is clear and loose. No prior reports of C. difficile colitis. also reports she has pre-existing history of sepsis exactly 1 year ago with pre-existing bronchitis. He does report some improvement since admission. PAST MEDICAL HISTORY: See list and reviewed PAST SURGICAL HISTORY: See list and reviewed MEDICATIONS: See list and reviewed ALLERGIES: See list and reviewed SOCIAL HISTORY: See list and reviewed FAMILY HISTORY: See list and reviewed REVIEW OF ORGAN SYSTEMS: CONSTITUTIONAL: No fevers or chills. Obesity, BMI 33.5 EYES: Denies any trouble with vision. No glasses. HEENT: No difficulties with hearing. No nosebleeds. No difficulty swallowing. RESPIRATORY: History of bronchitis with sepsis 1 year ago. Has chronic obstructive pulmonary disease. Past history pneumonia. CARDIOVASCULAR: Denies any chest pain, palpitations, or recent heart attacks. Echo in 2023 demonstrates ejection fraction 55 to 60%. GASTROINTESTINAL: See above. Last colonoscopy 2 years ago. Has gastroesophageal reflux disease. Diverticulosis. GENITOURINARY: He has prostate cancer. NEUROLOGICAL: Has diabetic neuropathy. MUSCULOSKELETAL: Denies any back pain, stiffness or joint arthritis. SKIN: No current skin cancer. No rash. PSYCHIATRIC: Denies current depression or suicidal thoughts. ENDOCRINE: Denies current thyroid disorders. Has diabetes type 2. On chronic steroid use. HEME/LYMPHATIC: Denies any lumps and bumps around the neck. No recent deep venous thrombosis. ALLERGY/IMMUNOLOGY: No immunoglobulin therapy. No immune deficiencies. BREAST: Denies current breast lumps, pain or nipple discharge. PHYSICAL EXAM: VITALS: Reviewed CONSTITUTIONAL: Well developed and in no acute distress. EYES: Conjuctivae without sclera icterus. Extraocular movements grossly intact. HEAD, EARS, NOSE, THROAT: Moist buccal mucosa. Head is atraumatic, normocephalic. Hears conversational speech. No nasal drainage. NECK: Supple. No JV distention. No thyroidomegaly. RESPIRATORY: Non-labored respirations and equal bilateral excursions. No gross wheezes. CARDIOVASCULAR: Palpable 2+ radial pulses. ABDOMEN: No peritonitis. Tender lower abdomen. LYMPH: No neck lymphadenopathy. MUSCULOSKELETAL: No clubbing cyanosis or edema SKIN: Warm and well perfused with good skin turgor. NEUROLOGIC: Cranial nerves II through XII grossly intact. No focal or lateralizing signs. PSYCH: Appropriate affect. Alert and oriented to person, place and time. Displays appropriate insight. CLINCAL LABS: Reviewed. IMAGING: Independently reviewed. CT of the abdomen pelvis independently reviewed demonstrates localized ascending colitis. This is my independent interpretation. Diverticulosis without diverticulitis. RADIOLOGY: Report reviewed CT report demonstrates colitis affecting ascending colon, descending, sigmoid, rectum. Presence of bronchiolitis. RECORDS: previous old records reviewed. Echo from 2019 demonstrated ejection fraction 55 to 60%. Colonoscopy 09/14/2021 demonstrates diverticulosis. Pathology from 2020 demonstrates rectal adenoma. Colonoscopy report 2020 demonstrates diverticulitis. Pathology report 2023 prostate demonstrates malignancy. ASSESSMENT: 1. Abdominal pain likely due to diverticulitis 2. Chronic obstructive pulmonary disease on chronic steroid use 3. Prostate cancer 4. Chronic diarrhea due to colitis 5. Bronchiolitis per CT scan PLAN: 1. IV fluid hydration. 2. Patient may have diet including toast. Recommend avoiding high sugary beverages including dairy products to exacerbate his diarrhea. 3. Recommend stool cultures. 4. No colonoscopy advised due to acute episode. 5. Broad-spectrum antibiotics for treatment of diverticulitis/colitis. ADVANCE DIRECTIVE: CODE STATUS in chart Thank you for this kind consultation. Past Medical History Past Medical History: Asthma, COPD, Diabetes Mellitus, Eye Disorder, GERD/Reflux, Hyperlipidemia, Hypertension, Pneumonia, Respiratory Disorder Additional Past Medical History / Comment(s): Pt tested + covid 07/11/20 at [facility]. Other hx: Bronchitis, chronic SOB, pt scheduled at [facility] on 09/03/20 for zephr valves to be inserted into lungs, IDDM type II, neuropathy occasionally in bilateral feet, macular degeneration bilaterally, Covid +07/11/20 History of Any Multi-Drug Resistant Organisms: None Reported Past Surgical History: Cholecystectomy Additional Past Surgical History / Comment(s): R knee arthroscopy, lower abdominal hernia repair, colonoscopy. lung surgery Past Anesthesia/Blood Transfusion Reactions: No Reported Reaction Past Psychological History: No Psychological Hx Reported Additional Psychological History / Comment(s): Pt resides with his spouse. He is independent. Smoking Status: Former smoker Past Alcohol Use History: None Reported Additional Past Alcohol Use History / Comment(s): QUIT 2017, 1.5 PPD, SINCE HE WAS 19 YR. Past Drug Use History: None Reported - Past Family History Mother Family Medical History: Cancer Additional Family Medical History / Comment(s): Lung cancer Sister(s) Family Medical History: Cancer Additional Family Medical History / Comment(s): SEVERAL SISTERS WITH CANCER Father Family Medical History: Cancer Additional Family Medical History / Comment(s): Lung cancer. Brother(s) Family Medical History: Cancer Medications and Allergies Home Medications Medication Instructions Recorded Confirmed Type Albuterol Nebulized [Ventolin 2.5 mg INHALATION RT-QID 07/07/19 12/14/23 History Nebulized] Fluticasone/Umeclidin/Vilanter 1 puff INHALATION RT-DAILY 07/07/19 12/14/23 History [Trelegy Ellipta 100-62.5-25] Theophylline 12 Hour [Reji-Dur] 300 mg PO BID 07/11/20 12/14/23 History Albuterol Sulfate [Proair Hfa] 2 puff INHALATION RT-QID PRN 02/06/21 12/14/23 History Losartan [Cozaar] 50 mg PO DAILY 02/06/21 12/14/23 History Pantoprazole Sodium 20 mg PO DAILY 02/06/21 12/14/23 History Furosemide [Lasix] 20 mg PO DAILY PRN 06/25/23 12/14/23 History predniSONE 5 - 20 mg PO DAILY PRN 06/25/23 12/14/23 History Cetirizine HCl [Zyrtec] 10 mg PO DAILY 12/14/23 12/14/23 History Cholecalciferol [Vitamin D3 (25 25 mcg PO DAILY 12/14/23 12/14/23 History Mcg = 1000 Iu)] Cyanocobalamin (Vitamin B-12) 1,000 mcg PO DAILY 12/14/23 12/14/23 History [Vitamin B-12] Cyclobenzaprine [Flexeril] 10 mg PO DAILY PRN 12/14/23 12/14/23 History Tamsulosin [Flomax] 0.4 mg PO DAILY 12/14/23 12/14/23 History glipiZIDE [Glucotrol] 10 mg PO DAILY PRN 12/14/23 12/14/23 History Allergies Allergy/AdvReac Type Severity Reaction Status Date / Time No Known Allergies Allergy Verified 12/14/23 16:39 Surgical - Exam Vital Signs Temp Pulse Resp BP Pulse Ox 100.9 F H 96 18 146/72 96 12/14/23 15:33 12/14/23 15:33 12/14/23 15:33 12/14/23 15:33 12/14/23 15:33 Results - Labs 12/15/23 05:35 12/15/23 05:35 Abnormal Lab Results - Last 24 Hours (Table) 12/14/23 12/14/23 12/14/23 Range/Units 15:56 15:56 16:20 WBC 13.7 H (3.8-10.6) k/uL Hgb (13.0-17.0) g/dL Hct (39.6-50.0) % RDW (11.5-14.5) % Immature Gran # (0.00-0.04) X 10*3/uL Neutrophils # 12.5 H (1.3-7.7) k/uL Lymphocytes # 0.5 L (1.0-4.8) k/uL Eosinophils # (0.04-0.35) X 10*3/uL Sodium 135 L (137-145) mmol/L BUN/Creatinine Ratio (12.00-20.00) Ratio Glucose 139 H (74-99) mg/dL C-Reactive Protein (0.00-0.80) mg/dL Total Protein 6.2 L (6.3-8.2) g/dL Urine Protein 1+ H (Negative) Urine Ketones 2+ H (Negative) Urine Blood Small H (Negative) Urine Mucus Occasional H (None) /hpf 12/15/23 12/15/23 Range/Units 05:35 05:35 WBC 11.82 H (3.8-10.6) k/uL Hgb 12.4 L (13.0-17.0) g/dL Hct 37.9 L (39.6-50.0) % RDW 14.7 H (11.5-14.5) % Immature Gran # 0.11 H (0.00-0.04) X 10*3/uL Neutrophils # 10.13 H (1.3-7.7) k/uL Lymphocytes # 0.78 L (1.0-4.8) k/uL Eosinophils # 0.01 L (0.04-0.35) X 10*3/uL Sodium (137-145) mmol/L BUN/Creatinine Ratio 11.73 L (12.00-20.00) Ratio Glucose 130 H (74-99) mg/dL C-Reactive Protein 11.50 H (0.00-0.80) mg/dL Total Protein (6.3-8.2) g/dL Urine Protein (Negative) Urine Ketones (Negative) Urine Blood (Negative) Urine Mucus (None) /hpf Diabetes panel 12/14/23 12/15/23 Range/Units 15:56 05:35 Sodium 135 L 139 (137-145) mmol/L Potassium 4.1 4.3 (3.5-5.1) mmol/L Chloride 103 105 (98-107) mmol/L Carbon Dioxide 27 24.0 (22-30) mmol/L BUN 13 12.9 (9-20) mg/dL Creatinine 1.11 1.1 (0.66-1.25) mg/dL Glucose 139 H 130 H (74-99) mg/dL Calcium 8.8 8.8 (8.4-10.2) mg/dL AST 27 (17-59) U/L ALT 24 (4-49) U/L Alkaline Phosphatase 95 (38-126) U/L Total Protein 6.2 L (6.3-8.2) g/dL Albumin 4.0 (3.5-5.0) g/dL Calcium panel 12/14/23 12/15/23 Range/Units 15:56 05:35 Calcium 8.8 8.8 (8.4-10.2) mg/dL Albumin 4.0 (3.5-5.0) g/dL Pituitary panel 12/14/23 12/15/23 Range/Units 15:56 05:35 Sodium 135 L 139 (137-145) mmol/L Potassium 4.1 4.3 (3.5-5.1) mmol/L Chloride 103 105 (98-107) mmol/L Carbon Dioxide 27 24.0 (22-30) mmol/L BUN 13 12.9 (9-20) mg/dL Creatinine 1.11 1.1 (0.66-1.25) mg/dL Glucose 139 H 130 H (74-99) mg/dL Calcium 8.8 8.8 (8.4-10.2) mg/dL Adrenal panel 12/14/23 12/15/23 Range/Units 15:56 05:35 Sodium 135 L 139 (137-145) mmol/L Potassium 4.1 4.3 (3.5-5.1) mmol/L Chloride 103 105 (98-107) mmol/L Carbon Dioxide 27 24.0 (22-30) mmol/L BUN 13 12.9 (9-20) mg/dL Creatinine 1.11 1.1 (0.66-1.25) mg/dL Glucose 139 H 130 H (74-99) mg/dL Calcium 8.8 8.8 (8.4-10.2) mg/dL Total Bilirubin 0.8 (0.2-1.3) mg/dL AST 27 (17-59) U/L ALT 24 (4-49) U/L Alkaline Phosphatase 95 (38-126) U/L Total Protein 6.2 L (6.3-8.2) g/dL Albumin 4.0 (3.5-5.0) g/dL
--- NOTE | 2023-12-16 07:37 | P.CONS ---
History of Present Illness - Reason for Consult Consult date: 12/15/23 Colitis Requesting physician: Abelardo Barrera - Chief Complaint Abdominal pain and diarrhea x 5 days - History of Present Illness Patient is a 68-year-old male with a past medical history significant for diabetes mellitus hypertension hyperlipidemia reflux COPD asthma presenting to the hospital for evaluation of abdominal pain and diarrhea in this patient symptom has been going on for about 5 days before presentation to the hospital patient did not recall eating anything unusual and has not been on antibiotics prior to his symptoms started patient complaining of abdominal pain to be diffuse mostly to the left lower abdominal area moderate in intensity without a ny radiation with multiple loose stools about 5 to 6/day denies having any blood or mucus in the stool and did have episode of vomiting each day denies high- grade fever with the symptoms the patient has been evaluated on presentation to the hospital patient did have a fever of 101.2 F patient was not tachycardic hypotensive or hypoxic and no need for supplemental oxygen he did have white count of 13.7 repeat is 11.82 with a left shift creatinine has been normal electrolytes are normal liver enzymes are normal urine has been negative stool for C. difficile is negative blood culture repeated today currently pending patient did have abdominal pelvis CT nonspecific segmental colitis involving the ascending colon and descending colon and distal sigmoid and rectum patient was started on Zosyn infectious disease was consulted for further management of antibiotic therapy Review of Systems Positive point and negatives has been mentioned in the HPI, complete review of systems was performed and all other systems are negative Past Medical History Past Medical History: Asthma, COPD, Diabetes Mellitus, Eye Disorder, GERD/Reflu x, Hyperlipidemia, Hypertension, Pneumonia, Respiratory Disorder Additional Past Medical History / Comment(s): Pt tested + covid 07/11/20 at [facility]. Other hx: Bronchitis, chronic SOB, pt scheduled at [facility] on 09/03/20 for zephr valves to be inserted into lungs, IDDM type II, neuropathy occasionally in bilateral feet, macular degeneration bilaterally, Covid +07/11/20 History of Any Multi-Drug Resistant Organisms: None Reported Past Surgical History: Cholecystectomy Additional Past Surgical History / Comment(s): R knee arthroscopy, lower abdominal hernia repair, colonoscopy. lung surgery Past Anesthesia/Blood Transfusion Reactions: No Reported Reaction Past Psychological History: No Psychological Hx Reported Additional Psychological History / Comment(s): Pt resides with his spouse. He is independent. Smoking Status: Former smoker Past Alcohol Use History: None Reported Additional Past Alcohol Use History / Comment(s): QUIT 2017, 1.5 PPD, SINCE HE WAS 19 YR. Past Drug Use History: None Reported - Past Family History Mother Family Medical History: Cancer Additional Family Medical History / Comment(s): Lung cancer Sister(s) Family Medical History: Cancer Additional Family Medical History / Comment(s): SEVERAL SISTERS WITH CANCER Father Family Medical History: Cancer Additional Family Medical History / Comment(s): Lung cancer. Brother(s) Family Medical History: Cancer Medications and Allergies Home Medications Medication Instructions Recorded Confirmed Type Albuterol Nebulized [Ventolin 2.5 mg INHALATION RT-QID 07/07/19 12/14/23 History Nebulized] Fluticasone/Umeclidin/Vilanter 1 puff INHALATION RT-DAILY 07/07/19 12/14/23 His tory [Trelegy Ellipta 100-62.5-25] Theophylline 12 Hour [Reji-Dur] 300 mg PO BID 07/11/20 12/14/23 History Albuterol Sulfate [Proair Hfa] 2 puff INHALATION RT-QID PRN 02/06/21 12/14/23 History Losartan [Cozaar] 50 mg PO DAILY 02/06/21 12/14/23 History Pantoprazole Sodium 20 mg PO DAILY 02/06/21 12/14/23 History Furosemide [Lasix] 20 mg PO DAILY PRN 06/25/23 12/14/23 History predniSONE 5 - 20 mg PO DAILY PRN 06/25/23 12/14/23 History Cetirizine HCl [Zyrtec] 10 mg PO DAILY 12/14/23 12/14/23 History Cholecalciferol [Vitamin D3 (25 25 mcg PO DAILY 12/14/23 12/14/23 History Mcg = 1000 Iu)] Cyanocobalamin (Vitamin B-12) 1,000 mcg PO DAILY 12/14/23 12/14/23 History [Vitamin B-12] Cyclobenzaprine [Flexeril] 10 mg PO DAILY PRN 12/14/23 12/14/23 History Tamsulosin [Flomax] 0.4 mg PO DAILY 12/14/23 12/14/23 History glipiZIDE [Glucotrol] 10 mg PO DAILY PRN 12/14/23 12/14/23 History Allergies Allergy/AdvReac Type Severity Reaction Status Date / Time No Known Allergies Allergy Verified 12/14/23 16:39 Physical Exam Vitals: Vital Signs Temp Pulse Pulse Resp BP BP BP 12/15/23 11:52 76 12/15/23 11:43 78 12/15/23 08:52 86 12/15/23 08:43 80 12/15/23 08:00 78 20 12/15/23 07:00 98.6 F 78 20 151/76 12/15/23 06:00 99.2 F 12/15/23 03:21 102.4 F H 89 18 139/76 12/14/23 21:00 100.6 F H 109 H 19 150/72 12/14/23 20:16 101.2 F H 74 18 131/70 12/14/23 15:33 100.9 F H 96 18 146/72 Pulse Ox 12/15/23 11:52 12/15/23 11:43 12/15/23 08:52 12/15/23 08:43 12/15/23 08:00 12/15/23 07:00 95 12/15/23 06:00 12/15/23 03:21 95 12/14/23 21:00 94 L 12/14/23 20:16 96 12/14/23 15:33 96 Intake and Output 12/14/23 12/15/23 12/15/23 22:59 06:59 14:59 Other: Voiding Method Toilet # Voids 1 3 Weight 108.862 kg GENERAL DESCRIPTION: Elderly male lying in bed, no distress. No tachypnea or accessory muscle of respiration use. HEENT: Shows Pallor , no scleral icterus. Oral mucous membrane is dry. No pharyngeal erythema or thrush NECK: Trachea central, no thyromegaly. LUNGS: Unlabored breathing. Clear to auscultation anteriorly. No wheeze or crackle. HEART: S1, S2, regular rate and rhythm. No loud murmur ABDOMEN: Soft, mild distention and tenderness , no guarding or rigidity, no organomegaly EXTREMITIES: No edema of feet. SKIN: No rash, no masses palpable. NEUROLOGICAL: The patient is awake, alert, oriented x3, mood and affect normal. Results CBC & Chem 7: 12/16/23 10:53 12/16/23 10:53 Labs: Abnormal Lab Results - Last 24 Hours (Table) 12/14/23 12/14/23 12/14/23 Range/Units 15:56 15:56 16:20 WBC 13.7 H (3.8-10.6) k/uL Hgb (13.0-17.0) g/dL Hct (39.6-50.0) % RDW (11.5-14.5) % Immature Gran # (0.00-0.04) X 10*3/uL Neutrophils # 12.5 H (1.3-7.7) k/uL Lymphocytes # 0.5 L (1.0-4.8) k/uL Eosinophils # (0.04-0.35) X 10*3/uL Sodium 135 L (137-145) mmol/L BUN/Creatinine Ratio (12.00-20.00) Ratio Glucose 139 H (74-99) mg/dL C-Reactive Protein (0.00-0.80) mg/dL Total Protein 6.2 L (6.3-8.2) g/dL Urine Protein 1+ H (Negative) Urine Ketones 2+ H (Negative) Urine Blood Small H (Negative) Urine Mucus Occasional H (None) /hpf 12/15/23 12/15/23 Range/Units 05:35 05:35 WBC 11.82 H (3.8-10.6) k/uL Hgb 12.4 L (13.0-17.0) g/dL Hct 37.9 L (39.6-50.0) % RDW 14.7 H (11.5-14.5) % Immature Gran # 0.11 H (0.00-0.04) X 10*3/uL Neutrophils # 10.13 H (1.3-7.7) k/uL Lymphocytes # 0.78 L (1.0-4.8) k/uL Eosinophils # 0.01 L (0.04-0.35) X 10*3/uL Sodium (137-145) mmol/L BUN/Creatinine Ratio 11.73 L (12.00-20.00) Ratio Glucose 130 H (74-99) mg/dL C-Reactive Protein 11.50 H (0.00-0.80) mg/dL Total Protein (6.3-8.2) g/dL Urine Protein (Negative) Urine Ketones (Negative) Urine Blood (Negative) Urine Mucus (None) /hpf Assessment and Plan (1) Leukocytosis Current Visit: Yes Status: Acute Code(s): D72.829 - ELEVATED WHITE BLOOD CELL COUNT, UNSPECIFIED SNOMED Code(s): 206353338 (2) Colitis, acute Current Visit: Yes Status: Acute Code(s): K52.9 - NONINFECTIVE GASTROENTERITIS AND COLITIS, UNSPECIFIED SNOMED Code(s): 15285334 (3) SIRS (systemic inflammatory response syndrome) Current Visit: No Status: Acute Code(s): R65.10 - SIRS OF NON-INFECTIOUS ORIGIN W/O ACUTE ORGAN DYSFUNCTION SNOMED Code(s): 289745212 Plan: 1patient presented to hospital with abdominal pain diarrhea with evidence of segmental colitis on the CT with a question of infection versus ischemic or inflammatory in origin versus diverticulitis, patient has not been exposed to antibiotic and did have a negative stool for C. difficile. 2we will try to obtain stool culture. 3keeping in mind the patient white count trending down with the Zosyn to continue while waiting for the workup to be completed. Question concern answered. We will follow on clinical condition and cultures to further adjust medication if needed Thank you for this consultation we will follow the patient along with you Dictation was produced using [employer] dictation software. please excuse any grammatical, word or spelling errors. Time with Patient: Greater than 30
[2023-12-16 11:21] LABS: Basophils % (A) 0 %; Eosinophils # (A) 0.3 k/uL (0-0.7); Eosinophils % (A) 5 %; HCT 35.9 % (39.0-53.0); HGB 12.5 gm/dL (13.0-17.5); Lymphocytes # (A) 0.9 k/uL (1.0-4.8); Lymphocytes % (A) 16 %; MCH 27.9 pg (25.0-35.0); MCHC 34.7 g/dL (31.0-37.0); MCV 80.6 fL (80.0-100.0); Monocytes # (A) 0.5 k/uL (0-1.0); Monocytes % (A) 9 %; Neutrophils # (A) 3.7 k/uL (1.3-7.7); Neutrophils % (A) 67 %; Platelet Count 153 k/uL (150-450); Poikilocytosis Slight; RBC 4.46 m/uL (4.30-5.90); RDW 14.7 % (11.5-15.5); WBC 5.5 k/uL (3.8-10.6)
[2023-12-16 11:33] LABS: ALT 35 U/L (4-49); AST 40 U/L (17-59); African American GFR (CKD) >90 (>60 ml/min/1.73 sqM); Albumin 3.5 g/dL (3.5-5.0); Albumin/Globulin Ratio 1.6; Alkaline Phosphatase 68 U/L (38-126); Anion Gap 7 mmol/L; Blood Urea Nitrogen 13 mg/dL (9-20); Calcium 8.8 mg/dL (8.4-10.2); Carbon Dioxide 25 mmol/L (22-30); Chloride 105 mmol/L (98-107); Globulin 2.2 g/dL; Glucose 125 mg/dL (74-99); Non-African American GFR(CKD) >90 (>60 ml/min/1.73 sqM); Potassium 3.7 mmol/L (3.5-5.1); Sodium 137 mmol/L (137-145); Total Bilirubin 0.8 mg/dL (0.2-1.3); Total Protein 5.7 g/dL (6.3-8.2)
--- NOTE | 2023-12-16 12:00 | P.PN ---
Subjective Progress Note Date: 12/16/23 CHIEF COMPLAINT: Intractable abdominal pain with diarrhea HISTORY OF PRESENT ILLNESS: The patient is a 68-year-old male who presented with lower abdominal pain and colitis. Since being on antibiotics he reports his abdominal pain is now resolved. Patient tolerated diet. REVIEW OF ORGAN SYSTEMS: CONSTITUTIONAL: No fevers or chills. Obesity, BMI 33.5 EYES: Denies any trouble with vision. No glasses. HEENT: No difficulties with hearing. No nosebleeds. No difficulty swallowing. RESPIRATORY: History of bronchitis with sepsis 1 year ago. Has chronic obstructive pulmonary disease. Past history pneumonia. CARDIOVASCULAR: Denies any chest pain, palpitations, or recent heart attacks. Echo in 2023 demonstrates ejection fraction 55 to 60%. GASTROINTESTINAL: See above. Last colonoscopy 2 years ago. Has gastroesophageal reflux disease. Diverticulosis. PHYSICAL EXAM: VITALS: Reviewed CONSTITUTIONAL: Well developed and in no acute distress. EYES: Conjuctivae without sclera icterus. Extraocular movements grossly intact. HEAD, EARS, NOSE, THROAT: Moist buccal mucosa. Head is atraumatic, normocephalic. Hears conversational speech. No nasal drainage. RESPIRATORY: Non-labored respirations and equal bilateral excursions. No gross wheezes. CARDIOVASCULAR: Palpable 2+ radial pulses. ABDOMEN: Nontender. MUSCULOSKELETAL: No clubbing cyanosis or edema SKIN: Warm and well perfused with good skin turgor. NEUROLOGIC: Cranial nerves II through XII grossly intact. No focal or late ralizing signs. PSYCH: Appropriate affect. Alert and oriented to person, place and time. Displays appropriate insight. CLINCAL LABS: Reviewed. WBC now normal. ASSESSMENT: 1. Abdominal pain likely due to diverticulitis 2. Chronic obstructive pulmonary disease on chronic steroid use 3. Prostate cancer 4. Chronic diarrhea due to colitis 5. Bronchiolitis per CT scan PLAN: 1. I reviewed with the patient and his family pre-existing history of diverticulitis including colonoscopy demonstrating diverticulosis. Overall clinical picture is consistent with diverticulitis. 2. Patient does report eating moderate amount of peanuts prior to his episode. Patient advised for caution with peanuts, popcorn, tomatoes seeds, and cucumber seeds which may exacerbate symptoms. Will advance to low fiber diet without seeds. 3. Recommend low fiber diet at least 1 week after discharge. 4. May follow-up as outpatient. 5. May discharge once tolerating diet Objective - Vital Signs Vital signs: Vital Signs Temp 97.9 F 12/16/23 07:00 Pulse 76 12/16/23 09:54 Resp 20 12/16/23 07:00 BP 129/74 12/16/23 07:00 Pulse Ox 98 12/16/23 07:00 FiO2 Intake & Output 12/15/23 12/16/23 12/16/23 18:59 06:59 18:59 Other: Voiding Method Toilet Toilet # Voids 3 3 - Labs CBC & Chem 7: 12/16/23 10:53 12/16/23 10:53 Labs: Abnormal Lab Results - Last 24 Hours (Table) 12/16/23 12/16/23 Range/Units 10:53 10:53 Hgb 12.5 L (13.0-17.5) gm/dL Hct 35.9 L (39.0-53.0) % Lymphocytes # 0.9 L (1.0-4.8) k/uL Glucose 125 H (74-99) mg/dL Total Protein 5.7 L (6.3-8.2) g/dL Microbiology - Last 24 Hours (Table) 12/14/23 19:15 Blood Culture - Preliminary Blood
[2023-12-16] MEDS: PIPERACILLIN-TAZOBACTAM 3.375 GM in SODIUM CHLORIDE 0.9% 100 ML IVPB SCH (12:33)
--- NOTE | 2023-12-16 13:12 | P.PN ---
Subjective Progress Note Date: 12/16/23 Principal diagnosis: Reason for follow-up is colitis/diverticulitis Patient is a 68-year-old male with a past medical history significant for diabetes mellitus hypertension hyperlipidemia reflux COPD asthma presenting to the hospital for evaluation of abdominal pain and diarrhea patient did have elevated white count and fever CT with nonspecific segmental colitis has been eval by general surgery and considering likely diverticulitis. On today's evaluation that is 12/16/2023, the patient did have resolution of his fever and the patient is afebrile today, the patient is on room air and breathing comfortably, the Pt denies having any chest pain or cough, the patient denies any further nausea vomiting abdominal pain has slightly decreased in intensity did have some diarrhea but no worsening. Patient white count normalized to 5.5 creatinine 0.76 blood cultures pending Objective - Vital Signs Vital signs: Vital Signs Temp 97.9 F 12/16/23 07:00 Pulse 84 12/16/23 12:46 Resp 20 12/16/23 07:00 BP 129/74 12/16/23 07:00 Pulse Ox 98 12/16/23 07:00 FiO2 Intake & Output 12/15/23 12/16/23 12/16/23 18:59 06:59 18:59 Other: Voiding Method Toilet Toilet # Voids 3 3 - Exam GENERAL DESCRIPTION: An elderly male lying in bed in no distress RESPIRATORY SYSTEM: Unlabored breathing , decreased breath sounds at bases HEART: S1 S2 regular rate and rhythm , ABDOMEN: Soft , mild tenderness EXTREMITIES: No edema feet - Labs CBC & Chem 7: 12/16/23 10:53 12/16/23 10:53 Labs: Abnormal Lab Results - Last 24 Hours (Table) 12/16/23 12/16/23 Range/Units 10:53 10:53 Hgb 12.5 L (13.0-17.5) gm/dL Hct 35.9 L (39.0-53.0) % Lymphocytes # 0.9 L (1.0-4.8) k/uL Glucose 125 H (74-99) mg/dL Total Protein 5.7 L (6.3-8.2) g/dL Microbiology - Last 24 Hours (Table) 12/14/23 19:15 Blood Culture - Preliminary Blood Assessment and Plan (1) Leukocytosis Current Visit: Yes Status: Acute Code(s): D72.829 - ELEVATED WHITE BLOOD CELL COUNT, UNSPECIFIED SNOMED Code(s): 595185360 (2) Colitis, acute Current Visit: Yes Status: Acute Code(s): K52.9 - NONINFECTIVE GASTROENTERITIS AND COLITIS, UNSPECIFIED SNOMED Code(s): 48063037 (3) SIRS (systemic inflammatory response syndrome) Current Visit: No Status: Acute Code(s): R65.10 - SIRS OF NON-INFECTIOUS ORIGIN W/O ACUTE ORGAN DYSFUNCTION SNOMED Code(s): 620346263 Plan: 1patient presented to hospital with abdominal pain diarrhea with evidence of segmental colitis on the CT with a question of infection versus ischemic or inf lammatory in origin versus diverticulitis, patient has not been exposed to antibiotic and did have a negative stool for C. difficile. 2patient did have some clinical improvement in the patient white count has normalized we will keep the patient on Zosyn along with bowel rest and monitor clinical course closely Dictation was produced using [email or web address] dictation software. please excuse any grammatical, word or spelling errors.
--- NOTE | 2023-12-16 14:13 | P.PN ---
Subjective Progress Note Date: 12/16/23 68-year-old gentleman past medical history significant for hypertension, hyperlipidemia, COPD who presented to the ER for abdominal pain, vomiting and diarrhea . Patient stated he was all right a week ago when he started having cramping abdominal pain, abdominal pain was generalized, cramping in nature, i ntermittent, associated with vomiting and diarrhea. Patient stated he is having multiple bowel movements a day, all loose, no blood in the bowel movements. Patient also having vomiting. Denies any fever or chills. There is no complaint of chest pain or shortness of breath. Patient is complaining of loss of appetite and weight loss. Initial lab work done in the ER showed WBC 13.7, hemoglobin 13.8, platelet count 191, sodium 139, potassium 4.1, BUN 13, creatinine 1.11, glucose 139, lactate 0. 9, calcium 8.8, bilirubin 0.8, AST 27, ALT 24, CRP 11.5 CT abdominal and pelvis done showed moderate circumferential wall thickening along the segment of the colon including the cecum and ascending colon as well as the descending colon. Moderate circumferential wall thickening distal sigmoid colon and rectum UA negative for any infection Patient admitted to internal medicine service 12/15. Patient seen and examined. Abdominal pain has improved. Denies nausea or vomiting REVIEW OF SYSTEMS: CONSTITUTIONAL: No fever, no malaise,. CARDIOVASCULAR: No chest pain, no palpitations, no syncope. PULMONARY: No shortness of breath, no cough, GASTROINTESTINAL: No diarrhea, no nausea, no vomiting, no abdominal pain. NEUROLOGICAL: No headaches, no weakness, PHYSICAL EXAMINATION: GENERAL: The patient is alert and oriented x3, not in any acute distress. Well developed, well nourished. HEENT: Pupils are round and equally reacting to light. EOMI. No scleral icterus. No conjunctival pallor. Normocephalic, atraumatic. No pharyngeal erythema. No thyromegaly. CARDIOVASCULAR: S1 and S2 present. No murmurs, rubs, or gallops. PULMONARY: Chest is clear to auscultation, no wheezing or crackles. ABDOMEN: Soft, nontender, nondistended, normoactive bowel sounds. No palpable organomegaly. MUSCULOSKELETAL: No joint swelling or deformity. EXTREMITIES: No cyanosis, clubbing, or pedal edema. NEUROLOGICAL: Gross neurological examination did not reveal any focal deficits. SKIN: No rashes. Assessment and plan Abdominal pain could be secondary to acute diverticulitis Colitis History of COPD Chronic hypoxic respiratory failure Hypertension Hyperlipidemia Diabetes mellitus Monitor vital signs Monitor CBC Monitor CMP Ordered stool cultures stool for C. difficile is negative Ordered stool calprotectin Continue IV fluids continue antiemetics Continue IV Zosyn Surgery following ID following Labs and medication were reviewed.. Continue same treatment. Continue with symptomatic treatment. Resume home medication. Monitor labs and vitals. DVT and GI prophylaxis. Further recommendations as per clinical course of the patient Dictation was produced using [employer] dictation software. please excuse any grammatical, word or spelling errors. Objective - Vital Signs Vital signs: Vital Signs Temp 97.9 F 12/16/23 07:00 Pulse 76 12/16/23 09:54 Resp 20 12/16/23 07:00 BP 129/74 12/16/23 07:00 Pulse Ox 98 12/16/23 07:00 FiO2 Intake & Output 12/15/23 12/16/23 12/16/23 18:59 06:59 18:59 Other: Voiding Method Toilet Toilet # Voids 3 3 - Labs CBC & Chem 7: 12/16/23 10:53 12/16/23 10:53 Labs: Abnormal Lab Results - Last 24 Hours (Table) 12/15/23 Range/Units 05:35 WBC 11.82 H (4.50-10.00) X 10*3/uL Hgb 12.4 L (13.0-17.0) g/dL Hct 37.9 L (39.6-50.0) % RDW 14.7 H (11.5-14.5) % Immature Gran # 0.11 H (0.00-0.04) X 10*3/uL Neutrophils # 10.13 H (1.80-7.70) X 10*3/uL Lymphocytes # 0.78 L (0.90-5.00) X 10*3/uL Eosinophils # 0.01 L (0.04-0.35) X 10*3/uL Microbiology - Last 24 Hours (Table) 12/14/23 19:15 Blood Culture - Preliminary Blood
[2023-12-16 14:19] VITALS: BMI 33.5
--- NOTE | 2023-12-17 13:15 | P.PN ---
Subjective Progress Note Date: 12/17/23 Principal diagnosis: Reason for follow-up is colitis/diverticulitis Patient is a 68-year-old male with a past medical history significant for diabetes mellitus hypertension hyperlipidemia reflux COPD asthma presenting to the hospital for evaluation of abdominal pain and diarrhea patient did have elevated white count and fever CT with nonspecific segmental colitis has been eval by general surgery and considering likely diverticulitis. On today's evaluation that is 12/17/2023, Patient is afebrile patient is currently on room air and denies having any shortness of breath, the patient denies any chest pain or cough, the patient denies any nausea vomiting abdominal pain has slightly decreased intensity still complaining of diarrhea no blood or mucus in the stool. Patient white count normalized to 5.5 creatinine 0.76 as of yesterday no lab draw today blood cultures are pending Objective - Vital Signs Vital signs: Vital Signs Temp 97.8 F 12/17/23 07:00 Pulse 80 12/17/23 08:42 Resp 15 12/17/23 09:51 BP 126/69 12/17/23 07:00 Pulse Ox 95 12/17/23 08:30 FiO2 Intake & Output 12/16/23 12/17/23 12/17/23 18:59 06:59 18:59 Intake Total 118 Balance 118 Weight 108.862 kg Intake: Oral 118 Other: Voiding Method Toilet Toilet # Voids 1 3 # Bowel Movements 3 - Exam GENERAL DESCRIPTION: An elderly male lying in bed in no distress RESPIRATORY SYSTEM: Unlabored breathing , decreased breath sounds at bases HEART: S1 S2 regular rate and rhythm , ABDOMEN: Soft , mild tenderness EXTREMITIES: No edema feet - Labs CBC & Chem 7: 12/16/23 10:53 12/16/23 10:53 Labs: Abnormal Lab Results - Last 24 Hours (Table) 12/16/23 12/16/23 Range/Units 10:53 10:53 Hgb 12.5 L (13.0-17.5) gm/dL Hct 35.9 L (39.0-53.0) % Lymphocytes # 0.9 L (1.0-4.8) k/uL Glucose 125 H (74-99) mg/dL Total Protein 5.7 L (6.3-8.2) g/dL Microbiology - Last 24 Hours (Table) 12/14/23 19:15 Blood Culture - Preliminary Blood Assessment and Plan (1) Leukocytosis Current Visit: Yes Status: Acute Code(s): D72.829 - ELEVATED WHITE BLOOD CELL COUNT, UNSPECIFIED SNOMED Code(s): 394144533 (2) Colitis, acute Current Visit: Yes Status: Acute Code(s): K52.9 - NONINFECTIVE GASTROENTERITIS AND COLITIS, UNSPECIFIED SNOMED Code(s): 38961895 (3) SIRS (systemic inflammatory response syndrome) Current Visit: No Status: Acute Code(s): R65.10 - SIRS OF NON-INFECTIOUS ORIGIN W/O ACUTE ORGAN DYSFUNCTION SNOMED Code(s): 506046799 Plan: 1patient presented to hospital with abdominal pain diarrhea with evidence of segmental colitis on the CT with a question of infection versus ischemic or inflammatory in origin versus diverticulitis, patient has not been exposed to antibiotic and did have a negative stool for C. difficile. 2patient is slowly clinical improving white count has normalized continue with the Zosyn will transition to oral antibiotics on discharge Dictation was produced using [employer] dictation software. please excuse any grammatical, word or spelling errors. Time with Patient: Less than 30
[2023-12-17] MEDS: PANTOPRAZOLE 40 MG TABLET PO SCH (14:02)
[2023-12-17] MEDS: CHOLECALCIFEROL 25 MCG (1000 IU) TABLET PO SCH (14:02)
[2023-12-17] MEDS: LORATADINE 10 MG TAB PO SCH (14:02)
[2023-12-17] MEDS: LOSARTAN 50 MG TAB PO SCH (14:02)
--- NOTE | 2023-12-17 14:42 | P.PN ---
Subjective Progress Note Date: 12/17/23 68-year-old gentleman past medical history significant for hypertension, hyperlipidemia, COPD who presented to the ER for abdominal pain, vomiting and diarrhea . Patient stated he was all right a week ago when he started having cramping abdominal pain, abdominal pain was generalized, cramping in nature, i ntermittent, associated with vomiting and diarrhea. Patient stated he is having multiple bowel movements a day, all loose, no blood in the bowel movements. Patient also having vomiting. Denies any fever or chills. There is no complaint of chest pain or shortness of breath. Patient is complaining of loss of appetite and weight loss. Initial lab work done in the ER showed WBC 13.7, hemoglobin 13.8, platelet count 191, sodium 139, potassium 4.1, BUN 13, creatinine 1.11, glucose 139, lactate 0. 9, calcium 8.8, bilirubin 0.8, AST 27, ALT 24, CRP 11.5 CT abdominal and pelvis done showed moderate circumferential wall thickening along the segment of the colon including the cecum and ascending colon as well as the descending colon. Moderate circumferential wall thickening distal sigmoid colon and rectum UA negative for any infection Patient admitted to internal medicine service 12/15. Patient seen and examined. Abdominal pain has improved. Denies nausea or vomiting 12/16. Patient seen and examined. He feels much better. States weight is improved. Still having some diarrhea. No nausea or vomiting. REVIEW OF SYSTEMS: CONSTITUTIONAL: No fever, no malaise,. CARDIOVASCULAR: No chest pain, no palpitations, no syncope. PULMONARY: No shortness of breath, no cough, GASTROINTESTINAL: As mentioned above NEUROLOGICAL: No headaches, no weakness, PHYSICAL EXAMINATION: GENERAL: The patient is alert and oriented x3, not in any acute distress. Well developed, well nourished. HEENT: Pupils are round and equally reacting to light. EOMI. No scleral icterus. No conjunctival pallor. Normocephalic, atraumatic. No pharyngeal erythema. No thyromegaly. CARDIOVASCULAR: S1 and S2 present. No murmurs, rubs, or gallops. PULMONARY: Chest is clear to auscultation, no wheezing or crackles. ABDOMEN: Soft, nontender, nondistended, normoactive bowel sounds. No palpable organomegaly. MUSCULOSKELETAL: No joint swelling or deformity. EXTREMITIES: No cyanosis, clubbing, or pedal edema. NEUROLOGICAL: Gross neurological examination did not reveal any focal deficits. SKIN: No rashes. Assessment and plan Abdominal pain could be secondary to acute diverticulitis Colitis History of COPD Chronic hypoxic respiratory failure Hypertension Hyperlipidemia Diabetes mellitus Monitor vital signs Monitor CBC Monitor CMP Ordered stool cultures stool for C. difficile is negative Ordered stool calprotectin continue antiemetics Continue IV Zosyn Surgery following ID following Labs and medication were reviewed.. Continue same treatment. Continue with symptomatic treatment. Resume home medication. Monitor labs and vitals. DVT and GI prophylaxis. Further recommendations as per clinical course of the patient Dictation was produced using [employer] dictation software. please excuse any gr ammatical, word or spelling errors. Objective - Vital Signs Vital signs: Vital Signs Temp 97.8 F 12/17/23 07:00 Pulse 80 12/17/23 08:42 Resp 15 12/17/23 01:43 BP 126/69 12/17/23 07:00 Pulse Ox 95 12/17/23 08:30 FiO2 Intake & Output 12/16/23 12/17/23 12/17/23 18:59 06:59 18:59 Weight 108.862 kg Other: Voiding Method Toilet # Voids 1 3 - Labs CBC & Chem 7: 12/16/23 10:53 12/16/23 10:53 Labs: Abnormal Lab Results - Last 24 Hours (Table) 12/16/23 12/16/23 Range/Units 10:53 10:53 Hgb 12.5 L (13.0-17.5) gm/dL Hct 35.9 L (39.0-53.0) % Lymphocytes # 0.9 L (1.0-4.8) k/uL Glucose 125 H (74-99) mg/dL Total Protein 5.7 L (6.3-8.2) g/dL Microbiology - Last 24 Hours (Table) 12/14/23 19:15 Blood Culture - Preliminary Blood
[2023-12-17] MEDS: CYANOCOBALAMIN 500 MCG TAB PO SCH (15:39)
[2023-12-17] MEDS: IPRATROPIUM 0.5 MG/2.5 ML NEBU INHALATION SCH (15:51)
--- NOTE | 2023-12-17 17:52 | P.PN ---
Progress Note - Text Progress Note Date: 12/17/23 CHIEF COMPLAINT: Intractable abdominal pain with diarrhea HISTORY OF PRESENT ILLNESS: NAEO REVIEW OF ORGAN SYSTEMS: CONSTITUTIONAL: No fevers or chills. Obesity, BMI 33.5 EYES: Denies any trouble with vision. No glasses. HEENT: No difficulties with hearing. No nosebleeds. No difficulty swallowing. RESPIRATORY: History of bronchitis with sepsis 1 year ago. Has chronic obstructive pulmonary disease. Past history pneumonia. CARDIOVASCULAR: Denies any chest pain, palpitations, or recent heart attacks. Echo in 2023 demonstrates ejection fraction 55 to 60%. GASTROINTESTINAL: See above. Last colonoscopy 2 years ago. Has gastroesophageal reflux disease. Diverticulosis. PHYSICAL EXAM: VITALS: Reviewed CONSTITUTIONAL: Well developed and in no acute distress. EYES: Conjuctivae without sclera icterus. Extraocular movements grossly intact. HEAD, EARS, NOSE, THROAT: Moist buccal mucosa. Head is atraumatic, normocephalic. Hears conversational speech. No nasal drainage. RESPIRATORY: Non-labored respirations and equal bilateral excursions. No gross wheezes. CARDIOVASCULAR: Palpable 2+ radial pulses. ABDOMEN: Nontender. MUSCULOSKELETAL: No clubbing cyanosis or edema SKIN: Warm and well perfused with good skin turgor. NEUROLOGIC: Cranial nerves II through XII grossly intact. No focal or lateralizing signs. PSYCH: Appropriate affect. Alert and oriented to person, place and time. Displays appropriate insight. ASSESSMENT: 1. Abdominal pain likely due to diverticulitis 2. Chronic obstructive pulmonary disease on chronic steroid use 3. Prostate cancer 4. Chronic diarrhea due to colitis 5. Bronchiolitis per CT scan PLAN: 1. Low Fiber Diet. Recommend low fiber diet at least 1 week after discharge. 2. May follow-up as outpatient. 3. Ok for discharge from surgery standpoint
[2023-12-17 21:08] VITALS: RESP 16
[2023-12-17] MEDS: IPRATROPIUM-ALBUTEROL 3 ML NEB INHALATION SCH (21:21)
[2023-12-18] MEDS: SYMBICORT 80-4.5 MCG INHALER INHALATION SCH (08:06)
[2023-12-18 08:31] VITALS: BP 134/72; TEMP 98.1
--- NOTE | 2023-12-18 11:52 | P.PN ---
Subjective Progress Note Date: 12/18/23 CHIEF COMPLAINT: Intractable abdominal pain with diarrhea HISTORY OF PRESENT ILLNESS: The patient is a 68-year-old male who presented with lower abdominal pain and colitis. He is tolerating diet. Abdominal pain moderately resolved. He is feeling well. He had a bowel movement. His is at bedside. REVIEW OF ORGAN SYSTEMS: CONSTITUTIONAL: No fevers or chills. Obesity, BMI 33.5 EYES: Denies any trouble with vision. No glasses. HEENT: No difficulties with hearing. No nosebleeds. No difficulty swallowing. RESPIRATORY: History of bronchitis with sepsis 1 year ago. Has chronic obstructive pulmonary disease. Past history pneumonia. CARDIOVASCULAR: Denies any chest pain, palpitations, or recent heart attacks. Echo in 2023 demonstrates ejection fraction 55 to 60%. GASTROINTESTINAL: See above. Last colonoscopy 2 years ago. Has gastroesophageal reflux disease. Diverticulosis. PHYSICAL EXAM: VITALS: Reviewed CONSTITUTIONAL: Well developed and in no acute distress. EYES: Conjuctivae without sclera icterus. Extraocular movements grossly intact. HEAD, EARS, NOSE, THROAT: Moist buccal mucosa. Head is atraumatic, normocephalic. Hears conversational speech. No nasal drainage. RESPIRATORY: Non-labored respirations and equal bilateral excursions. No gross wheezes. CARDIOVASCULAR: Palpable 2+ radial pulses. ABDOMEN: No peritonitis. MUSCULOSKELETAL: No clubbing cyanosis or edema SKIN: Warm and well perfused with good skin turgor. NEUROLOGIC: Cranial nerves II through XII grossly intact. No focal or lateralizing signs. PSYCH: Appropriate affect. Alert and oriented to person, place and time. Displays appropriate insight. CLINCAL LABS: Reviewed. No new labs. Last WBC normal. ASSESSMENT: 1. Abdominal pain likely due to diverticulitis 2. Chronic obstructive pulmonary disease on chronic steroid use 3. Prostate cancer 4. Chronic diarrhea due to colitis 5. Bronchiolitis per CT scan PLAN: 1. Clinically he has done well. May be discharged from a surgical standpoint when medically stable. 2. Recommend low fiber diet for 2 weeks with continued antibiotics for 2 weeks Objective - Vital Signs Vital signs: Vital Signs Temp 98.1 F 12/18/23 07:00 Pulse 68 12/18/23 11:44 Resp 16 12/18/23 08:00 BP 134/72 12/18/23 07:00 Pulse Ox 94 L 12/18/23 08:15 FiO2 21 12/18/23 08:15 Intake & Output 12/17/23 12/18/23 12/18/23 18:59 06:59 18:59 Intake Total 474 Balance 474 Intake: Oral 474 Other: Voiding Method Toilet Toilet # Voids 1 1 # Bowel Movements 3 3 - Labs CBC & Chem 7: 12/16/23 10:53 12/16/23 10:53 Labs: Microbiology - Last 24 Hours (Table) 12/16/23 14:25 Stool Culture - Preliminary Stool 12/14/23 19:15 Blood Culture - Preliminary Blood
[2023-12-18 11:57] VITALS: PULSE 72
--- NOTE | 2023-12-18 12:57 | P.DS ---
Providers Date of admission: 12/16/23 13:01 Expected date of discharge: 12/18/23 Attending physician: Stanford Hughes Consults: 12/15/23 09:13 Consult Physician Urgent Consulting Provider: Ellen Glaser Consult Reason/Comments: colitis Do you want consulting provider notified?: Yes 12/15/23 13:28 Consult Physician Routine Consulting Provider: Lauri Rubin Consult Reason/Comments: colitis Do you want consulting provider notified?: Yes Primary care physician: Andres Pembroke Hospital Course: Discharge diagnoses; Abdominal pain could be secondary to acute diverticulitis Colitis History of COPD Chronic hypoxic respiratory failure Hypertension Hyperlipidemia Diabetes mellitus Hospital course; 68-year-old gentleman past medical history significant for hypertension, hyperlipidemia, COPD who presented to the ER for abdominal pain, vomiting and diarrhea . Patient stated he was all right a week ago when he started having cramping abdominal pain, abdominal pain was generalized, cramping in nature, intermittent, associated with vomiting and diarrhea. Patient stated he is having multiple bowel movements a day, all loose, no blood in the bowel movements. Patient also having vomiting. Denies any fever or chills. There is no complaint of chest pain or shortness of breath. Patient is complaining of loss of appetite and weight loss. Initial lab work done in the ER showed WBC 13.7, hemoglobin 13.8, platelet count 191, sodium 139, potassium 4.1, BUN 13, creatinine 1.11, glucose 139, lactate 0.9, calcium 8.8, bilirubin 0.8, AST 27, ALT 24, CRP 11.5 CT abdominal and pelvis done showed moderate circumferential wall thickening along the segment of the colon including the cecum and ascending colon as well as the descending colon. Moderate circumferential wall thickening distal sigmoid colon and rectum UA negative for any infection Patient admitted to internal medicine service 12/15. Patient seen and examined. Abdominal pain has improved. Denies nausea or vomiting 12/16. Patient seen and examined. He feels much better. States weight is improved. Still having some diarrhea. No nausea or vomiting. 12/17. Patient seen and examined. Being discharged on Ceftin and Flagyl for 10 days. Outpatient follow-up with PCP and surgery PHYSICAL EXAMINATION: GENERAL: The patient is alert and oriented x3, not in any acute distress. Well developed, well nourished. HEENT: Pupils are round and equally reacting to light. EOMI. No scleral icterus. No conjunctival pallor. Normocephalic, atraumatic. No pharyngeal erythema. No thyromegaly. CARDIOVASCULAR: S1 and S2 present. No murmurs, rubs, or gallops. PULMONARY: Chest is clear to auscultation, no wheezing or crackles. ABDOMEN: Soft, nontender, nondistended, normoactive bowel sounds. No palpable organomegaly. MUSCULOSKELETAL: No joint swelling or deformity. EXTREMITIES: No cyanosis, clubbing, or pedal edema. NEUROLOGICAL: Gross neurological examination did not reveal any focal deficits. SKIN: No rashes. Dictation was produced using [employer] dictation software. please excuse any grammatical, word or spelling errors. Patient Condition at Discharge: Good Plan - Discharge Summary New Discharge Prescriptions: New metroNIDAZOLE [Flagyl] 500 mg PO TID 10 Days #30 tab cefUROXime axetiL [Ceftin] 500 mg PO BID 10 Days #20 tab Continue Fluticasone/Umeclidin/Vilanter [Trelegy Ellipta 100-62.5-25] 1 puff INHALATION RT-DAILY Albuterol Nebulized [Ventolin Nebulized] 2.5 mg INHALATION RT-QID Theophylline 12 Hour [Reji-Dur] 300 mg PO BID Albuterol Sulfate [Proair Hfa] 2 puff INHALATION RT-QID PRN PRN Reason: Shortness Of Breath predniSONE 5 - 20 mg PO DAILY PRN PRN Reason: Breathing issues Cholecalciferol [Vitamin D3 (25 Mcg = 1000 Iu)] 25 mcg PO DAILY Cyclobenzaprine [Flexeril] 10 mg PO DAILY PRN PRN Reason: Muscle Pain Cetirizine HCl [Zyrtec] 10 mg PO DAILY glipiZIDE [Glucotrol] 10 mg PO DAILY PRN PRN Reason: when taking prednisone Cyanocobalamin (Vitamin B-12) [Vitamin B-12] 1,000 mcg PO DAILY Losartan [Cozaar] 50 mg PO DAILY Pantoprazole Sodium 20 mg PO DAILY Furosemide [Lasix] 20 mg PO DAILY PRN PRN Reason: Edema Tamsulosin [Flomax] 0.4 mg PO DAILY Discharge Medication List Albuterol Nebulized [Ventolin Nebulized] 2.5 mg INHALATION RT-QID 07/07/19 [History] Fluticasone/Umeclidin/Vilanter [Trelegy Ellipta 100-62.5-25] 1 puff INHALATION RT-DAILY 07/07/19 [History] Theophylline 12 Hour [Reji-Dur] 300 mg PO BID 07/11/20 [History] Albuterol Sulfate [Proair Hfa] 2 puff INHALATION RT-QID PRN 02/06/21 [History] Losartan [Cozaar] 50 mg PO DAILY 02/06/21 [History] Pantoprazole Sodium 20 mg PO DAILY 02/06/21 [History] Furosemide [Lasix] 20 mg PO DAILY PRN 06/25/23 [History] predniSONE 5 - 20 mg PO DAILY PRN 06/25/23 [History] Cetirizine HCl [Zyrtec] 10 mg PO DAILY 12/14/23 [History] Cholecalciferol [Vitamin D3 (25 Mcg = 1000 Iu)] 25 mcg PO DAILY 12/14/23 [History] Cyanocobalamin (Vitamin B-12) [Vitamin B-12] 1,000 mcg PO DAILY 12/14/23 [History] Cyclobenzaprine [Flexeril] 10 mg PO DAILY PRN 12/14/23 [History] Tamsulosin [Flomax] 0.4 mg PO DAILY 12/14/23 [History] glipiZIDE [Glucotrol] 10 mg PO DAILY PRN 12/14/23 [History] cefUROXime axetiL [Ceftin] 500 mg PO BID 10 Days #20 tab 12/18/23 [Rx] metroNIDAZOLE [Flagyl] 500 mg PO TID 10 Days #30 tab 12/18/23 [Rx] Follow up Appointment(s)/Referral(s): Ellen Glaser MD [STAFF PHYSICIAN] - 01/03/24 3:00 pm Andres Torres DO [Primary Care Provider] - 1-2 days Patient Instructions/Handouts: Diverticulitis (GEN), Low Fiber Diet (GEN), Diverticulitis Diet (DC) Activity/Diet/Wound Care/Special Instructions: Low fiber diet without seeds advised. Low residue diet until 01/01/2024. Discharge Disposition: HOME SELF-CARE
--- NOTE | 2023-12-18 13:31 | P.PN ---
Subjective Progress Note Date: 12/18/23 Principal diagnosis: Reason for follow-up is colitis/diverticulitis Patient is a 68-year-old male with a past medical history significant for diabetes mellitus hypertension hyperlipidemia reflux COPD asthma presenting to the hospital for evaluation of abdominal pain and diarrhea patient did have elevated white count and fever CT with nonspecific segmental colitis has been eval by general surgery and considering likely diverticulitis. On today's evaluation that is 12/18/2023, patient has been afebrile, patient is breathing comfortably and is currently on room air, patient denies having any significant cough no chest pain shortness of breath, patient denies nausea vomiting abdominal pain has decreased in intensity tolerating his diet and diarrhea historian. Patient white count remains to be normal no new labs Has been repeated today blood culture has been negative Objective - Vital Signs Vital signs: Vital Signs Temp 98.1 F 12/18/23 07:00 Pulse 72 12/18/23 11:57 Resp 16 12/18/23 08:00 BP 134/72 12/18/23 07:00 Pulse Ox 94 L 12/18/23 08:15 FiO2 21 12/18/23 08:15 Intake & Output 12/17/23 12/18/23 12/18/23 18:59 06:59 18:59 Intake Total 474 Balance 474 Intake: Oral 474 Other: Voiding Method Toilet Toilet # Voids 1 1 # Bowel Movements 3 3 - Exam GENERAL DESCRIPTION: An elderly male lying in bed in no distress RESPIRATORY SYSTEM: Unlabored breathing , decreased breath sounds at bases HEART: S1 S2 regular rate and rhythm , ABDOMEN: Soft , mild tenderness EXTREMITIES: No edema feet - Labs CBC & Chem 7: 12/16/23 10:53 12/16/23 10:53 Labs: Microbiology - Last 24 Hours (Table) 12/16/23 14:25 Stool Culture - Preliminary Stool 12/14/23 19:15 Blood Culture - Preliminary Blood Assessment and Plan (1) Leukocytosis Current Visit: Yes Status: Acute Code(s): D72.829 - ELEVATED WHITE BLOOD CELL COUNT, UNSPECIFIED SNOMED Code(s): 229938070 (2) Colitis, acute Current Visit: Yes Status: Acute Code(s): K52.9 - NONINFECTIVE GASTROENTERITIS AND COLITIS, UNSPECIFIED SNOMED Code(s): 96508191 (3) SIRS (systemic inflammatory response syndrome) Current Visit: No Status: Acute Code(s): R65.10 - SIRS OF NON-INFECTIOUS ORIGIN W/O ACUTE ORGAN DYSFUNCTION SNOMED Code(s): 259911638 Plan: 1patient presented to hospital with abdominal pain diarrhea with evidence of segmental colitis on the CT with a question of infection versus ischemic or inflammatory in origin versus diverticulitis, patient has not been exposed to antibiotic and did have a negative stool for C. difficile. 2patient has shown clinical improvement and the patient be cleared for discharge by admitting team we will suggest a 10-day course of oral Ceftin and Flagyl because the patient follow-up patient started to increase his probiotic and yogurt intake and if any worsening symptoms to let me know right away Dictation was produced using [employer] dictation software. please excuse any grammatical, word or spelling errors. Time with Patient: Less than 30
--- NOTE | 2023-12-21 13:16 | CDI ---
Documentation Clarification Form Date: 12/21/2023 11:57:14 AM From: Wendy Fonseca RN, CCDS Phone: [phone] Admit Date: 12/16/2023 01:01:00 PM Patient Name: Leonid Manning Visit Number: [id number] Discharge Date: 12/18/2023 01:55:00 PM ATTENTION: The Clinical Documentation Specialists (CDI) and [facility] Coding Staff appreciate your assistance in clarifying documentation. Please respond to the clarification below the line at the bottom and electronically sign. The CDI & [facility] Coding staff will review the response and follow-up if needed. Please note: Queries are made part of the Legal Health Record. If you have any questions, please contact the author of this message via ITS. Dr. Abelardo Barrera The patient had acute diverticulitis, tachycardia, leukocytosis and fever. Based on this information and the findings below, is there an additional diagnosis that is clinically appropriate for this patient? History/Risk Factors: sepsis, asthma, COPD, DM, eye disorder, GERD, HLD, HTN, pneumonia, respiratory disorder. Presented with abdominal pain, diarrhea and vomiting. Admitted with acute diverticulitis. Clinical Indicators: ED: "patient CAT scan showed inflammation throughout the colon and because the patient had a fever and a white count, I started the patient on antibiotics and admitted the patient." 12/14 Surgery consult: "Patient presented with elevated white blood cell count. Abdominal pain likely due to diverticulitis." 12/13-12/15 WBC: 13.7-11.82-5.5 12/14 CRP: 11.50 12/13 Vital signs: Temp 101.2, HR 103 12/14 Vital signs: Temp 102.4 Treatment: 12/14 ID Consult: "Leukocytosis; Colitis, acute; SIRS." Antibiotics: IV Zosyn 3.375gm x1 on 12/13; IV Zosyn 3.375gm Q8H 12/14-12/17 IV Bolus: 1L 0.9 NS IV bolus x1 on 12/13 Is there an additional diagnosis that is clinically appropriate for this patient? [ x] Sepsis, present on admission [ ] SIRS, without underlying infectious process [ ] No additional diagnosis/not clinically significant [ ] Other, please specify [ ] Unable to determine SIRS Criteria: 2 or more of the following may indicate SIRS Temperature < 96.8F (36C) or > 101.0F (38.3C) Heart Rate > 90 bpm Respiratory Rate > 20 breaths/min or PaCO2 < 32 mmHg White Blood Cell Count > 12,000 or < 4,000 cells/mm3 or > 10% bands MTDD
== END 2023-12-18 13:55 | disposition home or self-care (01) | DRG 872 ==
LOC: EC 15:31 → 6NMEDSUR 19:22 → OBSVTOIN 12-16 13:01
PROVIDERS: ADMIT Hospitalist; ATTEND Hospitalist
DX: A41.9 Sepsis, unspecified organism (principal); K57.32 Diverticulitis of large intestine without perforation or abscess without bleeding; J96.11 Chronic respiratory failure with hypoxia; J44.9 Chronic obstructive pulmonary disease, unspecified; E11.42 Type 2 diabetes mellitus with diabetic polyneuropathy; C61 Malignant neoplasm of prostate; K52.9 Noninfective gastroenteritis and colitis, unspecified; I10 Essential (primary) hypertension; E78.5 Hyperlipidemia, unspecified; Z79.52 Long term (current) use of systemic steroids; Z79.84 Long term (current) use of oral hypoglycemic drugs; Z79.899 Other long term (current) drug therapy; Z80.1 Family history of malignant neoplasm of trachea, bronchus and lung; Z86.16 Personal history of COVID-19; Z87.01 Personal history of pneumonia (recurrent); Z90.49 Acquired absence of other specified parts of digestive tract
CPT/HCPCS: 36415; 74177; 80048; 80053; 81001; 82150; 83605; 83690; 83993; 85025; 85652; 86140; 87040; 87045; 87046; 87324; 94640; 94760; 99285

== ENCOUNTER → 2024-09-12 | Outpatient (CLI) | payer MEDICARE ==
--- NOTE | 2024-09-12 11:55 | CTL ---
EXAMINATION TYPE: CT Low Dose Lung DATE OF EXAM: 09/12/2024 11:37 AM COMPARISON: None. CLINICAL INDICATION: Male, 69 years old with history of Z12.2 SCREENING LUNG CA Z87.891 FORMER SMOKER ; Former smoker, was 1 ppd x 30 years, quit 2016 hx COPD, chronic bronchitis, history of tobacco use. TECHNIQUE: Multiple axial non-contrast scans were obtained from approximately the lung apices through the upper abdomen. Coronal and sagittal reformatted images were obtained. Low dose technique was uti lized. MIP were created on a separate workstation and submitted for review. CT DLP: 105 mGycm, Automated exposure control for dose reduction was used. CT Contrast: Contrast used: None Oral contrast used: None FINDINGS: Lack of intravenous contrast and low dose technique limits the evaluation of the vascular and soft ti ssue structures. LUNGS: No evidence of pulmonary fibrosis. No evidence of focal consolidation, pneumothorax or pleural effusion. Centrilobular emphysema changes. Scattered paraseptal emphysema changes also present. Nodules: Scattered calcified granulomas throughout the lungs most proximal right lung base. RUL: None. RML: Intrafissural lymph node series 3 image 2:15. RLL: Scattered calcified granulomas LAURENCE: Nodule-like area on series 6 image 40 and series 3 image 112 measuring 8 mm appears to be a vessel bifurcation on sagittal imaging. There is a subpleural nodule along the left heart border seri es 3 image 172 measuring 5 mm. LLL: None. AIRWAY: Bronchiectasis most proximal in the lung bases.. HEART: Size within normal limits. Moderate coronary artery calcifications present. MEDIASTINUM: No gross evidence of adenopathy. Scattered partially calcified lymph nodes in the medias tinum. VASCULATURE: No aortic aneurysm. MUSCULOSKELETAL: No acute osseous abnormalities SOFT TISSUES/LYMPH NODES: Unremarkable. LOWER NECK: No significant findings. UPPER ABDOMEN: Scattered calcified granulomas in the spleen. IMPRESSION: 1. No clinically significant pulmonary nodules. 2. Moderate emphysema and moderate COPD changes.. 3. Sequela of chronic granulomatous disease with pulmonary calcified granulomas and 6 splenic calcifi ed granulomas and partially calcified lymph nodes. CT LUNG RAD AND CT CHEST RECOMMENDATION: Lung-Rad 2 Benign Appearance or Behavior: Continue annual sc reening with LDCT in 12 months. This is stable from prior. S Modifier (other clinically significant findings): None Recommend smoking cessation (if current smoker), or continuation of smoking cessation (if prior smoke r). Annual screening for lung cancer with low-dose computed tomography is recommended in adults ages 55 to 77 years who have a 30 pack-year smoking history and currently smoke or have quit within the pa st 15 years. Screening should be discontinued once a person has not smoked for 15 years or develops a health problem that substantially limits life expectancy or the ability or willingness to have curat ebony lung surgery. Lung rads 2021 [email or web address] [facility], , 09/12/2024 11:53 AM
== END | disposition home or self-care (01) ==
LOC: RADCTMAIN 10:23
PROVIDERS: ATTEND Internal Medicine Critical Care Medicine
DX: Z12.2 Encounter for screening for malignant neoplasm of respiratory organs (principal); J44.9 Chronic obstructive pulmonary disease, unspecified; J43.2 Centrilobular emphysema; Z87.891 Personal history of nicotine dependence
CPT/HCPCS: 71271

== ENCOUNTER 2024-11-14 12:07 | Day surgery (SDC) | payer MEDICARE ==
[2024-11-13 11:47] VITALS: BMI 30.4
[2024-11-14 12:46] VITALS: TEMP 98.2
[2024-11-14] MEDS: LACTATED RINGERS 1,000 ML IV SCH (12:56)
[2024-11-14] MEDS: IV FLUID CONTINUATION 1,000 ML IV ONE (12:59)
[2024-11-14] MEDS ORDERED: LIDOCAINE 1% INJ 10MG/ML (20 ML MDV) ONE (13:37)
[2024-11-14] MEDS ORDERED: PROPOFOL 10 MG/ML 20 ML VIAL IV ONE (13:37)
--- NOTE | 2024-11-14 13:59 | P.PCN ---
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 Respiratory secretions, rule out tracheobronchitis No other abnormalities identified Procedure(s) Performed: Flexible bronchoscopy, bronchoalveolar lavage of the right middle lobe Anesthesia: MAC Surgeon: Carlo Purvis Estimated Blood Loss (ml): 0 Pathology: other Condition: stable Disposition: same day Operative Findings: This procedure was done in the endoscopy suite. A consent was signed and the timeout was obtained. Following that, the patient was placed under sedation by [employer]. After achieving adequate sedation, the flexor bronchoscope was introduced through the right nostril and was advanced into the posterior oropharynx. Examination of the upper airway was done and this included the pharynx and the larynx. The pharyngeal laryngeal structures were dynamically collapsible suggestive underlying obstructive sleep apnea. I was able to maneuver the flex bronchoscope and inspect upper airway structures and the visualized structures included epiglottis, vallecula, arytenoids and the vocal cords. Everything was within normal limits. The vocal cord function and mobility was also within normal limits. A total of 2 cc of 1% lidocaine was applied to the vocal cord and following that the flexible bronchoscope was introduced into the upper trachea Examination tracheobronchial tree showed moderate amount of loose creamy respiratory secretions throughout the airways. Secretions were essentially present on the membranous wall of the trachea, bilateral mainstem bronchi, covering the right upper lobe bronchus and present in the lower lobe bronchi subsegments. Therapeutic airway suctioning was done and the secretions were cleared. An airway suction was done. Entire trachea was patent and there was no endobronchial abnormalities. Right mainstem bronchus was within normal limits. Right upper lobe bronchus was patent. The base segments of the right upper lobe were occluded with endobronchial [place] valve. There was some secretions covering those valves and those were irrigated and suctioned out without any major difficulties. Following that, the bronchoscope was moved to the right middle lobe and right lower lobe in the very segments and subsegments were inspected and they were all within normal limits. The bronchoscope was then moved to the left and examination of the left mainstem bronchus, left upper lobe and left lower bronchi and the various subsegments on the left were all within normal limits. The bronchoscope was then moved to the right middle lobe and a bronchial lavage was done. A total of 60 cc of saline was infused in the right middle lobe and a 20 cc of aspirate was obtained and the aspirate was nonbloody. The respiratory secretions were cleared and all secretions were removed. The bronchoscope was removed and the patient was transferred to recovery in stable condition. No complications.
[2024-11-14 14:25] LABS: Glucose,Whole Blood 103 mg/dL (70-110)
[2024-11-14 14:40] VITALS: BP 138/77; PULSE 77; RESP 16
[2024-11-14 20:47] LABS: Appearance,BF Bloody (Clear); RBC, Body Fluid 40000 /UL (0-2000)
[2024-11-15 09:40] LABS: Nucleated Cells, Body Fluid 1450 /UL
== END 2024-11-14 14:43 | disposition home or self-care (01) ==
LOC: ORWHC2ENDO 12:07
PROVIDERS: ATTEND Internal Medicine Critical Care Medicine
DX: J44.89 Other specified chronic obstructive pulmonary disease (principal); J43.2 Centrilobular emphysema; C61 Malignant neoplasm of prostate; I10 Essential (primary) hypertension; E11.9 Type 2 diabetes mellitus without complications; E78.5 Hyperlipidemia, unspecified; K21.9 Gastro-esophageal reflux disease without esophagitis; Z22.39 Carrier of other specified bacterial diseases; R91.8 Other nonspecific abnormal finding of lung field; Z79.52 Long term (current) use of systemic steroids; Z79.84 Long term (current) use of oral hypoglycemic drugs; Z79.51 Long term (current) use of inhaled steroids; Z79.899 Other long term (current) drug therapy; Z87.891 Personal history of nicotine dependence; Z86.16 Personal history of COVID-19
CPT/HCPCS: 31624; 31645; 87798 ×3; 87496; 87498; 87529; 88108; 88305; 89050; 87502; 87634; 87070; 87205; 87116; 87102; 87206; 87635; J2003; J2704